=== PATIENT | male | born 1955 | race Caucasian/White ===

== ENCOUNTER → 2018-01-06 08:36 | Outpatient (CLI) | payer OTHER, SELFPAY ==
[2018-01-06 10:05] LABS: Alanine Aminotransferase 33 U/L (12-78); Albumin Level 3.7 gm/dL (3.4-5.0); Albumin/Globulin Ratio 1.1 (1.1-1.8); Alkaline Phosphatase 80 U/L (46-116); Anion Gap 9.9 mEq/L (5-15); Aspartate Amino Transferase 11 U/L (15-37); Bilirubin,Total 0.4 mg/dL (0.2-1.0); Blood Urea Nitrogen 13 mg/dL (7-18); Calcium 8.8 mg/dL (8.5-10.1); Carbon Dioxide 31 mmol/L (21.0-32.0); Chloride 106 mmol/L (98-107); Chol/HDL Ratio 4.2 (1-3.5); Cholesterol 180 mg/dL (140-200); Creatinine,Serum 1.49 mg/dL (0.70-1.30); Estimated Glomerular Filt Rate 48 ml/min (>60); GFR (African American) 58 ML/MIN (>60); Globulin 3.4 gm/dl (1.3-3.2); Glucose 115 mg/dL (74-106); HDL Cholesterol 43 mg/dL (27-67); LDL Cholesterol 114 mg/dL (0-130); Potassium 4.9 mmoL/L (3.5-5.1); Sodium 142 mmol/L (136-145); Thyroid Stimulating Hormone 3.27 uIU/ml (0.358-3.740); Total Protein,Serum 7.1 gm/dL (6.4-8.2); Triglycerides 115 mg/dL (30-200); VLDL Cholesterol 23 mg/dL (0-40)
== END ==
PROVIDERS: PCP Family Medicine; Visit Provider Family Medicine
DX: I25.10 Atherosclerotic heart disease of native coronary artery without angina pectoris (principal); E03.9 Hypothyroidism, unspecified; R73.9 Hyperglycemia, unspecified; E78.5 Hyperlipidemia, unspecified
CPT/HCPCS: 36415; 80053; 80061; 83036; 84443

== ENCOUNTER → 2018-01-19 15:22 | Outpatient (CLI) | payer OTHER, SELFPAY ==
--- NOTE | 2018-01-19 15:29 | XR_ITS ---
XR knee LT 3V HISTORY: ITS.REASON: LT KNEE PAIN ORDERING PHYSICIAN: Skinny Centeno MD PATIENT AGE: 62 years COMPARISON: None FINDINGS: No fracture or dislocation. No lytic or blastic change. Normal mineralization. There is slight decrease in the joint space medially minimal osteoarthritic change. IMPRESSION: Minimal osteoarthritis medial compartment otherwise negative
== END ==
PROVIDERS: PCP Family Medicine; Visit Provider Family Medicine
DX: M25.562 Pain in left knee (principal)
CPT/HCPCS: 73562

== ENCOUNTER → 2018-02-25 16:48 | Outpatient (CLI) | payer OTHER, SELFPAY ==
--- NOTE | 2018-02-25 16:49 | XR_ITS ---
XR knee LT 4V HISTORY: Knee pain ITS.REASON: sunrisereynaldo views ORDERING PHYSICIAN: Lloyd Love MD PATIENT AGE: 62 years COMPARISON: 01/19/2019 FINDINGS: There are moderate osteoarthritic changes involving the medial compartment with decrease in the joint space, mild osteosclerosis, and mild osteophyte formation. There is mild lateral translation of the proximal tibia. Minimal osteoarthritic changes are present at the knee joint. There is some increased density in the suprapatellar region suggesting small knee joint effusion. IMPRESSION: Osteoarthritis with possible knee joint effusion. Not significantly changed
--- NOTE | 2018-02-25 16:49 | XR_ITS ---
XR knee RT 4V HISTORY: Knee pain ITS.REASON: 4 views weightbearing ORDERING PHYSICIAN: Lloyd Love MD PATIENT AGE: 62 years COMPARISON: None FINDINGS: There is moderate osteoarthritic change of the medial compartment with mild osteoarthritis of the lateral compartment and patellofemoral joint. No fracture or dislocation. No lytic or blastic change. IMPRESSION: Osteoarthritis
== END ==
PROVIDERS: PCP Family Medicine; Visit Provider Orthopaedic Surgery
DX: M25.561 Pain in right knee (principal); M25.562 Pain in left knee
CPT/HCPCS: 73564

== ENCOUNTER → 2018-12-07 09:17 | Outpatient (CLI) | payer OTHER, SELFPAY ==
--- NOTE | 2018-12-07 09:23 | XR_ITS ---
XR knee LT 4V HISTORY: Progressive knee pain ITS.REASON: weightbearing views ORDERING PHYSICIAN: Lloyd Love MD PATIENT AGE: 63 years COMPARISON: 02/25/2018 FINDINGS: There are mild to moderate osteoarthritic changes of the medial compartment slightly worse than when compared to the previous study. Mild osteoarthritic changes present at the patellofemoral joint. IMPRESSION: [id number] osteoarthritis of the medial compartment which is slightly worse
--- NOTE | 2018-12-07 09:23 | XR_ITS ---
XR knee RT 4V HISTORY: Knee pain progressive ITS.REASON: weightbearing ORDERING PHYSICIAN: Lloyd Love MD PATIENT AGE: 63 years COMPARISON: 02/25/2018 FINDINGS: There are mild to moderate osteoarthritic changes of the medial compartment with decrease in joint space medially somewhat similar to 02/25/2018. There is a small calcific density along the superior aspect of the lateral tibial spine suggesting a loose body or an osteophyte unchanged. Mild osteoarthritic changes are present at the lateral compartment and patellofemoral joint. No fracture or dislocation. No lytic or blastic change. IMPRESSION: [id number] osteoarthritis with small loose body or osteophyte at the lateral tibial spine
== END ==
PROVIDERS: PCP Family Medicine; Visit Provider Orthopaedic Surgery
DX: M17.11 Unilateral primary osteoarthritis, right knee (principal); M17.12 Unilateral primary osteoarthritis, left knee
CPT/HCPCS: 73564

== ENCOUNTER 2019-03-28 23:37 | Inpatient (IN) ==
[2019-03-28 23:55] LABS: Basophils # 0.1 K/mm3 (0-0.2); Basophils % 0.4 % (0.1-2.0); Eosinophils # 0.1 K/mm3 (0.0-0.4); Eosinophils % 0.6 % (0.1-12.0); Hematocrit 41.7 % (42.0-52.0); Hemoglobin 13.2 g/dL (14.1-18.0); Lymphocytes # 11.4 K/mm3 (0.7-4.5); Lymphocytes % 86.3 % (10-50); Mean Corpuscular HGB Conc 31.6 g/dL (31.8-35.4); Mean Corpuscular Volume 93.2 fl (80-94); Mean Platelet Volume 11.1 fl (7.4-10.4); Monocytes # 1.6 K/mm3 (0.1-1.0); Monocytes % 12.4 % (1.7-9.3); Neutrophils # 0.1 K/mm3 (1.8-7.8); Platelet Count 207 K/mm3 (142-424); Red Blood Count 4.48 M/mm3 (4.60-6.20); Red Cell Distribution Width 16.4 % (11.5-17.5); White Blood Count 13.2 K/mm3 (4.8-10.8)
[2019-03-29 00:07] LABS: Neutrophils % 0.4 % (37.0-80.0)
[2019-03-29 00:31] LABS: Microscopic, Urine URINE MICROSCOPIC (MICROSCOPIC)
[2019-03-29 00:35] LABS: Appearance,Urine CLEAR (Clear); Blood, Urine TRACE-I (Negative); Color,Urine YELLOW (Yellow); Glucose,Urine (UA) Negative (Negative); Ketones,Urine Negative (Negative); Leukocyte Esterase,Urine Negative (Negative); Protein,Urine 1+ (Negative); Specific Gravity, Urine >= 1.030 (1.005-1.030)
[2019-03-29 00:38] LABS: Bilirubin,Urine Negative (Negative)
[2019-03-29 00:39] LABS: Alanine Aminotransferase 227 U/L (12-78); Albumin/Globulin Ratio 0.6 (1.1-1.8); Alkaline Phosphatase 191 U/L (46-116); Amylase 27 U/L (25-115); Anion Gap 13.9 mEq/L (5-15); Aspartate Amino Transferase 26 U/L (15-37); Blood Urea Nitrogen 14 mg/dL (7-18); Calcium 9.1 mg/dL (8.5-10.1); Carbon Dioxide 24 mmol/L (21.0-32.0); Chloride 104 mmol/L (98-107); Globulin 4.8 gm/dl (1.3-3.2); Glucose 109 mg/dL (74-106); Sodium 138 mmol/L (136-145); Total Protein,Serum 7.8 gm/dL (6.4-8.2)
[2019-03-29 00:40] LABS: Bacteria,Urine 2+ /lpf; Hyaline Casts,Urine Occasional #/lpf (0); Mucus,Urine 1+ /lpf; WBC,Urine Occasional #/hpf (0-3)
[2019-03-29 00:48] LABS: Lymphocytes % 31 % (10-50); Monocytes % 1 % (2-9); Neutrophils % 68 % (42-76); Ovalocytes 1+; Stomatocytes 1+; Total Cells Counted 100
[2019-03-29 00:55] LABS: Amphetamine/Metha Screen,Urine Negative ng/mL (<1000); Barbiturates Screen,Urine Negative ng/mL (<200); Benzodiazepines Screen,Urine Positive ng/mL (<200); Cannabinoid Screen,Urine Negative ng/mL (<50); Cocaine Screen,Urine Negative ng/mL (<300); Methadone Screen,Urine Negative ng/mL (<300); Opiate Screen,Urine Negative ng/mL (<300); Phencyclidine Screen,Urine Negative ng/mL (<25)
--- NOTE | 2019-03-29 01:08 | Emergency Department Note ---
ED Disposition Clinical Impression: Atrial arrhythmia Obesity Qualifiers: Obesity type: due to excess calories Obesity classification: adult class 3 (BMI >= 40) Serious obesity comorbidity presence: with serious comorbidity Body mass index: BMI 40.0-44.9 Qualified Code(s): E66.01 - Morbid (severe) obesity due to excess calories; Z68.41 - Body mass index (BMI) 40.0-44.9, adult Disposition: Admitted As Inpatient Condition on Discharge: Fair Referrals: Skinny Centeno MD [Primary Care Provider] - - Critical Care Critical Care Time: No Attestation: On 03/28/19, the high probability of a clinically significant, sudden or life threatening deterioration of the following system(s) required my full and direct attention, intervention and personal management. The time I documented below is in addition to time spent performing reported procedures but includes the following listed in this critical care notation. Medical Decision Making - Medical Records Medical records reviewed: Yes: I reviewed the patient's medical records. - Papito Inquiry Pt receiving controlled substance: No Vital Signs: 03/28/19 23:38 03/29/19 01:37 Pulse Rate [Right Brachial] 79 108 H Respiratory Rate 16 16 Blood Pressure [Right Arm] 124/82 119/97 H Blood Pressure Mean [Right Arm] 96 104 Blood Pressure Source [Right Arm] Automatic Cuff Automatic Cuff Blood Pressure Position [Right Arm] Sitting Sitting 02 Sat by Pulse Oximetry 98 98 Oxygen Delivery Method Room Air Room Air - Lab Data Lab results reviewed: Yes: I reviewed the patient's lab results. Lab Results 03/28/19 23:45: WBC 13.2 H, RBC 4.48 L, Hgb 13.2 L, Hct 41.7 L, MCV 93.2, MCH 29.4, MCHC 31.6 L, RDW 16.4, Plt Count 207, MPV 11.1 H, Neut % (Auto) 0.4 L, Lymph % (Auto) 86.3 H, [place] % (Auto) 12.4 H, Eos % (Auto) 0.6, Baso % (Auto) 0.4, Neut # (Auto) 0.1 L*, Lymph # (Auto) 11.4 H, [place] # (Auto) 1.6 H, Eos # (Auto) 0.1, Baso # (Auto) 0.1, Total Counted 100, Neutrophils % (Manual) 68, Lymphocytes % (Manual) 31, Monocytes % (Manual) 1 L, Differential Comment , Platelet Estimate Normal, Ovalocytes 1+, Stomatocytes 1+ 03/29/19 00:05: Sodium 138, Potassium 3.9, Chloride 104, Carbon Dioxide 24, Anion Gap 13.9, BUN 14, Creatinine 1.52 H, Estimated Creat Clear 55, Estimated GFR 47 L, Est GFR ( Amer) 57 L, Glucose 109 H, Calcium 9.1, Total B ilirubin 1.0, AST 26, ALT 227 H, Alkaline Phosphatase 191 H, Troponin I < 0.02, Total Protein 7.8, Albumin 3.0 L, Globulin 4.8 H, Albumin/Globulin Ratio 0.6 L, Amylase 27, Lipase 201 03/29/19 00:05: Lactate 1.3 03/29/19 00:25: Urine Color Yellow, Urine Appearance Clear, Urine pH 6.0, Ur Specific [place] >= 1.030, Urine Protein 1+, Urine Glucose (UA) Negative, Urine Ketones Negative, Urine Blood Trace-i, Urine Nitrate Negative, Urine Bilirubin Negative, Urine Urobilinogen 2.0, Ur Leukocyte Esterase Negative, Urine RBC 3-5, Urine WBC Occasional, Urine Bacteria 2+, Hyaline Casts Occasional, Urine Mucus 1+ 03/29/19 00:25: Urine Opiates Screen Negative, Urine Methadone Screen Negative, Ur Barbituates Screen Negative, Ur Phencyclidine Scrn Negative, Ur Amphetamines Screen Negative, U Benzodiazepines Scrn Positive H, Urine Cocaine Screen Negative, U Marijuana (THC) Screen Negative Result diagrams: 03/28/19 23:45 03/29/19 00:05 Orders (Tests/Meds): ED MEDICATIONS Generic Name Dose Route Start Last Admin Trade Name Freq PRN Reason Stop Dose Admin Sodium Chloride 1,000 mls @ 999 mls/hr 03/29/19 01:30 03/29/19 01:40 Sod Chlor 0.9% 1000ml Bag IV 03/29/19 02:30 999 mls/hr .Q1H1M MEREDITH Administration Discontinued Medications Generic Name Dose Route Start Last Admin Trade Name Freq PRN Reason Stop Dose Admin Ioversol 75 ml 03/29/19 01:39 03/29/19 01:39 Rad-Optiray 350 100ml Vial IV 03/29/19 01:40 75 ml ONCE ONE Administration Protocol Sodium Chloride 10 ml 03/29/19 01:39 03/29/19 01:39 Rad-Saline Flush 10ml Syringe IV 03/29/19 01:40 10 ml ONCE ONE Administration ORDERS Category Date Time Status CT abdomen pelvis w con Stat Cat Scan 03/29/19 00:[address] head/brain wo con Stat Cat Scan 03/29/19 00:01 Taken XR chest AP Stat Exams 03/29/19 00:01 Taken T4 (Thyroxine) Stat Lab 03/29/19 02:42 Ordered TSH [Thyroid Stimulating Hormone] Stat Lab 03/29/19 02:42 Ordered Blood Culture Stat Micro 03/29/19 00:05 Received Urine Culture Stat Micro 03/29/19 00:25 Received - CT Data CT Scan: Head, Abdomen, Pelvis Time Received: 03:[address] Reviewed: Yes: I have viewed the radiologist's interpretation Preliminary Findings: Abnormal (see report) - ECG Data Tracing #1 Arrhythmias present: aflutter Ischemic changes: non-specific ST-T wave changes Tracing #2 Arrhythmias present: afib Ischemic changes: non-specific ST-T wave changes - Physician Consults Physician Consulted: earnest Reason -: Admission Weakness HPI - General Chief complaint: Weakness Stated complaint: Weakness Time Seen by Provider: 03/29/19 00:00 Mode of Arrival: Ambulatory Source of Information: Patient, Spouse, Medical Record Limitations: No Limitations Description of Symptoms (Recalled from ER Triage Doc. by RN): Pt advises he was sitting in the floor earlier and went to get up and felt a pop in his left lower quad.And started having severe pain in his abd. advises pt was lethargic and diaphoretic. Pt presents to the ED slow to answer questions and advises that he feels "fuzzy headed" and was having severe abd pain earlier. - History of Present Illness HPI Narrative: had episode at home with dizzyness and confusion with diaphorsis with weakness MD Complaint: generalized weakness Onset (ago): hour(s) Location: generalized Severity: moderate Associated symptoms: denies other symptoms - Related Data Home Medications Medication Instructions Recorded Confirmed alprazolam 1 mg tablet 1 mg PO BID 02/25/18 03/29/19 duloxetine 60 mg capsule,delayed 60 mg PO DAILY 02/25/18 03/29/19 release gabapentin 600 mg tablet 600 mg PO BID 02/25/18 03/29/19 levothyroxine 50 mcg capsule 50 mcg PO DAILY 02/25/18 03/29/19 lurasidone 40 mg tablet 60 mg PO DAILY 02/25/18 03/29/19 mirtazapine 45 mg tablet 45 mg PO DAILY 02/25/18 03/29/19 hydrOXYzine pamoate [Hydroxyzine 100 mg PO TID 03/29/19 03/29/19 Pamoate] Allergies Allergy/AdvReac Type Severity Reaction Status Date / Time Erythromycin Allergy Unknown Uncoded 12/07/18 09:55 Macrolide Allergy Unknown Uncoded 12/07/18 09:55 (Erythromycin-Related) [facility] History - Hepatitis A Screen Drug use history?: No High risk sexual behaviors?: No History of sexually transmitted infection?: No Currently employed?: No Childcare worker?: No Do you have indoor plumbing?: No Do you have electricity?: No Attestation statement:: This patient has been screened for Hepatitis A risk factors. I have reviewed the patient's past medical history: Yes Medical History: Reports:: Anxiety Other Medical History: Reports: Arthritis, Hypothyroidism Other Surgeries: Yes: Appendectomy, Cardiac Surgery, Colonoscopy - Social History Smoking Status: Never smoker Alcohol Intake: never Occupational Status: unemployed - Psychiatric History Pschychiatric History:: Reports:: Anxiety Family Hx:: Heart Attack ROS Obtained: Yes All systems reviewed & no additional complaints - Constitutional Constitutional: Reports as per HPI, Denies fever(s), Reports weakness - Eyes Eyes: Denies change in vision - ENT Ears, Nose, Mouth, and Throat: Denies throat swelling, Reports vertigo/dizziness - Cardiovascular Cardiovascular: Denies chest pain - Respiratory Respiratory: No cough - Gastrointestinal Gastrointestingal: Denies: abdominal pain - Genitourinary Male Genitourinary: Denies hematuria - Musculoskeletal Musculoskeletal: Denies joint pain - Integumentary/Breasts Skin/Breast: Denies rash - Neurologic Neurologic: Reports as per HPI, Denies abnormal speech, Reports confusion, Denies convulsions, Reports dizziness, Denies seizure-like activity Physical Exam - General General appearance: alert, obese - Head Head exam: normocephalic - Eye Eye exam: Present: PERRL, EOMI. Absent: scleral icterus, nystagmus - ENT ENT exam: Present: mucous membranes dry - Neck Neck exam: Present: trachea midline - Respiratory Respiratory exam: Absent: respiratory distress - Cardiovascular Cardiovascular exam: Present: irregular rhythm, systolic murmur, +S4 - Abdominal Exam Abdominal exam: Present: soft - Extremities Exam Extremities exam: Present: pedal edema. Absent: calf tenderness - Neurological Exam Neurological exam: Present: alert, oriented X3, CN II-XII intact - Skin Skin exam: Absent: rash
[2019-03-29 03:16] LABS: Thyroid Stimulating Hormone 7.18 uIU/ml (0.358-3.740)
[2019-03-29 06:11] LABS: Basophils % 0.3 % (0.1-2.0); Eosinophils # 0.1 K/mm3 (0.0-0.4); Eosinophils % 0.7 % (0.1-12.0); Hemoglobin 12.7 g/dL (14.1-18.0); Lymphocytes # 10.5 K/mm3 (0.7-4.5); Lymphocytes % 91.5 % (10-50); Mean Corpuscular Volume 93.6 fl (80-94); Mean Platelet Volume 10.1 fl (7.4-10.4); Monocytes # 0.8 K/mm3 (0.1-1.0); Monocytes % 7.1 % (1.7-9.3); Neutrophils # 0.1 K/mm3 (1.8-7.8); Platelet Count 207 K/mm3 (142-424); Red Blood Count 4.38 M/mm3 (4.60-6.20); Red Cell Distribution Width 16.4 % (11.5-17.5); White Blood Count 11.5 K/mm3 (4.8-10.8)
[2019-03-29 06:13] LABS: Neutrophils % 0.4 % (37.0-80.0)
[2019-03-29 06:27] LABS: Anion Gap 11.2 mEq/L (5-15); Blood Urea Nitrogen 13 mg/dL (7-18); Calcium 8.7 mg/dL (8.5-10.1); Carbon Dioxide 27 mmol/L (21.0-32.0); Chloride 105 mmol/L (98-107); Cholesterol 140 mg/dL (140-200); Glucose 102 mg/dL (74-106); HDL Cholesterol 35 mg/dL (27-67); LDL Cholesterol 93 mg/dL (0-130); Sodium 139 mmol/L (136-145); Triglycerides 62 mg/dL (30-200); VLDL Cholesterol 12 mg/dL (0-40)
--- NOTE | 2019-03-29 07:49 | Pharmacy Consult Notes ---
[facility] Pharmacy VTE Monitoring - Patient Demographics Admission date: 03/29/19 Report Date: 03/29/19 Time: 07:49 Allergies/Adverse Reactions: Patient Allergies Erythromycin Allergy (Unknown, Uncoded 12/07/18 09:55) Macrolide (Erythromycin-Related) Allergy (Unknown, Uncoded 12/07/18 09:55) Height: 1.83 m Weight: 146.312 kg Patient Problems: Current Active Problems Atrial arrhythmia (Acute) Obesity (Acute) - VTE Risk Labs: VTE Related Lab Results Hgb 12.7 g/dL (14.1-18.0) L 03/29/19 05:45 Hct 41.0 % (42.0-52.0) L 03/29/19 05:45 Plt Count 207 K/mm3 (142-424) 03/29/19 05:45 BUN 13 mg/dL (7-18) 03/29/19 05:45 Creatinine 1.39 mg/dL (0.70-1.30) H 03/29/19 05:45 Estimated Creat Clear 60 mL/min (50-200) 03/29/19 05:45 Was VTE Risk Assessment Performed: No VTE Score: 6 VTE Risk Level: Moderate Risk - Prophylaxis VTE Prophylaxis Ordered?: Yes Types of VTE Prophylaxis: TEDS Knee High Location of Applied Device: Bilateral Lower Extremeties - VTE Diagnosis Confirmed Treatment or plan recommended: Continue Current Treatment
--- NOTE | 2019-03-29 08:01 | Consult Report ---
History of Present Illness Consult date: 03/29/19 Requesting physician: Skinny Centeno Consult reason: atrial fibrillation Chief complaint: Abdominal pain, new onset A. fib with RVR Additional Medical History:: 1. Coronary artery disease A. Single-vessel CABG, 1995, [place], [place], [employer] utilized 2. Hypothyroidism 3. Obesity 4. Chronic pain secondary to knee and back issues with chronic gabapentin and benzodiazepine use 5. History of marijuana use 6. History of hypertension, currently on no medication 7. Hyperlipidemia, on statin therapy but patient's states he is not taking it History of present illness: 63-year-old white male with history of coronary bypass grafting in 1995, chronic pain and obesity presented to the emergency department for diaphoresis and weakness in association with abdominal pain. Patient denies any recent fever, chills, nausea, vomiting or diarrhea. Patient's states that he does not complain of any chest pain but has had some abdominal discomfort recently for which she has been taking ibuprofen intermittently. Patient has a sedentary lifestyle due to his knee and back issues. ER work-up included abdominal CT showing evidence of pancreatitis, chest x-ray showing some mild cardiomegaly but no evidence of congestive heart failure and CT of the head showed no acute process. Amylase and lipase are within normal limits. Troponins returned normal x2 overnight. EKG revealed atrial flutter/fibrillation with right bundle branch block with rapid ventricular response and rate of about 120 bpm. This is not new to the patient and his . No prior diagnosis. Patient denies any unilateral weakness. He is able to answer questions appropriately. Cardiology consulted for evaluation recommendations. Patient's states that if he has to have any invasive procedures she wishes them to be done in [facility] History Medical History: Reports:: Anxiety, Coronary Artery Disease, Hyperlipidemia, Hypertension, Myocardial Infarction Denies:: Cancer, Diabetes Mellitus Type 1, Diabetes Mellitus Type 2, MRSA *Have you ever received a pneumonia vaccine?: No *Have you received a flu vaccine this season?: Yes Other Medical History: Reports: Arthritis, Hypothyroidism Other Surgeries: Yes: Appendectomy, Cardiac Surgery, Colonoscopy, Open Heart Surgery Amputation: No Fractures: No - *Social History Educational Level: Completed High School Smoking Status: Never smoker Alcohol Intake: never Substance Use Type: marijuana *Occupational Status:: retired Housing: house Household Members: spouse *Travel in the last 8 weeks: None - Psychiatric History Pschychiatric History:: Reports:: Anxiety Family Hx:: Heart Attack, Stroke Meds Home Medications Medication Instructions Recorded Confirmed Type alprazolam 1 mg tablet 1 mg PO BID 02/25/18 03/29/19 History duloxetine 60 mg capsule,delayed 60 mg PO DAILY 02/25/18 03/29/19 History release gabapentin 600 mg tablet 600 mg PO BID 02/25/18 03/29/19 History levothyroxine 50 mcg capsule 50 mcg PO DAILY 02/25/18 03/29/19 History lurasidone 40 mg tablet 60 mg PO DAILY 02/25/18 03/29/19 History mirtazapine 45 mg tablet 45 mg PO DAILY 02/25/18 03/29/19 History hydrOXYzine pamoate [Hydroxyzine 100 mg PO TID 03/29/19 03/29/19 History Pamoate] Allergies Allergy/AdvReac Type Severity Reaction Status Date / Time Erythromycin Allergy Unknown Uncoded 12/07/18 09:55 Macrolide Allergy Unknown Uncoded 12/07/18 09:55 (Erythromycin-Related) Review of Systems - Review of Systems Review of systems:: pertinent systems reviewed and negative unless documented below - *Cardiovascular Reports shortness of breath with activity, Denies chest pain - *Respiratory Denies cough, Denies shortness of breath - *Gastrointestinal Reports abdominal pain, Denies nausea, Denies vomiting - *Genitourinary Denies blood in urine - *Musculoskeletal Reports joint pain, Reports back pain - *Neurologic Reports confusion, Reports dizziness, Reports dizziness, Reports weakness, Denies abnormal speech, Denies seizure-like activity, Denies seizure-like activity Exam Vital signs and Labs for Last 24 Hours: Temp Pulse Resp BP Pulse Ox 97.7 F 100 H 19 139/89 97 03/29/19 04:32 03/29/19 04:58 03/29/19 04:32 03/29/19 04:32 03/29/19 04:32 Laboratory Results - last 24 hr 03/28/19 23:45: WBC 13.2 H, RBC 4.48 L, Hgb 13.2 L, Hct 41.7 L, MCV 93.2, MCH 29.4, MCHC 31.6 L, RDW 16.4, Plt Count 207, MPV 11.1 H, Neut % (Auto) 0.4 L, Lymph % (Auto) 86.3 H, [place] % (Auto) 12.4 H, Eos % (Auto) 0.6, Baso % (Auto) 0.4, Neut # (Auto) 0.1 L*, Lymph # (Auto) 11.4 H, [place] # (Auto) 1.6 H, Eos # (Auto) 0.1, Baso # (Auto) 0.1, Total Counted 100, Neutrophils % (Manual) 68, Lymphocytes % (Manual) 31, Monocytes % (Manual) 1 L, Differential Comment , Platelet Estimate Normal, Ovalocytes 1+, Stomatocytes 1+ 03/29/19 00:05: Sodium 138, Potassium 3.9, Chloride 104, Carbon Dioxide 24, Anion Gap 13.9, BUN 14, Creatinine 1.52 H, Estimated Creat Clear 55, Estimated GFR 47 L, Est GFR ( Amer) 57 L, Glucose 109 H, Calcium 9.1, Total Bilirubin 1.0, AST 26, ALT 227 H, Alkaline Phosphatase 191 H, Troponin I < 0.02, Total Protein 7.8, Albumin 3.0 L, Globulin 4.8 H, Albumin/Globulin Ratio 0.6 L, Amylase 27, Lipase 201 03/29/19 00:05: Lactate 1.3 03/29/19 00:05: TSH 7.18 H D, Thyroxine (T4) 8.3 03/29/19 00:25: Urine Color Yellow, Urine Appearance Clear, Urine pH 6.0, Ur Specific [place] >= 1.030, Urine Protein 1+, Urine Glucose (UA) Negative, Urine Ketones Negative, Urine Blood Trace-i, Urine Nitrate Negative, Urine Bilirubin Negative, Urine Urobilinogen 2.0, Ur Leukocyte Esterase Negative, Urine RBC 3-5, Urine WBC Occasional, Urine Bacteria 2+, Hyaline Casts Occasional, Urine Mucus 1+ 03/29/19 00:25: Urine Opiates Screen Negative, Urine Methadone Screen Negative, Ur Barbituates Screen Negative, Ur Phencyclidine Scrn Negative, Ur Amphetamines Screen Negative, U Benzodiazepines Scrn Positive H, Urine Cocaine Screen Negative, U Marijuana (THC) Screen Negative 03/29/19 05:45: WBC 11.5 H, RBC 4.38 L, Hgb 12.7 L, Hct 41.0 L, MCV 93.6, MCH 29.0, MCHC 31.0 L, RDW 16.4, Plt Count 207, MPV 10.1, Neut % (Auto) 0.4 L, Lymph % (Auto) 91.5 H, [place] % (Auto) 7.1, Eos % (Auto) 0.7, Baso % (Auto) 0.3, Neut # (Auto) 0.1 L*, Lymph # (Auto) 10.5 H, [place] # (Auto) 0.8, Eos # (Auto) 0.1, Baso # (Auto) 0.0 03/29/19 05:45: Sodium 139, Potassium 4.2, Chloride 105, Carbon Dioxide 27, Anion Gap 11.2, BUN 13, Creatinine 1.39 H, Estimated Creat Clear 60, Estimated GFR 52 L, Est GFR ( Amer) 63, Glucose 102, Calcium 8.7, Magnesium 2.0, Troponin I < 0.02, Triglycerides 62, Cholesterol 140, LDL Cholesterol 93, VLDL Cholesterol 12, HDL Cholesterol 35, Cholesterol/HDL Ratio 4.0 H I & O for Last 24 hours: Intake & Output 03/26/19 03/27/19 03/28/19 03/29/19 11:59 11:59 11:59 11:59 Intake Total 102 / 102 Balance 102 / 102 Weight 322 lb 9 oz - *Routine HEENT Exam Head: Present: normocephalic Eye: Present: EOMI, PERRL ENT: Present: mucous membranes moist - *Routine Neck Exam Present: supple. Absent: JVD, carotid bruit - *Routine Respiratory Exam Present: CTA bilaterally. Absent: accessory muscle use, rales, rhonchi, wheezes - *Routine Cardiovascular Exam Present: tachycardia, irregular rhythm. Absent: murmur, gallop, rubs - *Routine Abdominal Exam Present: soft. Absent: tenderness, distended, guarding - *Routine Extremities Exam Absent: edema, calf tenderness - *Routine Neurological Exam Present: alert, oriented X3, moving all extremities Assessment and Plan (1) Atrial fibrillation and flutter Current visit: Yes Status: Acute Category: Medical Code(s): I48.91 - Unspecified atrial fibrillation; I48.92 - Unspecified atrial flutter (2) Atrial fibrillation with RVR Current visit: Yes Status: Acute Category: Medical Code(s): I48.91 - Unspecified atrial fibrillation (3) History of coronary artery bypass graft x 1 Current visit: Yes Status: Acute Category: Surgical Code(s): Z95.1 - Presence of aortocoronary bypass graft (4) Abdominal pain Current visit: Yes Status: Acute Category: Medical Code(s): R10.9 - Unspecified abdominal pain (5) CKD (chronic kidney disease), stage II Current visit: Yes Status: Acute Category: Medical Code(s): N18.2 - Chronic kidney disease, stage 2 (mild) (6) Elevated LFTs Current visit: Yes Status: Acute Category: Medical Code(s): R94.5 - Abnormal results of liver function studies - Assessment and plan all Dx Assessment and Plan for all problems:: 1. Echocardiogram has been performed and is pending official interpretation, however, preliminary evaluation shows preserved ejection fraction with no significant valvular heart disease. This was a limited study due to the patient's size. 2. Switch diltiazem over to p.o. 30 mg 3 times daily with adjusting as needed to keep heart rate less than 100 bpm and to keep systolic blood pressure greater than 100 mmHg. 3. Patient has a CHADS score of 2 (HTN, CAD), will therefore start him on anticoagulation therapy in the form of Xarelto 20 mg daily. If patient has not converted to NSR within 30 days then would consider RON/Cardioversion. 4. Consider Lexiscan Myoview stress test once patient's heart rate has control been controlled.
--- NOTE | 2019-03-29 08:56 | History & Physical Report ---
*Admission Date: 03/29/19 <Summer Amos - 03/29/19 08:56> *Chief complaint: Altered mental status; diaphoresis <Summer Amos - 03/29/19 09:35> *History of present illness: Mr. Maguire is a 63-year-old male with a history of obesity, anxiety, depression, ASCVD, degenerative disc disease of the lumbar spine, bilateral knee arthritis, hyperlipidemia, and hypothyroidism who presented to [facility] emergency room after being found by his on the couch with profuse sweating and a dazed state. She stated that she gave him 10 minutes to improve and when he remained diaphoretic she called EMS to bring him to the hospital. He denied chest pain and shortness of breath at this time. Patient had experienced abdominal pain earlier in the day but this had resolved. He had had some left pleuritic-like pain for which he had been taking ibuprofen 400 mg several times a day for the last few days. He had been eating normally and denied nausea and vomiting although he had been experiencing increase in heartburn for the last 2 weeks. states he has been eating many donuts and fried apple pies which she felt contributed to the persistent GERD. Patient denied any upper respiratory symptoms, fever, vomiting and diarrhea. Patient is noted to have a sedentary lifestyle due to his joint issues. Work-up in the emergency room included a CT of the abdomen/pelvis which showed evidence of a possible pancreatitis. Chest x-ray revealed mild cardiomegaly with no evidence of congestive heart failure. CT of the head showed no acute process. Amylase and lipase were noted to be normal. Troponins were also normal x2 overnight. EKG revealed atrial fibrillation with a right bundle branch block with a rapid ventricular response and rate of about 120 bpm. Patient was started on Cardizem drip and admitted to the hospital. He has been seen by cardiology. Echocardiogram has been completed with pending results. He has been in his hospital bed since about 5 AM. He continually denies any chest pain and shortness of breath. He remains in atrial fibrillation and on a Cardizem drip. <Summer Amos - 03/29/19 09:56> [facility] History Medical History: Reports:: Anxiety, Coronary Artery Disease, Depression, Gastroesophageal Reflux Disease(GERD), Hyperlipidemia, Hypertension, Myocardial Infarction Denies:: Atherosclerotic Heart Disease, Cancer, Diabetes Mellitus Type 1, Diabetes Mellitus Type 2, MRSA, Palpitations <Summer Amos 03/29/19 09:35> *Have you ever received a pneumonia vaccine?: No <Summer Amos 03/29/19 08 :56> *Have you received a flu vaccine this season?: Yes <Summer Amos 03/29/19 08:56> Other Medical History: Reports: Arthritis, Hypothyroidism <AmosSummer 03/29/19 08:56> Other Surgeries: Yes: Appendectomy, Cardiac Surgery, Colonoscopy, Open Heart Surgery <DandreSummer 03/29/19 08:56> Amputation: No <DandreSummer 03/29/19 08:56> Fractures: No <DandreSummer 03/29/19 08:56> - *Social History Educational Level: Completed High School <DandreSummer 03/29/19 08:56> Smoking Status: Never smoker <AmosSummer 03/29/19 08:56> Alcohol Intake: never <DandreSummer 03/29/19 08:56> Substance Use Type: marijuana <DandreSummer 03/29/19 08:56> *Occupational Status:: retired <DandreSummer 03/29/19 08:56> Housing: house <DandreSummer 03/29/19 08:56> Household Members: spouse <DandreSummer 03/29/19 08:56> *Travel in the last 8 weeks: None <AmosSummer 03/29/19 08:56> - Psychiatric History Pschychiatric History:: Reports:: Anxiety, Depression <AmosSummer 03/29/19 09:35> Family Hx:: Heart Attack, Hypertension, Stroke <AmosSummer 03/29/19 09:35> Review of Systems - Constitutional Reports weakness, Denies body ache(s), Denies fever(s), Denies headache(s) <DandreSummer 03/29/19 09:35> - Eyes Denies change in vision <DandreSummer 03/29/19 09:35> - ENT Reports dizziness, Denies ear pain, Denies facial pain, Denies sore throat <Summer Amos 03/29/19 09:35> - *Cardiovascular Reports shortness of breath with activity, Denies chest pain, Denies rapid, pounding, or irregular heartbeat <Summer Amos 03/29/19 09:35> - *Respiratory Reports shortness of breath with activity, Denies chest congestion, Denies cough, Denies coughing up blood <[facility] 03/29/19 09:35> - *Gastrointestinal Reports abdominal pain (Resolved at present), Reports constipation, Reports heartburn, Denies belching, Denies bloating, Denies change in bowel habits, Denies change in stools, Denies vomiting blood, Denies black, tarry stools, Denies nausea, Denies vomiting <[facility] 03/29/19 09:35> - *Genitourinary Denies difficulty urinating <[facility] 03/29/19 09:35> - *Musculoskeletal Reports joint pain (Bilateral knees and back) <[facility] 09:35> - *Neurologic Reports confusion, Reports dizziness, Reports dizziness, Reports weakness, Denies abnormal speech, Denies seizure-like activity, Denies seizure-like activity <Summer Amos 03/29/19 08:56> - Psychiatric Reports anxiety, Reports confusion, Reports depression <[facility] 03/29/19 09:35> Meds Home Medications Medication Instructions Recorded Confirmed Type alprazolam 1 mg tablet 1 mg PO DAILY 02/25/18 03/29/19 History duloxetine 60 mg capsule,delayed 60 mg PO DAILY 02/25/18 03/29/19 History release levothyroxine 50 mcg capsule 50 mcg PO DAILY 02/25/18 03/29/19 History mirtazapine 45 mg tablet 45 mg PO HS 02/25/18 03/29/19 History Gabapentin 600 mg PO TID 03/29/19 03/29/19 History Lurasidone HCl [Latuda] 60 mg PO HS 03/29/19 03/29/19 History hydrOXYzine pamoate [Hydroxyzine 100 mg PO TIDP PRN 03/29/19 03/29/19 History Pamoate] <Skinny Centeno - 03/29/19 13:08> Allergies Allergy/AdvReac Type Severity Reaction Status Date / Time erythromycin base Allergy Unknown Unknown Verified 03/29/19 09:12 allergy reaction <Skinny Centeno - 03/29/19 13:08> Exam Vital signs and Labs for Last 24 Hours: Temp Pulse Resp BP Pulse Ox 97.9 F 102 H 18 143/81 H 95 03/29/19 11:56 03/29/19 10:00 03/29/19 10:00 03/29/19 10:00 03/29/19 10:00 Laboratory Results - last 24 hr 03/28/19 23:45: WBC 13.2 H, RBC 4.48 L, Hgb 13.2 L, Hct 41.7 L, MCV 93.2, MCH 29.4, MCHC 31.6 L, RDW 16.4, Plt Count 207, MPV 11.1 H, Neut % (Auto) 0.4 L, Lymph % (Auto) 86.3 H, [place] % (Auto) 12.4 H, Eos % (Auto) 0.6, Baso % (Auto) 0.4, Neut # (Auto) 0.1 L*, Lymph # (Auto) 11.4 H, [place] # (Auto) 1.6 H, Eos # (Auto) 0.1, Baso # (Auto) 0.1, Total Counted 100, Neutrophils % (Manual) 68, Lymphocytes % (Manual) 31, Monocytes % (Manual) 1 L, Differential Comment , Platelet Estimate Normal, Ovalocytes 1+, Stomatocytes 1+ 03/29/19 00:05: Sodium 138, Potassium 3.9, Chloride 104, Carbon Dioxide 24, Anion Gap 13.9, BUN 14, Creatinine 1.52 H, Estimated Creat Clear 55, Estimated GFR 47 L, Est GFR ( Amer) 57 L, Glucose 109 H, Calcium 9.1, Total Bilirubin 1.0, AST 26, ALT 227 H, Alkaline Phosphatase 191 H, Troponin I < 0.02, Total Protein 7.8, Albumin 3.0 L, Globulin 4.8 H, Albumin/Globulin Ratio 0.6 L, Amylase 27, Lipase 201 03/29/19 00:05: Lactate 1.3 03/29/19 00:05: TSH 7.18 H D, Thyroxine (T4) 8.3 03/29/19 00:25: Urine Color Yellow, Urine Appearance Clear, Urine pH 6.0, Ur Specific [place] >= 1.030, Urine Protein 1+, Urine Glucose (UA) Negative, Urine Ketones Negative, Urine Blood Trace-i, Urine Nitrate Negative, Urine Bilirubin Negative, Urine Urobilinogen 2.0, Ur Leukocyte Esterase Negative, Urine RBC 3-5, Urine WBC Occasional, Urine Bacteria 2+, Hyaline Casts Occasional, Urine Mucus 1+ 03/29/19 00:25: Urine Opiates Screen Negative, Urine Methadone Screen Negative, Ur Barbituates Screen Negative, Ur Phencyclidine Scrn Negative, Ur Amphetamines Screen Negative, U Benzodiazepines Scrn Positive H, Urine Cocaine Screen Negative, U Marijuana (THC) Screen Negative 03/29/19 05:45: WBC 11.5 H, RBC 4.38 L, Hgb 12.7 L, Hct 41.0 L, MCV 93.6, MCH 29.0, MCHC 31.0 L, RDW 16.4, Plt Count 207, MPV 10.1, Neut % (Auto) 0.4 L, Lymph % (Auto) 91.5 H, [place] % (Auto) 7.1, Eos % (Auto) 0.7, Baso % (Auto) 0.3, Neut # (Auto) 0.1 L*, Lymph # (Auto) 10.5 H, [place] # (Auto) 0.8, Eos # (Auto) 0.1, Baso # (Auto) 0.0 03/29/19 05:45: Sodium 139, Potassium 4.2, Chloride 105, Carbon Dioxide 27, Anion Gap 11.2, BUN 13, Creatinine 1.39 H, Estimated Creat Clear 60, Estimated GFR 52 L, Est GFR ( Amer) 63, Glucose 102, Calcium 8.7, Magnesium 2.0, Troponin I < 0.02, Triglycerides 62, Cholesterol 140, LDL Cholesterol 93, VLDL Cholesterol 12, HDL Cholesterol 35, Cholesterol/HDL Ratio 4.0 H 03/29/19 09:40: Troponin I < 0.02 <JacoboSkinny Adriano - 03/29/19 13:08> Temp Pulse Resp BP Pulse Ox 97.7 F 100 H 19 139/89 97 03/29/19 04:32 03/29/19 04:58 03/29/19 04:32 03/29/19 04:32 03/29/19 04:32 Laboratory Results - last 24 hr 03/28/19 23:45: WBC 13.2 H, RBC 4.48 L, Hgb 13.2 L, Hct 41.7 L, MCV 93.2, MCH 29.4, MCHC 31.6 L, RDW 16.4, Plt Count 207, MPV 11.1 H, Neut % (Auto) 0.4 L, Lymph % (Auto) 86.3 H, [place] % (Auto) 12.4 H, Eos % (Auto) 0.6, Baso % (Auto) 0.4, Neut # (Auto) 0.1 L*, Lymph # (Auto) 11.4 H, [place] # (Auto) 1.6 H, Eos # (Auto) 0.1, Baso # (Auto) 0.1, Total Counted 100, Neutrophils % (Manual) 68, Lymphocytes % (Manual) 31, Monocytes % (Manual) 1 L, Differential Comment , Platelet Estimate Normal, Ovalocytes 1+, Stomatocytes 1+ 03/29/19 00:05: Sodium 138, Potassium 3.9, Chloride 104, Carbon Dioxide 24, Anion Gap 13.9, BUN 14, Creatinine 1.52 H, Estimated Creat Clear 55, Estimated GFR 47 L, Est GFR ( Amer) 57 L, Glucose 109 H, Calcium 9.1, Total Bilirubin 1.0, AST 26, ALT 227 H, Alkaline Phosphatase 191 H, Troponin I < 0.02, Total Protein 7.8, Albumin 3.0 L, Globulin 4.8 H, Albumin/Globulin Ratio 0.6 L, Amylase 27, Lipase 201 03/29/19 00:05: Lactate 1.3 03/29/19 00:05: TSH 7.18 H D, Thyroxine (T4) 8.3 03/29/19 00:25: Urine Color Yellow, Urine Appearance Clear, Urine pH 6.0, Ur Specific [place] >= 1.030, Urine Protein 1+, Urine Glucose (UA) Negative, Urine Ketones Negative, Urine Blood Trace-i, Urine Nitrate Negative, Urine Bilirubin Negative, Urine Urobilinogen 2.0, Ur Leukocyte Esterase Negative, Urine RBC 3-5, Urine WBC Occasional, Urine Bacteria 2+, Hyaline Casts Occasional, Urine Mucus 1+ 03/29/19 00:25: Urine Opiates Screen Negative, Urine Methadone Screen Negative, Ur Barbituates Screen Negative, Ur Phencyclidine Scrn Negative, Ur Amphetamines Screen Negative, U Benzodiazepines Scrn Positive H, Urine Cocaine Screen Negative, U Marijuana (THC) Screen Negative 03/29/19 05:45: WBC 11.5 H, RBC 4.38 L, Hgb 12.7 L, Hct 41.0 L, MCV 93.6, MCH 29.0, MCHC 31.0 L, RDW 16.4, Plt Count 207, MPV 10.1, Neut % (Auto) 0.4 L, Lymph % (Auto) 91.5 H, [place] % (Auto) 7.1, Eos % (Auto) 0.7, Baso % (Auto) 0.3, Neut # (Auto) 0.1 L*, Lymph # (Auto) 10.5 H, [place] # (Auto) 0.8, Eos # (Auto) 0.1, Baso # (Auto) 0.0 03/29/19 05:45: Sodium 139, Potassium 4.2, Chloride 105, Carbon Dioxide 27, Anion Gap 11.2, BUN 13, Creatinine 1.39 H, Estimated Creat Clear 60, Estimated GFR 52 L, Est GFR ( Amer) 63, Glucose 102, Calcium 8.7, Magnesium 2.0, Troponin I < 0.02, Triglycerides 62, Cholesterol 140, LDL Cholesterol 93, VLDL Cholesterol 12, HDL Cholesterol 35, Cholesterol/HDL Ratio 4.0 H <Summer Amos - 03/29/19 08:56> I & O for Last 24 hours: Intake & Output 03/27/19 03/28/19 03/29/19 03/30/19 11:59 11:59 11:59 11:59 Intake Total 102 / 102 Balance 102 / 102 Weight 322 lb 9 oz <Skinny Centeno - 03/29/19 13:08> Intake & Output 03/26/19 03/27/19 03/28/19 03/29/19 11:59 11:59 11:59 11:59 Intake Total 102 / 102 Balance 102 / 102 Weight 322 lb 9 oz <Summer Amos - 03/29/19 08:56> Radiology Reports for the Last 24 Hours: 03/29/2019 CT of the abdomen and pelvis IMPRESSION: Enlarged body of the pancreas with stranding of the peripancreatic fat consistent with acute pancreatitis. 03/29/2019 chest x-ray IMPRESSION: Borderline cardiomegaly. Old fractures of the left 4th and 5th rib and possibly 3rd rib versus nodule at the 3rd rib region. Consider upright PA and lateral chest for further evaluation. 03/29/2019 CT of the head IMPRESSION: No acute intracranial finding <Amos,[facility] 03/29/19 09:35> - Constitutional no acute distress, obese <[facility] 03/29/19 09:35> Comments: Appears comfortable <Amos,[facility] 03/29/19 09:35> - *Routine HEENT Exam Head: Present: normocephalic, atraumatic <[facility] 03/29/19 09:35> Eye: Present: PERRL. Absent: conjunctival icterus, scleral injection <[facility] 03/29/19 09:35> ENT: Present: mucous membranes moist, oropharynx clear <[facility] 03/29/19 09:35> - *Routine Neck Exam Present: supple. Absent: normal carotid upstroke, lymphadenopathy, thyromegaly <[facility] 03/29/19 09:35> - *Routine Respiratory Exam Present: CTA bilaterally (Anteriorly and posteriorly) <[facility] 03/29/19 09:35> - *Routine Cardiovascular Exam Present: irregular rhythm <[facility] 03/29/19 09:35> Comments: Monitor showing atrial fibrillation with with ventricular response 110-120 <[facility] 03/29/19 09:35> - *Routine Abdominal Exam Present: normoactive bowel sounds, obese. Absent: tenderness, guarding, organomegaly <[facility] 03/29/19 09:35> - *Routine Extremities Exam Present: edema (1+ bilateral ankle edema). Absent: calf tenderness <[facility] 03/29/19 09:35> - *Routine Neurological Exam Present: alert, oriented X3, moving all extremities, normal speech. Absent: altered mental status, facial asymmetry <[facility] 03/29/19 09:35> Assessment and Plan (1) Atrial fibrillation and flutter Current visit: Yes Status: Acute Category: Medical Code(s): I48.91 - Unspecified atrial fibrillation; I48.92 - Unspecified atrial flutter (2) Atrial fibrillation with RVR Current visit: Yes Status: Acute Category: Medical Code(s): I48.91 - Unspecified atrial fibrillation (3) History of coronary artery bypass graft x 1 Current visit: Yes Status: Acute Category: Surgical Code(s): Z95.1 - Presence of aortocoronary bypass graft (4) CKD (chronic kidney disease), stage II Current visit: Yes Status: Acute Category: Medical Code(s): N18.2 - Chronic kidney disease, stage 2 (mild) (5) Elevated LFTs Current visit: Yes Status: Acute Category: Medical Code(s): R94.5 - Abnormal results of liver function studies (6) Neutropenia Current visit: Yes Status: Acute Category: Medical Code(s): D70.9 - Neutropenia, unspecified (7) Anxiety and depression Current visit: Yes Status: Chronic Category: Medical Code(s): F41.9 - Anxiety disorder, unspecified; F32.9 - Major depressive disorder, single episode, unspecified (8) Hypothyroidism Current visit: Yes Status: Chronic Category: Medical Code(s): E03.9 - Hypothyroidism, unspecified (9) TSH elevation Current visit: Yes Status: Acute Category: Medical Code(s): R79.89 - Other specified abnormal findings of blood chemistry (10) Pancreatitis Current visit: Yes Status: Acute Category: Medical Code(s): K85.90 - Acute pancreatitis without necrosis or infection, unspecified <Skinny Centeno - 03/29/19 13:08> (1) Atrial fibrillation and flutter Current visit: Yes Status: Acute Category: Medical Code(s): I48.91 - Unspecified atrial fibrillation; I48.92 - Unspecified atrial flutter (2) Atrial fibrillation with RVR Current visit: Yes Status: Acute Category: Medical Code(s): I48.91 - Unspecified atrial fibrillation (3) History of coronary artery bypass graft x 1 Current visit: Yes Status: Acute Category: Surgical Code(s): Z95.1 - Prese nce of aortocoronary bypass graft (4) Abdominal pain Current visit: Yes Status: Acute Category: Medical Code(s): R10.9 - Unspecified abdominal pain (5) CKD (chronic kidney disease), stage II Current visit: Yes Status: Acute Category: Medical Code(s): N18.2 - Chronic kidney disease, stage 2 (mild) (6) Elevated LFTs Current visit: Yes Status: Acute Category: Medical Code(s): R94.5 - Abnormal results of liver function studies (7) Neutropenia Current visit: Yes Status: Acute Category: Medical Code(s): D70.9 - Neutropenia, unspecified (8) Anxiety and depression Current visit: Yes Status: Chronic Category: Medical Code(s): F41.9 - Anxiety disorder, unspecified; F32.9 - Major depressive disorder, single episode, unspecified (9) Hypothyroidism Current visit: Yes Status: Chronic Category: Medical Code(s): E03.9 - Hypothyroidism, unspecified (10) TSH elevation Current visit: Yes Status: Acute Category: Medical Code(s): R79.89 - Other specified abnormal findings of blood chemistry <DandreSummer - 03/29/19 09:51> - Assessment and plan all Dx Assessment and Plan for all problems:: Patient seen and examined. He seems confortable and his mental status is at baseline. Appreciate cardiology consult and recommendations. Appears to have mild degree of pancreatitis based on his CT scan although enzymes are normal. Noted discrepancy of auto and manual neutrophil counts on CBC. Will repeat labs in AM. Continue home meds. Advance diet and activity. <Skinny Centeno - 03/29/19 13:08> Assessment and Plan for all problems as per cardiology:: 1. Echocardiogram has been performed and is pending official interpretation, however, preliminary evaluation shows preserved ejection fraction with no significant valvular heart disease. This was a limited study due to the patient's size. 2. Switch diltiazem over to p.o. 30 mg 3 times daily with adjusting as needed to keep heart rate less than 100 bpm and to keep systolic blood pressure greater than 100 mmHg. 3. Patient has a CHADS score of 2 (HTN, CAD), will therefore start him on anticoagulation therapy in the form of Xarelto 20 mg daily. If patient has not converted to NSR within 30 days then would consider RON/Cardioversion. 4. Consider Lexiscan Myoview stress test once patient's heart rate has control been controlled. Will increase Synthroid due to elevated TSH. Dietary instruction. Remove Freitas catheter. PPI. <Summer Amos - 03/29/19 09:35>
--- NOTE | 2019-03-29 09:17 | Electrocardiograph Report ---
APPROVED REPORT Exam: Resting ECG HR:115 bpm ECG Measurements Heart Rate 115 AXES QRSd 130 QRS 87 QT 374 T27 QTc 517 <Conclusion> Atrial fibrillation with rapid ventricular response Right bundle branch block T wave abnormality, consider inferior ischemia or digitalis effect Abnormal ECG Electronically signed by : Charles Fermin, 03/29/2019 09:16:50
--- NOTE | 2019-03-29 09:20 | Electrocardiograph Report ---
APPROVED REPORT Exam: Resting ECG HR:121 bpm ECG Measurements Heart Rate 121 AXES SD P 89 QRSd 142 QRS 74 QT 372 T-23 QTc 528 <Conclusion> Atrial flutter with variable AV block Right bundle branch block,Old inferior q waves Abnormal ECG Electronically signed by : Charles Fermin, 03/29/2019 09:20:04
[2019-03-30 06:14] LABS: Basophils % 0.3 % (0.1-2.0); Eosinophils # 0.1 K/mm3 (0.0-0.4); Eosinophils % 0.5 % (0.1-12.0); Hematocrit 38.7 % (42.0-52.0); Hemoglobin 12.6 g/dL (14.1-18.0); Lymphocytes # 10.8 K/mm3 (0.7-4.5); Lymphocytes % 89.9 % (10-50); Mean Corpuscular HGB Conc 32.6 g/dL (31.8-35.4); Mean Corpuscular Volume 90.5 fl (80-94); Monocytes # 1.1 K/mm3 (0.1-1.0); Monocytes % 8.8 % (1.7-9.3); Neutrophils # 0.1 K/mm3 (1.8-7.8); Platelet Count 241 K/mm3 (142-424); Red Blood Count 4.27 M/mm3 (4.60-6.20); Red Cell Distribution Width 16.4 % (11.5-17.5)
--- NOTE | 2019-03-30 06:22 | Cardiology Report ---
APPROVED REPORT EXAM: Comprehensive 2D, Doppler, and color-flow Echocardiogram Fisheries Director: Kaykay Sims RDCS Ht: 6 ft 0 in Wt: 318lbs BSA: 2.59 BP: 119/97 mmHg Indications: Obesity, Dizziness and Vertigo, Atrial Flutter 2D Dimensions LVOT 2.08 cm (M/F) 1.5-2.5 M-Mode Dimensions RVDd 3.41 cm (0.9-2.6)LVDd 5.30 cm (3.5-5.7) LVDs 3.65 cm (3.5-5.7)IVSd 1.00 cm (0.6-1.1) PWd 1.12 cm (0.6-1.1)EF (Teich) 58.40% FS 31.10% EDV (Teich) 135.30 mL ESV (Teich) 56.30 mL Left Ventricle Left atrium is mildly enlarged, left ventricle is normal size, mild concentric left ventricular hypertrophy, visually estimated ejection fraction 55% with no regional wall motion abnormality, diastolic parameters are inconclusive. Right Ventricle Right atrium and right ventricular mildly enlarged with normal contractility. Aortic Valve Aortic valve is minimally thickened and fibrosed, there is no aortic stenosis aortic insufficiency. Mitral Valve Mitral valve is grossly normal, there is mild mitral regurgitation. Tricuspid Valve Tricuspid valve is grossly normal, there is mild tricuspid regurgitation, tricuspid regurgitation jet velocity is inadequate for calculation of the right ventricular systolic pressure. Pulmonic Valve Pulmonic valve is poorly visualized. Great Vessels Aortic root is normal size. Pericardium No significant pericardial effusion noted. Conclusion 1. Mildly enlarged left atrium, normal left ventricular size, mild concentric left ventricular hypertrophy, visually estimated ejection fraction 55% with no regional wall motion abnormality, diastolic parameters are inconclusive. 2. Mildly enlarged right ventricle with normal contractility. 3. Mild mitral and tricuspid regurgitation. 4. No significant pericardial effusion noted. Electronically signed by : Fidencio Potter, 03/30/2019 06:22:27
[2019-03-30 06:25] LABS: Albumin Level 2.6 gm/dL (3.4-5.0); Albumin/Globulin Ratio 0.6 (1.1-1.8); Anion Gap 14.2 mEq/L (5-15); Bilirubin,Total 0.7 mg/dL (0.2-1.0); Calcium 8.6 mg/dL (8.5-10.1); Globulin 4.6 gm/dl (1.3-3.2); Total Protein,Serum 7.2 gm/dL (6.4-8.2)
[2019-03-30 06:32] LABS: Neutrophils % 0.5 % (37.0-80.0)
--- NOTE | 2019-03-30 08:28 | Progress Note ---
<June Kowalski - Last Filed: 03/30/19 08:25> Internal Medicine - PN: Subj *Date: 03/30/19 *Time: 08:25 Interval history: Patient states he is feeling much better today. He had a good night sleep and ate all of his breakfast this morning. He denies any chest pain or shortness of breath. His heart rate has improved. Exam Vital signs and Labs for Last 24 Hours: Temp Pulse Resp BP Pulse Ox 98.2 F 105 H 19 167/67 H 94 L 03/30/19 08:00 03/30/19 08:00 03/29/19 20:00 03/30/19 08:00 03/30/19 08:00 Laboratory Results - last 24 hr 03/29/19 09:40: Troponin I < 0.02 03/30/19 05:26: WBC 12.0 H, RBC 4.27 L, Hgb 12.6 L, Hct 38.7 L, MCV 90.5, MCH 29.5, MCHC 32.6, RDW 16.4, Plt Count 241, Neut % (Auto) 0.5 L, Lymph % (Auto) 89.9 H, [place] % (Auto) 8.8, Eos % (Auto) 0.5, Baso % (Auto) 0.3, Neut # (Auto) 0.1 L*, Lymph # (Auto) 10.8 H, [place] # (Auto) 1.1 H, Eos # (Auto) 0.1, Baso # (Auto) 0.0 03/30/19 05:26: Sodium 139, Potassium 4.2, Chloride 107, Carbon Dioxide 22, Anion Gap 14.2, BUN 14, Creatinine 1.36 H, Estimated Creat Clear 62, Estimated GFR 53 L, Est GFR ( Amer) 64, Glucose 108 H, Calcium 8.6, Total Bilirubin 0.7, AST 20, ALT 137 H D, Alkaline Phosphatase 163 H, Total Protein 7.2, Albumin 2.6 L D, Globulin 4.6 H, Albumin/Globulin Ratio 0.6 L, Amylase 26, Lipase 160 I & O for Last 24 hours: Intake & Output 03/27/19 03/28/19 03/29/19 03/30/19 11:59 11:59 11:59 11:59 Intake Total 102 / 102 1821 / 1821 Output Total 300 / 300 Balance 102 / 102 1521 / 1521 Weight 322 lb 9 oz 321 lb 3 oz Microbiology Reports for the Last 24 Hours: Microbiology 03/29/19 00:25 Urine,Catheterized Urine Culture - Preliminary NO GROWTH AFTER 24 HOURS - Constitutional no acute distress - *Routine Respiratory Exam Present: CTA bilaterally - *Routine Cardiovascular Exam Present: irregularly irregular (more controlled rate) - *Routine Abdominal Exam Present: soft, normoactive bowel sounds. Absent: tenderness - *Routine Extremities Exam Present: edema (trace lower extremity edema bilaterally). Absent: cyanosis, clubbing - *Routine Skin Exam Present: warm. Absent: rash - *Routine Neurological Exam Present: alert, oriented X3 Assessment and Plan (1) Atrial fibrillation and flutter Current visit: Yes Status: Acute Category: Medical Code(s): I48.91 - Unspecified atrial fibrillation; I48.92 - Unspecified atrial flutter (2) Atrial fibrillation with RVR Current visit: Yes Status: Acute Category: Medical Code(s): I48.91 - Unspecified atrial fibrillation (3) History of coronary artery bypass graft x 1 Current visit: Yes Status: Acute Category: Surgical Code(s): Z95.1 - Presence of aortocoronary bypass graft (4) Abdominal pain Current visit: Yes Status: Acute Category: Medical Code(s): R10.9 - Unspecified abdominal pain (5) CKD (chronic kidney disease), stage II Current visit: Yes Status: Acute Category: Medical Code(s): N18.2 - Chronic kidney disease, stage 2 (mild) (6) Elevated LFTs Current visit: Yes Status: Acute Category: Medical Code(s): R94.5 - Abnormal results of liver function studies - Assessment and plan all Dx Assessment and Plan for all problems:: Cardiology to follow. May need to adjust levothyroxine dose as TSH is elevated. <Skinny Centeno - Last Filed: 03/30/19 09:47> Internal Medicine - PN: Subj *Date: 03/30/19 *Time: 09:43 Exam Vital signs and Labs for Last 24 Hours: Temp Pulse Resp BP Pulse Ox 98.2 F 105 H 19 167/67 H 94 L 03/30/19 08:00 03/30/19 08:00 03/29/19 20:00 03/30/19 08:00 03/30/19 08:00 Laboratory Results - last 24 hr 03/29/19 09:40: Troponin I < 0.02 03/30/19 05:26: WBC 12.0 H, RBC 4.27 L, Hgb 12.6 L, Hct 38.7 L, MCV 90.5, MCH 29.5, MCHC 32.6, RDW 16.4, Plt Count 241, Neut % (Auto) 0.5 L, Lymph % (Auto) 89.9 H, [place] % (Auto) 8.8, Eos % (Auto) 0.5, Baso % (Auto) 0.3, Neut # (Auto) 0.1 L*, Lymph # (Auto) 10.8 H, [place] # (Auto) 1.1 H, Eos # (Auto) 0.1, Baso # (Auto) 0.0 03/30/19 05:26: Sodium 139, Potassium 4.2, Chloride 107, Carbon Dioxide 22, Anion Gap 14.2, BUN 14, Creatinine 1.36 H, Estimated Creat Clear 62, Estimated GFR 53 L, Est GFR ( Amer) 64, Glucose 108 H, Calcium 8.6, Total Bilirubin 0.7, AST 20, ALT 137 H D, Alkaline Phosphatase 163 H, Total Protein 7.2, Albumin 2.6 L D, Globulin 4.6 H, Albumin/Globulin Ratio 0.6 L, Amylase 26, Lipase 160 I & O for Last 24 hours: Intake & Output 03/27/19 03/28/19 03/29/19 03/30/19 11:59 11:59 11:59 11:59 Intake Total 102 / 102 1821 / 1821 Output Total 300 / 300 Balance 102 / 102 1521 / 1521 Weight 322 lb 9 oz 321 lb 3 oz Microbiology Reports for the Last 24 Hours: Microbiology 03/29/19 00:25 Urine,Catheterized Urine Culture - Preliminary NO GROWTH AFTER 24 HOURS Assessment and Plan (1) Atrial fibrillation and flutter Current visit: Yes Status: Acute Category: Medical Code(s): I48.91 - Unspecified atrial fibrillation; I48.92 - Unspecified atrial flutter (2) Atrial fibrillation with RVR Current visit: Yes Status: Acute Category: Medical Code(s): I48.91 - Unspecified atrial fibrillation (3) History of coronary artery bypass graft x 1 Current visit: Yes Status: Acute Category: Surgical Code(s): Z95.1 - Presence of aortocoronary bypass graft (4) CKD (chronic kidney disease), stage II Current visit: Yes Status: Acute Category: Medical Code(s): N18.2 - Chronic kidney disease, stage 2 (mild) (5) Elevated LFTs Current visit: Yes Status: Acute Category: Medical Code(s): R94.5 - Abnormal results of liver function studies (6) Coronary artery disease Current visit: Yes Status: Chronic Category: Medical Code(s): I25.10 - Atherosclerotic heart disease of [place] coronary artery without angina pectoris (7) Hypertension Current visit: Yes Status: Chronic Category: Medical Code(s): I10 - Essential (primary) hypertension (8) Neutropenia Current visit: Yes Status: Acute Category: Medical Code(s): D70.9 - Neutropenia, unspecified (9) Pancreatitis Current visit: Yes Status: Acute Category: Medical Code(s): K85.90 - Acute pancreatitis without necrosis or infection, unspecified - Assessment and plan all Dx Assessment and Plan for all problems:: Patient seen and examined this morning. Subjectively, he feels much better. He is still a bit tachycardic but asymptomatic. Cardiology is continuing to adjust his medication. Denies abdominal pain. Tolerated his diet this morning. Liver functions have improved and amylase and lipase remain normal. Will check gallbladder ultrasound. He is again neutropenic on his automated differential. Manual differential is pending. We will take out of stepdown and liberalize his activity today.
--- NOTE | 2019-03-30 09:13 | Progress Note ---
Subjective Date: 03/30/19 Time: 09:09 Principal diagnosis: atrial fib/flutter Interval history: This is a 63-year-old white gentleman who was admitted to the hospital with atrial fibrillation/flutter. The patient has been started on diltiazem and his heart rate is better. He is still somewhat tachycardic today however. He denies any chest pain or pressure. He denies any shortness of breath or edema. He denies any racing of the heart. He denies any fever, chills, nausea, vomiting, diarrhea, PND or orthopnea. He states he is feeling much better and is ready to go home. Exam Vital signs and Labs for Last 24 Hours: Temp Pulse Resp BP Pulse Ox 98.2 F 105 H 19 167/67 H 94 L 03/30/19 08:00 03/30/19 08:00 03/29/19 20:00 03/30/19 08:00 03/30/19 08:00 Laboratory Results - last 24 hr 03/29/19 09:40: Troponin I < 0.02 03/30/19 05:26: WBC 12.0 H, RBC 4.27 L, Hgb 12.6 L, Hct 38.7 L, MCV 90.5, MCH 29.5, MCHC 32.6, RDW 16.4, Plt Count 241, Neut % (Auto) 0.5 L, Lymph % (Auto) 89.9 H, [place] % (Auto) 8.8, Eos % (Auto) 0.5, Baso % (Auto) 0.3, Neut # (Auto) 0.1 L*, Lymph # (Auto) 10.8 H, [place] # (Auto) 1.1 H, Eos # (Auto) 0.1, Baso # (Auto) 0.0 03/30/19 05:26: Sodium 139, Potassium 4.2, Chloride 107, Carbon Dioxide 22, Anion Gap 14.2, BUN 14, Creatinine 1.36 H, Estimated Creat Clear 62, Estimated GFR 53 L, Est GFR ( Amer) 64, Glucose 108 H, Calcium 8.6, Total Bilirubin 0.7, AST 20, ALT 137 H D, Alkaline Phosphatase 163 H, Total Protein 7.2, Albumin 2.6 L D, Globulin 4.6 H, Albumin/Globulin Ratio 0.6 L, Amylase 26, Lipase 160 I & O for Last 24 hours: Intake & Output 03/27/19 03/28/19 03/29/19 03/30/19 23:59 23:59 23:59 23:59 Intake Total 1378 / 1378 545 / 545 Output Total 300 / 300 Balance 1378 / 1378 245 / 245 Weight 318 lb 322 lb 9.004 oz 321 lb 3 oz Microbiology Reports for the Last 24 Hours: Microbiology 03/29/19 00:25 Urine,Catheterized Urine Culture - Preliminary NO GROWTH AFTER 24 HOURS Narrative: His telemetry strip shows atrial flutter with a rate of 105. - Constitutional no acute distress, morbidly obese - *Routine HEENT Exam Head: Present: normocephalic, atraumatic Eye: Present: EOMI, PERRL ENT: Present: mucous membranes moist - *Routine Neck Exam Present: supple, full ROM, normal carotid upstroke. Absent: JVD, carotid bruit, lymphadenopathy - *Routine Respiratory Exam Present: CTA bilaterally - *Routine Cardiovascular Exam Present: Normal S1, Normal S2, tachycardia, irregularly irregular. Absent: murmur - *Routine Abdominal Exam Present: soft, normoactive bowel sounds. Absent: tenderness, distended - *Routine Extremities Exam Present: full ROM, pulses intact, normal capillary refill. Absent: cyanosis, clubbing, edema - *Routine Skin Exam Present: intact, warm. Absent: erythema, rash - *Routine Neurological Exam Present: alert, oriented X3, CN II-XII intact. Absent: sensory deficit, motor deficit - Detailed Eye Exam Eyelids: Left normal inspection Progress Note: A&P (1) Atrial fibrillation and flutter Status: Acute Current Visit: Yes (2) Atrial fibrillation with RVR Status: Acute Current Visit: Yes (3) History of coronary artery bypass graft x 1 Status: Acute Current Visit: Yes (4) Abdominal pain Status: Acute Current Visit: Yes (5) CKD (chronic kidney disease), stage II Status: Acute Current Visit: Yes (6) Elevated LFTs Status: Acute Current Visit: Yes (7) Coronary artery disease Status: Chronic Current Visit: Yes (8) Hypertension Status: Chronic Current Visit: Yes Assessment and Plan for All Diagnoses:: Plan: 1. The patient was admitted to the hospital with atrial fibrillation/flutter. His heart rate is better today, but the patient still remains tachycardic. Stop short acting diltiazem. And start diltiazem ER 240 mg p.o. daily for better heart rate control and blood pressure control. 2. The patient does have a history of coronary artery disease. He denies any chest pain or pressure. No plans for invasive cardiac testing at this time. 3. The patient's blood pressure is elevated this morning. As mentioned before the increase in diltiazem should help with better blood pressure control. 4. The patient's LDL goal is less than 55. His LDL is 93. 5. Weight loss is highly encouraged. 6. Patient has had elevated LFTs. Will defer management of this to his primary care provider. 7. Further recommendations will be made pending the patient's response to treatment. If his heart rate gets down below 100 bpm, the patient is stable for discharge home today from a cardiovascular standpoint. However discharge will be left up to his primary care provider. Thank you for the opportunity to help participate in the care of this patient.
[2019-03-30 12:17] LABS: Lymphocytes % 17 % (10-50); Monocytes % 3 % (2-9); Neutrophils % 72 % (42-76); Total Cells Counted 100
[2019-03-30 12:18] LABS: Nucleated Red Blood Cells 1
[2019-03-30 12:23] LABS: Anisocytosis 1+; Stomatocytes 1+
[2019-03-31 06:37] LABS: Basophils % 0.4 % (0.1-2.0); Eosinophils # 0.1 K/mm3 (0.0-0.4); Eosinophils % 0.8 % (0.1-12.0); Hematocrit 37.9 % (42.0-52.0); Lymphocytes # 9.7 K/mm3 (0.7-4.5); Lymphocytes % 89.5 % (10-50); Mean Corpuscular HGB Conc 31.6 g/dL (31.8-35.4); Mean Corpuscular Volume 91.8 fl (80-94); Mean Platelet Volume 10.2 fl (7.4-10.4); Platelet Count 241 K/mm3 (142-424); Red Blood Count 4.13 M/mm3 (4.60-6.20); Red Cell Distribution Width 16.7 % (11.5-17.5); White Blood Count 10.9 K/mm3 (4.8-10.8)
[2019-03-31 06:43] LABS: Neutrophils % 0.3 % (37.0-80.0)
[2019-03-31 07:33] LABS: Albumin Level 2.5 gm/dL (3.4-5.0); Albumin/Globulin Ratio 0.5 (1.1-1.8); Anion Gap 11.1 mEq/L (5-15); Bilirubin,Total 0.5 mg/dL (0.2-1.0); Calcium 8.5 mg/dL (8.5-10.1); Globulin 4.6 gm/dl (1.3-3.2); Total Protein,Serum 7.1 gm/dL (6.4-8.2)
[2019-03-31 08:13] LABS: Anisocytosis 1+; Eosinophils % 1 % (0-3); Lymphocytes % 15 % (10-50); Monocytes % 3 % (2-9); Neutrophils % 70 % (42-76); Total Cells Counted 100
[2019-03-31 08:14] LABS: Stomatocytes 1+
--- NOTE | 2019-03-31 08:20 | Progress Note ---
Subjective Date: 03/31/19 Time: 08:13 Principal diagnosis: atrial fib/flutter Interval history: 63-year-old white male in bed in no acute distress. Patient noted to have heart rate in the 40s this a.m. on increased diltiazem. Patient continues to be in atrial fibrillation on telemetry. Will consider proceeding with RON cardioversion once the patient's has arrived and we have had a chance to discuss risks, benefits and procedure. Exam Vital signs and Labs for Last 24 Hours: Temp Pulse Resp BP Pulse Ox 97.9 F 45 L 19 125/83 48 L 03/31/19 03:53 03/31/19 07:35 03/31/19 03:53 03/31/19 03:53 03/31/19 07:35 Laboratory Results - last 24 hr 03/30/19 05:26: Total Counted 100, Neutrophils % (Manual) 72, Lymphocytes % (Manual) 17, Atypical Lymphs % 8.0, Monocytes % (Manual) 3, Nucleated RBCs 1, Differential Comment , Platelet Estimate Normal, Anisocytosis 1+, Stomatocytes 1+ 03/31/19 06:08: WBC 10.9 H, RBC 4.13 L, Hgb 12.0 L, Hct 37.9 L, MCV 91.8, MCH 29.0, MCHC 31.6 L, RDW 16.7, Plt Count 241, MPV 10.2, Neut % (Auto) 0.3 L, Lymph % (Auto) 89.5 H, [place] % (Auto) 9.0, Eos % (Auto) 0.8, Baso % (Auto) 0.4, Neut # (Auto) 0.0 L*, Lymph # (Auto) 9.7 H, [place] # (Auto) 1.0, Eos # (Auto) 0.1, Baso # (Auto) 0.0 03/31/19 06:08: Sodium 137, Potassium 4.1, Chloride 107, Carbon Dioxide 23, Anion Gap 11.1, BUN 14, Creatinine 1.38 H, Estimated Creat Clear 61, Estimated GFR 52 L, Est GFR ( Amer) 63, Glucose 115 H, Calcium 8.5, Total Bilirubin 0.5, AST 20, ALT 108 H, Alkaline Phosphatase 147 H, Total Protein 7.1, Albumin 2.5 L, Globulin 4.6 H, Albumin/Globulin Ratio 0.5 L I & O for Last 24 hours: Intake & Output 03/28/19 03/29/19 03/30/19 03/31/19 11:59 11:59 11:59 11:59 Intake Total 102 / 102 1821 / 1821 2796 / 2796 Output Total 300 / 300 300 / 300 Balance 102 / 102 1521 / 1521 2496 / 2496 Weight 322 lb 9 oz 321 lb 3 oz 322 lb 12.108 oz Microbiology Reports for the Last 24 Hours: Microbiology 03/29/19 00:25 Urine,Catheterized Urine Culture - Final NO GROWTH AFTER 48 HOURS 03/29/19 00:05 Blood Blood Culture - Preliminary NO GROWTH AFTER 48 HOURS 03/29/19 00:05 Blood Blood Culture - Preliminary NO GROWTH AFTER 48 HOURS - *Routine Respiratory Exam Present: CTA bilaterally. Absent: accessory muscle use, rales, rhonchi, wheezes - *Routine Cardiovascular Exam Present: irregularly irregular. Absent: murmur, gallop, rubs - *Routine Extremities Exam Absent: edema, calf tenderness - *Routine Neurological Exam Present: alert, oriented X3, moving all extremities Progress Note: A&P (1) Atrial fibrillation and flutter Status: Acute Current Visit: Yes (2) Atrial fibrillation with RVR Status: Acute Current Visit: Yes (3) History of coronary artery bypass graft x 1 Status: Acute Current Visit: Yes (4) CKD (chronic kidney disease), stage II Status: Acute Current Visit: Yes (5) Elevated LFTs Status: Acute Current Visit: Yes (6) Coronary artery disease Status: Chronic Current Visit: Yes (7) Hypertension Status: Chronic Current Visit: Yes (8) Neutropenia Status: Acute Current Visit: Yes (9) Pancreatitis Status: Acute Current Visit: Yes Assessment and Plan for All Diagnoses:: Discussed option of RON/cardioversion with both the patient and his . They wish to hold off at this time and continue with medical therapy including diltiazem and Xarelto. Continue to monitor atrial fibrillation rate on telemetry. Rate currently in the 70s on telemetry. Due to bradycardic rate this morning we will decrease diltiazem to 180 mg twice daily. Patient continues on Xarelto. 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
--- NOTE | 2019-03-31 08:36 | Progress Note ---
<June Kowalski - Last Filed: 03/31/19 08:34> Internal Medicine - PN: Subj *Date: 03/31/19 *Time: 08:34 Interval history: Patient states he is feeling well this morning. He remains in A. fib. He denies any chest pain or shortness of breath. He states he slept well last night. Exam Vital signs and Labs for Last 24 Hours: Temp Pulse Resp BP Pulse Ox 97.9 F 48 L 18 128/80 96 03/31/19 08:00 03/31/19 08:00 03/31/19 08:00 03/31/19 08:00 03/31/19 08:00 Laboratory Results - last 24 hr 03/30/19 05:26: Total Counted 100, Neutrophils % (Manual) 72, Lymphocytes % (Manual) 17, Atypical Lymphs % 8.0, Monocytes % (Manual) 3, Nucleated RBCs 1, Differential Comment , Platelet Estimate Normal, Anisocytosis 1+, Stomatocytes 1+ 03/31/19 06:08: WBC 10.9 H, RBC 4.13 L, Hgb 12.0 L, Hct 37.9 L, MCV 91.8, MCH 29.0, MCHC 31.6 L, RDW 16.7, Plt Count 241, MPV 10.2, Neut % (Auto) 0.3 L, Lymph % (Auto) 89.5 H, [place] % (Auto) 9.0, Eos % (Auto) 0.8, Baso % (Auto) 0.4, Neut # (Auto) 0.0 L*, Lymph # (Auto) 9.7 H, [place] # (Auto) 1.0, Eos # (Auto) 0.1, Baso # (Auto) 0.0, Total Counted 100, Neutrophils % (Manual) 70, Band Neutrophils % 2.0, Lymphocytes % (Manual) 15, Atypical Lymphs % 7.0, Monocytes % (Manual) 3, Eosinophils % (Manual) 1, Metamyelocytes % 2.0 H, Differential Comment , Platelet Estimate Normal, RBC Morphology Not Reportable, Anisocytosis 1+, Stomatocytes 1+ 03/31/19 06:08: Sodium 137, Potassium 4.1, Chloride 107, Carbon Dioxide 23, Anion Gap 11.1, BUN 14, Creatinine 1.38 H, Estimated Creat Clear 61, Estimated GFR 52 L, Est GFR ( Amer) 63, Glucose 115 H, Calcium 8.5, Total Bilirubin 0.5, AST 20, ALT 108 H, Alkaline Phosphatase 147 H, Total Protein 7.1, Albumin 2.5 L, Globulin 4.6 H, Albumin/Globulin Ratio 0.5 L I & O for Last 24 hours: Intake & Output 03/28/19 03/29/19 03/30/19 03/31/19 11:59 11:59 11:59 11:59 Intake Total 102 / 102 1821 / 1821 3156 / 3156 Output Total 300 / 300 300 / 300 Balance 102 / 102 1521 / 1521 2856 / 2856 Weight 322 lb 9 oz 321 lb 3 oz 322 lb 12.108 oz Microbiology Reports for the Last 24 Hours: Microbiology 03/29/19 00:25 Urine,Catheterized Urine Culture - Final NO GROWTH AFTER 48 HOURS 03/29/19 00:05 Blood Blood Culture - Preliminary NO GROWTH AFTER 48 HOURS 03/29/19 00:05 Blood Blood Culture - Preliminary NO GROWTH AFTER 48 HOURS Radiology Reports for the Last 24 Hours: GB U/S Limited study technically due to patient's body habitus. Cholelithiasis - Constitutional no acute distress - *Routine Respiratory Exam Present: CTA bilaterally - *Routine Cardiovascular Exam Present: irregularly irregular - *Routine Abdominal Exam Present: soft, normoactive bowel sounds. Absent: tenderness - *Routine Extremities Exam Present: edema (bilateral LE edema). Absent: cyanosis, clubbing - *Routine Skin Exam Present: warm. Absent: rash - *Routine Neurological Exam Present: alert, oriented X3 Assessment and Plan (1) Atrial fibrillation and flutter Current visit: Yes Status: Acute Category: Medical Code(s): I48.91 - Unspecified atrial fibrillation; I48.92 - Unspecified atrial flutter (2) Atrial fibrillation with RVR Current visit: Yes Status: Acute Category: Medical Code(s): I48.91 - Unspecified atrial fibrillation (3) History of coronary artery bypass graft x 1 Current visit: Yes Status: Acute Category: Surgical Code(s): Z95.1 - Presence of aortocoronary bypass graft (4) CKD (chronic kidney disease), stage II Current visit: Yes Status: Acute Category: Medical Code(s): N18.2 - Chronic kidney disease, stage 2 (mild) (5) Elevated LFTs Current visit: Yes Status: Acute Category: Medical Code(s): R94.5 - Abnormal results of liver function studies (6) Coronary artery disease Current visit: Yes Status: Chronic Category: Medical Code(s): I25.10 - Atherosclerotic heart disease of [place] coronary artery without angina pectoris (7) Hypertension Current visit: Yes Status: Chronic Category: Medical Code(s): I10 - Essential (primary) hypertension (8) Neutropenia Current visit: Yes Status: Acute Category: Medical Code(s): D70.9 - Neutropenia, unspecified (9) Pancreatitis Current visit: Yes Status: Acute Category: Medical Code(s): K85.90 - Acute pancreatitis without necrosis or infection, unspecified (10) Cholelithiasis Current visit: Yes Status: Acute Category: Medical Code(s): K80.20 - Calculus of gallbladder without cholecystitis without obstruction - Assessment and plan all Dx Assessment and Plan for all problems:: Cardiology recommended a cardioversion today. The patient does not want to proceed with a cardioversion at this time. He states he would rather try medication for a while and see if his heart goes back into rhythm on its own. He and his will discuss this with cardiology. Possible discharge home today. <Skinny Centeno - Last Filed: 03/31/19 14:09> Internal Medicine - PN: Subj *Date: 03/31/19 *Time: 14:05 Exam Vital signs and Labs for Last 24 Hours: Temp Pulse Resp BP Pulse Ox 97.9 F 70 18 121/72 95 03/31/19 11:15 03/31/19 12:00 03/31/19 11:15 03/31/19 11:15 03/31/19 11:15 Laboratory Results - last 24 hr 03/31/19 06:08: WBC 10.9 H, RBC 4.13 L, Hgb 12.0 L, Hct 37.9 L, MCV 91.8, MCH 29.0, MCHC 31.6 L, RDW 16.7, Plt Count 241, MPV 10.2, Neut % (Auto) 0.3 L, Lymph % (Auto) 89.5 H, [place] % (Auto) 9.0, Eos % (Auto) 0.8, Baso % (Auto) 0.4, Neut # (Auto) 0.0 L*, Lymph # (Auto) 9.7 H, [place] # (Auto) 1.0, Eos # (Auto) 0.1, Baso # (Auto) 0.0, Total Counted 100, Neutrophils % (Manual) 70, Band Neutrophils % 2.0, Lymphocytes % (Manual) 15, Atypical Lymphs % 7.0, Monocytes % (Manual) 3, Eosinophils % (Manual) 1, Metamyelocytes % 2.0 H, Differential Comment , Platelet Estimate Normal, RBC Morphology Not Reportable, Anisocytosis 1+, Stomatocytes 1+ 03/31/19 06:08: Sodium 137, Potassium 4.1, Chloride 107, Carbon Dioxide 23, Anion Gap 11.1, BUN 14, Creatinine 1.38 H, Estimated Creat Clear 61, Estimated GFR 52 L, Est GFR ( Amer) 63, Glucose 115 H, Calcium 8.5, Total Bilirubin 0.5, AST 20, ALT 108 H, Alkaline Phosphatase 147 H, Total Protein 7.1, Albumin 2.5 L, Globulin 4.6 H, Albumin/Globulin Ratio 0.5 L I & O for Last 24 hours: Intake & Output 03/29/19 03/30/19 03/31/19 04/01/19 11:59 11:59 11:59 11:59 Intake Total 102 / 102 1821 / 1821 3156 / 3156 360 / 360 Output Total 300 / 300 300 / 300 Balance 102 / 102 1521 / 1521 2856 / 2856 360 / 360 Weight 322 lb 9 oz 321 lb 3 oz 322 lb 12.108 oz Microbiology Reports for the Last 24 Hours: Microbiology 03/29/19 00:25 Urine,Catheterized Urine Culture - Final NO GROWTH AFTER 48 HOURS 03/29/19 00:05 Blood Blood Culture - Preliminary NO GROWTH AFTER 48 HOURS 03/29/19 00:05 Blood Blood Culture - Preliminary NO GROWTH AFTER 48 HOURS Assessment and Plan (1) Atrial fibrillation and flutter Current visit: Yes Status: Acute Category: Medical Code(s): I48.91 - Unspecified atrial fibrillation; I48.92 - Unspecified atrial flutter (2) Atrial fibrillation with RVR Current visit: Yes Status: Acute Category: Medical Code(s): I48.91 - Unspecified atrial fibrillation (3) History of coronary artery bypass graft x 1 Current visit: Yes Status: Acute Category: Surgical Code(s): Z95.1 - Presence of aortocoronary bypass graft (4) CKD (chronic kidney disease), stage II Current visit: Yes Status: Acute Category: Medical Code(s): N18.2 - Director Of Operations nancy kidney disease, stage 2 (mild) (5) Elevated LFTs Current visit: Yes Status: Acute Category: Medical Code(s): R94.5 - Abnormal results of liver function studies (6) Coronary artery disease Current visit: Yes Status: Chronic Category: Medical Code(s): I25.10 - Atherosclerotic heart disease of [place] coronary artery without angina pectoris (7) Hypertension Current visit: Yes Status: Chronic Category: Medical Code(s): I10 - Ess ential (primary) hypertension (8) Neutropenia Current visit: Yes Status: Acute Category: Medical Code(s): D70.9 - Neutropenia, unspecified (9) Pancreatitis Current visit: Yes Status: Acute Category: Medical Code(s): K85.90 - Acute pancreatitis without necrosis or infection, unspecified - Assessment and plan all Dx Assessment and Plan for all problems:: Patient seen and examined this a.m. He has no complaints and wishes to go home. He is elected not to proceed with cardioversion at the present time. His heart rate is better controlled on the current dose of Cardizem. His mentioned to me that the night before last she was told that his heart rate and oxygen level dropped during the night while he was sleeping and the nurse placed him on nasal oxygen. This is not documented in the chart and I was unaware of this episode. He states he slept well last night. His notes that he does snore heavily at home. She has not been aware of any apnea episodes. He certainly has risk factors for sleep apnea. Gallbladder ultrasound did show cholelithiasis but no obstruction. He is advised to follow low-fat diet and is to report any recurring episodes of right upper quadrant pain, nausea, or vomiting. His automated differential continues to show neutropenia but his differential is normal. We will plan to discharge home on diltiazem and Xarelto. He will go home with a 48-hour Holter monitor and will arrange for home sleep study. He will follow-up in office in 4 days for recheck. We will be arranging for cardiology follow-up in [place] at the request of the patient and his .
--- NOTE | 2019-03-31 14:58 | Discharge Summary ---
General - General Admission date:: 03/29/19 <Skinny Centeno - 04/19/19 12:42> 03/29/19 <June Kowalski - 03/31/19 15:01> Discharge date: 03/31/19 <DexJune - 03/31/19 15:01> HPI HPI: Mr. Maguire is a 63-year-old male with a history of obesity, anxiety, depression, ASCVD, degenerative disc disease of the lumbar spine, bilateral knee arthritis, hyperlipidemia, and hypothyroidism who presented to [facility] emergency room after being found by his on the couch with profuse sweating in a dazed state. She stated that she gave him 10 minutes to improve and when he remained diaphoretic she called EMS to bring him to the hospital. He denied chest pain and shortness of breath at that time. Patient had experienced abdominal pain earlier in the day but this had resolved. He had had some left pleuritic-like pain for which he had been taking ibuprofen 400 mg several times a day for the last few days. He had been eating normally and denied nausea and vomiting although he had been experiencing increase in heartburn for the last 2 weeks. stated he had been eating many donuts and fried apple pies which she felt contributed to the persistent GERD. Patient denied any upper respiratory symptoms, fever, vomiting and diarrhea. Patient wasa noted to have a sedentary lifestyle due to his joint issues. Work-up in the emergency room included a CT of the abdomen/pelvis which showed evidence of a possible pancreatitis. Chest x-ray revealed mild cardiomegaly with no evidence of congestive heart failure. CT of the head showed no acute process. Amylase and lipase were noted to be normal. Troponins were also normal x2 overnight. EKG revealed atrial fibrillation with a right bundle branch block with a rapid ventricular response and rate of about 120 bpm. The patient was started on Cardizem drip and admitted to the hospital. <June Kowalski - 03/31/19 15:01> Hospital Course Hospital Course: Cardiology was consulted. They saw the patient and felt he had a preserved ejection fraction on his echo with no significant valvular heart disease. They recommended switching him from the Cardizem drip over to diltiazem 30 mg 3 times daily. He was started on Xarelto 20 mg daily as well. They felt he would need a RON/cardioversion and a Lexiscan Myoview stress test once his heart rate was controlled. His TSH was elevated, therefore his Synthroid dose was increased. The patient's heart rate improved, but he was still tachycardic and remained in atrial fibrillation. He began feeling better. His diltiazem dose was increased to 240 mg ER twice daily. His heart rate then dropped into the 40s. Cardiology recommended a RON cardioversion, however the patient did not want to proceed with this procedure. He wanted to continue medical therapy. Due to the bradycardia, his diltiazem dose was decreased to 180 mg twice a day. The patient did appear to have a mild degree of pancreatitis based on his CT, however his pancreatic enzymes were normal. His liver functions improved his amylase and lipase remain normal. A gallbladder ultrasound was ordered. It showed cholelithiasis. He was encouraged to follow a low-fat diet and report any episodes of right upper quadrant pain, nausea, or vomiting. Cardiology felt the patient could be discharged with outpatient follow-up in 1 to 2 weeks. He will be discharged on diltiazem and Xarelto and will go home with a 48-hour Holter monitor. Due to to an episode while sleeping of bradycardia and hypoxia, as well as snoring episodes, a home sleep study will be arranged. He will follow-up in the office of [facility] in 4 days and will also follow-up with cardiology in [place]. <June Kowalski - 03/31/19 15:01> Objective Vital signs: Temp Pulse Resp BP Pulse Ox 97.9 F 70 18 121/72 95 03/31/19 11:15 03/31/19 12:00 03/31/19 11:15 03/31/19 11:15 03/31/19 11:15 <Skinny Centeno - 04/19/19 12:42> Temp Pulse Resp BP Pulse Ox 97.9 F 70 18 121/72 95 03/31/19 11:15 03/31/19 12:00 03/31/19 11:15 03/31/19 11:15 03/31/19 11:15 <June Kowalski - 03/31/19 15:01> Narrative: - Constitutional no acute distress - *Routine Respiratory Exam Present: CTA bilaterally - *Routine Cardiovascular Exam Present: irregularly irregular - *Routine Abdominal Exam Present: soft, normoactive bowel sounds. Absent: tenderness - *Routine Extremities Exam Present: edema (bilateral LE edema). Absent: cyanosis, clubbing - *Routine Skin Exam Present: warm. Absent: rash - *Routine Neurological Exam Present: alert, oriented X3 <June Kowalski - 03/31/19 15:01> Results Labs on day of discharge: Labs from last 24 hours 03/31/19 03/31/19 06:08 06:08 WBC 10.9 H RBC 4.13 L Hgb 12.0 L Hct 37.9 L MCV 91.8 MCH 29.0 MCHC 31.6 L RDW 16.7 Plt Count 241 MPV 10.2 Neut % (Auto) 0.3 L Lymph % (Auto) 89.5 H [place] % (Auto) 9.0 Eos % (Auto) 0.8 Baso % (Auto) 0.4 Neut # (Auto) 0.0 L* Lymph # (Auto) 9.7 H [place] # (Auto) 1.0 Eos # (Auto) 0.1 Baso # (Auto) 0.0 Total Counted 100 Neutrophils % (Manual) 70 Band Neutrophils % 2.0 Lymphocytes % (Manual) 15 Atypical Lymphs % 7.0 Monocytes % (Manual) 3 Eosinophils % (Manual) 1 Metamyelocytes % 2.0 H Differential Comment Platelet Estimate Normal RBC Morphology Not Reportable Anisocytosis 1+ Stomatocytes 1+ Sodium 137 Potassium 4.1 Chloride 107 Carbon Dioxide 23 Anion Gap 11.1 BUN 14 Creatinine 1.38 H Estimated Creat Clear 61 Estimated GFR 52 L Est GFR ( Amer) 63 Glucose 115 H Calcium 8.5 Total Bilirubin 0.5 AST 20 ALT 108 H Alkaline Phosphatase 147 H Total Protein 7.1 Albumin 2.5 L Globulin 4.6 H Albumin/Globulin Ratio 0.5 L Preliminary micro results at discharge 03/29/19 00:05 Blood Culture - Preliminary Blood NO GROWTH AFTER 48 HOURS 03/29/19 00:05 Blood Culture - Preliminary Blood NO GROWTH AFTER 48 HOURS <June Kowalski - 03/31/19 15:01> DS: Diagnosis - Discharge Diagnosis (1) Atrial fibrillation and flutter Status: Acute (2) Atrial fibrillation with RVR Status: Acute (3) History of coronary artery bypass graft x 1 Status: Acute (4) CKD (chronic kidney disease), stage II Status: Acute (5) Elevated LFTs Status: Acute (6) Coronary artery disease Status: Chronic (7) Hypertension Status: Chronic (8) Neutropenia Status: Acute (9) Pancreatitis Status: Acute <June Kowalski - 03/31/19 14:50> (1) Atrial fibrillation and flutter Status: Acute (2) Atrial fibrillation with RVR Status: Acute (3) History of coronary artery bypass graft x 1 Status: Acute (4) CKD (chronic kidney disease), stage II Status: Acute (5) Elevated LFTs Status: Acute (6) Coronary artery disease Status: Chronic (7) Hypertension Status: Chronic (8) Neutropenia Status: Acute (9) Pancreatitis Status: Acute <Skinny Centeno - 04/19/19 12:42> Discharge Plan - Patient Discharge Instructions ACTIVITY: Continue current activity <June Kowalski - 03/31/19 15:01> DIET: low fat, low cholesterol <June Kowalski - 03/31/19 15:01> Patient Instructions: Depression, Anxiety Disorders, DI for Anxiety -- Adult, DI for Hypothyroidism <Skinny Centeno - 04/19/19 12:42> Forms: <Skinny Centeno - 04/19/19 12:42> - Follow up Plan Follow up with: Siknny Centeno MD [Primary Care Provider] - 04/04/19 <Skinny Centeno - 04/19/19 12:42> Disposition: Home, Self-Care <Skinny Centeno - 04/19/19 12:42> Home Medications: Home Medications Medication Instructions Recorded Confirmed Type alprazolam 1 mg tablet 1 mg PO DAILY 02/25/18 03/29/19 History duloxetine 60 mg capsule,delayed 60 mg PO DAILY 02/25/18 03/29/19 History release levothyroxine 50 mcg capsule 50 mcg PO DAILY 02/25/18 03/29/19 History mirtazapine 45 mg tablet 45 mg PO HS 02/25/18 03/29/19 History Gabapentin 600 mg PO TID 03/29/19 03/29/19 History Lurasidone HCl [Latuda] 60 mg PO HS 03/29/19 03/29/19 History hydrOXYzine pamoate [Hydroxyzine 100 mg PO TIDP PRN 03/29/19 03/29/19 History Pamoate] Rivaroxaban [Xarelto 20mg Tablet*] 20 mg PO QPMWM #30 tab 03/31/19 Rx dilTIAZem HCl [Diltiazem 180mg 180 mg PO BID #60 cap.er.24h 03/31/19 Rx 24Hr ER Cap] <Skinny Centeno - 04/19/19 12:42> Prescriptions/Medication Reconciliation: New dilTIAZem HCl [Diltiazem 180mg 24Hr ER Cap] 180 mg PO BID #60 cap.er.24h Rivaroxaban [Xarelto 20mg Tablet*] 20 mg PO QPMWM #30 tab Continued levothyroxine 50 mcg capsule 50 mcg PO DAILY mirtazapine 45 mg tablet 45 mg PO HS duloxetine 60 mg capsule,delayed release 60 mg PO DAILY alprazolam 1 mg tablet 1 mg PO DAILY hydrOXYzine pamoate [Hydroxyzine Pamoate] 100 mg PO TIDP PRN PRN Reason: Anxiety Lurasidone HCl [Latuda] 60 mg PO HS Gabapentin 600 mg PO TID <Skinny Centeno - 04/19/19 12:42> - Problem Reconciliation Problems Reviewed?: Yes <Skinny Centeno - 04/19/19 12:42> Yes <June Kowalski - 03/31/19 15:01> - Additional Information Additional Information: Concur with plan for discharge as outlined above. <Skinny Centeno - 04/19/19 12:42>
== END 2019-03-31 17:06 | disposition home or self-care (01) | DRG 308 ==
LOC: ER 23:37 → 2ND 03-29 03:33
PROVIDERS: ADMIT Family Medicine; ATTEND Family Medicine
DX: I25.10 Atherosclerotic heart disease of native coronary artery without angina pectoris; K85.90 Acute pancreatitis without necrosis or infection, unspecified; K80.20 Calculus of gallbladder without cholecystitis without obstruction; E03.9 Hypothyroidism, unspecified; I48.91 Unspecified atrial fibrillation; I12.9 Hypertensive chronic kidney disease with stage 1 through stage 4 chronic kidney disease, or unspecified chronic kidney disease; I48.92 Unspecified atrial flutter; Z79.899 Other long term (current) drug therapy; Z95.1 Presence of aortocoronary bypass graft; N18.2 Chronic kidney disease, stage 2 (mild); I25.2 Old myocardial infarction
CPT/HCPCS: Q9967

== ENCOUNTER → 2020-09-22 12:31 | Outpatient (CLI) | payer OTHER, SELFPAY ==
[2020-09-22 12:58] LABS: Basophils % 0.6 % (0.1-2.0); Eosinophils % 0.4 % (0.1-12.0); Hematocrit 42.3 % (42.0-52.0); Hemoglobin 12.9 g/dL (14.1-18.0); Lymphocytes # 6.3 K/mm3 (0.7-4.5); Lymphocytes % 95.8 % (10-50); Mean Corpuscular HGB Conc 30.5 g/dL (31.8-35.4); Mean Corpuscular Hemoglobin 28.2 pg (27.0-31.2); Mean Corpuscular Volume 92.5 fl (80-94); Mean Platelet Volume 9.7 fl (7.4-10.4); Monocytes # 0.2 K/mm3 (0.1-1.0); Monocytes % 2.9 % (1.7-9.3); Platelet Count 172 K/mm3 (142-424); Red Blood Count 4.58 M/mm3 (4.60-6.20); White Blood Count 6.6 K/mm3 (4.8-10.8)
[2020-09-22 13:10] LABS: Neutrophils % 0.3 % (37.0-80.0)
[2020-09-22 13:14] LABS: Hemoglobin A1C 5.2 % (4.0-6.0); MANUAL DIFFERENTIAL MANUAL DIFFERENTIAL (MANUAL DIFF)
[2020-09-22 13:55] LABS: Eosinophils % 1 % (0-3); Lymphocytes % 24 % (10-50); Monocytes % 5 % (2-9); Neutrophils % 57 % (42-76); Ovalocytes 1+; Platelet Estimate Normal; Total Cells Counted 100
[2020-09-22 13:57] LABS: Alanine Aminotransferase 42 U/L (12-78); Albumin Level 4.3 g/dl (3.5-5.0); Albumin/Globulin Ratio 1.7 (1.1-1.8); Alkaline Phosphatase 71 U/L (38-126); Anion Gap 14.7 mEq/L (5-15); Aspartate Amino Transferase 28 U/L (17-59); Bilirubin,Total 0.8 mg/dl (0.2-1.3); Blood Urea Nitrogen 16 mg/dl (9-20); Calcium 9.5 mg/dl (8.4-10.2); Carbon Dioxide 20 mmol/L (22.0-30.0); Chloride 111 mmol/L (98-107); Chol/HDL Ratio 3.6 (1-3.5); Cholesterol 170 mg/dl (140-200); Estimated Glomerular Filt Rate 47 ml/min (>60); GFR (African American) 57 ML/MIN (>60); Globulin 2.6 g/dL (1.3-3.2); Glucose 98 mg/dl (74-100); HDL Cholesterol 47 mg/dl (40-60); Potassium 4.7 mmoL/L (3.5-5.1); Sodium 141 mmol/L (136-145); Total Protein,Serum 6.9 g/dl (6.3-8.2); Triglycerides 72 mg/dl (30-150); VLDL Cholesterol 14 mg/dL (0-40)
[2020-09-22 14:22] LABS: Prostate Specific Ag Screen 0.7 ng/ml (0.0-4.0); Thyroid Stimulating Hormone 2.31 uIU/mL (0.465-4.68)
== END ==
PROVIDERS: Visit Provider Family Medicine
DX: E78.5 Hyperlipidemia, unspecified (principal); E03.9 Hypothyroidism, unspecified; I25.10 Atherosclerotic heart disease of native coronary artery without angina pectoris; R63.4 Abnormal weight loss; Z12.5 Encounter for screening for malignant neoplasm of prostate
CPT/HCPCS: 36415; 80053; 80061; 83036; 84443; 85007; 85025; G0103

== ENCOUNTER → 2020-09-27 15:31 | Outpatient (CLI) | payer OTHER, SELFPAY ==
--- NOTE | 2020-09-27 15:36 | XR_ITS ---
PROCEDURE: XR ACUTE ABDOMEN SERIES CLINICAL INDICATION: K59.00 Constipation COMPARISON: CT CT ABDOMEN PELVIS W CON from 08/15/2019 CR XR CHEST PORTABLE from 08/15/2019 FINDINGS: Frontal view of the chest shows post median sternotomy changes. Sclerotic changes are present involving the left 3rd 4th 5th and 7th ribs consistent with old rib fractures versus blastic metastasis. This does not appear significantly changed however. Upright and supine views of the abdomen shows no evidence of free air. There are scattered air-fluid levels within nondistended loops small and large bowel which may indicate an ileus/enterocolitis. There is a mild amount of retained colonic feces in the rectosigmoid area. No acute bony anomalies or abnormal calcifications. Status post cholecystectomy. IMPRESSION: 1. No change in the multiple sclerotic changes of the left ribs which may be due to old fractures versus blastic metastasis. 2. Scattered air-fluid levels in large and small bowel without distention which may indicate mild ileus or enterocolitis. 3. Mild amount of retained colonic feces in the rectosigmoid region Dictated by: Giancarlo Og MD 09/27/2020 16:34 Giancarlo Og MD in [facility] 09/27/2020 16:34
== END ==
PROVIDERS: PCP Family Medicine; Visit Provider Family Medicine
DX: K59.00 Constipation, unspecified (principal)
CPT/HCPCS: 74021

== ENCOUNTER → 2021-03-13 16:52 | Outpatient (CLI) | payer OTHER, SELFPAY ==
[2021-03-13 17:52] LABS: Basophils % 0.4 % (0.1-2.0); Eosinophils % 0.5 % (0.1-12.0); Hematocrit 44.1 % (42.0-52.0); Hemoglobin 14.3 g/dL (14.1-18.0); Lymphocytes # 7.2 K/mm3 (0.7-4.5); Lymphocytes % 97.3 % (10-50); Mean Corpuscular HGB Conc 32.5 g/dL (31.8-35.4); Mean Corpuscular Hemoglobin 28.4 pg (27.0-31.2); Mean Corpuscular Volume 87.3 fl (80-94); Mean Platelet Volume 9.6 fl (7.4-10.4); Monocytes # 0.1 K/mm3 (0.1-1.0); Monocytes % 1.5 % (1.7-9.3); Platelet Count 182 K/mm3 (142-424); Red Blood Count 5.05 M/mm3 (4.60-6.20); White Blood Count 7.4 K/mm3 (4.8-10.8)
[2021-03-13 18:31] LABS: Alanine Aminotransferase 13 U/L (12-78); Albumin Level 4.1 g/dl (3.5-5.0); Albumin/Globulin Ratio 1.5 (1.1-1.8); Alkaline Phosphatase 89 U/L (38-126); Anion Gap 15.9 mEq/L (5-15); Aspartate Amino Transferase 19 U/L (17-59); Bilirubin,Total 0.7 mg/dl (0.2-1.3); Blood Urea Nitrogen 15 mg/dl (9-20); Calcium 9.3 mg/dl (8.4-10.2); Carbon Dioxide 19 mmol/L (22.0-30.0); Chloride 110 mmol/L (98-107); Estimated Glomerular Filt Rate 47 ml/min (>60); GFR (African American) 57 ML/MIN (>60); Globulin 2.7 g/dL (1.3-3.2); Glucose 90 mg/dl (74-100); Lipase 88 U/L (23-300); Potassium 3.9 mmoL/L (3.5-5.1); Sodium 141 mmol/L (136-145); Total Protein,Serum 6.8 g/dl (6.3-8.2)
[2021-03-13 18:36] LABS: Neutrophils % 0.2 % (37.0-80.0)
[2021-03-13 18:38] LABS: MANUAL DIFFERENTIAL MANUAL DIFFERENTIAL (MANUAL DIFF)
[2021-03-13 19:01] LABS: Thyroid Stimulating Hormone 2.87 uIU/mL (0.465-4.68)
[2021-03-13 19:29] LABS: Eosinophils % 2 % (0-3); Lymphocytes % 45 % (10-50); Monocytes % 4 % (2-9); Neutrophils % 47 % (42-76); Platelet Estimate Normal; Total Cells Counted 100
== END ==
PROVIDERS: Visit Provider Family Medicine
DX: E03.9 Hypothyroidism, unspecified (principal); R63.4 Abnormal weight loss
CPT/HCPCS: 36415; 80053; 82533; 83690; 84443; 85007; 85025; 86140

== ENCOUNTER → 2021-03-21 09:28 | Outpatient (CLI) | payer OTHER, SELFPAY ==
--- NOTE | 2021-03-21 09:31 | CT_ITS ---
PROCEDURE: CT CHEST W CON CLINCAL INDICATION: WEIGHT LOSS COMPARISON: No exams were available for comparison TECHNIQUE: IV Contrast: 75ml Isovue 370 Axial images obtained with sagittal and coronal reformats. All CT scans at the facility use one or more dose reduction, viz: automated exposure control, ma/kV adjustment per patient size (including targeted exams where dose is matched to indication, i.e. head), or iterative reconstruction technique. FINDINGS: HEART AND MEDIASTINAL STRUCTURES: Unremarkable. LUNGS AND PLEURAL SPACES: COPD with paraseptal emphysematous changes. Calcified nodules present right minor fissure. Noncalcified subpleural thickening is noted in the left upper lobe underlying the left 3rd, 4th, and 5th ribs anterior laterally. Small subpleural opacities are present in the left upper lobe posteriorly and right upper lobe posteriorly. Subpleural opacity is also present in the lingular region beneath the left 6th and 7th ribs. No effusions or infiltrates. BONY STRUCTURES: No acute bony abnormalities apparent. UPPER ABDOMEN: Please see abdomen report performed on the same day ADDITIONAL FINDINGS: No other significant abnormalities. IMPRESSION: COPD with paraseptal emphysematous changes. Left sided pleural plaques. Asbestos related exposure is considered. Follow-up suggested to confirm stability. The Dictated by: Giancarlo Og MD 03/23/2021 10:28 Giancarlo Og MD in [facility] 03/23/2021 10:28
--- NOTE | 2021-03-21 09:31 | CT_ITS ---
PROCEDURE: CT ABDOMEN W CON CLINICAL HISTORY: WEIGHT LOSS COMPARISON: CT CT ABDOMEN PELVIS W CON from 08/15/2019 TECHNIQUE: Axial images obtained with sagittal and coronal reformats. All CT scans at the facility use one or more dose reduction, viz: automated exposure control, ma/kV adjustment per patient size (including targeted exams where dose is matched to indication, i.e. head), or iterative reconstruction technique. FINDINGS: The liver, pancreas, adrenal glands, and kidneys have an unremarkable appearance. There is a 10 mm I so density in the posterior aspect of the spleen nonspecific. No intestinal obstruction or free air. No evidence of appendicitis. Degenerative changes lower thoracic spine. No acute bony findings. IMPRESSION: No acute finding Dictated by: Giancarlo Og MD 03/23/2021 10:53 Giancarlo Og MD in [facility] 03/23/2021 10:53
== END ==
PROVIDERS: PCP Family Medicine; Visit Provider Family Medicine
DX: R63.4 Abnormal weight loss (principal)
CPT/HCPCS: 71260; 74160; Q9967

== ENCOUNTER → 2021-04-20 11:17 | Outpatient (CLI) | payer OTHER, SELFPAY | PROVIDERS: Visit Provider Family Medicine | DX: Z20.822 Contact with and (suspected) exposure to COVID-19 (principal) | CPT/HCPCS: C9803; U0003; U0005 ==

== ENCOUNTER → 2021-09-17 12:47 | Outpatient (CLI) | payer OTHER, MEDICARE, SELFPAY ==
--- NOTE | 2021-09-17 12:59 | CT_ITS ---
FINAL REPORT CLINICAL HISTORY: WEIGHT LOSS,ABN CT CHEST COMPARISON: March 21, 2021 FINDINGS: CT CHEST W/CONTRAST Axial CT images of the chest were obtained with contrast. Coronal reformatted images were also obtained. This study was performed with techniques to keep radiation doses as low as reasonably achievable, (ALARA). Individualized dose reduction techniques using automated exposure control or adjustment of mA and/or KV according to the patient's size were employed. CT CHEST W/CONTRAST There are postoperative changes from median sternotomy. There is bilateral gynecomastia. There is no evidence of mediastinal or hilar mass or adenopathy.No axillary mass or adenopathy is identified. On lung window images, there is mild emphysema and mild pulmonary scarring. There is calcified granuloma in the anterior right upper lobe. There are multiple left pleural plaques, all of which are stable in size and appearance. Limited images of the upper abdomen reveal postoperative changes from cholecystectomy. There are multiple air and fluid-filled bowel loops which are nonspecific and could represent an ileus or enteritis. IMPRESSION: Stable multiple left pleural plaques may be post inflammatory or this secondary to prior asbestos exposure. Reviewed, Interpreted and Dictated by Michele Mccarty III, MD Transcribed by [employer] [facility] Authenticated by Michele Mccarty III, MD on 09/17/2021 03:56:10 PM [facility]
== END ==
PROVIDERS: PCP Family Medicine; Visit Provider Family Medicine
DX: R63.4 Abnormal weight loss (principal); R93.89 Abnormal findings on diagnostic imaging of other specified body structures
CPT/HCPCS: 71260; Q9967

== ENCOUNTER 2021-12-27 16:16 | Emergency (ER) | payer OTHER, MEDICARE, SELFPAY ==
[2021-12-27 16:17] VITALS: BP 107/79; PULSE 79; RESP 16; TEMP 36.8; O2SAT 100; BMI 22.1
[2021-12-27 16:30] VITALS: BP 111/74; PULSE 73; RESP 16; O2SAT 100
[2021-12-27 16:33] VITALS: BMI 22.1
--- NOTE | 2021-12-27 16:34 | CT_ITS ---
PROCEDURE INFORMATION: Exam: CT Head Without Contrast Exam date and time: 12/27/2021 4:56 PM Age: 66 years old Clinical indication: Injury or trauma; Fall; Blunt trauma (contusions or hematomas) TECHNIQUE: Imaging protocol: Computed tomography of the head without contrast. Radiation optimization: All CT scans at this facility use at least one of these dose optimization techniques: automated exposure control; mA and/or kV adjustment per patient size (includes targeted exams where dose is matched to clinical indication); or iterative reconstruction. COMPARISON: CT HEAD/BRAIN WO CON 03/29/2019 1:18 AM FINDINGS: Brain: Age-related atrophy and chronic white matter ischemic changes, with no evidence of an acute intracranial abnormality. No hemorrhage, mass effect or midline shift. Cerebral ventricles: No ventriculomegaly. Paranasal sinuses: Visualized sinuses are unremarkable. No fluid levels. Mastoid air cells: Visualized mastoid air cells are well aerated. Bones/joints: No acute fracture. Soft tissues: No acute changes IMPRESSION: 1. Age-related atrophy and chronic white matter ischemic changes, with no evidence of an acute intracranial abnormality. 2. No hemorrhage, mass effect or midline shift.
--- NOTE | 2021-12-27 16:34 | XR_ITS ---
PROCEDURE INFORMATION: Exam: XR Left Ribs with PA Chest Exam date and time: 12/27/2021 5:02 PM Age: 66 years old Clinical indication: Injury or trauma; Fall; Rib area, left side; Blunt trauma; Additional info: Fall, bruising on ribs TECHNIQUE: Imaging protocol: Radiologic exam of the Left ribs with PA chest. Views: 3 views COMPARISON: CT CHEST W CON 09/17/2021 1:21 PM FINDINGS: Tubes, catheters and devices: There are sternal wires consistent with previous sternotomy incision. Lungs: Unremarkable. No consolidation. Pleural spaces: Unremarkable. No pleural effusion. No pneumothorax. Heart/Mediastinum: Unremarkable. No cardiomegaly. Bones/joints: There is no evidence of acute fracture. IMPRESSION: No evidence of acute fracture.
--- NOTE | 2021-12-27 16:38 | PC.NURSE ---
EFRAIN DUMONT at
--- NOTE | 2021-12-27 16:43 | HMH.EDGENADL ---
ED Disposition Clinical Impression: Fall, Agranulocytosis Disposition: Home, Self-Care Condition on Discharge: Good Additional Instructions: At this time was felt you are safe to be discharged home. Please follow-up with your family doctor for continued evaluation of your lung abnormality as well as your medication adjustments. If new or worsening symptoms please do not hesitate to return the emergency department. Referrals: Skinny Centeno MD [Primary Care Provider] - - Critical Care Critical Care Time: No Attestation: On 12/27/21, the high probability of a clinically significant, sudden or life threatening deterioration of the following system(s) required my full and direct attention, intervention and personal management. The time I documented below is in addition to time spent performing reported procedures but includes the following listed in this critical care notation. Medical Decision Making - Papito Inquiry Pt receiving controlled substance: No Vital Signs: 12/27/21 16:17 12/27/21 16:30 Temperature 98.2 F Temperature Source Oral Pulse Rate 73 Pulse Rate [Right Radial] 79 Respiratory Rate 16 16 Blood Pressure 111/74 Blood Pressure [Right Arm] 107/79 L Blood Pressure Mean 81 Blood Pressure Mean [Right Arm] 88 Blood Pressure Source [Right Arm] Automatic Cuff Blood Pressure Position [Right Arm] Sitting 02 Sat by Pulse Oximetry 100 100 Oxygen Delivery Method Room Air Room Air - Lab Data Lab Results 12/27/21 16:45: WBC 6.2, RBC 4.13 L, Hgb 12.1 L, Hct 38.1 L, MCV 92.4, MCH 29.3, MCHC 31.7 L, RDW 16.4, Plt Count 150, MPV 10.3, Neut % (Auto) 0.4 L, Lymph % (Auto) 96.8 H, Brantley % (Auto) 2.1, Eos % (Auto) 0.2, Baso % (Auto) 0.5, Neut # (Auto) 0.0 L*, Lymph # (Auto) 6.0 H, Brantley # (Auto) 0.1, Eos # (Auto) 0.0, Baso # (Auto) 0.0, Total Counted 100, Neutrophils % (Manual) 62, Lymphocytes % (Manual) 31, Atypical Lymphs % 4.0, Monocytes % (Manual) 3, Platelet Estimate Normal, Anisocytosis 1+, Stomatocytes 1+, Acanthocytes (Spur) 1+ 12/27/21 16:45: Sodium 140, Potassium 3.7, Chloride 113 H, Carbon Dioxide 19 L, Anion Gap 11.7, BUN 19, Creatinine 1.30 H, Estimated Creat Clear 59, Estimated GFR 55 L, Est GFR ( Amer) 67, Glucose 105 H, Calcium 9.5, Magnesium 1.9, Total Bilirubin 0.7, AST 35, ALT 16, Alkaline Phosphatase 79, Total Protein 6.4, Albumin 3.8, Globulin 2.6, Albumin/Globulin Ratio 1.5 12/27/21 16:45: C-Reactive Protein 0.8 12/27/21 17:30: Urine Color Yellow, Urine Appearance Clear, Urine pH 7.5, Ur Specific Mozelle 1.010, Urine Protein Negative, Urine Glucose (UA) Negative, Urine Ketones Negative, Urine Blood Negative, Urine Nitrate Negative, Urine Bilirubin Negative, Urine Urobilinogen 0.2, Ur Leukocyte Esterase Negative, Amorphous Sediment Trace 12/27/21 17:50: Lactate 1.6 Result diagrams: 12/27/21 16:45 12/27/21 16:45 Orders (Tests/Meds): ED MEDICATIONS Generic Name Dose Route Start Last Admin Trade Name Homero PRN Reason Stop Dose Admin Sodium Chloride 10 ml 12/27/21 17:46 Sodium Chloride 0.9% 10ml Flush Syringe IV 01/26/22 17:45 NEEDED PRN Maintain IV Site Sodium Chloride 10 ml 12/27/21 17:50 Sodium Chloride 0.9% 10ml Vial IV 01/26/22 17:49 NEEDED PRN to Dilute Lorazepam inj Discontinued Medications Generic Name Dose Route Start Last Admin Trade Name Freshravan PRN Reason Stop Dose Admin Iopamidol 75 ml 12/27/21 18:06 12/27/21 18:07 Iopamidol-370 (76%);100ml Bottle IV 12/27/21 18:07 75 ml ONCE ONE Administration Lorazepam 0.5 mg 12/27/21 17:50 12/27/21 17:56 Lorazepam 2mg/Ml Vial IV 12/27/21 17:51 0.5 mg ONCE ONE Administration Sodium Chloride 50 ml 12/27/21 18:06 12/27/21 18:07 0.9 % Sodium Chloride 50 Ml Vial IV 12/27/21 18:07 50 ml ONCE ONE Administration Sodium Chloride 10 ml 12/27/21 18:06 12/27/21 18:07 Sodium Chloride 0.9% 10ml Syr (Rad Only) IV 12/27/21 18:07 10 ml ONCE ONE A
--- NOTE | 2021-12-27 16:48 | XR_ITS ---
PROCEDURE INFORMATION: Exam: XR Left Knee Exam date and time: 12/27/2021 4:58 PM Age: 66 years old Clinical indication: Pain; Knee; Left; Additional info: Fall TECHNIQUE: Imaging protocol: Radiologic exam of the Left knee. Views: 1 or 2 views. COMPARISON: CR (KNEE AP STANDING, KNEE, KNEE AP STANDING) 12/07/2018 9:24 AM FINDINGS: Bones/joints: There is no evidence of acute fracture. There is no evidence of joint malalignment or dislocation. Soft tissues: No focal soft tissue swelling. IMPRESSION: 1. No evidence of acute fracture. 2. No evidence of acute dislocation.
--- NOTE | 2021-12-27 17:02 | PC.NURSE ---
pt to radiology
[2021-12-27 17:14] LABS: Chloride 113 mmol/L (98-107); Potassium 3.7 mmoL/L (3.5-5.1); Sodium 140 mmol/L (136-145)
[2021-12-27 17:17] LABS: Alanine Aminotransferase 16 U/L (12-78); Albumin Level 3.8 g/dl (3.5-5.0); Albumin/Globulin Ratio 1.5 (1.1-1.8); Alkaline Phosphatase 79 U/L (38-126); Anion Gap 11.7 mEq/L (5-15); Aspartate Amino Transferase 35 U/L (17-59); Bilirubin,Total 0.7 mg/dl (0.2-1.3); Blood Urea Nitrogen 19 mg/dl (9-20); Calcium 9.5 mg/dl (8.4-10.2); Carbon Dioxide 19 mmol/L (22.0-30.0); Creatinine Clearance Estimated 59 mL/min (50-200); Estimated Glomerular Filt Rate 55 ml/min (>60); GFR (African American) 67 ML/MIN (>60); Globulin 2.6 g/dL (1.3-3.2); Glucose 105 mg/dl (74-100); Total Protein,Serum 6.4 g/dl (6.3-8.2)
[2021-12-27 17:18] LABS: Magnesium 1.9 mg/dl (1.6-2.3)
[2021-12-27 17:21] LABS: Basophils % 0.5 % (0.1-2.0); Eosinophils % 0.2 % (0.1-12.0); Hematocrit 38.1 % (42.0-52.0); Hemoglobin 12.1 g/dL (14.1-18.0); Lymphocytes % 96.8 % (10-50); Mean Corpuscular HGB Conc 31.7 g/dL (31.8-35.4); Mean Corpuscular Hemoglobin 29.3 pg (27.0-31.2); Mean Corpuscular Volume 92.4 fl (80-94); Mean Platelet Volume 10.3 fl (7.4-10.4); Monocytes # 0.1 K/mm3 (0.1-1.0); Monocytes % 2.1 % (1.7-9.3); Platelet Count 150 K/mm3 (142-424); Red Blood Count 4.13 M/mm3 (4.60-6.20); Red Cell Distribution Width 16.4 % (11.5-17.5); White Blood Count 6.2 K/mm3 (4.8-10.8)
[2021-12-27 17:25] LABS: Neutrophils % 0.4 % (37.0-80.0)
--- NOTE | 2021-12-27 17:25 | PC.NURSE ---
pt in back in room, at BS. Ekg and blood being drawn per ER MD orders at this time.
[2021-12-27 17:27] LABS: MANUAL DIFFERENTIAL MANUAL DIFFERENTIAL (MANUAL DIFF)
--- NOTE | 2021-12-27 17:28 | ECG_ITS ---
APPROVED REPORT Exam: Resting ECG HR:67 bpm ECG Measurements Heart Rate 67 AXES NJ 194 P -66 QRSd 150 QRS 41 QT 462 T 29 QTc 478 Conclusion ECTOPIC ATRIAL RHYTHM INDETERMINATE AXIS RIGHT BUNDLE BRANCH BLOCK [120+ ms QRS DURATION, UPRIGHT V1, 40+ ms S IN I/aVL/V4/V5/V6] ABNORMAL ECG UNCONFIRMED REPORT Electronically signed by : Magan Irwin MD 12/29/2021 09:14:19
[2021-12-27 17:30] VITALS: BP 111/91; PULSE 72; RESP 12; O2SAT 100
--- NOTE | 2021-12-27 17:34 | CT_ITS ---
PROCEDURE INFORMATION: Exam: CTA Abdomen and Pelvis With Contrast Exam date and time: 12/27/2021 5:57 PM Age: 66 years old Clinical indication: Other: Weight loss confusion; Additional info: Weight loss, confusion TECHNIQUE: Imaging protocol: Computed tomographic angiography of the abdomen and pelvis with contrast. 3D rendering (Not supervised by radiologist): MIP and/or 3D reconstructed images were created by the technologist. Radiation optimization: All CT scans at this facility use at least one of these dose optimization techniques: automated exposure control; mA and/or kV adjustment per patient size (includes targeted exams where dose is matched to clinical indication); or iterative reconstruction. Contrast material: ISOVUE 370; Contrast volume: 100 ml; Contrast route: INTRAVENOUS (IV); COMPARISON: CT ABDOMEN W CON 03/21/2021 9:55 AM FINDINGS: Lungs: Lung findings reported separately. Aorta: No evidence of aortic dissection. Celiac trunk and mesenteric arteries: No occlusion or significant stenosis. Renal arteries: No occlusion or significant stenosis. Right iliac arteries: No occlusion or significant stenosis. Left iliac arteries: No occlusion or significant stenosis. Liver: There is a diffuse decrease in hepatic parenchymal density, consistent with mild fatty infiltration. Gallbladder and bile ducts: There has been a cholecystectomy. Pancreas: Unremarkable. No mass. No ductal dilation. Spleen: Heterogeneous enhancement of the spleen without evidence of enlargement. Adrenal glands: Unremarkable. No mass. Kidneys and ureters: No renal calcifications or obstructive uropathy. Stomach and bowel: A large amount of stool is noted throughout the colon. Appendix: No evidence of appendicitis. Intraperitoneal space: Unremarkable. No free air. No significant fluid collection. Lymph nodes: Unremarkable. No enlarged lymph nodes. Urinary bladder: Unremarkable. No mass. Reproductive: Unremarkable as visualized. Bones/joints: The lumbar spine demonstrates mild degenerative changes at multiple levels. Soft tissues: Unremarkable. Other findings: The vasculature demonstrates diffuse mild atherosclerotic calcification. IMPRESSION: 1. No evidence of aortic dissection. 2. There is a diffuse decrease in hepatic parenchymal density, consistent with mild fatty infiltration. 3. No renal calcifications or obstructive uropathy. 4. The lumbar spine demonstrates mild degenerative changes at multiple levels. 5. A large amount of stool is noted throughout the colon.
--- NOTE | 2021-12-27 17:34 | CT_ITS ---
PROCEDURE INFORMATION: Exam: CTA Chest With Contrast Exam date and time: 12/27/2021 5:57 PM Age: 66 years old Clinical indication: Other: Weight loss confusion; Additional info: Weight loss, confusion TECHNIQUE: Imaging protocol: Computed tomographic angiography of the chest with contrast. 3D rendering (Not supervised by radiologist): MIP and/or 3D reconstructed images were created by the technologist. Radiation optimization: All CT scans at this facility use at least one of these dose optimization techniques: automated exposure control; mA and/or kV adjustment per patient size (includes targeted exams where dose is matched to clinical indication); or iterative reconstruction. Contrast material: ISOVUE 370; Contrast volume: 100 ml; Contrast route: INTRAVENOUS (IV); COMPARISON: CT CHEST W CON 09/17/2021 1:21 PM FINDINGS: Tubes, catheters and devices: There are sternal wires consistent with previous sternotomy incision. Pulmonary arteries: No evidence of pulmonary embolism. Aorta: No evidence of aortic dissection. Lungs: Unremarkable. No consolidation. No masses. Pleural spaces: Areas of pleural thickening noted within the left upper lobe. There are no pleural effusions present. Heart: Unremarkable. No cardiomegaly. No pericardial effusion. Lymph nodes: Calcified mediastinal and hilar lymph nodes are present. Intraperitoneal space: Abdominal findings reported separately. Bones/joints: The thoracic spine demonstrates mild degenerative changes at multiple levels. Soft tissues: There is nonspecific gynecomastia. IMPRESSION: 1. No evidence of pulmonary embolism. 2. No evidence of aortic dissection. 3. Areas of pleural thickening noted within the left upper lobe.
--- NOTE | 2021-12-27 17:36 | PC.NURSE ---
URINE SENT TO LAB
--- NOTE | 2021-12-27 17:36 | PC.NURSE ---
ER MD notified of neutropil count ER MD then gave verbal orders for CTA chest, abd/pelvis, blood cultures, lactic acid, and crp
[2021-12-27 17:37] LABS: Microscopic, Urine URINE MICROSCOPIC (MICROSCOPIC)
[2021-12-27 17:38] LABS: Appearance,Urine CLEAR (Clear); Bilirubin,Urine Negative (Negative); Blood, Urine Negative (Negative); Color,Urine YELLOW (Yellow); Glucose,Urine (UA) Negative (Negative); Ketones,Urine Negative (Negative); Leukocyte Esterase,Urine Negative (Negative); Nitrate,Urine Negative (Negative); PH,Urine 7.5 (5.0-8.5); Protein,Urine Negative (Negative); Urobilinogen,Urine 0.2 EU/dl (0.2)
--- NOTE | 2021-12-27 17:49 | PC.NURSE ---
shift change report given to [email or web address]
[2021-12-27 17:50] LABS: Lymphocytes % 31 % (10-50); Monocytes % 3 % (2-9); Neutrophils % 62 % (42-76); Total Cells Counted 100
--- NOTE | 2021-12-27 17:50 | PC.NURSE ---
pt reported pt began taken gabapentin on thursday-states pt began getting confused on thursday after starting gabapentin. states she did not give pt gabapentin today. States was previously taking hydroxizine bid, states she stopped this thursday because pt was being to sedated acting.
[2021-12-27 17:51] LABS: Acanthocytes 1+; Anisocytosis 1+; Platelet Estimate Normal; Stomatocytes 1+
[2021-12-27 17:54] LABS: C-Reactive Protein 0.8 mg/L (0-4)
--- NOTE | 2021-12-27 18:05 | PC.NURSE ---
PT REQUESTED SOMETHING FOR ANXIETY , ATIVAN GIVEN PRIOR TO GOING TO CT ABD VIA W/C
[2021-12-27 18:18] LABS: Amorphous Sediment,Urine Trace /lpf
[2021-12-27 18:30] VITALS: BP 110/61; PULSE 69; RESP 13; O2SAT 100
[2021-12-27 18:32] LABS: Lactic Acid 1.6 mmol/L (0.7-2.1)
[2021-12-27 19:16] VITALS: BP 112/87; PULSE 73; RESP 16; TEMP 36.8; O2SAT 100
== END 2021-12-27 19:18 | disposition home or self-care (01) ==
PROVIDERS: Emergency Provider Emergency Medicine; PCP Family Medicine
DX: D70.9 Neutropenia, unspecified (principal); Z88.1 Allergy status to other antibiotic agents; I25.10 Atherosclerotic heart disease of native coronary artery without angina pectoris; E78.5 Hyperlipidemia, unspecified; I10 Essential (primary) hypertension; I25.2 Old myocardial infarction; F41.9 Anxiety disorder, unspecified; F32.A Depression, unspecified; K21.9 Gastro-esophageal reflux disease without esophagitis; M19.90 Unspecified osteoarthritis, unspecified site; E03.9 Hypothyroidism, unspecified; Z90.49 Acquired absence of other specified parts of digestive tract; F12.11 Cannabis abuse, in remission
CPT/HCPCS: 70450; 71101; 71275; 73560; 74174; 80053; 81001; 83605; 83735; 85007; 85025; 86140; 87040; 93005; 96374; 99285; Q9967

== ENCOUNTER 2022-06-28 17:20 | Emergency (ER) | payer OTHER, MEDICARE, SELFPAY ==
[2022-06-28] VITALS (7 sets, daily range): BP systolic 111–130; BP diastolic 61–80; PULSE 70–90; RESP 16–20; TEMP 36.9–37; O2SAT 98–100
--- NOTE | 2022-06-28 17:56 | CT_ITS ---
PROCEDURE INFORMATION: Exam: CT Head Without Contrast Exam date and time: 06/28/2022 6:24 PM Age: 66 years old Clinical indication: Altered mental status/memory loss; Additional info: AMS x1 month TECHNIQUE: Imaging protocol: Computed tomography of the head without contrast. Radiation optimization: All CT scans at this facility use at least one of these dose optimization techniques: automated exposure control; mA and/or kV adjustment per patient size (includes targeted exams where dose is matched to clinical indication); or iterative reconstruction. Other protocol: This patient has received 4 known CTs and 0 known cardiac nuclear medicine studies in the 12 months prior to the current study. COMPARISON: CT HEAD/BRAIN WO CON 12/27/2021 4:56 PM FINDINGS: Brain: There is no evidence of acute intracranial hemorrhage, extra-axial collection or locoregional mass effect. There are scattered hypodensities in the periventricular and subcortical white matter. The appearance is nonspecific, but most likely represents chronic small vessel disease in a person of this age Cerebral ventricles: The ventricles, sulci and cisterns are normal in size and configuration for patient's age. No hydrocephalus or midline structure shift Pituitary gland and sella: Sellar/parasellar structures, craniocervical junction and orbits are unremarkable Paranasal sinuses: Scattered mucosal thickening throughout the paranasal sinuses. Mastoid air cells: Visualized mastoid air cells are well aerated. Auditory system: Nodular soft tissue thickening in bilateral external auditory canals. While nonspecific statistically represent cerumen. Bones/joints: No calvarial fracture Soft tissues: Unremarkable. Other findings: No distinct pattern of regional volume loss is identified to suggest a specific neurodegenerative process. IMPRESSION: 1. No acute intracranial abnormality. No calvarial fracture. 2. No distinct pattern of regional volume loss is identified to suggest a specific neurodegenerative process.
--- NOTE | 2022-06-28 17:57 | XR_ITS ---
PROCEDURE INFORMATION: Exam: XR Chest Exam date and time: 06/28/2022 7:00 PM Age: 66 years old Clinical indication: Other: AMS TECHNIQUE: Imaging protocol: Radiologic exam of the chest. Views: 1 view. COMPARISON: CR XR RIBS LT MIN 3V W CXR1V 12/27/2021 5:02 PM FINDINGS: Lungs: The lungs appear clear. No focal areas of consolidation. Mild hypo vascularity to the lung apices raises the question of mild emphysema. Pleural spaces: No pleural effusions or appreciable adenopathy. Negative for pneumothorax. Heart/Mediastinum: Sternal suture wires are in place suggesting prior median sternotomy. Cardiac silhouette and pulmonary vasculature are within range of normal. Bones/joints: There is no evidence of acute fracture. A few remote left rib fractures are stable.The thoracic spine demonstrates mild degenerative changes at multiple levels. Other findings: Study quality is limited due to lordotic positioning of the patient. IMPRESSION: 1. Mildly limited study due to lordotic positioning. 2. As seen, study negative for an acute cardiopulmonary abnormality.
[2022-06-28 18:02] LABS: Coronavirus 19, PCR Not Detected (NotDetected); Influenza A, PCR Not Detected (NotDetected); Influenza B, PCR Not Detected (NotDetected)
[2022-06-28 18:03] LABS: Basophils # 0.1 K/mm3 (0-0.2); Basophils % 0.9 % (0.1-2.0); Eosinophils # 0.1 K/mm3 (0.0-0.4); Eosinophils % 0.6 % (0.1-12.0); Hematocrit 40.7 % (42.0-52.0); Hemoglobin 13.5 g/dL (14.1-18.0); Lymphocytes # 7.9 K/mm3 (0.7-4.5); Lymphocytes % 93.9 % (10-50); Mean Corpuscular HGB Conc 33.3 g/dL (31.8-35.4); Mean Corpuscular Hemoglobin 30.9 pg (27.0-31.2); Mean Corpuscular Volume 92.8 fl (80-94); Mean Platelet Volume 10.3 fl (7.4-10.4); Monocytes # 0.4 K/mm3 (0.1-1.0); Monocytes % 4.2 % (1.7-9.3); Platelet Count 177 K/mm3 (142-424); Red Blood Count 4.38 M/mm3 (4.60-6.20); Red Cell Distribution Width 15.9 % (11.5-17.5); White Blood Count 8.4 K/mm3 (4.8-10.8)
[2022-06-28 18:05] LABS: Chloride 113 mmol/L (98-107); Potassium 3.8 mmoL/L (3.5-5.1); Sodium 144 mmol/L (136-145)
[2022-06-28 18:07] LABS: Alanine Aminotransferase 21 U/L (12-78); Aspartate Amino Transferase 28 U/L (17-59); Blood Urea Nitrogen 15 mg/dl (9-20); Creatinine Clearance Estimated 54 mL/min (50-200); Estimated Glomerular Filt Rate 55 ml/min (>60); GFR (African American) 67 ML/MIN (>60)
[2022-06-28 18:08] LABS: Albumin Level 4.6 g/dl (3.5-5.0); Albumin/Globulin Ratio 1.2 (1.1-1.8); Alkaline Phosphatase 67 U/L (38-126); Anion Gap 15.8 mEq/L (5-15); Bilirubin,Total 0.8 mg/dl (0.2-1.3); Calcium 9.3 mg/dl (8.4-10.2); Carbon Dioxide 19 mmol/L (22.0-30.0); Globulin 3.7 g/dL (1.3-3.2); Glucose 99 mg/dl (74-100); Total Protein,Serum 8.3 g/dl (6.3-8.2)
[2022-06-28 18:09] LABS: Ammonia < 9 umol/L (9-30)
[2022-06-28 18:13] LABS: Neutrophils % 0.4 % (37.0-80.0)
[2022-06-28 18:14] LABS: MANUAL DIFFERENTIAL MANUAL DIFFERENTIAL (MANUAL DIFF)
--- NOTE | 2022-06-28 18:14 | ECG_ITS ---
APPROVED REPORT Exam: Resting ECG HR:81 bpm ECG Measurements Heart Rate 81 AXES SD 188 P 85 QRSd 155 QRS -38 QT 442 T -7 QTc 480 Conclusion SINUS RHYTHM WITH FREQUENT VENTRICULAR PREMATURE COMPLEXES INDETERMINATE AXIS RIGHT BUNDLE BRANCH BLOCK [120+ ms QRS DURATION, UPRIGHT V1, 40+ ms S IN I/aVL/V4/V5/V6] ABNORMAL ECG UNCONFIRMED REPORT Electronically signed by : Magan Irwin MD 06/30/2022 18:56:26
--- NOTE | 2022-06-28 18:14 | HMH.EDGENADL ---
Discharge Plan Disposition Patient Disposition: Xfer Short-Term Hosp Condition: Fair Prescriptions Prescriptions: No Action levothyroxine 50 mcg capsule 50 mcg PO DAILY duloxetine 60 mg capsule,delayed release(DR/EC) 60 mg PO DAILY buspirone 10 mg tablet 10 mg PO TID Qty: 90 0RF hydroxyzine pamoate 50 mg capsule 50 mg PO TID PRN (Reason: Anxiety) Qty: 90 0RF mirtazapine [Remeron] 30 mg tablet 30 mg PO QHS Qty: 30 0RF mirtazapine [Remeron] 15 mg tablet 7.5 mg PO DAILY Qty: 15 0RF gabapentin 600 MG tablet 600 mg PO TID Label Comments: TAKE TWO TABLETS BY MOUTH IN THE MORNING & TAKE TWO TABLETS BY MOUTH IN THE EVENING, AND TAKE ONE TABLET BY MOUTH AT BEDTIME MAY CAUSE DROWS Rx Instructions: TAKE 2 TABLETS IN AM, TAKE 2 TABLETS IN THE EVENING, TAKE 1 AT BEDTIME rivaroxaban 20 MG tablet 20 mg PO QPMWM Qty: 30 5RF diltiazem HCl 180 MG capsule,extended release 24hr 180 mg PO BID Qty: 60 5RF Referrals Follow up/Referrals: Skinny Centeno MD [Primary Care Provider] - See instructions Clinical Impressions Clinical Impression: Acute confusion, YEN (generalized anxiety disorder), Disorientation Discharge ED Provider: [facility] HPI General Chief complaint: Altered Mental Status Stated complaint: confussed Time Seen by Provider: 06/28/22 18:04 Mode of Arrival: Wheelchair Source of Information: Patient Limitations: Altered Mental Status Description of Symptoms (Recalled from ER Triage Doc. by RN): pt to ed for ams. per pt has increasingly became more confused and combative at home x1 month. states in january of 2022 pt was hospitalized at [facility]. pt states pt has a hx of anxiety that is managed with medication. states for the last two weeks pt has had some urinary urgency. denies any complaints of pain from pt. History of Present Illness HPI narrative: History obtained predominantly from the patient's , supplemented by the patient. states that he has a history of generalized anxiety disorder and a distant history of depression. She states that he has increasing confusion over the past 2 months now also becoming combative. He is disoriented. She says he gets this way when his anxiety disorder decompensates. He complains of being anxious, he denies any other complaints. He is not suicidal or homicidal. states he most recently was admitted to [facility], she says that she took him in for anxiety but they diagnosed him with kidney failure. He was treated by the behavioral health department there. She would prefer for him to be admitted to [facility]. She feels he needs inpatient management for adjustment of his medications. He has been seen for outpatient psychiatric treatment in [place]. He was also seen by Myah Dey here, but states that he was beyond her capabilities and she will not be continuing to treat him. She states that he has had unintentional weight loss over the past couple of years, went from 300 pounds down to his current weight of [address] Centeno, his primary care provider, has done extensive work-up including scans, EGDs, colonoscopy, etc. and no cause has been found. Related Data Home Medications Medication Instructions Recorded Confirmed duloxetine 60 mg capsule,delayed 60 mg PO DAILY mood 02/25/18 05/26/19 release levothyroxine 50 mcg capsule 50 mcg PO DAILY thyroid 02/25/18 05/26/19 gabapentin 600 mg tablet 600 mg PO TID Pain 03/29/19 05/26/19 Previous Rx's Medication Instructions Recorded diltiazem HCl 180 mg 180 mg PO BID ##60 03/31/19 capsule,extended release 24 hr rivaroxaban 20 mg tablet 20 mg PO QPMWM #30 tabs 03/31/19 buspirone 10 mg tablet 10 mg PO TID #90 tabs 09/22/19 hydroxyzine pamoate 50 mg capsule 50 mg PO TID PRN Anxiety #90 caps 09/22/19 mirtazapine 15 mg tablet (R
--- NOTE | 2022-06-28 18:17 | PC.NURSE ---
pt's approached staff and states she does not feel comfortable taking care of patient at home. states pt has become combative and does no feel safe caring for him. requesting pt be transferred to [facility] for impatient care. this nurse explained should pt meet criteria for impatient care there is a transfer process that can be discussed at that time with family and MD.
--- NOTE | 2022-06-28 18:20 | PC.NURSE ---
PT GOING TO RAD FOR XRAY
--- NOTE | 2022-06-28 18:26 | PC.NURSE ---
PT ARRIVED BACK FROM RAD VIA STRETCHER
[2022-06-28 18:29] LABS: Lymphocytes % 34 % (10-50); Monocytes % 3 % (2-9); Neutrophils % 62 % (42-76); Nucleated Red Blood Cells 1; Total Cells Counted 100
[2022-06-28 18:30] LABS: Ovalocytes 1+; Platelet Estimate Normal; Poikilocytosis 1+; Target Cells 1+
[2022-06-28 18:34] LABS: Microscopic, Urine URINE MICROSCOPIC (MICROSCOPIC)
[2022-06-28 18:39] LABS: Appearance,Urine CLEAR (Clear); Bilirubin,Urine Negative (Negative); Blood, Urine Negative (Negative); Color,Urine DK YELLOW (Yellow); Glucose,Urine (UA) Negative (Negative); Ketones,Urine Negative (Negative); Leukocyte Esterase,Urine Negative (Negative); Nitrate,Urine Negative (Negative); PH,Urine 6.5 (5.0-8.5); Protein,Urine Negative (Negative); Specific Gravity, Urine 1.025 (1.005-1.030); Urobilinogen,Urine 0.2 EU/dl (0.2)
[2022-06-28 18:51] LABS: Acetaminophen < 10 ug/ml (10-30); Ethyl Alcohol < 10 mg/dl (0-10); Salicylate < 1.0 mg/dL (2.0-20.0)
[2022-06-28 18:52] LABS: Amphetamine/Metha Screen,Urine Negative ng/ml (<1000); Barbiturates Screen,Urine Negative ng/ml (<200)
[2022-06-28 18:53] LABS: Benzodiazepines Screen,Urine Negative ng/ml (<200)
[2022-06-28 18:54] LABS: Cannabinoid Screen,Urine Negative ng/ml (<50); Cocaine Screen,Urine Negative ng/ml (<300)
[2022-06-28 18:55] LABS: Methadone Screen,Urine Negative ng/ml (<300); Opiate Screen,Urine Negative ng/ml (<300)
[2022-06-28 18:56] LABS: Phencyclidine Screen,Urine Negative ng/ml (<25)
[2022-06-28 18:57] LABS: Amorphous Sediment,Urine Trace /lpf; Mucus,Urine 1+ /lpf; Squamous Epithelial Cell,Urine Occasional #/hpf (0-5); WBC,Urine Occasional #/hpf (0-3)
[2022-06-28 19:05] LABS: Troponin I < 0.01 ng/ml (0.00-0.034)
--- NOTE | 2022-06-28 19:11 | PC.NURSE ---
states pt is medically clear and we can start transfer process to [facility]. calling [facility]
--- NOTE | 2022-06-28 19:17 | PC.NURSE ---
speaking to dr hamlin at [facility]
--- NOTE | 2022-06-28 19:17 | PC.NURSE ---
Rounded on patient, updated and patient on pOC. No other needs at this time.
--- NOTE | 2022-06-28 19:45 | PC.NURSE ---
report called to jennie caldwell @ [facility] notified of transfer. pt and family updated on POC
--- NOTE | 2022-06-28 19:47 | PC.NURSE ---
pt ambulating to the restroom with at this time
--- NOTE | 2022-06-28 19:47 | PC.NURSE ---
pt refusing to be hooked to data-scope for vitals at this time
[2022-06-28 20:21] LABS: Thyroid Stimulating Hormone 1.85 uIU/mL (0.465-4.68)
--- NOTE | 2022-06-28 20:49 | PC.NURSE ---
updated and on EMS wait. assisted pt into bed, rails up and warm blanket provided
== END 2022-06-28 21:08 | disposition short-term general hospital (02) ==
PROVIDERS: Emergency Provider Emergency Medicine; PCP Family Medicine
DX: R41.82 Altered mental status, unspecified (principal); F41.0 Panic disorder [episodic paroxysmal anxiety]; R41.0 Disorientation, unspecified; Z20.822 Contact with and (suspected) exposure to COVID-19
CPT/HCPCS: 70450; 71045; 80053; 80305; 80329; 81001; 82140; 84443; 84484; 85007; 85025; 93005; 96374; 96376; 99285; C9803; U0003; U0005

== ENCOUNTER 2023-05-15 21:14 | Emergency (ER) | payer MEDICARE, OTHER, SELFPAY ==
[2023-05-15 21:24] VITALS: BP 116/93; PULSE 93; RESP 20; TEMP 37.1; O2SAT 98; BMI 19.9
[2023-05-15 21:32] VITALS: BP 108/90; PULSE 103; O2SAT 98
[2023-05-15 21:37] LABS: Coronavirus 19, PCR Not Detected (NotDetected); Influenza A, PCR Not Detected (NotDetected); Influenza B, PCR Not Detected (NotDetected)
[2023-05-15 21:45] LABS: Strep Scrn Group A (Rapid) Negative (Negative)
[2023-05-15 22:00] VITALS: BP 116/67; PULSE 76; O2SAT 97
[2023-05-15 22:30] VITALS: BP 101/81; PULSE 103; O2SAT 98
--- NOTE | 2023-05-15 22:38 | HMH.EDGENADL ---
Discharge Plan Disposition Patient Disposition: Home, Self-Care Condition: Good Prescriptions Prescriptions: New amoxicillin 500 mg capsule 500 mg PO BID 7 Days Qty: 14 0RF No Action levothyroxine 50 mcg capsule 50 mcg PO DAILY buspirone 10 mg tablet 10 mg PO BID olanzapine 5 mg tablet 5 mg PO BID Patient Comments: TAKE ONE TABLET BY MOUTH TWICE DAILY benztropine 1 mg tablet 1 mg PO DAILY Patient Comments: TAKE ONE TABLET BY MOUTH TWICE DAILY mirtazapine 7.5 mg tablet 7.5 mg PO DAILY Patient Comments: TAKE ONE TABLET BY MOUTH EVERY DAY AT BEDTIME duloxetine 20 mg capsule,delayed release(DR/EC) 20 mg PO DAILY Patient Comments: TAKE ONE CAPSULE BY MOUTH EVERY DAY Referrals Follow up/Referrals: Skinny Centeno MD [Primary Care Provider] - See instructions Activity Restrictions/Add. Instructions Additional Instructions/Restrictions: Please follow-up with the results of your respiratory panel. Please take the antibiotics if you have not no viral illness on the respiratory panel. Please return with any new or worsening symptoms. Clinical Impressions Clinical Impression: Pneumonia, Abrasion of nose Discharge ED Provider: Govind Araya General Adult HPI General Chief complaint: Upper Respiratory Infection Stated complaint: congestion, cough, fever Time Seen by Provider: 05/15/23 22:17 Mode of Arrival: Ambulatory Source of Information: Patient and Spouse Limitations: No Limitations Description of Symptoms (Recalled from ER Triage Doc. by RN): pt c/o a fever (high 100.4) and a nonproductive cough. pt took an aspirin around 1800. pt was exposed to strep. pt tripped and fell on his face when getting ready to come to the hospital. pt presents with abrasions on his nose. pt is A&O X4, GCSn 15. pt denies head, neck or back pain. pt denies any other pain related to the fall. History of Present Illness HPI narrative: Patient presents with fever with Tmax 100.4 earlier today, nonproductive cough, associated malaise, myalgias, recent exposure to RSV. Previous therapies include [id number] antipyretic. Patient on his way to the emergency department had nonsyncopal multifactorial fall from standing, scraped his nose on a carpeted surface. Did not lose consciousness. Denies any headache or neck pain. This was unwitnessed. No seizure-like activity. No confusion. No previous therapies. Symptoms were gradual in onset, stable in course. Has not had similar symptoms before. Patient is a non-smoker. No blood thinner usage. Related Data Home Medications Medication Instructions Recorded Confirmed levothyroxine 50 mcg capsule 50 mcg PO DAILY thyroid 02/25/18 05/15/23 benztropine 1 mg tablet 1 mg PO DAILY 05/15/23 05/15/23 buspirone 10 mg tablet 10 mg PO BID 05/15/23 05/15/23 duloxetine 20 mg capsule,delayed 20 mg PO DAILY 05/15/23 05/15/23 release mirtazapine 7.5 mg tablet 7.5 mg PO DAILY 05/15/23 05/15/23 olanzapine 5 mg tablet 5 mg PO BID 05/15/23 05/15/23 Previous Rx's Medication Instructions Recorded amoxicillin 500 mg capsule 500 mg PO BID 7 days #14 caps 05/15/23 Allergies Allergy/AdvReac Type Severity Reaction Status Date / Time erythromycin base Allergy Unknown Unknown Verified 05/15/23 21:29 allergy reaction [facility] Disclaimer: The information contained in this section may have been updated after the patient was seen, as this information can be updated by other users. Social History Smoking Status: Never smoker alcohol intake: never substance use type: marijuana (in the past; none in the past 4 years) current occupational status: retired Travel in the last 8 weeks: None household members: spouse housing: house number of children: 0 caffeine: No ROS Obtained: Yes Systems reviewed as appropriate & no additional complaints except as documented As per HPI Physical Exam General General appearance: alert and in no apparent distress Head Head exam: normocephalic and other (Abrasion on front of nose, no nasal septal hematoma, no cervical spinal tenderness to palpation, alert and oriented, full strength in bilateral upper extremities.) Eye Eye exam: Present normal appearance Neck Neck exam: Present normal inspection Chest Chest inspection: Present normal inspection and symmetric chest wall rise Respiratory Respiratory exam: Present normal lung sounds bilaterally; Absent respiratory distress Cardiovascular Cardiovascular exam: Present regular rate and normal rhythm Abdominal Exam Abdominal exam: Present soft Neurological Exam Neurological exam: Present alert and oriented X3 Psychiatric Psychiatric exam: Present normal affect and normal mood Skin Skin exam: Present warm and dry Medical Decision Making Medical Records Medical records reviewed: Yes I reviewed the patient's medical records. Ppaito Inquiry Pt receiving controlled substance: No Vital Signs: 05/15/23 21:24 05/15/23 21:32 05/15/23 22:00 Temperature 98.7 F Temperature Source Oral Pulse Rate 103 H 76 Pulse Rate [Left] 93 H Respiratory Rate 20 Blood Pressure 108/90 L 116/67 Blood Pressure [Right Arm] 116/93 H Blood Pressure Mean [Right Arm] 100 Blood Pressure Source [Right Arm] Automatic Cuff Blood Pressure Position [Right Arm] Sitting 02 Sat by Pulse Oximetry 98 98 97 Oxygen Delivery Method Room Air 05/15/23 22:30 05/15/23 23:43 Temperature 98.7 F Temperature Source Pulse Rate 103 H 103 H Pulse Rate [Left] Respiratory Rate 19 Blood Pressure 101/81 L 129/78 Blood Pressure [Right Arm] Blood Pressure Mean [Right Arm] Blood Pressure Source [Right Arm] Blood Pressure Position [Right Arm] 02 Sat by Pulse Oximetry 98 Oxygen Delivery Method Lab Data Lab Results 05/15/23 21:30: Chlamy pneumoniae PCR TNP, Adenovirus (PCR) Not detected, B. pertussis DNA (PCR) TNP, Coronavirus OC43 (PCR) Not detected, Coronavirus HKU1 (PCR) Not detected, Coronavirus 229E (PCR) Not detected, SARS-CoV-2 (PCR) Not detected 05/15/23 21:30: SARS-CoV-2 (PCR) Not detected, Coronavirus NL63 (PCR) Not detected, Human Metapneumovir PCR Not detected, Influenza A (H1) PCR Not detected, Influ A (H1N1/09) PCR Not detected, Influenza A (H3) PCR Not detected, Influenza Type A (PCR) Not detected, Influenza A Untype (PCR) Not detected, Influenza Type B (PCR) Not detected 05/15/23 21:30: Influenza Type B (PCR) Not detected, M. pneumoniae (PCR) TNP, Parainfluenza 1 (PCR) Not detected, Parainfluenza 2 (PCR) Not detected, Parainfluenza 3 (PCR) Not detected, Parainfluenza 4 (PCR) Not detected, RSV (PCR) Detected A, Entero/Rhino (PCR) Not detected, Group A Strep Rapid Negative Orders (Tests/Meds): ORDERS Category Date Time Status XR chest 2V Stat Exams 05/15/23 22:39 Completed Full Resp Panel w/COVID ([facility]) Routine Lab 05/15/23 21:30 Completed Rapid PCR Covid and Flu A/B Stat Lab 05/15/23 21:30 Completed Strep Scrn Group A (Rapid) Stat Lab 05/15/23 21:30 Completed Strep Screen Confirmation Stat Micro 05/15/23 21:30 Received Medical Decision Narrative: Patient with history and exam per above presenting for evaluation of shortness of breath, cough, fever, as well as head injury in the absence of blood thinner usage or loss of consciousness, low mechanism injury. Diagnoses considered include bronchitis, viral URI, pneumonia, no evidence of otitis on physical exam. Patient did sustain head injury but, outside of age of [age] years old, in the absence of blood thinner usage, high risk mechanism, or any pain to suggest osseous findings or intracranial lesion, CT imaging would be a very limited utility. Patient and at bedside are in agreement with this impression. ED workup and treatment included: ORDERS Category Date Time Status XR chest 2V Stat Exams 05/15/23 22:39 Completed Full Resp Panel w/COVID ([facility]) Routine Lab 05/15/23 21:30 Completed Rapid PCR Covid and Flu A/B Stat Lab 05/15/23 21:30 Completed Strep Scrn Group A (Rapid) Stat Lab 05/15/23 21:30 Completed Strep Screen Confirmation Stat Micro 05/15/23 21:30 Received Labs were independently interpreted by me, significant for COVID-19 and influenza negative, viral panel pending Imaging was independently visualized and interpreted by me, significant for no focal consolidation, mild bilateral airspace disease Symptoms at this time are thought to be most consistent with community-acquired pneumonia I discussed my clinical impression with patient and answered all questions. At this time, given reassuring workup and exam, I discussed that I have a low index of suspicion for any acute pathology necessitating inpatient management. Specific return precautions were given, with understanding and agreement. Patient will follow up with primary care provider as needed. After shared decision-making, patient will follow-up results of respiratory panel, I prescribed, based off my clinical impression and findings on x-ray, course of amoxicillin should patient have negative respiratory panel. Patient was instructed to not complete this course of medication should his respiratory panel revealed viral illness as it is highly likely at that time that any community-acquired pneumonia would be secondary to viral pathology and not warrant antibiotic treatment. Critical Care Critical Care Time Critical Care Time: No
--- NOTE | 2023-05-15 22:39 | XR_ITS ---
PROCEDURE INFORMATION: Exam: XR Chest Exam date and time: 05/15/2023 10:42 PM Age: 67 years old Clinical indication: Shortness of breath; Additional info: SOA, cough TECHNIQUE: Imaging protocol: Radiologic exam of the chest. Views: 2 views. COMPARISON: CR XR CHEST PORTABLE 06/28/2022 7:00 PM FINDINGS: Lungs: Unremarkable. No consolidation. Pleural spaces: Unremarkable. No pleural effusion. No pneumothorax. Heart/Mediastinum: Postsurgical changes of CABG. No cardiomegaly. Bones/joints: Median sternotomy. Old left rib fractures. IMPRESSION: No acute pulmonary findings.
[2023-05-15 22:41] LABS: Adenovirus,PCR Not Detected (NotDetected); Coronavirus 19, PCR Not Detected (NotDetected); Coronavirus 229E Not Detected (NotDetected); Coronavirus NL63 Not Detected (NotDetected); Coronavirus OC43 Not Detected (NotDetected); Coronovirus HKU1,PCR Not Detected (NotDetected); Human Metapneumovirus Not Detected (NotDetected); Influenza A, PCR Not Detected (NotDetected); Influenza AH1, 2009 Not Detected (NotDetected); Influenza AH1, PCR Not Detected (NotDetected); Influenza AH3,PCR Not Detected (NotDetected); Influenza B, PCR Not Detected (NotDetected); Parainfluenza 1, PCR Not Detected (NotDetected); Parainfluenza 2, PCR Not Detected (NotDetected); Parainfluenza 3, PCR Not Detected (NotDetected); Parainfluenza 4, PCR Not Detected (NotDetected); Rhinovirus/Enterovirus Not Detected (NotDetected)
--- NOTE | 2023-05-15 22:51 | PC.NURSE ---
patient going for chest x-ray
--- NOTE | 2023-05-15 22:51 | PC.NURSE ---
to RAD at this time
[2023-05-15 23:43] VITALS: BP 129/78; PULSE 103; RESP 19; TEMP 37.1
[2023-05-16 01:54] LABS: Respiratory Syncytial Virus Detected (NotDetected)
--- NOTE | 2023-05-16 10:43 | PC.NURSE ---
pts called to get respiratory panel results. identified with two patient identifies, pts given results.
== END 2023-05-15 23:44 | disposition home or self-care (01) ==
PROVIDERS: Emergency Provider Emergency Medicine; PCP Family Medicine
DX: J18.9 Pneumonia, unspecified organism (principal); S00.31XA Abrasion of nose, initial encounter; W01.0XXA Fall on same level from slipping, tripping and stumbling without subsequent striking against object, initial encounter
CPT/HCPCS: 71046; 87430; 87581; 87632; 87635; 87636; 87798; 99285

== ENCOUNTER 2023-07-08 15:29 | Observation (INO) | payer MEDICARE, OTHER, SELFPAY ==
[2023-07-08 15:29] VITALS: BP 166/72; PULSE 55; RESP 18; TEMP 36.7; O2SAT 100; BMI 36.6
--- NOTE | 2023-07-08 15:36 | HMH.EDGENADL ---
Discharge Plan Disposition Patient Disposition: Admitted Condition: Good Clinical Impressions Clinical Impression: Fronto-temporal dementia, Declining functional status, Agitation Discharge ED Provider: Keely Velasco General Adult HPI <JOY Dickey - Last Filed: 07/08/23 17:25> General Chief complaint: Anxiety Stated complaint: ams Time Seen by Provider: 07/08/23 15:33 Mode of Arrival: EMS Source of Information: Patient and EMS Limitations: No Limitations Description of Symptoms (Recalled from ER Triage Doc. by RN): Per EMS patient walked into dispatch with the complaint of being more nervous and anxiety being worse. Per EMS patient has a history of dementia and currently taking olanzapine but states it isn't working and the patient has become increasingly anxious and aggressive. History of Present Illness HPI narrative: She has a formal longstanding diagnosis frontotemporal dementia from neuropsych division at the [facility] and has been being cared for by his in their home. However he is continued to have cognitive progressive decline and is now having some aggressive tendencies. Patient's stated that he easily becomes aggressive over her helping him change his adult diaper after he had soiled it with stool and grabbed her arm aggressively and she felt very scared. She then subsequently managed to get him in the car under the pretense of another task and drove him to a local ambulance station in which they brought him to the ER. At the time of my exam patient states that he is anxious and very anxious and defers to his or what his actual symptomology is. Patient knows the month and year but not the day of the week the time of the day. He cannot elicit any further on his symptoms other than being anxious. He does deny pain but cannot or will not describe in what way he feels anxious or any other symptoms he might be experiencing. He does deny suicidal ideations homicidal ideations audiovisual hallucinations. Related Data Home Medications Medication Instructions Recorded Confirmed levothyroxine 50 mcg capsule 50 mcg PO DAILY thyroid 02/25/18 07/08/23 benztropine 1 mg tablet 1 mg PO BID 05/15/23 07/08/23 buspirone 10 mg tablet 10 mg PO BID 05/15/23 07/08/23 mirtazapine 7.5 mg tablet 7.5 mg PO DAILY 05/15/23 07/08/23 olanzapine 5 mg tablet 5 mg PO BID 05/15/23 07/08/23 hydroxyzine pamoate 25 mg capsule 25 mg PO QID PRN anxiety 07/08/23 07/08/23 (Vistaril) Allergies Allergy/AdvReac Type Severity Reaction Status Date / Time erythromycin base Allergy Unknown Unknown Verified 05/15/23 21:29 allergy reaction PFS <JOY Dickey - Last Filed: 07/08/23 17:25> [facility] Disclaimer: The information contained in this section may have been updated after the patient was seen, as this information can be updated by other users. Medical History (Updated 07/08/23 @ 18:21 by Kirsten Hernandez, ЮЛИЯ) Afib Anxiety Constipation Dementia Depression History of cardioversion Surgical History (Updated 07/08/23 @ 18:22 by Kirsten Hernandez RN) History of cholecystectomy History of ERCP Hx of appendectomy Hx of CABG Family History (Updated 07/08/23 @ 18:23 by Kirsten Hernandez RN) Other No significant family history Social History (Updated 07/08/23 @ 18:24 by Kirsten Hernandez RN) Smoking Status: Never smoker alcohol intake: never substance use type: marijuana (in the past; none in the past 4 years) current occupational status: retired Travel in the last 8 weeks: None household members: spouse housing: house number of children: 0 caffeine: No <JOY Dickey - Last Filed: 07/08/23 17:25> ROS Obtained: Yes Systems reviewed as appropriate & no additional complaints except as documented Physical Exam <JOY Dickey - Last Filed: 07/08/23 17:25> General General appearance: alert and anxious Head Head exam: atraumatic and normocephalic Eye Eye exam: Present normal appearance, PERRL and EOMI ENT ENT exam: Present normal exam and mucous membranes dry Neck Neck exam: Present normal inspection and trachea midline Chest Chest inspection: Present normal inspection and symmetric chest wall rise; Absent tenderness Respiratory Respiratory exam: Present normal lung sounds bilaterally; Absent respiratory distress Cardiovascular Cardiovascular exam: Present regular rate, normal rhythm and normal heart sounds Abdominal Exam Abdominal exam: Present soft; Absent distention, tenderness or normal bowel sounds Back Exam Back exam: Present normal inspection and full ROM Neurological Exam Neurological exam: Present alert and CN II-XII intact Psychiatric Psychiatric exam: Present agitated, anxious and other (Patient does not appear to be oriented or have insight into his current condition. Patient does not recall being aggressive physically with his today. I do not feel patient has the insight and lacks the capacity to make decisions for himself currently) Skin Skin exam: Present warm, dry and intact Medical Decision Making <JOY Dickey - Last Filed: 07/08/23 17:25> Medical Records Medical records reviewed: Yes I reviewed the patient's medical records. Papito Inquiry Pt receiving controlled substance: No Vital Signs: 07/08/23 15:29 07/08/23 16:01 07/08/23 17:53 Temperature 98.0 F 98.0 F Temperature Source Oral Oral Pulse Rate 83 83 Pulse Rate [Radial] 55 L Respiratory Rate 18 18 Blood Pressure 154/99 H 154/99 H Blood Pressure [Right Arm] 166/72 H Blood Pressure Mean [Right Arm] 103 Blood Pressure Source [Right Arm] Automatic Cuff Blood Pressure Position Sitting Blood Pressure Position [Right Arm] Sitting 02 Sat by Pulse Oximetry 100 100 Oxygen Delivery Method Room Air Room Air Room Air Lab Data Lab results reviewed: Yes I reviewed the patient's lab results. Lab Results 07/08/23 16:08: VBG pH 7.47 H, VBG pCO2 29.0 L, VBG pO2 33.0, VBG HCO3 20.8 L, VBG Total CO2 21.7 L, VBG O2 Saturation 70.2 H, VBG Base Excess -2.8 L 07/08/23 16:16: WBC 7.2, RBC 4.02 L, Hgb 12.8 L, Hct 39.5 L, MCV 98.3 H, MCH 31.8 H, MCHC 32.3, RDW 15.2, Plt Count 140 L, MPV 10.5 H, Neut % (Auto) 0.4 L, Lymph % (Auto) 95.5 H, Wheeler % (Auto) 3.7, Eos % (Auto) 0.1, Baso % (Auto) 0.3, Neut # (Auto) 0.0 L*, Lymph # (Auto) 6.9 H, Wheeler # (Auto) 0.3, Eos # (Auto) 0.0, Baso # (Auto) 0.0, Total Counted 100, Neutrophils % (Manual) 73, Lymphocytes % (Manual) 25, Atypical Lymphs % 1.0, Monocytes % (Manual) 1 L, Platelet Estimate Normal, Hypochromasia 1+, Poikilocytosis 2+, Anisocytosis 1+, Macrocytosis 1+, Ovalocytes 2+, Sodium 139, Potassium 3.9, Chloride 107, Carbon Dioxide 23, Anion Gap 12.9, BUN 15, Creatinine 1.10, Estimated Creat Clear 114, Estimated GFR 67, Est GFR ( Amer) 81, Glucose 104 H, Calcium 9.4, Magnesium 2.1, Total Bilirubin 0.9, AST 25, ALT 20, Alkaline Phosphatase 88, Ammonia < 9 L, Total Protein 7.2, Albumin 4.0, Globulin 3.2, Albumin/Globulin Ratio 1.3, TSH 1.99 07/08/23 16:43: Urine Color Yellow, Urine Appearance Clear, Urine pH 6.5, Ur Specific [place] <= 1.005, Urine Protein Negative, Urine Glucose (UA) Negative, Urine Ketones Negative, Urine Blood Negative, Urine Nitrate Negative, Urine Bilirubin Negative, Urine Urobilinogen 0.2, Ur Leukocyte Esterase Negative, Urine RBC None, Urine WBC None, Ur Squamous Epith Cells Occasional, Urine Bacteria None 07/08/23 16:16 07/08/23 16:16 Orders (Tests/Meds): ED MEDICATIONS Generic Name Dose Route Start Last Admin Trade Name Freq PRN Reason Stop Dose Admin Benztropine Mesylate 1 mg 07/08/23 21:00 07/08/23 21:15 Benztropine 1mg Tablet PO 08/07/23 20:59 1 mg BID MEREDITH Administration Buspirone HCl 10 mg 07/08/23 21:00 07/08/23 21:15 Buspirone Hcl 10 Mg Tablet PO 08/07/23 20:59 10 mg BID MEREDITH Administration Levothyroxine Sodium 50 mcg 07/09/23 07:00 Levothyroxine 50mcg (0.05mg) Tab PO 08/08/23 06:59 DAILYDM MEREDITH Lorazepam 0.5 mg 07/08/23 18:42 07/08/23 19:52 Lorazepam 2mg/Ml Vial IV 08/07/23 18:41 0.5 mg Q8HP PRN Administration Anxiety Olanzapine 5 mg 07/08/23 21:00 07/08/23 21:15 Olanzapine 5 Mg Odt Tablet SL 08/07/23 20:59 5 mg BID MEREDITH Administration ORDERS Category Date Time Status CT head/brain wo con Stat Cat Scan 07/08/23 16:17 Completed Ammonia Stat Lab 07/08/23 16:16 Completed CBC w/Auto Diff [Complete Blood Count Auto Diff] Stat Lab 07/08/23 16:16 Completed CMP [Comprehensive Metabolic Panel] Stat Lab 07/08/23 16:16 Completed Magnesium Stat Lab 07/08/23 16:16 Completed TSH [Thyroid Stimulating Hormone] Stat Lab 07/08/23 16:16 Completed Urinalysis and Microscopic Stat Lab 07/08/23 16:43 Completed VBG [Venous Blood Gas] Stat RT 07/08/23 16:08 Completed ECG initial Besson Routine Y 07/08/23 16:16 Completed Medical Decision Narrative: In summary patient is a 67-year-old male who presents to the emergency department for evaluation of initially altered mental status . Patient is hemodynamically stable and afebrile on arrival. Physical exam shows well-appearing appearing much older than stated age appearing 67-year-old male who looks like he has temporal wasting. Patient does not appear to have the capacity for coherent expansive conversation, definitely does not have insight into his presentation today or his diagnosis, and given his unpredictable aggressive behavior towards his is not safe to be at home with his . However patient has been slightly agitated and anxious in the ER but is currently redirectable verbally. Differential diagnosis includes stroke other derangement of body systems including electrolyte imbalance infection stroke brain tumor etc. Initial workup will be conducted with hematologic labs EKG CT scan of the head without contrast. Initial interventions include none at the moment due to his altered mental status in order to not the compound or confuse by issue. Initial workup reviewed by me shows that his labs are nonactionable with no significant derangements and no potential identifiable cause for an acute decline. My informal interpretation of CT scan of the brain without contrast does not show any acute intracranial abnormalities. I had a very long discussion with the patient's in the presence of the patient regarding the home environment. Patient's states that he can change suddenly from being calm to aggressive including physical aggression such as pulling her hair grabbing her arm. He is very much larger than she is and she got scared today and expresses that she can no longer care for him as she does no longer feel safe with him in the home. Dr. Velasco and I conferred on patient management and initial decision was made to attempt to contact his PCP group (Dr. Centeno) for admission. Dr. Velasco spoke with Dr. Jarvis about admission who agreed for admission. <Keely N Rod, DO - Last Filed: 07/08/23 23:51> Vital Signs: 07/08/23 15:29 07/08/23 16:01 07/08/23 17:53 Temperature 98.0 F 98.0 F Temperature Source Oral Oral Pulse Rate 83 83 Pulse Rate [Radial] 55 L Respiratory Rate 18 18 Blood Pressure 154/99 H 154/99 H Blood Pressure [Right Arm] 166/72 H Blood Pressure Mean [Right Arm] 103 Blood Pressure Source [Right Arm] Automatic Cuff Blood Pressure Position Sitting Blood Pressure Position [Right Arm] Sitting 02 Sat by Pulse Oximetry 100 100 Oxygen Delivery Method Room Air Room Air Room Air Lab Data Lab Results 07/08/23 16:08: VBG pH 7.47 H, VBG pCO2 29.0 L, VBG pO2 33.0, VBG HCO3 20.8 L, VBG Total CO2 21.7 L, VBG O2 Saturation 70.2 H, VBG Base Excess -2.8 L 07/08/23 16:16: WBC 7.2, RBC 4.02 L, Hgb 12.8 L, Hct 39.5 L, MCV 98.3 H, MCH 31.8 H, MCHC 32.3, RDW 15.2, Plt Count 140 L, MPV 10.5 H, Neut % (Auto) 0.4 L, Lymph % (Auto) 95.5 H, Wheeler % (Auto) 3.7, Eos % (Auto) 0.1, Baso % (Auto) 0.3, Neut # (Auto) 0.0 L*, Lymph # (Auto) 6.9 H, Wheeler # (Auto) 0.3, Eos # (Auto) 0.0, Baso # (Auto) 0.0, Total Counted 100, Neutrophils % (Manual) 73, Lymphocytes % (Manual) 25, Atypical Lymphs % 1.0, Monocytes % (Manual) 1 L, Platelet Estimate Normal, Hypochromasia 1+, Poikilocytosis 2+, Anisocytosis 1+, Macrocytosis 1+, Ovalocytes 2+, Sodium 139, Potassium 3.9, Chloride 107, Carbon Dioxide 23, Anion Gap 12.9, BUN 15, Creatinine 1.10, Estimated Creat Clear 114, Estimated GFR 67, Est GFR ( Amer) 81, Glucose 104 H, Calcium 9.4, Magnesium 2.1, Total Bilirubin 0.9, AST 25, ALT 20, Alkaline Phosphatase 88, Ammonia < 9 L, Total Protein 7.2, Albumin 4.0, Globulin 3.2, Albumin/Globulin Ratio 1.3, TSH 1.99 07/08/23 16:43: Urine Color Yellow, Urine Appearance Clear, Urine pH 6.5, Ur Specific [place] <= 1.005, Urine Protein Negative, Urine Glucose (UA) Negative, Urine Ketones Negative, Urine Blood Negative, Urine Nitrate Negative, Urine Bilirubin Negative, Urine Urobilinogen 0.2, Ur Leukocyte Esterase Negative, Urine RBC None, Urine WBC None, Ur Squamous Epith Cells Occasional, Urine Bacteria None Orders (Tests/Meds): ED MEDICATIONS Generic Name Dose Route Start Last Admin Trade Name Freq PRN Reason Stop Dose Admin Benztropine Mesylate 1 mg 07/08/23 21:00 07/08/23 21:15 Benztropine 1mg Tablet PO 08/07/23 20:59 1 mg BID MEREDITH Administration Buspirone HCl 10 mg 07/08/23 21:00 07/08/23 21:15 Buspirone Hcl 10 Mg Tablet PO 08/07/23 20:59 10 mg BID MEREDITH Administration Levothyroxine Sodium 50 mcg 07/09/23 07:00 Levothyroxine 50mcg (0.05mg) Tab PO 08/08/23 06:59 DAILYDM MEREDITH Lorazepam 0.5 mg 07/08/23 18:42 07/08/23 19:52 Lorazepam 2mg/Ml Vial IV 08/07/23 18:41 0.5 mg Q8HP PRN Administration Anxiety Olanzapine 5 mg 07/08/23 21:00 07/08/23 21:15 Olanzapine 5 Mg Odt Tablet SL 08/07/23 20:59 5 mg BID MEREDITH Administration ORDERS Category Date Time Status CT head/brain wo con Stat Cat Scan 07/08/23 16:17 Completed Ammonia Stat Lab 07/08/23 16:16 Completed CBC w/Auto Diff [Complete Blood Count Auto Diff] Stat Lab 07/08/23 16:16 Completed CMP [Comprehensive Metabolic Panel] Stat Lab 07/08/23 16:16 Completed Magnesium Stat Lab 07/08/23 16:16 Completed TSH [Thyroid Stimulating Hormone] Stat Lab 07/08/23 16:16 Completed Urinalysis and Microscopic Stat Lab 07/08/23 16:43 Completed VBG [Venous Blood Gas] Stat RT 07/08/23 16:08 Completed ECG initial Besson Routine Y 07/08/23 16:16 Completed ECG Data Tracing #1: I reviewed this ECG and interpreted as documented below: Normal sinus rhythm with a ventricular rate of 77 bpm. Degree AV block with a SC interval of [address] changes concerning for ischemia. Some motion artifact noted. Right bundle branch block noted. ECG initial impression date: 07/08/23 ECG initial impression time: 16:18 Medical Decision Narrative: In summary patient is a 67-year-old male who presents to the emergency department for evaluation of initially altered mental status . Patient is hemodynamically stable and afebrile on arrival. Physical exam shows well-appearing appearing much older than stated age appearing 67-year-old male who looks like he has temporal wasting. Patient does not appear to have the capacity for coherent expansive conversation, definitely does not have insight into his presentation today or his diagnosis, and given his unpredictable aggressive behavior towards his is not safe to be at home with his . However patient has been slightly agitated and anxious in the ER but is currently redirectable verbally. Differential diagnosis includes stroke other derangement of body systems including electrolyte imbalance infection stroke brain tumor etc. Initial workup will be conducted with hematologic labs EKG CT scan of the head without contrast. Initial interventions include none at the moment due to his altered mental status in order to not the compound or confuse by issue. Initial workup reviewed by me shows that his labs are nonactionable with no significant derangements and no potential identifiable cause for an acute decline. My informal interpretation of CT scan of the brain without contrast does not show any acute intracranial abnormalities. I had a very long discussion with the patient's in the presence of the patient regarding the home environment. Patient's states that he can change suddenly from being calm to aggressive including physical aggression such as pulling her hair grabbing her arm. He is very much larger than she is and she got scared today and expresses that she can no longer care for him as she does no longer feel safe with him in the home. Dr. Velasco and I conferred on patient management and initial decision was made to attempt to contact his PCP group (Dr. Centeno) for admission. Dr. Velasco spoke with Dr. Jarvis about admission who agreed for admission. I was consulted by the MURTAZA, and we discussed the complexity of the problems being addressed. I approved the treatment and management plan for this patient's care in the emergency department, thus performing a substantive portion of the medical decision making. Keely Velasco, DO Critical Care <JOY Dickey - Last Filed: 07/08/23 17:25> Critical Care Time Critical Care Time: No
[2023-07-08 16:01] VITALS: BP 154/99; PULSE 83; O2SAT 100
--- NOTE | 2023-07-08 16:16 | ECG_ITS ---
APPROVED REPORT Exam: Resting ECG HR:77 bpm ECG Measurements Heart Rate 77 AXES NM 233 P 99 QRSd 133 QRS 35 QT 403 T 22 QTc 435 Conclusion SINUS RHYTHM WITH FIRST DEGREE AV BLOCK WITH FREQUENT VENTRICULAR PREMATURE COMPLEXES INDETERMINATE AXIS RIGHT BUNDLE BRANCH BLOCK [120+ ms QRS DURATION, UPRIGHT V1, 40+ ms S IN I/aVL/V4/V5/V6] ABNORMAL ECG UNCONFIRMED REPORT Electronically signed by : Magan Irwin MD 07/09/2023 20:02:42
--- NOTE | 2023-07-08 16:17 | CT_ITS ---
PROCEDURE INFORMATION: Exam: CT Head Without Contrast Exam date and time: 07/08/2023 4:26 PM Age: 67 years old Clinical indication: Altered mental status/memory loss TECHNIQUE: Imaging protocol: Computed tomography of the head without contrast. Radiation optimization: All CT scans at this facility use at least one of these dose optimization techniques: automated exposure control; mA and/or kV adjustment per patient size (includes targeted exams where dose is matched to clinical indication); or iterative reconstruction. COMPARISON: CT HEAD/BRAIN WO CON 06/28/2022 6:24 PM FINDINGS: Brain: The brain demonstrates diffuse volume loss. White matter hypodensities most consistent with chronic small vessel ischemic change. No visible evolving territorial infarct. No hemorrhage. There may be a small, chronic right occipital pole infarct. Cerebral ventricles: The ventricles are enlarged in keeping with volume loss. Paranasal sinuses: Mild maxillary sinus mucosal thickening. Retention cyst or polyp in the right maxillary sinus. No fluid levels. Mastoid air cells: Visualized mastoid air cells are well aerated. Bones/joints: Unremarkable. No acute fracture. Soft tissues: Unremarkable. IMPRESSION: No acute intracranial abnormality seen.
[2023-07-08 16:24] LABS: VBG Base Excess -2.8 mmol/L (-2.4-2.3); VBG HCO3 20.8 mmol/L (23-30); VBG Oxygen Saturation 70.2 % (50-70); VBG PH 7.47 mmol/L (7.31-7.41); VBG Total CO2 21.7 mmol/L (23-27)
[2023-07-08 16:26] LABS: Basophils % 0.3 % (0.1-2.0); Eosinophils % 0.1 % (0.1-12.0); Hematocrit 39.5 % (42.0-52.0); Hemoglobin 12.8 g/dL (14.1-18.0); Lymphocytes # 6.9 K/mm3 (0.7-4.5); Lymphocytes % 95.5 % (10-50); Mean Corpuscular HGB Conc 32.3 g/dL (31.8-35.4); Mean Corpuscular Hemoglobin 31.8 pg (27.0-31.2); Mean Corpuscular Volume 98.3 fl (80-94); Mean Platelet Volume 10.5 fl (7.4-10.4); Monocytes # 0.3 K/mm3 (0.1-1.0); Monocytes % 3.7 % (1.7-9.3); Platelet Count 140 K/mm3 (142-424); Red Blood Count 4.02 M/mm3 (4.60-6.20); Red Cell Distribution Width 15.2 % (11.5-17.5); White Blood Count 7.2 K/mm3 (4.8-10.8)
[2023-07-08 16:27] LABS: Neutrophils % 0.4 % (37.0-80.0)
[2023-07-08 16:29] LABS: MANUAL DIFFERENTIAL MANUAL DIFFERENTIAL (MANUAL DIFF)
[2023-07-08 16:43] LABS: Alanine Aminotransferase 20 U/L (12-78); Albumin/Globulin Ratio 1.3 (1.1-1.8); Alkaline Phosphatase 88 U/L (38-126); Anion Gap 12.9 mEq/L (5-15); Aspartate Amino Transferase 25 U/L (17-59); Bilirubin,Total 0.9 mg/dl (0.2-1.3); Blood Urea Nitrogen 15 mg/dl (9-20); Calcium 9.4 mg/dl (8.4-10.2); Carbon Dioxide 23 mmol/L (22.0-30.0); Chloride 107 mmol/L (98-107); Creatinine Clearance Estimated 114 mL/min (50-200); Estimated Glomerular Filt Rate 67 ml/min (>60); GFR (African American) 81 ML/MIN (>60); Globulin 3.2 g/dL (1.3-3.2); Glucose 104 mg/dl (74-100); Magnesium 2.1 mg/dl (1.6-2.3); Potassium 3.9 mmoL/L (3.5-5.1); Sodium 139 mmol/L (136-145); Total Protein,Serum 7.2 g/dl (6.3-8.2)
[2023-07-08 16:48] LABS: Microscopic, Urine URINE MICROSCOPIC (MICROSCOPIC)
[2023-07-08 16:53] LABS: Ammonia < 9 umol/L (9-30)
[2023-07-08 16:59] LABS: Appearance,Urine CLEAR (Clear); Bilirubin,Urine Negative (Negative); Blood, Urine Negative (Negative); Color,Urine YELLOW (Yellow); Glucose,Urine (UA) Negative (Negative); Ketones,Urine Negative (Negative); Leukocyte Esterase,Urine Negative (Negative); Nitrate,Urine Negative (Negative); PH,Urine 6.5 (5.0-8.5); Protein,Urine Negative (Negative); Specific Gravity, Urine <= 1.005 (1.005-1.030); Urobilinogen,Urine 0.2 EU/dl (0.2)
--- NOTE | 2023-07-08 17:05 | PC.NURSE ---
DR ALEX SPEAKING WITH DR DAVID
--- NOTE | 2023-07-08 17:07 | PC.NURSE ---
DR MATT DA SILVA FOR DR STANLEY
[2023-07-08 17:13] LABS: Thyroid Stimulating Hormone 1.99 uIU/mL (0.465-4.68)
--- NOTE | 2023-07-08 17:13 | PC.NURSE ---
DR ALEX SPEAKING WITH DR GUTIERREZ FOR ADMISSION
[2023-07-08 17:14] LABS: Squamous Epithelial Cell,Urine Occasional #/hpf (0-5)
--- NOTE | 2023-07-08 17:18 | PC.NURSE ---
SKOOG OPERATOR NOTIFIED OF ADMISSION
[2023-07-08 17:26] LABS: Lymphocytes % 25 % (10-50); Monocytes % 1 % (2-9); Neutrophils % 73 % (42-76); Total Cells Counted 100
[2023-07-08 17:31] LABS: Anisocytosis 1+; Hypochromasia 1+; Platelet Estimate Normal; Poikilocytosis 2+
[2023-07-08 17:34] LABS: Macrocytosis 1+; Ovalocytes 2+
--- NOTE | 2023-07-08 17:42 | PC.NURSE ---
Report called to ЮЛИЯ Morgan on Med Surg.
[2023-07-08 17:53] VITALS: BP 154/99; PULSE 83; RESP 18; TEMP 36.7; O2SAT 100
--- NOTE | 2023-07-08 17:55 | PC.NURSE ---
arrived by w/c from ED
[2023-07-08 17:59] VITALS: BMI 19.3
[2023-07-08] MEDS: LORazepam 2MG/ML VIAL 0.5 MG IV (19:52)
[2023-07-08 20:00] VITALS: BP 144/74; PULSE 72; RESP 16; TEMP 37.2; O2SAT 98
--- NOTE | 2023-07-08 20:03 | PC.NURSE ---
patient was anxious - administer Ativan per MAR. at bedside. VSS.
[2023-07-08] MEDS: BUSPIRONE HCL 10 MG TABLET PO (21:15)
[2023-07-08] MEDS: BENZTROPINE 1MG TABLET 1 MG PO (21:15)
[2023-07-08] MEDS: OLANZapine 5 MG ODT TABLET SL (21:15)
[2023-07-09 04:00] VITALS: BP 122/71; PULSE 63; RESP 18; TEMP 37.1; O2SAT 98; BMI 19.1
[2023-07-09] MEDS: LORazepam 2MG/ML VIAL 0.5 MG IV ×3 (04:19→23:58)
--- NOTE | 2023-07-09 04:36 | PC.NURSE ---
patient has required frequent intervention t/o the shift. bed alarm on for safety. patient has been educated numerous times but is forgetful to press call light. patient received second dose of Ativan at 0420 per JUL. Patient wants nursing staff to ensure we inform his Doctor, Leonardo that medicine (Ativan) takes away my anxiety . However, patient has requested the Ativan at a minimum of Q1H stating it helps me but patient presents restless and hasn't slept any.
[2023-07-09 08:00] VITALS: BP 143/79; PULSE 87; RESP 20; TEMP 36.7; O2SAT 100
[2023-07-09] MEDS: LEVOTHYROXINE 50MCG (0.05MG) TAB 50 MCG PO (08:17)
--- NOTE | 2023-07-09 08:37 | P.HP_ITS ---
History of Present Illness *Admission Date: 07/08/23 *History of present illness: He has a formal longstanding diagnosis frontotemporal dementia from neuropsych division at the [facility] and has been being cared for by his in their home. However he is continued to have cognitive progressive decline and is now having some aggressive tendencies. Patient's stated that he easily becomes aggressive over her helping him change his adult diaper after he had soiled it with stool and grabbed her arm aggressively and she felt very scared. She then subsequently managed to get him in the car under the pretense of another task and drove him to a local ambulance station in which they brought him to the ER. At the time of my exam patient states that he is anxious and very anxious and defers to his or what his actual symptomology is. Patient knows the month and year but not the day of the week the time of the day. He cannot elicit any further on his symptoms other than being anxious. He does deny pain but cannot or will not describe in what way he feels anxious or any other symptoms he might be experiencing. He does deny suicidal ideations homicidal ideations audiovisual hallucinations. In summary patient is a 67-year-old male who presents to the emergency department for evaluation of initially altered mental status . Patient is hemodynamically stable and afebrile on arrival. Physical exam shows well- appearing appearing much older than stated age appearing 67-year-old male who looks like he has temporal wasting. Patient does not appear to have the capacity for coherent expansive conversation, definitely does not have insight into his presentation today or his diagnosis, and given his unpredictable aggressive behavior towards his is not safe to be at home with his . However patient has been slightly agitated and anxious in the ER but is currently redirectable verbally. Differential diagnosis includes stroke other derangement of body systems including electrolyte imbalance infection stroke brain tumor etc. Initial workup will be conducted with hematologic labs EKG CT scan of the head without contrast. Initial interventions include none at the moment due to his altered mental status in order to not the compound or confuse by issue. Initial workup reviewed by me shows that his labs are nonactionable with no significant derangements and no potential identifiable cause for an acute decline. My informal interpretation of CT scan of the brain without contrast does not show any acute intracranial abnormalities. I had a very long discussion with the patient's in the presence of the patient regarding the home environment. Patient's states that he can change suddenly from being calm to aggressive including physical aggression such as pulling her hair grabbing her arm. He is very much larger than she is and she got scared today and expresses that she can no longer care for him as she does no longer feel safe with him in the home. Dr. Velasco and I conferred on patient management and initial decision was made to attempt to contact his PCP group (Dr. Centeno) for admission. Dr. Velasco spoke with Dr. Willett about admission who agreed for admission. (aove as per the ER physician) The patient states today that he has been having panic attacks at home on a daily basis over the last month. He states he becomes very anxious and feels pressure in his chest. These attacks can last up to 3-4 hours. He says he was given medication in his IV last night and that helped significantly. He has not had any panic attacks today. The patient does have a diagnosis of neurodegenerative dementia with mood disturbance from . He had an MRI of the brain in June 2022 which showed volume loss in the left frontal lobe and moderate chronic small vessel ischemic changes in the white matter. His psychiatric medications had previously been managed by the [facility]. He has not seen Dr. Centeno since December 2022 after hospitalization at [facility] due to altered mental status. It was at that time he was diagnosed with a neurodegenerative dementia, major depression, and anxiety disorder. [facility] Disclaimer: The information contained in this section may have been updated after the patient was seen, as this information can be updated by other users. Medical History (Updated 07/09/23 @ 12:23 by JOY Easley) Afib Anxiety Atrial fibrillation with RVR Cholelithiasis CKD (chronic kidney disease), stage II Constipation Coronary artery disease Dementia Depression Fronto-temporal dementia History of cardioversion Hypertension Hypothyroidism Pancreatitis Surgical History (Updated 07/09/23 @ 12:23 by JOY Easley) History of cholecystectomy History of coronary artery bypass graft x 1 History of ERCP Hx of appendectomy Hx of CABG Family History (Updated 07/09/23 @ 12:24 by JOY Easley) No significant family history Hypertension Parkinson disease Stroke Social History (Updated 07/08/23 @ 18:24 by Kirsten Hernandez RN) Smoking Status: Never smoker alcohol intake: never substance use type: marijuana (in the past; none in the past 4 years) current occupational status: retired Travel in the last 8 weeks: None household members: spouse housing: house number of children: 0 caffeine: No Review of Systems Constitutional Constitutional: Denies fever(s), Denies headache(s) and Denies weakness Eyes Eyes: Denies blurry vision and Denies diplopia ENT Ears, Nose, Mouth, and Throat: Denies headache(s), Denies nasal congestion, Denies sore throat and Denies vertigo *Cardiovascular Cardiovascular: Denies chest pain and Denies dyspnea *Respiratory Respiratory: Denies chest congestion, Denies cough, Denies dyspnea and Denies wheezing *Gastrointestinal Gastrointestinal: Denies abdominal pain, Denies loose stools, Denies nausea and Denies vomiting *Genitourinary Genitourinary: Denies difficulty urinating and Denies dysuria *Musculoskeletal Musculoskeletal: Denies arthralgias *Neurologic Neurologic: Denies headache(s), Denies vertigo and Denies weakness Psychiatric Psychiatric: Reports anxiety, Reports depression, Reports irritability and Reports panic attacks Allergic/Immunologic Allergic/Immunologic: Denies wheezing Meds Home Medications and Allergies Home Medications Medication Instructions Recorded Confirmed Type benztropine 1 mg tablet 1 mg PO BID 05/15/23 07/08/23 History mirtazapine 7.5 mg tablet 7.5 mg PO DAILY 05/15/23 07/08/23 History olanzapine 5 mg tablet 5 mg PO BID 05/15/23 07/08/23 History hydroxyzine pamoate 25 mg capsule 25 mg PO DAILYP PRN Anxiety 07/08/23 07/09/23 History (Vistaril) aspirin 81 mg tablet,delayed 81 mg PO DAILY 07/09/23 07/09/23 History release buspirone 5 mg tablet 5 mg PO BID 07/09/23 07/09/23 History duloxetine 20 mg capsule,delayed 20 mg PO DAILY 07/09/23 07/09/23 History release levothyroxine 50 mcg tablet 50 mcg PO DAILY 07/09/23 07/09/23 History polyethylene glycol 3350 17 17 g PO DAILY 07/09/23 07/09/23 History gram/dose oral powder New Prescriptions to Start Prescriptions: Allergies Allergy/AdvReac Type Severity Reaction Status Date / Time erythromycin base Allergy Unknown Unknown Verified 05/15/23 21:29 allergy reaction Exam Data for Last 24 hours Vital signs and Labs for Last 24 Hours: Temp Pulse Resp BP Pulse Ox O2 Del Method 98.8 F 63 18 122/71 98 Room Air 07/09/23 04:00 07/09/23 04:00 07/09/23 04:00 07/09/23 04:00 07/09/23 04:00 07/09/23 06:09 Laboratory Results - last 24 hr 07/08/23 16:08: VBG pH 7.47 H, VBG pCO2 29.0 L, VBG pO2 33.0, VBG HCO3 20.8 L, VBG Total CO2 21.7 L, VBG O2 Saturation 70.2 H, VBG Base Excess -2.8 L 07/08/23 16:16: WBC 7.2, RBC 4.02 L, Hgb 12.8 L, Hct 39.5 L, MCV 98.3 H, MCH 31.8 H, MCHC 32.3, RDW 15.2, Plt Count 140 L, MPV 10.5 H, Neut % (Auto) 0.4 L, Lymph % (Auto) 95.5 H, [place] % (Auto) 3.7, Eos % (Auto) 0.1, Baso % (Auto) 0.3, Neut # (Auto) 0.0 L*, Lymph # (Auto) 6.9 H, [place] # (Auto) 0.3, Eos # (Auto) 0.0, Baso # (Auto) 0.0, Total Counted 100, Neutrophils % (Manual) 73, Lymphocytes % (Manual) 25, Atypical Lymphs % 1.0, Monocytes % (Manual) 1 L, Platelet Estimate Normal, Hypochromasia 1+, Poikilocytosis 2+, Anisocytosis 1+, Macrocytosis 1+, Ovalocytes 2+, Sodium 139, Potassium 3.9, Chloride 107, Carbon Dioxide 23, Anion Gap 12.9, BUN 15, Creatinine 1.10, Estimated Creat Clear 114, Estimated GFR 67, Est GFR ( Amer) 81, Glucose 104 H, Calcium 9.4, Magnesium 2.1, Total Bilirubin 0.9, AST 25, ALT 20, Alkaline Phosphatase 88, Ammonia < 9 L, Total Protein 7.2, Albumin 4.0, Globulin 3.2, Albumin/Globulin Ratio 1.3, TSH 1.99 07/08/23 16:43: Urine Color Yellow, Urine Appearance Clear, Urine pH 6.5, Ur Specific [place] <= 1.005, Urine Protein Negative, Urine Glucose (UA) Negative, Urine Ketones Negative, Urine Blood Negative, Urine Nitrate Negative, Urine Bilirubin Negative, Urine Urobilinogen 0.2, Ur Leukocyte Esterase Negative, Urine RBC None, Urine WBC None, Ur Squamous Epith Cells Occasional, Urine Bacteria None I & O for Last 24 hours: Intake & Output 07/06/23 07/07/23 07/08/23 07/09/23 11:59 11:59 11:59 11:59 Intake Total 120 / 120 Output Total 300 / 300 Balance -180 / -180 Weight 141 lb 8 oz Constitutional Constitutional: no acute distress *Routine HEENT Exam Head: Present normocephalic and atraumatic Eye: Present EOMI and PERRL ENT: Present mucous membranes moist *Routine Neck Exam Neck: Present supple and full ROM *Routine Respiratory Exam Respiratory: Present CTA bilaterally *Routine Cardiovascular Exam Cardiovascular: Present RRR *Routine Abdominal Exam Abdominal: Present soft and normoactive bowel sounds; Absent tenderness *Routine Rectal Exam Rectal:: deferred *Routine Genitalia Exam Genitalia:: deferred *Routine Extremities Exam Extremities: Absent cyanosis, clubbing or edema *Routine Skin Exam Skin: Present intact; Absent erythema *Routine Neurological Exam Neurological: Present alert and oriented X3 Comments: Able to answer questions but does get agitated when he was told her could not be discharged today H&P: Result Impressions Head CT - nothing acute Assessment and Plan *Assessment and plan (1) Fronto-temporal dementia: Status: Acute Category: Medical Code(s): G31.09 - Other frontotemporal neurocognitive disorder; F02.80 - Dementia in other diseases classified elsewhere, unspecified severity, without behavioral disturbance, psychotic disturbance, mood disturbance, and anxiety (2) Declining functional status: Status: Acute Category: Medical Code(s): R53.81 - Other malaise (3) Agitation: Status: Acute Category: Medical Code(s): R45.1 - Restlessness and agitation (4) Hypertension: Status: Chronic Category: Medical Code(s): I10 - Essential (primary) hypertension (5) Coronary artery disease: Status: Chronic Category: Medical Code(s): I25.10 - Atherosclerotic heart disease of [place] coronary artery without angina pectoris (6) Hypothyroidism: Status: Chronic Category: Medical Code(s): E03.9 - Hypothyroidism, unspecified (7) CKD (chronic kidney disease), stage II: Status: Acute Category: Medical Code(s): N18.2 - Chronic kidney disease, stage 2 (mild) (8) Anxiety and depression: Status: Chronic Category: Medical Code(s): F41.9 - Anxiety disorder, unspecified; F32.9 - Major depressive disorder, single episode, unspecified Plan Will likely need transfer to a psychiatric facility. Will discuss with Dr. Patterson and Care Management. Dr. Patterson entry - Saw patient, plan to discuss previous care with his primary MD, Dr. Centeno and possibly his specialist at .
[2023-07-09] MEDS: OLANZapine 5 MG ODT TABLET SL (08:45)
[2023-07-09] MEDS: BENZTROPINE 1MG TABLET 1 MG PO (08:45)
[2023-07-09] MEDS: BUSPIRONE HCL 10 MG TABLET PO (08:45)
--- NOTE | 2023-07-09 09:01 | SW/DCPLANNER ---
Addendum entered by [facility] 07/15/23 12:58: Milly w/ [facility] stated that services will start this week for this patient. Addendum entered by [facility] 07/15/23 09:19: I spoke w/ patient's this AM regarding discharge plans. is agreeable to patient returning home w/ home health services. prefers to use [facility]. I will fax patient information/order to [facility] this AM. I have also provided patient's w/ information regarding new Memory Care Unit opening at [facility] and a private sitters list. Patient will discharge home today. Addendum entered by Kathleen Dey RN 07/14/23 16:23: [facility] again will not accept patient. ЮЛИЯ [place] Addendum entered by [facility] 07/14/23 13:56: Information has also been faxed to [facility]. Addendum entered by [facility] 07/14/23 13:40: Per Dr Patterson patient is more alert, oriented and able to work w/ therapy today. Dr Patterson stated that is willing to take patient home w/ home health services only if no LTC facility will accept patient. Dr Patterson asked that I reach back out to some facilities and update that mental status is improved and patient is able to work with therapy. I reached out to the following facilities: [facility] (reviewing), [facility] (denied x2), [facility] (reviewing again), [facility] (reviewing again), [facility] (denied x2), [facility] (denied x2), [facility] (denied x2), [facility] (reviewing). I will follow up w/ MD in AM once I speak w/ the previous mentioned facilities reviewing information. Per MD patient will be ready for discharge tomorrow. Addendum entered by [facility] 07/13/23 16:08: I have updated patient's this afternoon regarding facilities I have been speaking with today. CM has also updated patient's that the only discharge plan may be home w/ and home health services. Addendum entered by [facility] 07/13/23 14:55: Updated Patient information has been faxed to the following facilities or VM has been left for return phone call and I am waiting to hear back: [facility], [facility], [facility], [facility], [facility], [facility], [facility], [facility], [facility] and [facility]. The following facilities have denied this patient: [place], [facility], [facility], [facility], [facility], [facility], [facility], [facility], [facility] and [facility]. Addendum entered by [facility] 07/13/23 11:52: Patient information has also been faxed to [facility] and [facility]. Addendum entered by [facility] 07/13/23 11:39: Patient is agreeable to placement this AM. I also updated patient's that I may not be able to establish placement for this patient. Patient information has been faxed to the following facilities: [facility], [facility], [place] (denied), [facility], [facility] (denied), [facility], [facility], [facility], [facility], [facility] and [facility]. Addendum entered by [facility] 07/10/23 17:06: I attempted to call x3: no answer VM left. Addendum entered by [facility] 07/10/23 16:59: Olivia yen/ [facility] stated that she is not able to accept patient at their facility until patient has placement. I will update patient's family and nursing staff. Addendum entered by [facility] 07/10/23 16:55: I have reached out to Meghan yen/ [facility] to see if she can speak w/ patient's to see if patient is a candidate for Medicaid. Olivia yen/ [facility] is currently reviewing patient information at this time. Addendum entered by [facility] 07/10/23 15:15: Per Gabriella yen/ [facility] patient does NOT meet requirements for Involuntary Hold at [facility] due to dementia diagnosis and no intent of harm. has been updates. Patient information was faxed to inpatient Geriatric Psych in [place]: [facility] (denied) and [facility] (currently waiting to hear back). I spoke w/ Memory Care facility (Marjorie Cedeño [phone]) whom stated she does have a male bed and would be interested: this would be at private pay cost ($6000-$8000/month no Medicare or Medicaid). Another discharge option would be LTC if a facility would be willing to accept this patient. I attempted to call patient's (cell and house number) no answer at this time: VM left. I am currently waiting to hear back from prior to making any further discharge decisions. Addendum entered by Noy Teague 07/10/23 13:13: has requested that Involuntary Hold process be started. completed paperwork and investigation division lieutenant [employer] ([employer] [facility]ya) has signed off on hold. I have also called and updated patient's regarding discharge plans. Patient information/paperwork has been faxed to [facility] [phone] at this time. I am waiting for them to review and call me back w/ Zoom information: this will be completed w/ patient. [facility] phone number [phone] Addendum entered by Noy Teague 07/09/23 12:49: [facility] has denied this patient. updated and going to speak w/ Dr Centeno. Addendum entered by Noy Teague 07/09/23 11:10: Patient information has also been faxed to Intake w/ [facility] in [facility] (phone [phone] fax [phone]. Original Note: I did speak w/ Malvin at [facility] ([phone]). Malvin has requested that patient information be faxed to their unit and their staff will review today. Patient information has been faxed to Behavioral Health Unit at [phone].
--- NOTE | 2023-07-09 11:17 | HMH.PHAINT1 ---
Pharmacy Intervention Comments: Verified home medications using external fill history.
[2023-07-09 11:59] VITALS: BP 117/80; PULSE 67; RESP 16; TEMP 35.9; O2SAT 100
[2023-07-09] MEDS: OLANZapine 5 MG ODT TABLET 10 MG SL (15:17)
[2023-07-09 16:00] VITALS: BP 131/56; PULSE 66; RESP 16; TEMP 36.5; O2SAT 98
[2023-07-09] MEDS: LORazepam 2MG/ML VIAL 1 MG IV (17:01)
--- NOTE | 2023-07-09 18:41 | PC.NURSE ---
PT HAS BEEN VERY CONFUSED AND AGITATED TODAY. DIFFICULT TO REDIRECT. INAPPROPRIATE WITH STAFF. HAS BECAME AGGRESSIVE AT TIMES. WILL NOT FOLLOW COMMANDS AND IS MOSTLY UNAWARE OF PHYSICAL AND PSYCHOLOGICAL LIMITATIONS.
[2023-07-09 20:00] VITALS: BP 92/49; PULSE 87; RESP 16; TEMP 36.4; O2SAT 98
--- NOTE | 2023-07-09 20:30 | PC.NURSE ---
Spoke with and she states that Lorazepam has previously increased confusion with the patient. also states that taking Olanzapine greater than 5mg BID increases confusion also that patient does better with Olanzapine being 5mg BID. Patient continuously trying to get out of bed, has been taken to bathroom, walked to abad and offered chair. Patient very restless but able to be distracted at this time.
[2023-07-09] MEDS: OLANZAPINE 5 MG 1 EACH PO (20:44)
[2023-07-09] MEDS: BUSPIRONE HCL 5 MG PO (20:44)
[2023-07-09] MEDS: BENZTROPINE 1 MG PO (20:44)
[2023-07-10 04:00] VITALS: BP 104/78; PULSE 55; RESP 18; TEMP 36.7; O2SAT 98; BMI 19.0
[2023-07-10] MEDS: diazePAM 10MG/2ML SYRINGE 5 MG IV ×4 (04:55→23:54)
--- NOTE | 2023-07-10 05:23 | PC.NURSE ---
Patient confused and continuously trying to climb out of bed; become very agitated and aggressive with tech; gave dose of Lorazepam x 1 with NS flush 10mL; patient seem to rest for 3 hours then ripped out IV, with legs over the side rail; become more aggressive to staff with agitation and c/o of sciatica hurting; called spoke with Dr. Patterson and recvd Diazepam 5mg IVP x 1 dose. Started new IV in the RAC above previous one, administered dose of Diazepam 5mg IVP with NS flush 10mL. Patient seems to be resting better continuously asking for ; encouraged patient that will be here soon.
[2023-07-10] MEDS: *PAT OWN MED* LEVOTHYROXINE 50MCG (0.05MG) TAB 50 MCG PO (06:13)
--- NOTE | 2023-07-10 06:39 | PC.NURSE ---
Patient aggressive towards tech and kicking nurse in legs getting out of bed; very unstable and not able to stand alone, walked with the tech in front of him while patient leaned into the tech; pt tried to get tried to go into another patient's room and became aggressive with tech reaching for techs neck; nurse got a wheelchair and patient sat down in it and then stood right back up to walk down abad into another patients room with diversion of tech patient went back to his room and got in his bed.
--- NOTE | 2023-07-10 08:30 | EXP.ACUTE.PN ---
Subjective *Date: 07/10/23 *Time: 09:16 Interval history: Patient had a rough night last night. He was agitated and trying to leave. He was given lorazepam and only rested a few hours and then began pulling out his IV's. He was then given diazepam and has rested since that time. Medical Exam Vital signs and Labs for Last 24 Hours: Vital Signs Temp Pulse Resp BP Pulse Ox O2 Del Method 07/10/23 06:44 Room Air 07/10/23 05:00 Room Air 07/10/23 04:00 98.1 F 55 L 18 104/78 L 98 Room Air 07/10/23 03:00 Room Air 07/10/23 00:49 Room Air 07/09/23 23:00 Room Air 07/09/23 21:00 Room Air 07/09/23 20:00 98 Room Air 07/09/23 20:00 97.5 F L 87 16 92/49 L 98 Room Air 07/09/23 18:19 Room Air 07/09/23 17:00 Room Air 07/09/23 16:00 97.7 F 66 16 131/56 L 98 Room Air 07/09/23 15:00 Room Air 07/09/23 13:00 Room Air 07/09/23 11:00 Room Air 07/09/23 09:00 Room Air 07/09/23 11:59 96.6 F L 67 16 117/80 100 Room Air Intake and Output 07/09/23 07/10/23 07/10/23 19:59 03:59 11:59 Intake Total 600 / 1197 120 / 1197 477 / 1197 Output Total 0 / 0 0 / 0 Balance 600 / 1197 120 / 1197 477 / 1197 Intake: Intake, Oral Amount 600 / 960 120 / 960 240 / 960 Intake, Oral Supplement Amount 237 / 237 Output: Output, Urine Amount 0 / 0 0 / 0 Other: Number of Unmeasured Voids 1 1 Number of Bowel Movements 0 Weight 140 lb 3.2 oz Patient Weight 07/10/23 11:59 Weight 140 lb 3.2 oz I & O for Labs for Last 24 Hours: Intake & Output 07/07/23 07/08/23 07/09/23 07/10/23 11:59 11:59 11:59 11:59 Intake Total 480 / 480 1197 / 1197 Output Total 300 / 300 0 / 0 Balance 180 / 180 1197 / 1197 Weight 141 lb 8 oz 140 lb 3.2 oz Constitutional: Present no acute distress (sleeping) Respiratory: Present CTA bilaterally Cardiac: Present Reg Rate and Rhythm GI: Present soft; Absent distention or tenderness Extremities: Absent edema Skin: Present intact Comment:: sleeps through exam Assessment and Plan *Assessment and plan (1) Fronto-temporal dementia: Status: Acute Category: Medical Code(s): G31.09 - Other frontotemporal neurocognitive disorder; F02.80 - Dementia in other diseases classified elsewhere, unspecified severity, without behavioral disturbance, psychotic disturbance, mood disturbance, and anxiety (2) Declining functional status: Status: Acute Category: Medical Code(s): R53.81 - Other malaise (3) Agitation: Status: Acute Category: Medical Code(s): R45.1 - Restlessness and agitation (4) Hypertension: Status: Chronic Category: Medical Code(s): I10 - Essential (primary) hypertension (5) Coronary artery disease: Status: Chronic Category: Medical Code(s): I25.10 - Atherosclerotic heart disease of [place] coronary artery without angina pectoris (6) Hypothyroidism: Status: Chronic Category: Medical Code(s): E03.9 - Hypothyroidism, unspecified (7) CKD (chronic kidney disease), stage II: Status: Acute Category: Medical Code(s): N18.2 - Chronic kidney disease, stage 2 (mild) (8) Anxiety and depression: Status: Chronic Category: Medical Code(s): F41.9 - Anxiety disorder, unspecified; F32.9 - Major depressive disorder, single episode, unspecified Plan Will discuss further care with Dr. Patterson. Dr. Patterson entry - Saw patient, agree with above note. He finally calmed down early this morning after receiving IV Valium. Spoke to Dr. Centeno and Dr. Narvaez, patient's neurologist. Dr. Centeno does not think patient is competent at this time. Dr. Narvaez recommends involuntary hold for a psych evaluation, at [facility], then placement afterwards. Will start the process for court ordered psych evaluation this morning.
[2023-07-10] MEDS: OLANZAPINE 5 MG 1 EACH PO (09:53)
[2023-07-10] MEDS: BUSPIRONE HCL 5 MG PO ×2 (09:53→20:11)
[2023-07-10] MEDS: DULOXETINE 30MG CAPSULE.DR 30 MG PO (09:54)
[2023-07-10] MEDS: BENZTROPINE 1 MG PO ×2 (09:54→20:10)
--- NOTE | 2023-07-10 11:18 | PC.NURSE ---
Took patient to bathroom, no urine output.
--- NOTE | 2023-07-10 15:33 | PC.NURSE ---
Pt. attempting to get out of bed multiple times. He is confused and disoriented. He keeps asking where's Yamini and who's going to fix my bed . He can not tell me where he is or why he is here. He can not tell me his name or and does not answer any questions about his needs or wants. Called Dr. Patterson to make him aware. He will order some IV valium 5 mg q8h as needed.
[2023-07-10 16:00] VITALS: BP 99/56; PULSE 60; RESP 14; TEMP 36.7; O2SAT 96
[2023-07-10] MEDS: LORazepam 1MG TABLET 1 MG PO (17:55)
[2023-07-10 20:00] VITALS: BP 116/85; PULSE 67; RESP 16; TEMP 36.7; O2SAT 96
[2023-07-10] MEDS: OLANZapine 5 MG ODT TABLET 10 MG SL (20:12)
--- NOTE | 2023-07-10 22:36 | PC.NURSE ---
desiree reported pt has attempted to void at toilet but couldnt initiate flow. bladder scan revealed 0. will encourage oral intake
--- NOTE | 2023-07-10 23:00 | PC.NURSE ---
At patient bedside, patient requested water, drank 1 full cup.
--- NOTE | 2023-07-11 00:19 | PC.NURSE ---
Took patient to bathroom, no urine output.
--- NOTE | 2023-07-11 00:20 | PC.NURSE ---
At patient bedside, patient is at ease.
--- NOTE | 2023-07-11 00:45 | PC.NURSE ---
At patient bedside, patient requested meds, the Nurse is aware and has already given them.
--- NOTE | 2023-07-11 01:17 | PC.NURSE ---
no void thus far
--- NOTE | 2023-07-11 02:00 | PC.NURSE ---
This RN took over care at 0100
--- NOTE | 2023-07-11 03:09 | PC.NURSE ---
At patient bedside, patient is at ease asleep.
--- NOTE | 2023-07-11 05:00 | PC.NURSE ---
At patient bedside, patient is asleep.
--- NOTE | 2023-07-11 05:58 | PC.NURSE ---
At patient bedside, patient is asleep.
--- NOTE | 2023-07-11 06:28 | PC.NURSE ---
Addendum entered by Silvana Christianson, SAMANTHA 07/11/23 07:03: Dr. Vazquez called back, stated Dr. Patterson will be making rounds this morning. No new orders. Addendum entered by Silvana Christianson, SAMANTHA 07/11/23 06:59: Bladder scanned, 156mL showing. Paged aviation metalsmith MD flora Patterson. Original Note: Pt is alert to self only and has been sleeping through the shift since taking over care. Due to pt being restless, did not wake pt. Pt has not urinated, will bladder scan. Bed alarm on. Pt 1:1. Pt remains on room air.
[2023-07-11] MEDS: *PAT OWN MED* LEVOTHYROXINE 50MCG (0.05MG) TAB 50 MCG PO (06:42)
[2023-07-11 06:48] VITALS: BP 112/72; PULSE 68; RESP 16; TEMP 36.6; O2SAT 90; BMI 20.4
--- NOTE | 2023-07-11 07:14 | PC.NURSE ---
At the bedside, patient was bladder scanned by RN, offered to take to the bathroom, patient refused and stated he did not have to void. Nurse is aware. Patient drank more water. No void at this time.
--- NOTE | 2023-07-11 07:20 | PC.NURSE ---
pt is asleep with bed alarm on. Staff at BS call light is within reach.
--- NOTE | 2023-07-11 08:51 | P.PN_ITS ---
Subjective *Date: 07/11/23 *Time: 08:51 Interval history: Nurses reeport patient had a better night last night, slept quite a bit, was much less agitated. Medical Exam Vital signs and Labs for Last 24 Hours: Vital Signs Temp Pulse Resp BP Pulse Ox O2 Del Method 07/11/23 07:00 Room Air 07/11/23 06:48 97.9 F 68 16 112/72 90 L Room Air 07/11/23 05:00 Room Air 07/11/23 03:00 Room Air 07/11/23 01:00 Room Air 07/10/23 23:00 Room Air 07/10/23 21:00 Room Air 07/10/23 22:27 Room Air 07/10/23 20:00 98.0 F 67 16 116/85 96 Room Air 07/10/23 18:49 Room Air 07/10/23 17:00 Room Air 07/10/23 16:00 98.0 F 60 14 99/56 L 96 Room Air 07/10/23 15:00 Room Air 07/10/23 13:00 Room Air 07/10/23 11:00 Room Air 07/10/23 09:00 Room Air Intake and Output 07/10/23 07/11/23 07/11/23 23:59 07:59 15:59 Intake Total 240 / 1107 Balance 240 / 1107 Intake: Intake, Oral Amount 240 / 870 Other: Number of Bowel Movements 0 Weight 146 lb Patient Weight 07/11/23 23:59 Weight 146 lb I & O for Labs for Last 24 Hours: Intake & Output 07/08/23 07/09/23 07/10/23 07/11/23 23:59 23:59 23:59 23:59 Intake Total 0 / 120 1080 / 1200 1107 / 1107 Output Total 300 / 300 0 / 0 0 / 0 Balance -300 / -180 1080 / 1200 1107 / 1107 Weight 142 lb 6 oz 141 lb 8 oz 140 lb 3.2 oz 146 lb Constitutional: Present no acute distress Comment:: sleeping quietly Respiratory: Present CTA bilaterally Cardiac: Present Regular Rhythm Assessment and Plan *Assessment and plan (1) Fronto-temporal dementia: Status: Acute Category: Medical Code(s): G31.09 - Other frontotemporal neurocognitive disorder; F02.80 - Dementia in other diseases classified elsewhere, unspecified severity, without behavioral disturbance, psychotic disturbance, mood disturbance, and anxiety (2) Declining functional status: Status: Acute Category: Medical Code(s): R53.81 - Other malaise (3) Agitation: Status: Acute Category: Medical Code(s): R45.1 - Restlessness and agitation (4) Hypertension: Status: Chronic Category: Medical Code(s): I10 - Essential (primary) hypertension (5) Coronary artery disease: Status: Chronic Category: Medical Code(s): I25.10 - Atherosclerotic heart disease of [place] coronary artery without angina pectoris (6) Hypothyroidism: Status: Chronic Category: Medical Code(s): E03.9 - Hypothyroidism, unspecified (7) CKD (chronic kidney disease), stage II: Status: Acute Category: Medical Code(s): N18.2 - Chronic kidney disease, stage 2 (mild) (8) Anxiety and depression: Status: Chronic Category: Medical Code(s): F41.9 - Anxiety disorder, unspecified; F32.9 - Major depressive disorder, single episode, unspecified Plan Merged with [facility] refused to accept patient because he has a diagnosis of dementia, a separate facility in [place] refused to take patient because he did not have a legal POA. Patient stabilized with higher dose of Olanzapine and replacing Ativan with Valium. Discharge planning discussed with care management.
[2023-07-11] MEDS: BENZTROPINE 1 MG PO ×2 (14:16→20:02)
[2023-07-11] MEDS: BUSPIRONE HCL 5 MG PO ×2 (14:16→20:02)
[2023-07-11] MEDS: OLANZapine 5 MG ODT TABLET 10 MG SL ×2 (14:17→20:08)
[2023-07-11] MEDS: DULOXETINE 30MG CAPSULE.DR 30 MG PO (14:17)
[2023-07-11] MEDS: LORazepam 1MG TABLET 1 MG PO (14:22)
[2023-07-11 15:13] VITALS: BP 129/64; PULSE 82; RESP 36; TEMP 36.3; O2SAT 97
[2023-07-11] MEDS: diazePAM 10MG/2ML SYRINGE 5 MG IV ×2 (15:47→20:14)
--- NOTE | 2023-07-11 17:20 | PC.NURSE ---
late entry: around 1600 dr norwood called for an update on pt. pt has slept majority of shift. woke pt up at 1400 to give meds. pt asking for and states he feels anxious and needs his valium. cuco gave this nurse VO to taylor aleman and order cbc, cmp for tomorrow morning. pt had a shower. no issues urinating this shift. pt has drank multiple cups of water, boost, and ate well so far. pt currently lying in bed. no issues at this time.
--- NOTE | 2023-07-11 18:28 | PC.NURSE ---
pt has done well with no behaviors today, very unsteady on feet and staggers. bed alarm on for pt safety. pt is red in intergluteal fold but is ref cream and states it does not hurt.
[2023-07-11 20:00] VITALS: BP 114/73; PULSE 55; RESP 16; TEMP 36.4; O2SAT 98
[2023-07-12 04:00] VITALS: BP 112/62; PULSE 60; RESP 17; TEMP 36.9; O2SAT 97; BMI 20.4
[2023-07-12] MEDS: *PAT OWN MED* LEVOTHYROXINE 50MCG (0.05MG) TAB 50 MCG PO (06:36)
[2023-07-12 07:32] VITALS: BP 101/65; PULSE 60; RESP 18; TEMP 36.8; O2SAT 99
[2023-07-12 07:49] LABS: Basophils % 0.5 % (0.1-2.0); Eosinophils # 0.2 K/mm3 (0.0-0.4); Eosinophils % 2.6 % (0.1-12.0); Hematocrit 35.5 % (42.0-52.0); Hemoglobin 11.3 g/dL (14.1-18.0); Lymphocytes % 92.6 % (10-50); Mean Corpuscular HGB Conc 31.7 g/dL (31.8-35.4); Mean Corpuscular Hemoglobin 31.5 pg (27.0-31.2); Mean Corpuscular Volume 99.3 fl (80-94); Mean Platelet Volume 10.2 fl (7.4-10.4); Monocytes # 0.3 K/mm3 (0.1-1.0); Monocytes % 3.8 % (1.7-9.3); Platelet Count 132 K/mm3 (142-424); Red Blood Count 3.58 M/mm3 (4.60-6.20); Red Cell Distribution Width 15.3 % (11.5-17.5); White Blood Count 6.5 K/mm3 (4.8-10.8)
[2023-07-12 07:59] LABS: Alanine Aminotransferase 13 U/L (12-78); Albumin Level 3.4 g/dl (3.5-5.0); Albumin/Globulin Ratio 1.2 (1.1-1.8); Alkaline Phosphatase 71 U/L (38-126); Anion Gap 7.3 mEq/L (5-15); Aspartate Amino Transferase 26 U/L (17-59); Bilirubin,Total 0.6 mg/dl (0.2-1.3); Blood Urea Nitrogen 18 mg/dl (9-20); Calcium 8.7 mg/dl (8.4-10.2); Carbon Dioxide 23 mmol/L (22.0-30.0); Chloride 113 mmol/L (98-107); Creatinine Clearance Estimated 68 mL/min (50-200); Estimated Glomerular Filt Rate 75 ml/min (>60); GFR (African American) 90 ML/MIN (>60); Globulin 2.8 g/dL (1.3-3.2); Glucose 92 mg/dl (74-100); Potassium 4.3 mmoL/L (3.5-5.1); Sodium 139 mmol/L (136-145); Total Protein,Serum 6.2 g/dl (6.3-8.2)
[2023-07-12] MEDS: BUSPIRONE HCL 5 MG PO ×2 (08:08→20:51)
[2023-07-12] MEDS: BENZTROPINE 1 MG PO ×2 (08:08→20:51)
[2023-07-12] MEDS: DULOXETINE 30MG CAPSULE.DR 30 MG PO (08:08)
[2023-07-12] MEDS: OLANZapine 5 MG ODT TABLET 10 MG SL ×2 (08:09→20:51)
[2023-07-12] MEDS: diazePAM 10MG/2ML SYRINGE 5 MG IV ×3 (08:09→20:51)
--- NOTE | 2023-07-12 09:30 | P.PN_ITS ---
Subjective *Date: 07/12/23 *Time: 09:30 Interval history: Patient with no new complaints today, wants to know when he can go home. Medical Exam Vital signs and Labs for Last 24 Hours: Vital Signs Temp Pulse Resp BP Pulse Ox O2 Del Method 07/12/23 08:13 Room Air 07/12/23 07:32 98.3 F 60 18 101/65 L 99 Room Air 07/12/23 04:00 98.4 F 60 17 112/62 97 Room Air 07/12/23 06:37 Room Air 07/12/23 05:00 Room Air 07/12/23 03:00 Room Air 07/12/23 01:00 Room Air 07/11/23 23:00 Room Air 07/11/23 20:00 Room Air 07/11/23 21:00 Room Air 07/11/23 20:00 97.5 F L 55 L 16 114/73 98 Room Air 07/11/23 18:27 Room Air 07/11/23 17:00 Room Air 07/11/23 15:13 97.3 F L 82 36 H 129/64 97 Room Air 07/11/23 15:00 Room Air 07/11/23 13:00 Room Air 07/11/23 11:00 Room Air Intake and Output 07/11/23 07/12/23 07/12/23 23:59 07:59 15:59 Intake Total 270 / 1440 515 / 515 Output Total 300 / 300 0 / 0 Balance -30 / 1140 515 / 515 Intake: Intake, Oral Amount 270 / 1440 515 / 515 Output: Output, Urine Amount 300 / 300 0 / 0 Other: Number of Voids 1 2 Number of Unmeasured Voids 2 1 Number of Urine Attends/Diapers 1 Weight 145 lb 15.136 oz Patient Weight 07/12/23 23:59 Weight 145 lb 15.136 oz Laboratory Results - last 24 hr 07/12/23 07:25: Sodium 139, Potassium 4.3, Chloride 113 H, Carbon Dioxide 23, Anion Gap 7.3, BUN 18, Creatinine 1.00, Estimated Creat Clear 68, Estimated GFR 75, Est GFR ( Amer) 90, Glucose 92, Calcium 8.7, Total Bilirubin 0.6, AST 26, ALT 13, Alkaline Phosphatase 71, Total Protein 6.2 L, Albumin 3.4 L, Globulin 2.8, Albumin/Globulin Ratio 1.2 I & O for Labs for Last 24 Hours: Intake & Output 07/09/23 07/10/23 07/11/23 07/12/23 23:59 23:59 23:59 23:59 Intake Total 1080 / 1200 1107 / 1107 1260 / 1440 515 / 515 Output Total 0 / 0 0 / 0 300 / 300 0 / 0 Balance 1080 / 1200 1107 / 1107 960 / 1140 515 / 515 Weight 141 lb 8 oz 140 lb 3.2 oz 146 lb 145 lb 15.136 oz Constitutional: Present no acute distress Respiratory: Present CTA bilaterally Cardiac: Present Regular Rhythm Assessment and Plan *Assessment and plan (1) Fronto-temporal dementia: Status: Acute Category: Medical Code(s): G31.09 - Other frontotemporal neurocognitive disorder; F02.80 - Dementia in other diseases classified elsewhere, unspecified severity, without behavioral disturbance, psychotic disturbance, mood disturbance, and anxiety (2) Declining functional status: Status: Acute Category: Medical Code(s): R53.81 - Other malaise (3) Agitation: Status: Acute Category: Medical Code(s): R45.1 - Restlessness and agitation (4) Hypertension: Status: Chronic Category: Medical Code(s): I10 - Essential (primary) hypertension (5) Coronary artery disease: Status: Chronic Category: Medical Code(s): I25.10 - Atherosclerotic heart disease of [place] coronary artery without angina pectoris (6) Hypothyroidism: Status: Chronic Category: Medical Code(s): E03.9 - Hypothyroidism, unspecified (7) CKD (chronic kidney disease), stage II: Status: Acute Category: Medical Code(s): N18.2 - Chronic kidney disease, stage 2 (mild) (8) Anxiety and depression: Status: Chronic Category: Medical Code(s): F41.9 - Anxiety disorder, unspecified; F32.9 - Major depressive disorder, single episode, unspecified Plan Mental status has improved, discharge plan is fluid.
[2023-07-12 10:02] LABS: Neutrophils % 0.5 % (37.0-80.0)
[2023-07-12 10:03] LABS: MANUAL DIFFERENTIAL MANUAL DIFFERENTIAL (MANUAL DIFF)
[2023-07-12 10:09] LABS: Eosinophils % 4 % (0-3); Lymphocytes % 33 % (10-50); Monocytes % 3 % (2-9); Neutrophils % 60 % (42-76); Total Cells Counted 100
[2023-07-12 10:15] LABS: Platelet Estimate Normal
[2023-07-12 10:16] LABS: Anisocytosis 1+; Macrocytosis 1+; Poikilocytosis 1+
[2023-07-12 10:18] LABS: Burr Cells 1+; Spherocytes 1+
[2023-07-12 15:15] VITALS: BP 161/75; PULSE 76; RESP 24; TEMP 36.7; O2SAT 99
--- NOTE | 2023-07-12 15:54 | PC.NURSE ---
PT IS RESTING IN BED. ALERT AND ORIENTED X3. OCCASIONAL PERIODS OF CONFUSION AND BEING UNAWARE OF HIS SURROUNDINGS. EATING AND DRINKING WELL. PT TOLERATED SITTING UP IN THE CHAIR FOR 1 HOUR THIS SHIFT. PT HAS MADE SEVERAL ATTEMPTS TO GET OOB. VERY UNSTEADY GAIT. AMBULATES TO THE BATHROOM WITH NURSING STAFF. PT HAS REQUESTED VALIUM THIS SHIFT AND STATES IT DOES MAKE HIM LESS ANXIOUS. PT STATES HE REALLY WANTS TO GO HOME AND FREQUENTLY ASK US TO CALL HIS FOR HIM. LUNG SOUNDS CLEAR. ABDOMEN SOFT/NON TENDER WITH ACTIVE BOWEL SOUNDS. NO SWELLING NOTED TO BLE. WILL CONTINUE TO MONITOR. PT'S CALLED THIS AFTERNOON FOR AN UPDATE. STATED THAT SHE WAS NOT GOING TO BE TAKING PT HOME SO SHE IS JUST REALLY HOPING THAT OUR CARE MANAGEMENT TEAM IS GOING TO BE ABLE TO FIND HIM A PLACE TO GO. TOLD PT'S THAT OUR CARE MANAGEMENT TEAM WOULD CONTINUE TO WORK TO FIND A PLACE AND THEY WOULD CONTACT HER TOMORROW WITH ANY UPDATES. ASKED ABOUT HOSPICE AT AN INPATIENT FACILITY WHICH I MENTIONED TO HER I DID NOT FEEL LIKE PT WOULD MEET INPATIENT HOSPICE CRITERIA. ALSO STATED THAT PT HAD A FAMILY MEMBER IN [place] THAT SHE HAS BEEN COMMUNICATING WITH AND ACCORDING TO THE FAMILY MEMBER THERE IS A FACILITY THERE THAT WOULD TAKE PT AND SHE WAS WONDERING IF THE AMBULANCE WOULD TRANSPORT THAT FAR. STATED SHE COULD NO LONGER CARE FOR THE PT AT HOME B/C IT IS NOT SAFE FOR HIM OR HER. SHE STATES SHE HAS NOT BEEN TO THE HOSPITAL TO SEE PT B/C HE WILL WANT HER TO TAKE HIM HOME AND HE WILL TRY TO FOLLOW HER OUT OF THE HOSPITAL. STATED WHEN PT IS AT HOME WITH HER SHE IS UNABLE TO LEAVE HIS SIDE W/O HIM BECOMING ANXIOUS. PT WONDERS AND HAS FALLEN SEVERAL TIMES WHICH IS 1 OF THE MANY REASONS OF WHY SHE CANNOT TAKE HIM HOME.
[2023-07-12 20:00] VITALS: BP 118/56; PULSE 110; RESP 16; TEMP 36.7; O2SAT 96
[2023-07-12 20:21] VITALS: BMI 20.4
[2023-07-13 04:00] VITALS: BMI 20.4
[2023-07-13] MEDS: diazePAM 10MG/2ML SYRINGE 5 MG IV ×4 (05:33→20:05)
[2023-07-13] MEDS: *PAT OWN MED* LEVOTHYROXINE 50MCG (0.05MG) TAB 50 MCG PO (06:17)
[2023-07-13 06:34] VITALS: BP 83/48; PULSE 69; RESP 16; TEMP 37; O2SAT 93
--- NOTE | 2023-07-13 08:05 | EXP.ACUTE.PN ---
Subjective *Date: 07/13/23 *Time: 08:41 Interval history: Per nursing: Patient has had a quiet night. He did receive Valium at 5:30 AM this morning. According to notes he has been eating and drinking. Patient is snoring and sleeping at present Medical Exam Vital signs and Labs for Last 24 Hours: Vital Signs Temp Pulse Resp BP Pulse Ox O2 Del Method 07/12/23 20:00 Room Air 07/13/23 06:34 98.6 F 69 16 83/48 L 93 L Room Air 07/13/23 01:00 Room Air 07/12/23 23:00 Room Air 07/12/23 21:00 Room Air 07/12/23 20:00 98.1 F 110 H 16 118/56 L 96 Room Air 07/12/23 18:13 Room Air 07/12/23 16:45 Room Air 07/12/23 15:15 98.0 F 76 24 161/75 H 99 Room Air 07/12/23 14:56 Room Air 07/12/23 13:00 Room Air 07/12/23 11:00 Room Air 07/12/23 08:13 Room Air Intake and Output 07/12/23 07/13/23 07/13/23 19:59 03:59 11:59 Intake Total 735 / 735 240 / 975 Output Total 0 / 0 200 / 200 Balance 735 / 735 40 / 775 Intake: Intake, Oral Amount 735 / 735 240 / 975 Output: Output, Urine Amount 0 / 0 200 / 200 Other: Number of Voids 2 Number of Unmeasured Voids 1 0 Weight 145 lb 15.136 oz 145 lb 15.136 oz Patient Weight 07/13/23 11:59 Weight 145 lb 15.136 oz Laboratory Results - last 24 hr 07/12/23 07:25: WBC 6.5, RBC 3.58 L, Hgb 11.3 L, Hct 35.5 L, MCV 99.3 H, MCH 31.5 H, MCHC 31.7 L, RDW 15.3, Plt Count 132 L, MPV 10.2, Neut % (Auto) 0.5 L, Lymph % (Auto) 92.6 H, [place] % (Auto) 3.8, Eos % (Auto) 2.6, Baso % (Auto) 0.5, Neut # (Auto) 0.0 L*, Lymph # (Auto) 6.0 H, [place] # (Auto) 0.3, Eos # (Auto) 0.2, Baso # (Auto) 0.0, Total Counted 100, Neutrophils % (Manual) 60, Lymphocytes % (Manual) 33, Monocytes % (Manual) 3, Eosinophils % (Manual) 4 H, Platelet Estimate Normal, Poikilocytosis 1+, Anisocytosis 1+, Macrocytosis 1+, Spherocytes 1+, Ovalocytes , Spencer Cells 1+ I & O for Labs for Last 24 Hours: Intake & Output 07/10/23 07/11/23 07/12/23 07/13/23 11:59 11:59 11:59 11:59 Intake Total 1197 / 1197 510 / 510 1775 / 1775 975 / 975 Output Total 0 / 0 300 / 300 200 / 200 Balance 1197 / 1197 510 / 510 1475 / 1475 775 / 775 Weight 140 lb 3.2 oz 146 lb 145 lb 15.136 oz 145 lb 15.136 oz Comment:: Sleeping; snoring; did not awaken during chest exam Respiratory: Absent CTA bilaterally (Snoring sounds anteriorly) Cardiac: Present Reg Rate and Rhythm GI: Present soft and normal bowel sounds; Absent distention or tenderness Extremities: Absent edema Neuro: Absent awake (Sleeping; did not awaken during exam.) Assessment and Plan *Assessment and plan (1) Fronto-temporal dementia: Status: Acute Category: Medical Code(s): G31.09 - Other frontotemporal neurocognitive disorder; F02.80 - Dementia in other diseases classified elsewhere, unspecified severity, without behavioral disturbance, psychotic disturbance, mood disturbance, and anxiety (2) Declining functional status: Status: Acute Category: Medical Code(s): R53.81 - Other malaise (3) Agitation: Status: Acute Category: Medical Code(s): R45.1 - Restlessness and agitation (4) Hypertension: Status: Chronic Category: Medical Code(s): I10 - Essential (primary) hypertension (5) Coronary artery disease: Status: Chronic Category: Medical Code(s): I25.10 - Atherosclerotic heart disease of [place] coronary artery without angina pectoris (6) Hypothyroidism: Status: Chronic Category: Medical Code(s): E03.9 - Hypothyroidism, unspecified (7) CKD (chronic kidney disease), stage II: Status: Acute Category: Medical Code(s): N18.2 - Chronic kidney disease, stage 2 (mild) (8) Anxiety and depression: Status: Chronic Category: Medical Code(s): F41.9 - Anxiety disorder, unspecified; F32.9 - Major depressive disorder, single episode, unspecified Plan Blood pressure is low this a.m. He seems to be taking fluids well. Will have blood pressure recheck when awake. Disposition as per care management. Dr. Patterson entry - Saw patient, agree with above note.
[2023-07-13] MEDS: OLANZapine 5 MG ODT TABLET 10 MG SL ×2 (08:28→20:03)
[2023-07-13] MEDS: BENZTROPINE 1 MG PO ×2 (08:29→20:03)
[2023-07-13] MEDS: DULOXETINE 30MG CAPSULE.DR 30 MG PO (08:29)
[2023-07-13] MEDS: BUSPIRONE HCL 5 MG PO ×2 (08:29→20:03)
[2023-07-13 10:21] VITALS: BP 98/69; PULSE 93; RESP 16; TEMP 35.9; O2SAT 97
[2023-07-13 16:00] VITALS: BP 108/70; PULSE 80; RESP 22; TEMP 36.4; O2SAT 98
--- NOTE | 2023-07-13 19:18 | PC.NURSE ---
PT HAS RESTED IN BED FOR MOST OF THE DAY. HAS BEEN COOPERATIVE WITH STAFF BUT CONFUSED AND DISORIENTED. BED ALARM FOR SAFETY. PT DOES TRY TO GET OOB INDEPENDENTLY.
[2023-07-13 20:00] VITALS: BP 117/69; PULSE 63; RESP 18; TEMP 36.4; O2SAT 99
[2023-07-14 04:00] VITALS: BP 160/74; PULSE 60; RESP 18; TEMP 36.7; O2SAT 95; BMI 20.5
--- NOTE | 2023-07-14 06:12 | PC.NURSE ---
pt was alert and oriented to name, place, month and year and situation. pt has been cooperative with staff and calm. pt requested to speak to . contacted. pt rested well. pt did wake up around 3 and asked to use the restroom. pt is weak with assist of 2 to ambulate. pt thought he was at home. pt reports he wants to go home. pt re-oriented. pt continues to be calm and cooperative with staff. pt has set bed alarm off tonight but it was with purpose as pt needed to use the restroom.
[2023-07-14] MEDS: *PAT OWN MED* LEVOTHYROXINE 50MCG (0.05MG) TAB 50 MCG PO (07:20)
[2023-07-14 08:00] VITALS: BP 118/79; PULSE 76; RESP 22; TEMP 35.8; O2SAT 97
[2023-07-14] MEDS: diazePAM 10MG/2ML SYRINGE 5 MG IV (08:06)
[2023-07-14] MEDS: BENZTROPINE 1 MG PO ×2 (08:06→20:10)
[2023-07-14] MEDS: DULOXETINE 30MG CAPSULE.DR 30 MG PO (08:06)
[2023-07-14] MEDS: BUSPIRONE HCL 5 MG PO ×2 (08:06→20:11)
[2023-07-14] MEDS: OLANZapine 5 MG ODT TABLET 10 MG SL ×2 (08:07→20:11)
--- NOTE | 2023-07-14 08:22 | P.PN_ITS ---
Subjective *Date: 07/14/23 *Time: 09:04 Interval history: Patient asked when he can go home apparently he is oriented x 3. He was eating well this morning for breakfast. He continues to receive Valium which is IV at this point. Patient says no to shortness of breath and chest pain. Medical Exam Vital signs and Labs for Last 24 Hours: Vital Signs Temp Pulse Resp BP Pulse Ox O2 Del Method 07/14/23 08:16 Room Air 07/14/23 08:00 Room Air 07/14/23 07:00 Room Air 07/14/23 04:00 98.0 F 60 18 160/74 H 95 Room Air 07/14/23 05:00 Room Air 07/14/23 03:00 Room Air 07/14/23 01:00 Room Air 07/13/23 23:00 Room Air 07/13/23 21:00 Room Air 07/13/23 20:00 Room Air 07/13/23 20:00 97.6 F 63 18 117/69 99 Room Air 07/13/23 18:21 Room Air 07/13/23 17:00 Room Air 07/13/23 16:00 97.6 F 80 22 108/70 L 98 Room Air 07/13/23 14:25 Room Air 07/13/23 13:00 Room Air 07/13/23 10:31 Room Air 07/13/23 09:00 Room Air 07/13/23 10:21 96.7 F L 93 H 16 98/69 L 97 Room Air Intake and Output 07/13/23 07/14/23 07/14/23 19:59 03:59 11:59 Intake Total 360 / 360 500 / 860 Output Total 0 / 0 250 / 250 Balance 360 / 360 250 / 610 Intake: Intake, Oral Amount 360 / 360 500 / 860 Output: Output, Urine Amount 0 / 0 250 / 250 Other: Number of Unmeasured Voids 1 1 Weight 146 lb 9.718 oz Patient Weight 07/14/23 11:59 Weight 146 lb 9.718 oz I & O for Labs for Last 24 Hours: Intake & Output 07/11/23 07/12/23 07/13/23 07/14/23 11:59 11:59 11:59 11:59 Intake Total 510 / 510 1775 / 1775 1095 / 1095 860 / 860 Output Total 300 / 300 450 / 450 250 / 250 Balance 510 / 510 1475 / 1475 645 / 645 610 / 610 Weight 146 lb 145 lb 15.136 oz 145 lb 15.136 oz 146 lb 9.718 oz Constitutional: Present no acute distress and thin Comment:: Sitting up in the bed. Appears comfortable. Respiratory: Present crackles (Left base) Cardiac: Present Reg Rate and Rhythm GI: Present soft and normal bowel sounds; Absent tenderness or guarding Extremities: Absent edema or calf tenderness Neuro: Present alert, awake and oriented x 3 Assessment and Plan *Assessment and plan (1) Fronto-temporal dementia: Status: Acute Category: Medical Code(s): G31.09 - Other frontotemporal neurocognitive disorder; F02.80 - Dementia in other diseases classified elsewhere, unspecified severity, without behavioral disturbance, psychotic disturbance, mood disturbance, and anxiety (2) Declining functional status: Status: Acute Category: Medical Code(s): R53.81 - Other malaise (3) Agitation: Status: Acute Category: Medical Code(s): R45.1 - Restlessness and agitation (4) Hypertension: Status: Chronic Category: Medical Code(s): I10 - Essential (primary) hypertension (5) Coronary artery disease: Status: Chronic Category: Medical Code(s): I25.10 - Atherosclerotic heart disease of [place] coronary artery without angina pectoris (6) Hypothyroidism: Status: Chronic Category: Medical Code(s): E03.9 - Hypothyroidism, unspecified (7) CKD (chronic kidney disease), stage II: Status: Acute Category: Medical Code(s): N18.2 - Chronic kidney disease, stage 2 (mild) (8) Anxiety and depression: Status: Chronic Category: Medical Code(s): F41.9 - Anxiety disorder, unspecified; F32.9 - Major depressive disorder, single episode, unspecified Plan Care management continues to work disposition; see notes. Bowels have not moved since admission. Discussed with dietitian. Will add MiraLAX. Will change IV Valium. Dr. Patterson entry - Saw patient, agree with above note. He is better today, will have PT/OT see patient today.
[2023-07-14] MEDS: BISACODYL 10MG SUPP 10 MG RC (09:34)
--- NOTE | 2023-07-14 10:27 | HMH.PTEV ---
Physical Therapy Evaluation Rehab PT IP Evaluation Start: 07/14/23 09:02 Freq: ONCE Status: Active Protocol: Document 07/14/23 10:09 CISCO (Rec: 07/14/23 10:26 CISCO [id number]) Subjective/History History History Patient is a 67 yom that presents with AMS secondary to a long-standing diagnosis of frontotemporal dementia. The patient has a PMH remarkable for a-fib, anxiety, cholellithiasis, CKD, CAD, dementia, HTN, hypothyroidism and pancreatitis. The patient was living at home with his , who was his primary caretake. He has been displaying aggressive behavior toward her, and she is no longer able to care for him. Subjective Subjective The patient reports that he is not in pain or feeling unwell at this time. Upon arrival, the patient requested Valium, to which his nurse reported he was not ready for it. The patient did report that he lived at home with his , who cooked and cleaned, but he otherwise took care of himself. He reported that he did not use an assisstive device prior to coming to the hospital. The patient was otherwise a poor historian, and his was not in the room for further subjective information. New diagnosis of cancer in past 12 No months? Rehab PT IP Eval Objective Appearance Patient Behavior Cooperative,Patient Baseline Patient Orientation Person,Place,Birthday Difficulty following instructions mild Speech Pattern Delayed,Patient Baseline Ambulation Patient Able to Ambulate Yes Ambulation Observation IP General Gait Pattern Observation Narrow Based Gait Ambulation Distance (feet) 16 Ambulation Assistive Device None Ambulation Ability Minimal x 2 (25% assist) Balance Ability to Arise Able, uses arms to help Sitting Balance Leans or slides in chair Standing Balance Steady, wide stance Dynamic Sitting Balance Ability Fair Dynamic Standing Balance Ability Fair Transfers Bed Transfer Ability Moderate x 2 (50% assist) Sit to Stand Bed Transfer Ability Contact Guard/Hand Hold Rehab PT IP prob,goals,plan Problems Date of Evaluation: 07/14/23 PT IP Problems Bed Mobility,Transfers,Gait, Balance Rehab Potential Rehab Potential Fair Equipment Needs Assistive Devices None / NA Plan PT Intervention Plan Bed Mobility,Transfers,Gait, Balance,Self care,Therapeutic Exercise PT Plan Frequency Daily Duration LOS Discharge Goals Bed Transfer Ability Minimal x 1 (25% assist) Sit to Stand Chair Transfer Ability Supervision/Stand by Ambulation Assistive Device Rolling Walker Ambulation Distance (feet) 50 Discharge Plan PT Discharge Plan Patient presented for initial evaluation today. Skilled physical therapy is indicated for this patient to promote a return to his prior function, prevent further decline and to prevent injuries. Patient may benefit from placement into a long-term care facility, at this time. Eval Complexity Eval Charge Codes 36251 - High Complexity PHYSICIAN CERTIFICATION: I certify the specified therapy services for Willy Maguire are required, authorized, and reviewed every 30 days.
--- NOTE | 2023-07-14 10:33 | HMH.OTEV ---
OT Inpatient Evaluation Rehab OT IP Evaluation Start: 07/14/23 09:02 Freq: ONCE Status: Active Protocol: Document 07/14/23 10:27 [place] (Rec: 07/14/23 10:33 [facility] [id number]) Rehab OT IP Assessment Subjective History Patient is a 67 yom that presents with AMS secondary to a long-standing diagnosis of frontotemporal dementia. The patient has a PMH remarkable for a-fib, anxiety, cholellithiasis, CKD, CAD, dementia, HTN, hypothyroidism and pancreatitis. The patient was living at home with his , who was his primary caretake. He has been displaying aggressive behavior toward her, and she is no longer able to care for him. Subjective Upon arrival, the patient requested Valium, to which his nurse reported he was not ready for it. The patient did report that he lived at home with his , who cooked and cleaned, but he otherwise took care of himself. He reported that he did not use an assisstive device prior to coming to the hospital. The patient was otherwise a poor historian, and his was not in the room for further subjective information. Objective Patient Orientation Person,Place,Birthday Right Upper Extremity Gross ROM Min Limitation <25% Left Upper Extremity Gross ROM Min Limitation <25% Shoulder ROM Limitations Muscle Weakness Elbow ROM Limitations Muscle Weakness Wrist Limitations of Range of Motion Muscle Weakness Bed Mobility bed mobility-scooting,bed mobility - supine/sit Assist Level Moderate x 2 (50% assist) Transfer Training Sit/Stand Transfer Assist Level Minimal x 2 (25% assist) Rehab OT IP prob,goals,plan Problems Date of Evaluation: 07/14/23 OT IP Problems Bed Mobility,Transfers,Balance ,Self care,Safety Rehab Potential Rehab Potential Good Equipment Needs Assistive Devices Rolling / Wheeled Walker Plan OT intervention Plan Bed Mobility,Transfers,Balance ,Self care,Safety,Therapeutic Exercise OT Plan Frequency Daily Duration LOS Discharge Goals Bed Mobility Ability Assistance x1 Sit to Stand Chair Transfer Ability Minimal x 1 (25% assist) Chair Transfer Ability Minimal x 1 (25% assist) Chair Transfer Technique Sit to/from Ambulatory Chair Transfer Assistive Devices Rolling Walker Feeding Ability Assist with Tray Set Up Lower Body Dressing Ability Moderate Assistance Upper Body Dressing Ability Moderate Assistance Bathing Ability Moderate Assistance Performing Toilet Hygiene Ability Moderate Assistance Overall Commode/Toilet Transfer Ability Minimal Assistance Commode/Toilet Transfer Technique Sit to/from Ambulatory Commode/Toilet Transfer Assistive Grab Bars Devices Oral Care Assist Minimal Assistance Decrease in Endurance Yes Discharge Plan OT Discharge Plan Skilled occupational therapy is indicated for this patient to promote a return to his prior function, prevent further decline and to prevent injuries. Patient may benefit from placement into a long- term care facility, at this time. Eval Complexity Eval Charge Codes 35119 - Moderate Complexity PHYSICIAN CERTIFICATION: I certify the specified therapy services for Willy Maguire are required, authorized, and reviewed every 30 days.
[2023-07-14] MEDS: diazePAM 2MG TABLET 2 MG PO ×3 (10:41→23:14)
--- NOTE | 2023-07-14 11:44 | DIET.NUTRFU ---
RD reviewed chart, no BM had been noted. Reviewed with provider, ducolax supp provided. BM noted today at 10am. Continues on regular diet with fair po intake. Plans to discharge home with when ready
--- NOTE | 2023-07-14 15:33 | PC.NURSE ---
Pt. is aox3 with some confusion at times, had one large bm this am, 20g R AC SL, up with assistance times 2, bed alarm on.
[2023-07-14 20:00] VITALS: BP 127/85; PULSE 77; RESP 16; TEMP 36.7; O2SAT 99
[2023-07-15 04:00] VITALS: BP 106/81; PULSE 64; RESP 16; TEMP 36.7; O2SAT 98
[2023-07-15 08:00] VITALS: BP 121/87; PULSE 83; RESP 20; TEMP 36.5; O2SAT 96
--- NOTE | 2023-07-15 08:32 | EXP.ACUTE.PN ---
Subjective *Date: 07/15/23 *Time: 08:32 Interval history: No new issues reported overnight, patient slept well. Spoke to his at length yesterday about disposition options. She chose home with home health. Patient had a large bowel movement yesterday. Medical Exam Vital signs and Labs for Last 24 Hours: Vital Signs Temp Pulse Resp BP Pulse Ox O2 Del Method 07/15/23 07:00 Room Air 07/15/23 05:00 Room Air 07/15/23 04:00 98.1 F 64 16 106/81 L 98 Room Air 07/15/23 03:00 Room Air 07/15/23 01:00 Room Air 07/14/23 23:00 Room Air 07/14/23 21:00 Room Air 07/14/23 20:00 Room Air 07/14/23 20:00 98.1 F 77 16 127/85 99 Room Air 07/14/23 17:44 Room Air 07/14/23 16:27 Room Air 07/14/23 14:45 Room Air 07/14/23 12:22 Room Air 07/14/23 10:10 Room Air Intake and Output 07/14/23 07/15/23 07/15/23 23:59 07:59 15:59 Intake Total 270 / 1010 240 / 240 Output Total 300 / 1050 100 / 100 Balance -30 / -40 140 / 140 Intake: Intake, Oral Amount 270 / 1010 240 / 240 Output: Output, Urine Amount 300 / 1050 100 / 100 Other: Number of Voids 0 Number of Unmeasured Voids 1 2 Weight 142 lb 12.8 oz Patient Weight 07/15/23 23:59 Weight 142 lb 12.8 oz I & O for Labs for Last 24 Hours: Intake & Output 07/12/23 07/13/23 07/14/23 07/15/23 23:59 23:59 23:59 23:59 Intake Total 1250 / 1490 720 / 720 770 / 1010 240 / 240 Output Total 0 / 0 700 / 700 1050 / 1050 100 / 100 Balance 1250 / 1490 20 / 20 -280 / -40 140 / 140 Weight 145 lb 15.136 oz 145 lb 15.136 oz 146 lb 9.718 oz 142 lb 12.8 oz Constitutional: Present no acute distress and thin Comment:: Sitting up in the bed. Appears comfortable. Respiratory: Present crackles (Left base) Cardiac: Present Reg Rate and Rhythm GI: Present soft and normal bowel sounds; Absent tenderness or guarding Extremities: Absent edema or calf tenderness Neuro: Present alert, awake and oriented x 3 Assessment and Plan *Assessment and plan (1) Fronto-temporal dementia: Status: Acute Category: Medical Code(s): G31.09 - Other frontotemporal neurocognitive disorder; F02.80 - Dementia in other diseases classified elsewhere, unspecified severity, without behavioral disturbance, psychotic disturbance, mood disturbance, and anxiety (2) Declining functional status: Status: Acute Category: Medical Code(s): R53.81 - Other malaise (3) Agitation: Status: Acute Category: Medical Code(s): R45.1 - Restlessness and agitation (4) Hypertension: Status: Chronic Category: Medical Code(s): I10 - Essential (primary) hypertension (5) Coronary artery disease: Status: Chronic Category: Medical Code(s): I25.10 - Atherosclerotic heart disease of [place] coronary artery without angina pectoris (6) Hypothyroidism: Status: Chronic Category: Medical Code(s): E03.9 - Hypothyroidism, unspecified (7) CKD (chronic kidney disease), stage II: Status: Acute Category: Medical Code(s): N18.2 - Chronic kidney disease, stage 2 (mild) (8) Anxiety and depression: Status: Chronic Category: Medical Code(s): F41.9 - Anxiety disorder, unspecified; F32.9 - Major depressive disorder, single episode, unspecified Plan OK to discharge home today with home health.
--- NOTE | 2023-07-15 09:30 | PC.NURSE ---
This staff member assisted patient to bathroom. Patient was leaning forward while sitting on the toilet with this nurse standing by him in bathroom. Patient suddenly fell forward landing on knees on hitting forehead on floor causing an abrasion. Patient assisted back to toilet with two staff members and then back to his feet. Patient ambulated back to bed with two staff members. Med/surg program management manager, charge nurse and MD called to room. Per Dr. Patterson, antibiotic ointment and bandaid applied to forehead abrasion. Per instructions, discharge home will be held until lunchtime when Dr. Patterson will come back to reassess the patient
[2023-07-15] MEDS: OLANZapine 5 MG ODT TABLET 10 MG SL (09:32)
[2023-07-15] MEDS: DULOXETINE 30MG CAPSULE.DR 30 MG PO (09:32)
[2023-07-15] MEDS: BUSPIRONE HCL 5 MG PO (09:33)
[2023-07-15] MEDS: BENZTROPINE 1 MG PO (09:33)
[2023-07-15 12:25] VITALS: BP 149/58; PULSE 81; RESP 18; TEMP 36.6; O2SAT 96
--- NOTE | 2023-07-15 12:50 | PC.NURSE ---
Patient is restless and states he wants to go home. Multiple attempts to get up. Chair alarm activated. Patient is pleasant and able to be reoriented that we are waiting for Dr. Patterson to see him again before discharge
[2023-07-15] MEDS: diazePAM 2MG TABLET 2 MG PO (12:52)
--- NOTE | 2023-07-15 13:40 | PC.NURSE ---
Dr. Patterson at bedside. States patient is okay for discharge
--- NOTE | 2023-07-15 16:50 | PC.NURSE ---
Patient's reluctant to take patient home until she was sure patient would be able to walk into the house. Patient ambulated in abad with 2 staff members from room 205 to the end of abad with observing. Tolerated well. states she feels confident patient can ambulate into house and is ready to be discharged home
--- NOTE | 2023-07-16 14:42 | CARE MANAGER ---
Patient in ER at time of follow up discharge call.
--- NOTE | 2023-07-17 11:45 | CARE MANAGER ---
Patient not contacted related to hospital discharge as was in ER on first day post discharge and admitted on 2nd day.
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
== END 2023-07-15 14:47 | disposition home health service (06) ==
LOC: ER 17:14 → 2ND 17:44
PROVIDERS: Physician Assistant; Admitting Provider Internal Medicine Adolescent Medicine; Emergency Provider Emergency Medicine; PCP Family Medicine; Visit Provider Family Medicine
DX: G31.09 Other frontotemporal neurocognitive disorder (principal); F02.80 Dementia in other diseases classified elsewhere, unspecified severity, without behavioral disturbance, psychotic disturbance, mood disturbance, and anxiety; R45.1 Restlessness and agitation; I25.10 Atherosclerotic heart disease of native coronary artery without angina pectoris; E03.9 Hypothyroidism, unspecified; N18.2 Chronic kidney disease, stage 2 (mild); F41.9 Anxiety disorder, unspecified; F32.9 Major depressive disorder, single episode, unspecified; I12.9 Hypertensive chronic kidney disease with stage 1 through stage 4 chronic kidney disease, or unspecified chronic kidney disease; N18.9 Chronic kidney disease, unspecified; Z95.1 Presence of aortocoronary bypass graft
CPT/HCPCS: 36415; 70450; 80053; 81001; 82140; 82803; 83735; 84443; 85007; 85025; 93005; 97116; 97163; 97166; 97530; 99285; G0378

== ENCOUNTER 2023-07-15 19:16 | Observation (INO) | payer MEDICARE, OTHER, SELFPAY ==
[2023-07-15] VITALS (9 sets, daily range): BP systolic 97–144; BP diastolic 62–86; PULSE 66–83; RESP 12–22; TEMP 37.4; O2SAT 96–99; BMI 22.1
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
--- NOTE | 2023-07-15 20:08 | CT_ITS ---
PROCEDURE INFORMATION: Exam: CT Cervical Spine Without Contrast Exam date and time: 07/15/2023 8:27 PM Age: 67 years old Clinical indication: Neck pain; Additional info: Fall TECHNIQUE: Imaging protocol: Computed tomography of the cervical spine without contrast. Radiation optimization: All CT scans at this facility use at least one of these dose optimization techniques: automated exposure control; mA and/or kV adjustment per patient size (includes targeted exams where dose is matched to clinical indication); or iterative reconstruction. COMPARISON: No relevant prior studies available. FINDINGS: Limitations: Motion artifact - mild. Bones/joints: No acute fracture. Degenerative retrolithesis of mid cervical spine. Degenerative changes of atlantodental articulation. Mild degenerative disc disease within mid cervical spine. Moderate to severe degenerative disc disease within mid to lower cervical spine. Paranasal sinuses: RIGHT maxillary retention cyst. Lungs: Unremarkable as visualized. Soft tissues: Unremarkable. IMPRESSION: No fracture.
--- NOTE | 2023-07-15 20:14 | CT_ITS ---
PROCEDURE INFORMATION: Exam: CT Head Without Contrast Exam date and time: 07/15/2023 8:25 PM Age: 67 years old Clinical indication: Pain; Other: Fall TECHNIQUE: Imaging protocol: Computed tomography of the head without contrast. Radiation optimization: All CT scans at this facility use at least one of these dose optimization techniques: automated exposure control; mA and/or kV adjustment per patient size (includes targeted exams where dose is matched to clinical indication); or iterative reconstruction. COMPARISON: CT HEAD/BRAIN WO CON 07/08/2023 4:26 PM FINDINGS: Brain: Moderate atrophy. No intracranial hemorrhage. No mass. Few scattered foci of decreased attenuation within periventricular/subcortical white matter. No edema. Cerebral ventricles: No hydrocephalus. Paranasal sinuses: RIGHT maxillary retention cyst. Mastoid air cells: No significant effusion. Orbital cavities: Unremarkable as visualized. Bones/joints: No acute fracture. Soft tissues: Minimal scalp swelling. IMPRESSION: 1. No intracranial hemorrhage. 2. Probable chronic microvascular ischemic changes.
--- NOTE | 2023-07-15 21:50 | PC.NURSE ---
202A paperwork successfully faxed to dispatch.
--- NOTE | 2023-07-15 23:46 | PC.NURSE ---
Contacted dispatch regarding paperwork that was sent to dispatch for follow up by on-call forestry conservation worker. Dispatch reports that they have unsuccessfully sent paperwork via email multiple times and have contacted the forestry conservation worker and are now sending officers to hand deliver at this time.
--- NOTE | 2023-07-15 23:54 | PC.NURSE ---
Received signed paperwork via fax. Faxed to [facility] at this time. Confirmed fax completion.
[2023-07-16] VITALS (17 sets, daily range): BP systolic 85–128; BP diastolic 51–80; PULSE 58–105; RESP 13–24; TEMP 39; O2SAT 93–99
--- NOTE | 2023-07-16 00:20 | PC.NURSE ---
Spoke with roberto torres whom states that they did an evaluation on Mr. Maguire on the and did not refer due to dementia at this time. Discussed the reasons for the and request for evaluation. Provided spouses phone number at this time. Will fax medications to [facility].
--- NOTE | 2023-07-16 00:49 | PC.NURSE ---
Randy Doll evaluation completed via Zoom. This RN at bedside holding iPad during evaluation. Awaiting return call from [facility]
--- NOTE | 2023-07-16 00:52 | PC.NURSE ---
Return call from Satya at [facility], whom reports that patient does not meet criteria for admission to [facility]. Would recommend emergency POA and detention facility placement.
--- NOTE | 2023-07-16 01:12 | PC.NURSE ---
Patient attempted to get out of bed. Denied need for food/drink, denied need to use restroom. Patient states he wants to go home at this time and asked what the doctor said. Reassured patient that we would update him and all his spouse Yamini when we know more. Patient successfully redirected back to bed at this time. medical sonographer remains at bedside at this time.
--- NOTE | 2023-07-16 01:39 | PC.NURSE ---
paged dr norwood
--- NOTE | 2023-07-16 01:42 | PC.NURSE ---
on phone with [facility]
--- NOTE | 2023-07-16 01:53 | PC.NURSE ---
o/p with transfer center at this time.
--- NOTE | 2023-07-16 02:00 | PC.NURSE ---
o/p with at this time.
--- NOTE | 2023-07-16 03:13 | PC.NURSE ---
Patient reports headache at this time. Assessed patient and patient asks Would you ask the doctor if I can have a valium? Notified provider and orders received.
[2023-07-16] MEDS: diazePAM 5MG TABLET 5 MG PO ×2 (03:18→19:44)
--- NOTE | 2023-07-16 03:47 | PC.NURSE ---
Patient attempted to get out of bed, demanding to call his spouse. Agreed to provide phone, assisted patient back to bed with sitter's assistance. Got portable phone and assisted patient to attempt to call cell and home phone numbers that were confirmed by patient at this time. No answer. Agreed to attempt to call again for patient. Patient remains anxious and concerned about going home.
--- NOTE | 2023-07-16 07:26 | PC.NURSE ---
contacted CM about further care for pt, Maia states they are talking with the hospitalist and trying to make a plan for further care. There has been multiple attempts for placement but has been denied.
--- NOTE | 2023-07-16 07:27 | PC.NURSE ---
CHECKED ON PT AND SITTER IN ROOM PT IS RESTING IN CHAIR WITH SITTER AT SIDE, SITTER STATED PT TOOK PULSE OX OFF AND BP CUFF CALL LIGHT IN REACH
--- NOTE | 2023-07-16 07:57 | SW/DCPLANNER ---
Addendum entered by Kathleen Dey RN 07/17/23 16:55: Also left message for Yamini that if she was able she should bring POA paperwork to hospital and have signed since we have notary available. Addendum entered by Kathleen Dey RN 07/17/23 16:52: Spoke with Yamini, patient's , she states that she will take patient home with home health. Told her that patient could be ready over the weekend. She verbalized understanding. Spoke with Dr. Patterson and he will contact Yamini when patient is ready for discharge. Addendum entered by Noy [place] 07/17/23 15:41: Per Gabbie w/ APS patient is able to make his own decisions including returning home if he wants. I have attempted to contact Yamini x 2: no answer at this time. Addendum entered by [facility] 07/17/23 14:58: Per Gabbie w/ APS patient passed mini mental exam and is able to make decisions for himself. Gabbie attempted to contact patient's : no answer at this time VM left. Addendum entered by [facility] 07/17/23 14:50: Gabbie yen/ [facility]ON[facility] is onsite completing assessment w/ this patient. Addendum entered by [facility] 07/17/23 12:54: Patient information has been faxed to Lisbet yen/ Kaitlin Hale at [phone]. Addendum entered by [facility] 07/17/23 11:35: Gabbie yen/ APS was onsite to evaluate this patient: patient could not wake up to answer questions at this time. Gabbie will come back this afternoon and if not able to answer questions then she will come back tomorrow morning. Yamini did call back and stated that patient will not discharge to a homeless long-term. Yamini prefers LTC but if this can not be achieved then she prefers to bring patient back home. Addendum entered by Nyo [place] 07/17/23 09:24: I spoke w/ patient's (Yamini) this AM: she stated that she does not intend on abandoning patient. Yamini is working to speak w/ District Wildlife Manager and other facilities regarding discharge plans. I did inform Yamini that APS will be at [facility] this AM. I also informed Yamini that if we can not find placement the only option would be to return back home: Yamini stated that she will be working through the [employer] list today that I provided to her this week. Addendum entered by Maia Tello RN 07/16/23 17:13: Patient's sister, Vaishali Tran called to discuss discharge options. She stated that she has spoken with who plans to file for legal seperation tomorrow @ 2pm and attempt to have Vaishali made legal guardian. Vaishali is very concerned about the patient and is worried that he will end up in a homeless long-term. She is going to attempt to call patient's again and see if she would be willing to pay for transport to [place]. If patient is sent to [place] he will likely have to go to a homeless long-term there, but his sister would work on getting him medicaid and a group home facility. Addendum entered by Noy Teague 07/16/23 15:59: I have called and updated Gabbie w/ APS ([phone]) regarding situation. Gabbie will be at [facility] tomorrow morning to evaluate this patient. Addendum entered by Noy Teague 07/16/23 08:36: [facility] is unable to accept patient, [facility] not accept dementia patients and [facility] is on diversion. Patient information has been faxed to [facility] in [place]. Addendum entered by Noy Teague 07/16/23 08:26: [facility] unable [facility] patient. Original Note: Due to patient returning to ER, unsuccessful w/ placement including all psychiatric facilities and not answering phone: I have reported this case to [facility] ID#[id number].
--- NOTE | 2023-07-16 08:15 | PC.NURSE ---
Timothy called out for assistant professor of nursing, pt was asking to go home, discussed with pt that we were still waiting on some things, pt is able to be redirected to wait. PT asked if he wanted breakfast, drink, blanket or TV which he refused at this time.
--- NOTE | 2023-07-16 08:35 | PC.NURSE ---
Left message with Myah Dey' office for a consult.
--- NOTE | 2023-07-16 09:30 | PC.NURSE ---
ATTEMPTED TO CONTACT ON CELLPHONE AND HOME NO ANSWER
--- NOTE | 2023-07-16 09:58 | PC.NURSE ---
JORGE LUND AT BS
--- NOTE | 2023-07-16 09:59 | PC.NURSE ---
KELSIE GOT PT CHOCOLATE MILK AND WAFFLES
--- NOTE | 2023-07-16 10:37 | PC.NURSE ---
pt states he is feeling anxious and he wants his home dose of valium. Dr.. Fulton aware and ordered home dose
--- NOTE | 2023-07-16 10:39 | PC.NURSE ---
speaking with Randy Doll after Myah Dey evaluation, Tiburcio states that pt is having a behavioral psych episode and does need a facility who can further assist in transferring pt to appropriate facility.
--- NOTE | 2023-07-16 10:42 | PC.NURSE ---
Randy Doll gave me the name and number for the director for further assistance in making a plan for pt. Catalina [phone]
[2023-07-16] MEDS: diazePAM 2MG TABLET 2 MG PO ×3 (10:45→16:50)
--- NOTE | 2023-07-16 10:45 | PC.NURSE ---
ATTEMPTED TO CONTACT ON CELLPHONE AND HOME NO ANSWER
--- NOTE | 2023-07-16 10:48 | PC.NURSE ---
Attempted to call Catalina director of [facility], phone call is being forward, message left for call back.
--- NOTE | 2023-07-16 11:04 | PC.NURSE ---
Catalina and Gabriella from [facility] about the recommendation from Myah Dey and the need for psych consult and is not a medical pt. Per Catalina we need to file another [phone] for reevaluation with [facility]. MD kong
--- NOTE | 2023-07-16 11:33 | P.CONS_ITS ---
History of Present Illness *Reason for visit:: consult *History of present illness: I interviewed patient at bedside. -He is sitting up in a chair -breakfast tray in front of him -he states that he is here for anxiety -has had this for 2-3 years -he lives at home with his , Yamini; she is not currently here -she did ask about him frequently He states that today is Thursday -June -he is aware that [place] is president -immediate recall 3/3 -recall after 2 minutes: 0/3 -able to name objects around the room without difficulty -he states that you shouldn't throw rocks at glass houses cause they will break He is currently on close monitoring with staff; related to desire to return home. 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 Mr. Maguire is a poor historian. He doesn't answer questions right away; will pause. I would have to repeat the question to get him to respond at times. Flat Affect. I attempted to call his to get collateral information. -the numbers listed; she did not answer. I did leave a message and my contact number for her [facility] Disclaimer: The information contained in this section may have been updated after the patient was seen, as this information can be updated by other users. Medical History (Updated 07/16/23 @ 00:07 by Keely Velasco DO) Constipation Dementia Depression Anxiety History of cardioversion Afib Fronto-temporal dementia Cholelithiasis Hypertension Coronary artery disease Pancreatitis Hypothyroidism CKD (chronic kidney disease), stage II Atrial fibrillation with RVR Surgical History (Updated 07/09/23 @ 12:23 by JOY Easley) History of cholecystectomy History of ERCP Hx of appendectomy Hx of CABG History of coronary artery bypass graft x 1 Family History (Updated 07/09/23 @ 12:24 by JOY Easley) Other Hypertension No significant family history Parkinson disease Stroke Social History (Updated 07/08/23 @ 18:24 by Kirsten Hernandez RN) Smoking Status: Unknown if ever smoked alcohol intake: never substance use type: marijuana (in the past; none in the past 4 years) current occupational status: retired Travel in the last 8 weeks: None household members: spouse housing: house number of children: 0 caffeine: No Review of Systems Review of Systems Review of systems:: other *Neurologic Neurologic: Reports behavioral changes and Reports confusion Psychiatric Psychiatric: Reports anxiety, Reports behavioral changes and Reports confusion Meds Home Medications and Allergies Home Medications Medication Instructions Recorded Confirmed Type benztropine 1 mg tablet 1 mg PO BID 05/15/23 07/16/23 History mirtazapine 7.5 mg tablet 7.5 mg PO DAILY 05/15/23 07/16/23 History aspirin 81 mg tablet,delayed 81 mg PO DAILY 07/09/23 07/16/23 History release buspirone 5 mg tablet 5 mg PO BID 07/09/23 07/16/23 History duloxetine 20 mg capsule,delayed 20 mg PO DAILY 07/09/23 07/16/23 History release levothyroxine 50 mcg tablet 50 mcg PO DAILY 07/09/23 07/16/23 History polyethylene glycol 3350 17 17 g PO DAILY 07/09/23 07/16/23 History gram/dose oral powder diazepam 2 mg tablet 2 mg PO TID PRN anxiety #60 tabs 07/15/23 07/16/23 Rx olanzapine 10 mg tablet 10 mg PO BID #60 tabs 07/15/23 07/16/23 Rx New Prescriptions to Start Prescriptions: Allergies Allergy/AdvReac Type Severity Reaction Status Date / Time erythromycin base Allergy Unknown Unknown Verified 05/15/23 21:29 allergy reaction Assessment and Plan *Assessment and plan (1) Fronto-temporal dementia: Status: Acute Category: Medical Code(s): G31.09 - Other frontotemporal neurocognitive disorder; F02.80 - Dementia in other diseases classified elsewhere, unspecified severity, without behavioral disturbance, psychotic disturbance, mood disturbance, and anxiety (2) Agitation due to dementia: Status: Acute Category: Medical Code(s): F03.911 - Unspecified dementia, unspecified severity, with agitation Plan 1. Transfer to psychiatric facility. 2. He does have a fronto-temporal dementia; WITH acute behavioral and/or psychiatric manifestation of symptoms.
--- NOTE | 2023-07-16 12:00 | PC.NURSE ---
ATTEMPTED TO CONTACT ON CELLPHONE AND HOME NO ANSWER
--- NOTE | 2023-07-16 12:18 | PC.NURSE ---
faxed [phone] to dispatch. Waiting for their call back after speaking to the lay out maker
--- NOTE | 2023-07-16 12:39 | PC.NURSE ---
SITTER AT BS PT IS SETTING IN CHAIR,CALL LIGHT IN REACH
--- NOTE | 2023-07-16 13:00 | PC.NURSE ---
ATTEMPTED TO CONTACT ON CELLPHONE AND HOME NO ANSWER
--- NOTE | 2023-07-16 13:10 | PC.NURSE ---
Gave pt another dose of Valium 2mg PO & home dose of Zyprexa SL. Pt educated on medications. He was assisted to bed and given 2 warm blankets. Then he immediately needed to use the urinal. He was assisted with the urinal, standing at bedside. He voided 400ml of dark ylw urine.
[2023-07-16] MEDS: OLANZapine 5 MG ODT TABLET SL (13:19)
--- NOTE | 2023-07-16 13:39 | PC.NURSE ---
faxed the river expedition guide signed [phone] to [facility] brian [phone]
--- NOTE | 2023-07-16 14:51 | PC.NURSE ---
speaking with Snugg Hometa
--- NOTE | 2023-07-16 15:05 | PC.NURSE ---
[facility] transferred to for further plan
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
--- NOTE | 2023-07-16 15:11 | PC.NURSE ---
PT IS ASLEEP IN BED, SITTER AT BS AND CALL LIGHT IN REACH
--- NOTE | 2023-07-16 15:13 | PC.NURSE ---
Pt's sister, Vaishali Tran, called stating Mina's told me she is filing for divorce and signing guardianship over to me . Vaishali states she would like to be kept in the loop and speak with Case Management in regards to possible placement and transfer to a facility near her in [place], [place]. Vaishali wanted to leave her home phone #
--- NOTE | 2023-07-16 16:22 | PC.NURSE ---
Up to the bathroom with 2x assist. Pt asking Where is Yamini. I want to see Yamini . Multiple attempts made to call throughout the day without success. He is becoming more agitated since he can not s/w her. aware. [facility] states We are unable to accept this patient . Dr. Venegas, fraternity house cook, and Eugenia Cohen RN aware of the 2nd denial.
--- NOTE | 2023-07-16 16:35 | PC.NURSE ---
Walking pt around the abad-way in attempt to re-direct him. d/t anxiousness and agitation, Dr. Venegas states ok to give pt Valium 2mg PO 1x.
--- NOTE | 2023-07-16 16:50 | PC.NURSE ---
Gave pt a few more warm blankets and he has laid back down. Valium given at this time as well.
--- NOTE | 2023-07-16 17:27 | PC.NURSE ---
called [facility] who states they are still on divert. They state they will reach out to a doctor and see if they can help
--- NOTE | 2023-07-16 17:34 | PC.NURSE ---
[facility] on phone with [facility]
--- NOTE | 2023-07-16 17:48 | PC.NURSE ---
PT WAS GIVEN A CHOCOLATE MILK WITH ANDRÉS. CHIP COOKIES SITTER AT BS
--- NOTE | 2023-07-16 17:57 | PC.NURSE ---
Addendum entered by Ismaar Pak RN 07/16/23 17:59: Number to [facility] is [phone] Original Note: Spoke with parts representative from [facility] for referral for patient. Faxed information over including face sheet, behavioral health nurse practitioner note, and most recent labs.
--- NOTE | 2023-07-16 18:01 | PC.NURSE ---
CALLING [facility] FOR TRANSFER POSSIBLE I AM BEING CONNECTED WITH THE BEHAVIORAL HEALTH SERVICE AREA
--- NOTE | 2023-07-16 18:11 | PC.NURSE ---
TIFFANIE FACE SHEET, MEENA CONSULT REPORT AND ER MD VALENTINE REPORT TO [facility] IN [place], WILL CALL BACK ONCE RECEIVED AND MD NICKERSON
--- NOTE | 2023-07-16 18:15 | PC.NURSE ---
pt ambulating in hallway with sitter. Pt is looking for Yamini
--- NOTE | 2023-07-16 19:00 | PC.NURSE ---
Pt's called to check on pt's status and see if he was awake. Yamini states I have applied for longterm medicaid and actually seeing an fabric lay out worker tomorrow and spoke to 2 different fabric lay out worker's today . States, I want him home but I just can't take care of him. I was prepared to, I got boost, depends, and set up a hospital bed but his legs just give out and he keeps falling . Ymaini also stated, I'm trying to help him but I can't pull him up and EMS said [you're helping him by getting him to the hospital] . She also states, he has a walked but we have a step and really the walker is more cumbersome for him to use and doesn't help him . She also report, I have called to check on him, I do love him, but I have [employer] and the cell phone forwards to my house phone and sometimes it just does go . Cell ph# [phone]. I asked if she would like to speak to pt as he has been asking for her, she states well I don't know last time I made it worse . States to call her cell phone and leave a message and she will call back.
--- NOTE | 2023-07-16 19:36 | PC.NURSE ---
Rounded on patient, no needs voiced at this time.
[2023-07-16] MEDS: BENZTROPINE 1MG TABLET 1 MG PO (22:14)
[2023-07-16] MEDS: BUSPIRONE HCL 5 MG TABLET PO (22:14)
[2023-07-16] MEDS: MIRTAZAPINE 15 MG TABLET 7.5 MG PO (22:15)
[2023-07-16] MEDS: OLANZapine 5 MG ODT TABLET 10 MG SL (22:15)
--- NOTE | 2023-07-16 22:24 | PC.NURSE ---
Patient repeatedly attempting to get out of bed, agitated, cursing, pushing at staff. Reconciled all home medications and had provider reorder home medications as desired. Obtained vitals and noted oral temperature 102.2. Notified provider, orders received at this time.
[2023-07-16] MEDS: ACETAMINOPHEN 500MG TAB 1000 MG PO (22:27)
--- NOTE | 2023-07-16 22:44 | XR_ITS ---
PROCEDURE INFORMATION: Exam: XR Chest Exam date and time: 07/16/2023 10:48 PM Age: 67 years old Clinical indication: Fever TECHNIQUE: Imaging protocol: Radiologic exam of the chest. Views: 1 view. COMPARISON: CR XR CHEST 2V 05/15/2023 10:42 PM FINDINGS: Lungs: There is a right medial basilar opacity raising concern for pneumonia. Pleural spaces: No large effusion or pneumothorax. Heart/Mediastinum: Stable cardiac and mediastinal contours. Bones/joints: No evidence of acute osseous abnormalities within the visualized portions of the thoracic spine and ribs. Osseous structures appear appropriate for patient age. The patient is status post median sternotomy. IMPRESSION: There is a right medial basilar opacity raising concern for pneumonia.
[2023-07-16 23:02] LABS: Coronavirus 19, PCR Not Detected (NotDetected); Influenza A, PCR Not Detected (NotDetected); Influenza B, PCR Not Detected (NotDetected)
[2023-07-16 23:04] LABS: Basophils % 0.2 % (0.1-2.0); Eosinophils % 0.1 % (0.1-12.0); Hematocrit 40.3 % (42.0-52.0); Hemoglobin 12.9 g/dL (14.1-18.0); Lymphocytes # 9.7 K/mm3 (0.7-4.5); Lymphocytes % 93.6 % (10-50); Mean Corpuscular HGB Conc 31.9 g/dL (31.8-35.4); Mean Corpuscular Hemoglobin 31.7 pg (27.0-31.2); Mean Corpuscular Volume 99.1 fl (80-94); Monocytes # 0.6 K/mm3 (0.1-1.0); Monocytes % 5.7 % (1.7-9.3); Platelet Count 181 K/mm3 (142-424); Red Blood Count 4.07 M/mm3 (4.60-6.20); Red Cell Distribution Width 15.3 % (11.5-17.5); White Blood Count 10.4 K/mm3 (4.8-10.8)
[2023-07-16 23:05] LABS: Neutrophils % 0.4 % (37.0-80.0)
[2023-07-16 23:12] LABS: MANUAL DIFFERENTIAL MANUAL DIFFERENTIAL (MANUAL DIFF)
[2023-07-16 23:14] LABS: Chloride 110 mmol/L (98-107); Potassium 3.9 mmoL/L (3.5-5.1); Sodium 142 mmol/L (136-145)
[2023-07-16 23:17] LABS: Alanine Aminotransferase 25 U/L (12-78); Albumin Level 3.9 g/dl (3.5-5.0); Albumin/Globulin Ratio 1.1 (1.1-1.8); Alkaline Phosphatase 94 U/L (38-126); Anion Gap 14.9 mEq/L (5-15); Aspartate Amino Transferase 35 U/L (17-59); Bilirubin,Total 0.8 mg/dl (0.2-1.3); Blood Urea Nitrogen 20 mg/dl (9-20); Calcium 9.4 mg/dl (8.4-10.2); Carbon Dioxide 21 mmol/L (22.0-30.0); Creatine Kinase 102 U/L (55-170); Creatinine Clearance Estimated 64 mL/min (50-200); Estimated Glomerular Filt Rate 67 ml/min (>60); GFR (African American) 81 ML/MIN (>60); Globulin 3.4 g/dL (1.3-3.2); Glucose 103 mg/dl (74-100); Total Protein,Serum 7.3 g/dl (6.3-8.2)
[2023-07-16 23:19] LABS: Lactic Acid 2.7 mmol/L (0.7-2.1)
[2023-07-16 23:20] LABS: Acanthocytes 1+; Anisocytosis 1+; Lymphocytes % 8 % (10-50); Monocytes % 1 % (2-9); Neutrophils % 91 % (42-76); Platelet Estimate Normal; Total Cells Counted 100
[2023-07-16 23:21] LABS: Ovalocytes 1+; Poikilocytosis 1+
[2023-07-16] MEDS: LACTATED RINGERS 1000ML 1,000 ML 999 ML IV (23:40)
[2023-07-16] MEDS: CEFEPIME HCL 2 GM in 0.9 % SODIUM CHLORIDE 100 ML IV (23:40)
--- NOTE | 2023-07-16 23:41 | PC.NURSE ---
paged dr goldberg
--- NOTE | 2023-07-16 23:48 | PC.NURSE ---
Provider spoke with Dr. Vazquez and hospitalist regarding admission for neutropenic fever. Awaiting return call from Dr. Vazquez at this time.
[2023-07-17] VITALS (21 sets, daily range): BP systolic 90–140; BP diastolic 53–73; PULSE 77–113; RESP 13–26; TEMP 36.3–37.3; O2SAT 93–98; BMI 22.1
--- NOTE | 2023-07-17 00:04 | PC.NURSE ---
Provider speaking to Dr. Vazquez at this time.
--- NOTE | 2023-07-17 00:22 | PC.NURSE ---
Provider spoke with Dr. Vazquez whom has declined admission at this time. Provider updated house insurance administrator.
[2023-07-17 03:01] LABS: Reflex Lactic Add Lactic Reflex
[2023-07-17 03:26] LABS: Lactic Acid Follow Up (RFLX 1) 1.7 mmol/L (0.7-2.1)
[2023-07-17] MEDS: LEVOTHYROXINE 50MCG (0.05MG) TAB 50 MCG PO (06:46)
[2023-07-17] MEDS: CEFEPIME HCL 2 GM in 0.9 % SODIUM CHLORIDE 100 ML IV (07:17)
--- NOTE | 2023-07-17 07:24 | PC.NURSE ---
I rounded on the pt, he is sleeping at this time.
--- NOTE | 2023-07-17 07:28 | PC.NURSE ---
sitting 1:1 at bedside with patient at this time. patient sleeping with call light with in reach
[2023-07-17] MEDS: AZITHROMYCIN 500 MG in 0.9 % SODIUM CHLORIDE 250 ML 250 MG IV (08:01)
--- NOTE | 2023-07-17 08:12 | PC.NURSE ---
pt sleeping at this time.
--- NOTE | 2023-07-17 08:30 | PC.NURSE ---
DR YEPEZ SPEAKING WITH DR MEZA
--- NOTE | 2023-07-17 08:32 | PC.NURSE ---
DR MEZA ACCEPTS PT FOR ADMISSION
--- NOTE | 2023-07-17 08:33 | PC.NURSE ---
ADDICTION SOCIAL WORKER NOTIFIED OF ADMISSION
--- NOTE | 2023-07-17 08:36 | PC.NURSE ---
Admissions notified of admit to room 213 for Neutropenic fever to . OBS.
--- NOTE | 2023-07-17 08:39 | HMH.PHAINT1 ---
Pharmacy Intervention Comments: MEDICATION RECONCILIATION COMPLETED ON PATIENT USING EXTERNAL FILL HISTORY FROM PHARMACY AND DISCHARGE SUMMARY FROM PREVIOUS ADMISSION. -KARINA MYLES, CECILIAD
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
--- NOTE | 2023-07-17 09:19 | PC.NURSE ---
Addendum entered by Sonja Carlton RN 07/17/23 09:20: Late note, gave report @ 0900 Original Note: Gave report to Emma REDMAN on Med/Surg
[2023-07-17] MEDS: DULOXETINE 30MG CAPSULE.DR 30 MG PO (12:00)
[2023-07-17] MEDS: BENZTROPINE 1MG TABLET 1 MG PO ×2 (12:00→22:03)
--- NOTE | 2023-07-17 14:12 | SW/DCPLANNER ---
Addendum entered by Noy Teague 07/21/23 14:26: Milly yen/ [facility] stated that services will begin this week for this patient. Addendum entered by Noy Teague 07/21/23 10:56: Patient information/order has been faxed to Milly yen/ [facility]. Patient will discharge home today. Original Note: The following facilities have denied this patient: [facility], [facility], [facility], [facility], [facility], [facility], [place], [place], [facility], [facility], [facility], [facility], [facility], [facility], [facility], [facility], [facility], [facility], [facility], [facility], [facility], [facility], [place] ( denied due to private pay rate), [facility], [facility], [facility], [facility], [facility], [facility], [facility], [facility] , [facility] and [facility]. Patient information has been faxed to the following facilities: [facility], [facility], [facility], [facility], [facility] and [facility] Voicemails have been left w/ the following facilities: [facility], [facility], [facility], [facility], [place], [facility], [facility], [facility], [facility], [facility] and [facility].
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
[2023-07-17] MEDS: MIRTAZAPINE 15 MG TABLET 7.5 MG PO (18:47)
[2023-07-17] MEDS: ACETAMINOPHEN 325MG TAB 650 MG PO (22:03)
[2023-07-17] MEDS: BUSPIRONE HCL 5 MG TABLET PO (22:03)
[2023-07-17] MEDS: OLANZapine 5 MG ODT TABLET SL (22:04)
[2023-07-18] VITALS: BP 119/57; PULSE 87; RESP 18; TEMP 36.9; O2SAT 95
[2023-07-18 04:00] VITALS: BP 104/63; PULSE 95; RESP 20; TEMP 36.9; O2SAT 96; BMI 21.9
[2023-07-18] MEDS: LEVOTHYROXINE 50MCG (0.05MG) TAB 50 MCG PO (06:45)
[2023-07-18 08:00] VITALS: BP 119/51; PULSE 79; RESP 20; TEMP 36.7; O2SAT 100
--- NOTE | 2023-07-18 08:50 | P.PN_ITS ---
Subjective *Date: 07/18/23 *Time: 08:50 Interval history: Patient had a fall in his room last night, no other issues. PT note reviewed. Medical Exam Vital signs and Labs for Last 24 Hours: Vital Signs Temp Pulse Pulse Resp BP BP Pulse Ox 07/18/23 08:00 98.0 F 79 20 119/51 L 100 07/18/23 07:00 07/18/23 05:00 07/18/23 04:00 98.5 F 95 H 20 104/63 L 96 07/18/23 03:00 07/18/23 01:00 07/18/23 00:00 07/18/23 00:00 98.5 F 87 18 119/57 L 95 07/17/23 23:00 07/17/23 22:00 07/17/23 21:00 07/17/23 20:00 99.1 F 113 H 18 137/73 94 L 07/17/23 19:00 07/17/23 17:00 07/17/23 15:50 97.4 F L 83 26 H 140/57 L 98 07/17/23 15:15 07/17/23 13:10 07/17/23 11:05 07/17/23 09:45 98.3 F 79 16 92/64 L 07/17/23 09:20 O2 Del Method 07/18/23 08:00 Room Air 07/18/23 07:00 Room Air 07/18/23 05:00 Room Air 07/18/23 04:00 Room Air 07/18/23 03:00 Room Air 07/18/23 01:00 Room Air 07/18/23 00:00 Room Air 07/18/23 00:00 Room Air 07/17/23 23:00 Room Air 07/17/23 22:00 Room Air 07/17/23 21:00 Room Air 07/17/23 20:00 Room Air 07/17/23 19:00 Room Air 07/17/23 17:00 Room Air 07/17/23 15:50 Room Air 07/17/23 15:15 Room Air 07/17/23 13:10 Room Air 07/17/23 11:05 Room Air 07/17/23 09:45 07/17/23 09:20 Room Air Intake and Output 07/17/23 07/18/23 07/18/23 23:59 07:59 15:59 Intake Total 220 / 1610 480 / 480 0 / 480 Output Total 0 / 500 0 / 0 0 / 0 Balance 220 / 1110 480 / 480 0 / 480 Intake: Intake, Oral Amount 220 / 1610 480 / 480 0 / 480 Output: Output, Urine Amount 0 / 500 0 / 0 0 / 0 Other: Number of Unmeasured Voids 1 1 Weight 148 lb 5 oz Patient Weight 07/18/23 23:59 Weight 148 lb 5 oz I & O for Labs for Last 24 Hours: Intake & Output 07/15/23 07/16/23 07/17/23 07/18/23 23:59 23:59 23:59 23:59 Intake Total 1130 / 1610 480 / 480 Output Total 500 / 500 0 / 0 Balance 630 / 1110 480 / 480 Weight 150 lb 149 lb 14.629 oz 148 lb 5 oz Constitutional: Present no acute distress and thin Respiratory: Present crackles (Left base) Cardiac: Present Reg Rate and Rhythm Assessment and Plan *Assessment and plan (1) CAP (community acquired pneumonia): Status: Acute Category: Medical Code(s): J18.9 - Pneumonia, unspecified organism (2) Neutropenia with fever: Status: Acute Category: Medical Code(s): D70.9 - Neutropenia, unspecified; R50.81 - Fever presenting with conditions classified elsewhere (3) Agitation due to dementia: Status: Acute Category: Medical Code(s): F03.911 - Unspecified dementia, unspecified severity, with agitation (4) Fronto-temporal dementia: Status: Acute Category: Medical Code(s): G31.09 - Other frontotemporal neurocognitive disorder; F02.80 - Dementia in other diseases classified elsewhere, unspecified severity, without behavioral disturbance, psychotic disturbance, mood disturbance, and anxiety (5) Hypertension: Status: Chronic Category: Medical Code(s): I10 - Essential (primary) hypertension (6) Coronary artery disease: Status: Chronic Category: Medical Code(s): I25.10 - Atherosclerotic heart disease of [place] coronary artery without angina pectoris (7) Hypothyroidism: Status: Chronic Category: Medical Code(s): E03.9 - Hypothyroidism, unspecified (8) CKD (chronic kidney disease), stage II: Status: Acute Category: Medical Code(s): N18.2 - Chronic kidney disease, stage 2 (mild) (9) History of coronary artery bypass graft x 1: Status: Acute Category: Surgical Code(s): Z95.1 - Presence of aortocoronary bypass graft (10) Frequent falls: Status: Acute Category: Medical Code(s): R29.6 - Repeated falls Plan Continue current treatment for pneumonia, keep a sitter in room
[2023-07-18] MEDS: DULOXETINE 30MG CAPSULE.DR 30 MG PO (11:48)
[2023-07-18] MEDS: OLANZapine 5 MG ODT TABLET SL ×2 (11:49→20:41)
[2023-07-18] MEDS: BUSPIRONE HCL 5 MG TABLET PO ×2 (11:49→20:41)
[2023-07-18] MEDS: BENZTROPINE 1MG TABLET 1 MG PO ×2 (11:49→20:41)
[2023-07-18 16:00] VITALS: BP 93/56; PULSE 74; RESP 20; TEMP 37.4; O2SAT 94
--- NOTE | 2023-07-18 17:45 | PC.NURSE ---
Sitter at bedside. Patient asleep for most of shift but easily aroused. No oxygen needed and lung sounds clear. VSS. Patient alert and oriented times 4.
[2023-07-18] MEDS: MIRTAZAPINE 15 MG TABLET 7.5 MG PO (17:57)
[2023-07-18 20:00] VITALS: BP 105/57; PULSE 77; RESP 17; TEMP 36.6; O2SAT 98
[2023-07-18 20:57] LABS: Appearance,Urine CLEAR (Clear); Blood, Urine Negative (Negative); Color,Urine YELLOW (Yellow); Glucose,Urine (UA) Negative (Negative); Ketones,Urine Negative (Negative); Leukocyte Esterase,Urine Negative (Negative); Microscopic, Urine URINE MICROSCOPIC (MICROSCOPIC); Nitrate,Urine Negative (Negative); PH,Urine 5.5 (5.0-8.5); Protein,Urine TRACE (Negative); Specific Gravity, Urine 1.025 (1.005-1.030)
[2023-07-18 21:04] LABS: Bilirubin,Urine 1+ (Negative)
[2023-07-18 21:09] LABS: RBC,Urine Occasional #/hpf (0-3)
[2023-07-19] VITALS: BP 117/55; PULSE 80; RESP 18; TEMP 36.6; O2SAT 98
[2023-07-19 04:00] VITALS: BP 116/70; PULSE 70; RESP 18; TEMP 36.5; O2SAT 96; BMI 21.9
--- NOTE | 2023-07-19 06:59 | PC.NURSE ---
Pt is alert to self and cooperative this shift. Pt has had a sitter for the entire shift and has seemed to rest well. Pt continues to require assistance with ADLS and remains in 1:1 care.
[2023-07-19 07:39] VITALS: BP 112/55; PULSE 76; RESP 18; TEMP 37.3; O2SAT 93
[2023-07-19] MEDS: LEVOTHYROXINE 50MCG (0.05MG) TAB 50 MCG PO (09:31)
[2023-07-19] MEDS: BENZTROPINE 1MG TABLET 1 MG PO ×2 (09:31→20:50)
[2023-07-19] MEDS: OLANZapine 5 MG ODT TABLET SL ×2 (09:31→20:50)
[2023-07-19] MEDS: BUSPIRONE HCL 5 MG TABLET PO ×2 (09:31→20:50)
[2023-07-19 11:30] VITALS: BP 100/62; PULSE 71; RESP 17; TEMP 37.2; O2SAT 95
--- NOTE | 2023-07-19 11:30 | EXP.ACUTE.PN ---
Subjective *Date: 07/19/23 *Time: 11:30 Interval history: No new issues noted overnight. Medical Exam Vital signs and Labs for Last 24 Hours: Vital Signs Temp Pulse Resp BP Pulse Ox O2 Del Method 07/19/23 11:05 Room Air 07/19/23 09:00 Room Air 07/19/23 08:35 Room Air 07/19/23 07:39 99.1 F 76 18 112/55 L 93 L Room Air 07/19/23 06:58 Room Air 07/19/23 05:00 Room Air 07/19/23 04:00 97.7 F 70 18 116/70 96 Room Air 07/19/23 01:00 Room Air 07/19/23 00:00 97.8 F 80 18 117/55 L 98 Room Air 07/18/23 23:00 Room Air 07/18/23 21:00 Room Air 07/18/23 20:00 Room Air 07/18/23 20:00 97.8 F 77 17 105/57 L 98 Room Air 07/18/23 18:43 Room Air 07/18/23 17:15 Room Air 07/18/23 16:00 99.3 F 74 20 93/56 L 94 L Room Air 07/18/23 15:15 Room Air 07/18/23 13:15 Room Air 07/18/23 11:10 Room Air Intake and Output 07/18/23 07/19/23 07/19/23 22:59 07:59 15:59 Intake Total 360 / 600 Output Total 200 / 200 Balance 160 / 400 Intake: Intake, Oral Amount 360 / 600 Output: Output, Urine Amount 200 / 200 Other: Weight Patient Weight 07/20/23 00:59 Weight 148 lb 4.985 oz Laboratory Results - last 24 hr 07/18/23 20:45: Urine Color Yellow, Urine Appearance Clear, Urine pH 5.5, Ur Specific [place] 1.025, Urine Protein Trace, Urine Glucose (UA) Negative, Urine Ketones Negative, Urine Blood Negative, Urine Nitrate Negative, Urine Bilirubin 1+ A, Urine Urobilinogen 1.0, Ur Leukocyte Esterase Negative, Urine RBC Occasional, Urine WBC None, Ur Squamous Epith Cells None, Urine Bacteria None I & O for Labs for Last 24 Hours: Intake & Output 07/16/23 07/17/23 07/18/23 07/20/23 23:59 23:59 23:59 00:59 Intake Total 1130 / 1610 1260 / 1500 600 / 600 Output Total 500 / 500 550 / 550 200 / 200 Balance 630 / 1110 710 / 950 400 / 400 Weight 149 lb 14.629 oz 148 lb 5 oz 148 lb 4.985 oz Constitutional: Present no acute distress and thin Respiratory: Present crackles (Left base) Cardiac: Present Reg Rate and Rhythm Assessment and Plan *Assessment and plan (1) CAP (community acquired pneumonia): Status: Acute Category: Medical Code(s): J18.9 - Pneumonia, unspecified organism (2) Neutropenia with fever: Status: Acute Category: Medical Code(s): D70.9 - Neutropenia, unspecified; R50.81 - Fever presenting with conditions classified elsewhere (3) Agitation due to dementia: Status: Acute Category: Medical Code(s): F03.911 - Unspecified dementia, unspecified severity, with agitation (4) Fronto-temporal dementia: Status: Acute Category: Medical Code(s): G31.09 - Other frontotemporal neurocognitive disorder; F02.80 - Dementia in other diseases classified elsewhere, unspecified severity, without behavioral disturbance, psychotic disturbance, mood disturbance, and anxiety (5) Hypertension: Status: Chronic Category: Medical Code(s): I10 - Essential (primary) hypertension (6) Coronary artery disease: Status: Chronic Category: Medical Code(s): I25.10 - Atherosclerotic heart disease of [place] coronary artery without angina pectoris (7) Hypothyroidism: Status: Chronic Category: Medical Code(s): E03.9 - Hypothyroidism, unspecified (8) CKD (chronic kidney disease), stage II: Status: Acute Category: Medical Code(s): N18.2 - Chronic kidney disease, stage 2 (mild) (9) History of coronary artery bypass graft x 1: Status: Acute Category: Surgical Code(s): Z95.1 - Presence of aortocoronary bypass graft (10) Frequent falls: Status: Acute Category: Medical Code(s): R29.6 - Repeated falls Plan Will change antibiotics to Zithromax and Cefdinir by mouth today.
[2023-07-19] MEDS: AZITHROMYCIN 250MG TABLET 500 MG PO (12:38)
[2023-07-19] MEDS: CEFDINIR 300MG CAPSULE 300 MG PO ×2 (12:38→20:50)
[2023-07-19 16:00] VITALS: BP 99/48; PULSE 77; RESP 18; TEMP 37.1; O2SAT 96
[2023-07-19] MEDS: MIRTAZAPINE 15 MG TABLET 7.5 MG PO (17:24)
--- NOTE | 2023-07-19 18:09 | PC.NURSE ---
Sitter remained at bedside. Patient alert and oriented times 4 and VS stable, patient remained on room air. Some coughing noted when drinking water but patient educated to take smaller sips as he takes several large drinks at one time. Speech eval ordered per verbal order by Dr. Patterson. Afebrile this shift. Lung sounds clear.
[2023-07-19 20:00] VITALS: BP 113/65; PULSE 79; RESP 22; TEMP 37.3; O2SAT 99
[2023-07-20] MEDS: diazePAM 5MG TABLET 5 MG PO ×2 (00:05→08:58)
[2023-07-20 01:30] VITALS: BP 124/73; PULSE 81; RESP 18; TEMP 36.8; O2SAT 93
--- NOTE | 2023-07-20 03:30 | PC.NURSE ---
Pt is alert to self and is tolerating RA. Pt remains on 1:1 with sitter at all times. Pt has not rested well this shift and states that he has anxiety. Pt has been treated per mar for anxiety. Pt does not present as restless or in distress but rather cannot sleep. Pt continues to try to gulp drinks and cough afterwards. staff remind pt to slow down and offer drinks without straws as it seems to help. Pt has voided well this shift, and denied pain.
[2023-07-20 04:00] VITALS: BP 111/64; PULSE 88; RESP 18; TEMP 36.5; O2SAT 94; BMI 22.8
[2023-07-20] MEDS: LEVOTHYROXINE 50MCG (0.05MG) TAB 50 MCG PO (06:08)
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
--- NOTE | 2023-07-20 08:41 | EXP.ACUTE.PN ---
Subjective *Date: 07/20/23 *Time: 09:09 Interval history: Sitting up in the bed being evaluated by speech therapy. States he feels okay. Sitter at bedside and states he slept about an hour last night. Patient denies anxiety this a.m. He asks when he can go home. He ate 100% of his diet this morning and did feed himself. He is quite shaky when he stands at the bedside to void. Medical Exam Vital signs and Labs for Last 24 Hours: Vital Signs Temp Pulse Resp BP Pulse Ox O2 Del Method 07/20/23 08:18 Room Air 07/20/23 06:54 Room Air 07/20/23 04:41 Room Air 07/20/23 04:00 97.7 F 88 18 111/64 94 L Room Air 07/20/23 02:39 Room Air 07/20/23 01:30 98.3 F 81 18 124/73 93 L Room Air 07/20/23 00:32 Room Air 07/19/23 23:00 Room Air 07/19/23 21:00 Room Air 07/19/23 20:00 Room Air 07/19/23 20:00 99.1 F 79 22 113/65 99 Room Air 07/19/23 18:33 Room Air 07/19/23 17:07 Room Air 07/19/23 16:00 98.8 F 77 18 99/48 L 96 Room Air 07/19/23 15:07 Room Air 07/19/23 13:10 Room Air 07/19/23 11:30 99.0 F 71 17 100/62 L 95 Room Air 07/19/23 11:05 Room Air 07/19/23 09:00 Room Air Intake and Output 07/19/23 07/20/23 07/20/23 19:59 03:59 11:59 Intake Total 1020 / 1020 360 / 1380 410 / 1790 Output Total 675 / 675 700 / 1375 400 / 1775 Balance 345 / 345 -340 / 5 Intake: Intake, Oral Amount 1020 / 1020 360 / 1380 410 / 1790 Output: Output, Urine Amount 675 / 675 700 / 1375 400 / 1775 Other: Number of Voids 1 Number of Unmeasured Voids 1 0 Weight 154 lb 1 oz Patient Weight 07/20/23 11:59 Weight 154 lb 1 oz I & O for Labs for Last 24 Hours: Intake & Output 07/17/23 07/18/23 07/19/23 07/20/23 10:59 10:59 11:59 11:59 Intake Total 1790 / 1790 Output Total 1775 / 1775 Balance Weight 154 lb 1 oz Microbiology Reports for the Last 24 Hours: Microbiology 07/16/23 22:45 Blood Blood Culture - Preliminary 07/16/23 22:45 Blood Blood Culture - Preliminary Constitutional: Present no acute distress Comment:: Sitting up in bed undergoing speech eval. Head: Absent atraumatic (Ecchymosis on forehead and left cheek.) Respiratory: Present CTA bilaterally (Anteriorly and posteriorly) Cardiac: Present Reg Rate and Rhythm GI: Present soft and normal bowel sounds; Absent distention or tenderness Extremities: Present full ROM; Absent edema or calf tenderness Neuro: Present alert, awake and oriented x 3 Assessment and Plan *Assessment and plan (1) CAP (community acquired pneumonia): Status: Acute Category: Medical Code(s): J18.9 - Pneumonia, unspecified organism (2) Neutropenia with fever: Status: Acute Category: Medical Code(s): D70.9 - Neutropenia, unspecified; R50.81 - Fever presenting with conditions classified elsewhere (3) Agitation due to dementia: Status: Acute Category: Medical Code(s): F03.911 - Unspecified dementia, unspecified severity, with agitation (4) Fronto-temporal dementia: Status: Acute Category: Medical Code(s): G31.09 - Other frontotemporal neurocognitive disorder; F02.80 - Dementia in other diseases classified elsewhere, unspecified severity, without behavioral disturbance, psychotic disturbance, mood disturbance, and anxiety (5) Hypertension: Status: Chronic Category: Medical Code(s): I10 - Essential (primary) hypertension (6) Coronary artery disease: Status: Chronic Category: Medical Code(s): I25.10 - Atherosclerotic heart disease of [place] coronary artery without angina pectoris (7) Hypothyroidism: Status: Chronic Category: Medical Code(s): E03.9 - Hypothyroidism, unspecified (8) CKD (chronic kidney disease), stage II: Status: Acute Category: Medical Code(s): N18.2 - Chronic kidney disease, stage 2 (mild) (9) History of coronary artery bypass graft x 1: Status: Acute Category: Surgical Code(s): Z95.1 - Presence of aortocoronary bypass graft (10) Frequent falls: Status: Acute Category: Medical Code(s): R29.6 - Repeated falls (11) Anxiety and depression: Status: Chronic Category: Medical Code(s): F41.9 - Anxiety disorder, unspecified; F32.9 - Major depressive disorder, single episode, unspecified (12) Thin build in adult: Status: Acute Category: Medical Plan Continue with current care. Dr. Patterson entry - Saw patient, agree with above note. Speech therpay has recommended nectar thick liquids. Changed to oral antibiotics.
[2023-07-20] MEDS: DULOXETINE 30MG CAPSULE.DR 30 MG PO (08:58)
[2023-07-20] MEDS: OLANZapine 5 MG ODT TABLET SL ×2 (08:58→21:45)
[2023-07-20] MEDS: BUSPIRONE HCL 5 MG TABLET PO ×2 (08:58→21:45)
[2023-07-20] MEDS: AZITHROMYCIN 250MG TABLET 500 MG PO (08:58)
[2023-07-20] MEDS: BENZTROPINE 1MG TABLET 1 MG PO ×2 (08:58→21:45)
[2023-07-20] MEDS: CEFDINIR 300MG CAPSULE 300 MG PO ×2 (08:58→21:45)
[2023-07-20 09:00] VITALS: BP 121/73; PULSE 73; RESP 17; TEMP 36.9; O2SAT 95
[2023-07-20 15:49] VITALS: BP 127/77; PULSE 68; RESP 17; TEMP 36.8; O2SAT 96
--- NOTE | 2023-07-20 16:28 | PC.NURSE ---
A&OX4. PT HAS TOLERATED RA WELL THROUGHOUT SHIFT. RESPIRATIONS REGULAR AND UNLABORED. LUNG SOUNDS DIMINISHED THROUGHOUT. HEART RATE REGULAR. +2 PULSES NOTED THROUGHOUT. NO EDEMA NOTED. PT DENIES ANY PAIN THUS FAR. ACTIVE BOWEL SOUNDS HEARD IN ALL 4 QUADRANTS. SOFT AND NONTENDER ABDOMEN. PT RECEIVED A SHOWER TODAY. PT VOIDS PER URINAL WITH 1 PERSON ASSIST. PT WORKED WITH PT TODAY AND AMBULATED AROUND THE ROOM. TOLERATED WELL. PT HAS BEEN ASLEEP MOST OF THE AFTERNOON. CAME TO VISIT BUT PT WAS ASLEEP SO SHE DECIDED TO COME ANOTHER TIME. SITTER HAS REMAINED AT BEDSIDE. BED IN LOWEST POSITION. CALL LIGHT WITHIN REACH. BED ALARM ON TO PROMOTE SAFETY. VSS. DID STATE PT ISN'T SUPPOSED TO BE TAKING CYMBALTA ANYMORE. DR MEZA NOTIFIED.
[2023-07-20] MEDS: MIRTAZAPINE 15 MG TABLET 7.5 MG PO (17:45)
[2023-07-20 20:00] VITALS: O2SAT 98
[2023-07-20 20:16] VITALS: BP 111/78; PULSE 72; RESP 20; TEMP 37.1; O2SAT 98
[2023-07-21] MEDS: diazePAM 5MG TABLET 5 MG PO ×2 (00:13→08:16)
[2023-07-21 04:00] VITALS: BP 128/89; PULSE 76; RESP 22; TEMP 36.6; O2SAT 96; BMI 50.4
[2023-07-21 05:00] VITALS: BMI 22.8
[2023-07-21] MEDS: ACETAMINOPHEN 325MG TAB 650 MG PO (05:32)
[2023-07-21] MEDS: LEVOTHYROXINE 50MCG (0.05MG) TAB 50 MCG PO (06:02)
[2023-07-21 08:00] VITALS: BP 108/54; PULSE 59; RESP 18; TEMP 36.4; O2SAT 98
[2023-07-21] MEDS: CEFDINIR 300MG CAPSULE 300 MG PO (08:15)
[2023-07-21] MEDS: BENZTROPINE 1MG TABLET 1 MG PO (08:16)
[2023-07-21] MEDS: OLANZapine 5 MG ODT TABLET SL (08:16)
[2023-07-21] MEDS: BUSPIRONE HCL 5 MG TABLET PO (08:16)
[2023-07-21] MEDS: AZITHROMYCIN 250MG TABLET 500 MG PO (08:16)
[2023-07-21] MEDS: DULOXETINE 30MG CAPSULE.DR 30 MG PO (08:16)
--- NOTE | 2023-07-21 09:06 | P.PN_ITS ---
Subjective *Date: 07/21/23 *Time: 09:14 Interval history: Patient states he feels great. He is ready to go home. Sitter has remained with patient. He continues to be weak on his feet and needs assistance with ambulation. He has eaten well. Sitter states he probably slept a total of 3 hours yesterday. Medical Exam Vital signs and Labs for Last 24 Hours: Vital Signs Temp Pulse Resp BP Pulse Ox O2 Del Method 07/21/23 08:00 97.5 F L 59 L 18 108/54 L 98 Room Air 07/21/23 06:59 Room Air 07/21/23 05:00 Room Air 07/21/23 04:00 97.9 F 76 22 128/89 96 Room Air 07/21/23 03:00 Room Air 07/21/23 01:00 Room Air 07/20/23 23:00 Room Air 07/20/23 21:00 Room Air 07/20/23 20:16 98.7 F 72 20 111/78 98 Room Air 07/20/23 20:00 98 Room Air 07/20/23 18:50 Room Air 07/20/23 17:20 Room Air 07/20/23 15:49 98.3 F 68 17 127/77 96 Room Air 07/20/23 15:00 Room Air 07/20/23 13:00 Room Air 07/20/23 11:00 Room Air Intake and Output 07/20/23 07/21/23 07/21/23 19:59 03:59 11:59 Intake Total 940 / 940 340 / 1280 Output Total 200 / 200 300 / 500 900 / 1400 Balance 740 / 740 -300 / 440 -560 / -120 Intake: Intake, Oral Amount 940 / 940 340 / 1280 Output: Output, Urine Amount 200 / 200 300 / 500 900 / 1400 Other: Weight 154 lb 6.4 oz Patient Weight 07/21/23 11:59 Weight 154 lb 6.4 oz I & O for Labs for Last 24 Hours: Intake & Output 07/18/23 07/19/23 07/20/23 07/21/23 10:59 11:59 11:59 11:59 Intake Total 1790 / 1790 1280 / 1280 Output Total 1974 1400 / 1400 Balance -185 / -185 -120 / -120 Weight 154 lb 1 oz 154 lb 6.4 oz Microbiology Reports for the Last 24 Hours: Microbiology 07/16/23 22:45 Blood Blood Culture - Preliminary 07/16/23 22:45 Blood Blood Culture - Preliminary Constitutional: Present no acute distress and thin Respiratory: Present CTA bilaterally (Anteriorly and posteriorly) Cardiac: Present Reg Rate and Rhythm GI: Present soft and normal bowel sounds; Absent distention, tenderness or guarding Extremities: Absent edema or calf tenderness Neuro: Present alert, awake and oriented x 3 Comment:: Speech is clear. Assessment and Plan *Assessment and plan (1) CAP (community acquired pneumonia): Status: Acute Category: Medical Code(s): J18.9 - Pneumonia, unspecified organism (2) Neutropenia with fever: Status: Acute Category: Medical Code(s): D70.9 - Neutropenia, unspecified; R50.81 - Fever presenting with conditions classified elsewhere (3) Agitation due to dementia: Status: Acute Category: Medical Code(s): F03.911 - Unspecified dementia, unspecified severity, with agitation (4) Fronto-temporal dementia: Status: Acute Category: Medical Code(s): G31.09 - Other frontotemporal neurocognitive disorder; F02.80 - Dementia in other diseases classified elsewhere, unspecified severity, without behavioral disturbance, psychotic disturbance, mood disturbance, and anxiety (5) Hypertension: Status: Chronic Category: Medical Code(s): I10 - Essential (primary) hypertension (6) Coronary artery disease: Status: Chronic Category: Medical Code(s): I25.10 - Atherosclerotic heart disease of [place] coronary artery without angina pectoris (7) Hypothyroidism: Status: Chronic Category: Medical Code(s): E03.9 - Hypothyroidism, unspecified (8) CKD (chronic kidney disease), stage II: Status: Acute Category: Medical Code(s): N18.2 - Chronic kidney disease, stage 2 (mild) (9) History of coronary artery bypass graft x 1: Status: Acute Category: Surgical Code(s): Z95.1 - Presence of aortocoronary bypass graft (10) Frequent falls: Status: Acute Category: Medical Code(s): R29.6 - Repeated falls (11) Anxiety and depression: Status: Chronic Category: Medical Code(s): F41.9 - Anxiety disorder, unspecified; F32.9 - Major depressive disorder, single episode, unspecified (12) Thin build in adult: Status: Acute Category: Medical Plan Patient is ready for discharge. The plan apparently is for the to take him home. As per PT note?patient is ambulating better; he is also eating better. Dr. Patterson entry - Saw patient, agree with above note. OK to discharge home today, f/u with Dr. Centeno next week.
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
== END 2023-07-21 16:07 | disposition home health service (06) ==
LOC: ER 07-17 08:34 → 2ND 07-17 08:44
PROVIDERS: Emergency Medicine; Admitting Provider Family Medicine; Emergency Provider Student in an Organized Health Care Education/Training Program; PCP Family Medicine; Visit Provider Family Medicine
DX: G31.09 Other frontotemporal neurocognitive disorder (principal); F02.80 Dementia in other diseases classified elsewhere, unspecified severity, without behavioral disturbance, psychotic disturbance, mood disturbance, and anxiety; J18.9 Pneumonia, unspecified organism; D70.9 Neutropenia, unspecified; R50.81 Fever presenting with conditions classified elsewhere; I25.10 Atherosclerotic heart disease of native coronary artery without angina pectoris; E03.9 Hypothyroidism, unspecified; N18.2 Chronic kidney disease, stage 2 (mild); Z95.1 Presence of aortocoronary bypass graft; R29.6 Repeated falls; F41.9 Anxiety disorder, unspecified; F32.9 Major depressive disorder, single episode, unspecified; I12.9 Hypertensive chronic kidney disease with stage 1 through stage 4 chronic kidney disease, or unspecified chronic kidney disease
CPT/HCPCS: 70450; 71045; 72125; 80053; 81001; 82550; 83605; 85007; 85025; 87040; 87636; 92610; 97116; 97163; 99285; G0378; J0456

== ENCOUNTER 2024-07-27 10:05 | Outpatient (CLI) | payer MEDICARE, OTHER, SELFPAY ==
[2024-07-27 10:52] LABS: Albumin Level 4.5 g/dl (3.5-5.0); Chloride 109 mmol/L (98-107); Potassium 4.7 mmoL/L (3.5-5.1); Sodium 140 mmol/L (136-145)
[2024-07-27 10:55] LABS: Alanine Aminotransferase 25 U/L (12-78); Albumin/Globulin Ratio 1.8 (1.1-1.8); Alkaline Phosphatase 68 U/L (38-126); Anion Gap 11.7 mEq/L (5-15); Aspartate Amino Transferase 27 U/L (17-59); Blood Urea Nitrogen 14 mg/dl (9-20); Calcium 9.4 mg/dl (8.4-10.2); Carbon Dioxide 24 mmol/L (22.0-30.0); Cholesterol 159 mg/dl (140-200); Estimated Glomerular Filt Rate 60 ml/min (>60); GFR (African American) 73 ML/MIN (>60); Globulin 2.5 g/dL (1.3-3.2); Glucose 92 mg/dl (74-100); Triglycerides 91 mg/dl (30-150); VLDL Cholesterol 18 mg/dL (0-40)
[2024-07-27 10:56] LABS: Chol/HDL Ratio 3.1 (1-3.5); HDL Cholesterol 51 mg/dl (40-60)
[2024-07-27 11:06] LABS: Direct LDL Cholesterol 81.34 mg/dL (100-129)
[2024-07-27 12:45] LABS: Hematocrit 41.7 % (42.0-52.0); Hemoglobin 13.9 g/dL (14.1-18.0); Mean Corpuscular HGB Conc 33.3 g/dL (31.8-35.4); Mean Corpuscular Hemoglobin 31.3 pg (27.0-31.2); Mean Corpuscular Volume 93.9 fl (80-94); Platelet Count 143 K/mm3 (142-424); Red Blood Count 4.44 M/mm3 (4.60-6.20); Red Cell Distribution Width 14.3 % (11.5-17.5); White Blood Count 6.1 K/mm3 (4.8-10.8)
[2024-07-27 12:46] LABS: Basophils % 0.7 % (0.1-2.0); Eosinophils # 0.1 K/mm3 (0.0-0.4); Eosinophils % 1.5 % (0.1-12.0); Lymphocytes # 2.8 K/mm3 (0.7-4.5); Lymphocytes % 46.6 % (10-50); Mean Platelet Volume 12.2 fl (7.4-10.4); Monocytes # 0.4 K/mm3 (0.1-1.0); Monocytes % 6.1 % (1.7-9.3); Neutrophils # 2.7 K/mm3 (1.8-7.8); Neutrophils % 44.9 % (37.0-80.0)
== END 2024-07-27 23:59 | disposition home or self-care (01) ==
LOC: LAB 10:06
PROVIDERS: PCP Family Medicine; Visit Provider Family Medicine
DX: E78.5 Hyperlipidemia, unspecified (principal)
CPT/HCPCS: 36415; 80053; 80061; 85025

== ENCOUNTER 2025-01-26 14:29 | Outpatient (CLI) | payer MEDICARE, OTHER, SELFPAY ==
--- OUTSIDE RECORDS SUMMARY | 2025-01-26 14:32 | XMS_ITS | Clinical Summary ---
Author Organization [facility] Address [address] [place] [address] Care Team Providers Care Robotic Welder Name Role Phone Skinny Centeno MD Primary Care Provider Allergies Active Allergy Reactions Criticality Noted Date Comments Erythromycin Itching 08/17/2019 Medications levothyroxine (SYNTHROID, LEVOTHROID) 50 MCG tablet Take 50 mcg by mouth Daily. Active hydrOXYzine (ATARAX) 50 MG tablet Take 50 mg by mouth 3 (Three) Times a Day. Active mirtazapine (REMERON MARINO-TAB) [address] 1 tablet on the tongue Every Night. 08/24/19 Active Additional Information Patient taking differently: 45 mgTranslingual Nightly, Reported on 08/01/2020 docusate sodium 100 MG capsule Take 100 mg by mouth 2 (Two) Times a Day. 08/24/19 Active Additional Information Patient taking differently:100 mg OralDaily, Reported on 02/12/2021 OLANZapine (zyPREXA) 10 MG tablet Take 10 mg by mouth 2 (two) times a day. 02/07/20 21 Active Austedo 9 MG tablet Take 6 mg by mouth 2 (two) times a day. 01/19/20 21 Active aspirin 81 MG EC tablet Take 81 mg by mouth Daily. Active Active Problems Problem Noted Date Diagnosed Date Essential hypertension 08/15/2019 Hypothyroidism (acquired) 08/15/2019 Acute cholangitis with sepsis 08/15/2019 Pancreatitis 08/15/2019 Elevated liver enzymes 08/15/2019 Ascending cholangitis 08/15/2019 Sepsis 08/15/2019 Coronary artery disease invo lving [place] coronary artery of [place] heart without angina pectoris 05/17/2019 Typical atrial flutter 05/17/2019 Atrial fibrillation 04/19/2019 Family History Medical History Relation Name Comments Parkinsonism Father Stroke Mother Relation Name Status Comments Father Mother Alive Sister Alive Social History Tobacco Use Types Packs/Day Years Used Date Smoking Tobacco: Never Smokeless Tobacco: Never Alcohol Use Standard Drinks/Week Comments No 0 (1 standard drink = 0.6 oz pur e alcohol) AUDIT-C Answer Date Recorded Frequency of Alcohol Consumption Never 04/13/2019 Average Number of Drinks Not on file 019 Frequency of Binge Drinking Not on file 08/2018 Abuse Screen Answer Date Recorded Unsafe at Home or Work/School Not on file Feels Threatened by Someone? Not on file 04/2023 Does Anyone Keep You from Co ntacting Others or Doint Things Outside the Home? Not on file 02/19/2023 Physical Sign of Abuse Present Not on file 1 Housing Stability Answer Date Recorded Current Living Arrangements Not on file 02/08 Potentially Unsafe Housing Conditions Not on gato e 02/19/2023 Family and Community Support Answer Vito e Recorded Help with Day-to-Day Activities Not on file 02/19/2023 Lonely or Isolated Not on file 02/19/2023 Employment Answer Date Recorded Do you want help finding or keeping work or a skylar b? Not on file 02/19/2023 Disabilities Answer Date Recorded Concentrating, Remembering, or Making Decisions Difficulty Not on file 02/19/2023 Doing Errands Independently Difficulty Not on fi le 02/19/2023 Education Answer Date Recorded Help with school or training? Not on file Preferred Language Not on file 02/19/2023 Sex and Gender Information Value Date Recorded Sex Assigned at Not on file Legal Sex Male 10:32 AM EST Gender Identity Not on file Sexual Orientation Not on file Last Filed Vital Signs Vital Sign Reading Time Taken Comments Blood Pressure 90/60 02/12/2021 10:58 AM EDT Pulse 77 02/12/2021 10:58 AM EDT Temperature 36.9 C (98.5 F) 08/24/2019 7:05 AM EDT Respiratory Rate 18 08/24/2019 7:05 AM EDT Oxygen Saturation 96% 02/12/2021 10:58 AM EDT Inhaled Oxygen Concentration - - Weight 91.2 kg (201 lb) 02/12/2021 10:58 AM EDT Height 182.9 cm (6') 02/12/2021 10:58 AM EDT Body Mass Index 27.26 02/12/2021 10:58 AM EDT Plan of Treatment Health Maintenance Due Date Last Done Comments TDAP/TD VACCINES (1 - Tdap) 08/17/1975 COLOGUARD 2001 COLON CANCER SCREENING [address] COLONOGRAPHY 2001 FECAL OCCULT BLOOD TEST 2001 FIT Testing (1 year) 2001 ZOSTER VACCINE (1 of 2) 2006 ANNUAL PHYSICAL 04/13/2019 HEPATITIS C SCREENING 04/13/2019 Pneumococcal Vaccine 50+ (2 of 2 - PCV) 03/31/2020 1 05/31/2018 AAA SCREEN ONCE 2021 COVID-19 Vaccine ( season) 2025 INFLUENZA VACCINE 02/08/2025 COLONOSCOPY 04/01/2031 04/01/2021 COLORECTAL CANCER SCREENING 04/01/2031 Procedures Procedure Name Priority Date/Time Associated Diagnosis Comments SCANNED - COLONOSCOPY 04/01/2021 from Last 3 Months or Most Recently Relevant to Health Maintenance Results * SCANNED - COLONOSCOPY (04/01/2021) Handy Ramirez MD CHART REVIEW T ABS Final Result from Last 3 Months or Most Recently Relevant to Health Maintenance [place] [address] [facility] Advance Directives * CPR (Attempt to Resuscitate) (Latest Code Status on File) Date Activated Date Inactivated Comments 08/15/2019 8:44 PM 08/24/2019 1:46 PM Question Answer Comments Code Status (Patient has no pulse and is not breathing): CPR (Attempt to Resuscitate) Medical Interventions (Patie nt has pulse or is breathing): Full Level Of Support Discussed With: Patient Care Teams Robotic Welder Relationship Specialty Start Date End Date Skinny Centeno MD [address] [facility] [address] [place] [id number] PCP - General Family Medicine 04/13/19
--- OUTSIDE RECORDS SUMMARY | 2025-01-26 14:32 | XMS_ITS | Encounter Summary ---
Author Organization [facility] Address [address] [place] [address] Care Team Providers Care Retail Grocer Name Role Phone Skinny Centeno MD Primary Care Provider [phone]- [phone] Reason for Visit * Reason Comments Med Refill Encounter Details Date Type Department Care Team (Late st Contact Info) Description 04/04/2024 Refill [facility] [place] [facility] [address] [place] [id number] Skinny Narvaez MD [address] [place] [address] Frontotemporal dementia (CMS/HCC) Social History Tobacco Use Types Packs/Day Years Used Date Smoking Tobacco: Never Smokeless Tobacco: Never Alcohol Use Standard Drinks/Week Comments No 0 (1 standard drink = 0.6 oz pur e alcohol) PHQ-2 Answer Date Recorded Patient Health Questionnaire-2 Score 0 08/20/2022 CAGE ASSESSMENT Answer Date Recorded Cage unable to access Not on file 01/11/2022 Cage max number of drinks Not on file 2021 Cage Beverages a week Not on file 01/11/2022 Have you ever felt you should CUT down on your d rinking? 0 01/11/2022 Have you been ANNOYED by people criticizing your drinking? 0 01/11/2022 Have you felt GUILTY about your drinking? 0 01/11/2022 Have you had a drink first t luna in the morning (EYE-MEAT WASHER) to steady your nerves or to get rid of a hangover? 0 01/11/2022 CAGE Questionnaire Score 0 022 PHQ-2A Answer Date Recorded Patient Health Questionnaire-2 Score 0 08/20/2022 Sex and Gender Information Value Date Recorded Sex Assigned at Not on file Legal Sex Male 7:52 PM EDT Gender Identity Not on file Sexual Orientation Not on file documented as of this encounter Plan of Treatment Not on file documented as of this encounter Visit Diagnoses Diagnosis Frontotemporal dementia documented in this encounter Additional Health Concerns Assessment Noted Time A fall risk assessment has been complete d for the patient 09/19/2022 4:10 PM EDT A Body Mass Index follow-up plan has been documented for the patient 08/05/2023 2:35 PM EDT documented as of this encounter Care Teams Retail Grocer Relationship Specialty Start Date End Date Skinny Centeno MD [address] [place] [address] PCP - General 09/21/20 documented as of this encounter
--- OUTSIDE RECORDS SUMMARY | 2025-01-26 14:32 | XMS_ITS | Clinical Summary ---
Author Organization [facility] Address [address] [place] [address] Care Team Providers Care Manufacturing Quality Manager Name Role Phone Skinny Centeno MD Primary Care Provider +1- [phone] Allergies Active Allergy Reactions Criticality Noted Date Comments Erythromycin Itching Medium 10/26/2014 Childhood allergy Gabapentin Other - please docum ent in the comment field Low 01/10/2022 Shuts brain down Lurasidone Other - please docum ent in the comment field Low 01/10/2022 Parkinsonism like reactions Quetiapine Unknown - Patient st ates they do not know rxn details Low 10/26/2014 Shuts brain down Sertraline Unknown - Patient st ates they do not know rxn details Low 10/26/2014 Medications * This document contains information received from the source organization and may not represent a complete record from that organization. levothyroxine (Synthroid, Levoxyl) 50 MCG tablet Take 50 mcg by mouth 1 (one) time each day. 10/26/2014 Active Multiple Vitamins-Minera ls (CENTRUM SILVER 50+MEN PO) Take 1 tablet by mouth 1 (one) time each day. Active nutritional drink (Boost Plus) liquid liquid 1 month supply of boost- 1 each TID w meals 237 mL 01/28/2022 Active mirtazapine (Remeron) 7.5 MG tablet Take 1 tablet (7.5 mg total) by mouth every night. 30 tablet 2 01/28/2022 Active aspirin 81 MG EC tablet Take 81 mg by mouth 1 (one) time each day. Active polyethylene glycol (Miralax) 17 g packet Take 17 g by mouth 1 (one) time each day. Active busPIRone (Buspar) 5 MG tablet Take 1 tablet (5 mg total) by mouth 1 (one) time each day in the morning. 30 tablet 07/05/2022 Active OLANZapine (ZyPREXA) 10 MG tablet Take 0.5 tablets (5 mg) by mouth 2 (two) times a day. 09/22/2022 Active benztropine (Cogentin) 1 MG tabletIndicatio ns:Frontotempor al dementia Take 1 tablet (1 mg) by mouth 2 (two) times a day. 180 tablet 3 04/10/2023 Active diazePAM (Valium) 2 MG tablet 1 tablet (2 mg). 07/15/2023 Active hydrOXYzine HCl (Atarax) 25 MG tablet Take 1 tablet (25 mg) by mouth if needed. 01/12/2023 Active Active Problems Problem Noted Date Diagnosed Date Dementia 07/04/2022 YEN (generalized anxiety disorder) 07/04/2022 B12 deficiency 07/04/2022 History of depression 01/09/2022 Unintentional weight loss 01/09/2022 SAVANNA (acute kidney injury) 01/09/2022 Anemia of chronic disease 01/09/2022 Hypothyroidism (acquired) 08/15/2019 Essential hypertension 08/15/2019 Coronary artery disease invo lving [place] coronary artery of [place] heart without angina pectoris 05/17/2019 Overview (01/09/2022): - CABG x 1 1995 DELGADO to LAD Paroxysmal atrial fibrillation 04/19/2019 Degeneration, intervertebral disc, lumbar 2014 Lumbar facet arthropathy 10/26/2014 Resolved Problems Problem Noted Date Diagnosed Date Resolved Date Acute encephalopathy 01/09/2022 023 Hypophosphataemia 01/09/2022 06/29/2022 Overview (02/10/2022): Regulatory Update February 2022 Hypokalemia 01/09/2022 06/29/2022 Protein-calorie malnutrition, moderate 01/09/2022 06/29/2022 Acute cholangitis 08/15/2019 01/09/2022 Pancreatitis 08/15/2019 01/09/2022 Sepsis 08/15/2019 01/09/2022 Ascending cholangitis 08/15/20192021 Atrial flutter 05/17/2019 07/04/2022 Overview (01/10/2022): - Diagnosis 03/2019 with RVR b. CHADSVASC- 1 -> off AC s/t to low score c. Started on Xarelto and Diltiazem d. 03/29/2019 [facility] ECHO: EF of 55%, mild MR. e. 04/28 cardioversion, successful f. 08/28 recurrent A. fib with RVR in the setting of sepsis/cholangitis - follows with Dr. Yoan Arroyo, [facility] Altered mental status 2022 Immunizations Immunization Administration Dates Next Due Influenza, injectable, quadrivalent 08/2019,02/24/2019,02/25/2018, 017 Influenza, seasonal, injectable 03/09/2021 Pneumococcal Polysaccharide PPV23 03/31/2019 Family History Medical History Relation Name Comments Parkinson Disease Father Depression Mother Hypertension Mother Relation Name Status Comments Father Mother Alive Social History Tobacco Use Types Packs/Day Years Used Date Smoking Tobacco: Never Smokeless Tobacco: Never Tobacco Cessation:Counseling Given: Not Answered Alcohol Use Standard Drinks/Week Comments No 0 [...] drink first t luna in the morning (EYE-OIL WELL ENGINEER) to steady your nerves or to get [...] Sign Reading Time Taken Comments Blood Pressure 122/75 08/20/2022 1:15 PM EDT Pulse 60 08/20/2022 1:15 PM EDT Temperature 36.9 C (98.5 F) 07/04/2022 9:41 AM EST Respiratory Rate 20 07/04/2022 9:41 AM EST Oxygen Saturation 100% 08/20/2022 1:15 PM EDT Inhaled Oxygen Concentration - - Weight 66.2 kg (146 lb) 08/05/2023 8:50 AM EDT Height 182.9 cm (6') 09/19/2022 4:07 PM EDT Body Mass Index 19.8 09/19/2022 4:07 PM EDT Plan of Treatment Health Maintenance Due Date Last Done Comments [facility]Med[facility] Annual Wellness (AWV) 1955 [facility]-/Child/Adol SDOH Screenings 1955 [facility]- SDOH Screenings 1974 [facility]-Adult SDOH Screenings 1974 [facility]-DTaP,Tdap,and Td Vaccines (1 - Tdap) 08/17/1975 CT Colonography 2001 Colonoscopy 2001 FIT-DNA 2001 FIT 2001 FOBT 2001 Sigmoidoscopy 2001 [facility]-Colorectal Cancer Screening 2001 [facility]-Zoster Vaccines (1 of 2) 2006 [facility]-RSV Vaccine: 60+ Years or (1 - Risk 60-74 years 1-dose series) 2016 [facility]-Pneumococcal Vaccine: 50+ Years (2 of 2 - PCV) 03/31/2020 03/31/2019 [facility]-Depression Screening 08/21/2023 08/20/2022 [id number] Vaccine (4 - season) 2025 04/10/2021, 06/18/2020, 05/18/2020 [facility]-Influenza Vaccine (#1) 01/09/202503/13, 03/09/2021, 01/13/2020, Additional history exists [facility]-Hepatitis C Screening Completed 01/09/2022 HPV Vaccines Aged Out No longer eligi ble based on patient's age to complete this topic [facility]-HIB Vaccines Aged Out No longer e ligible based on patient's age to complete this topic [facility]-Hepatitis A Vaccines Aged Out No longer eligible based on patient's age to complete this topic [facility]-IPV Vaccines Aged Out No longer e ligible based on patient's age to complete this topic [facility]-Rotavirus Vaccines Aged Out No lo nger eligible based on patient's age to complete this topic Procedures Procedure Name Priority Date/Time Associated Diagnosis Comments HEPATITIS C ANTIBODY - ED W/REFLEX TO HCV QUANT PCR STAT 01/09/2022 5:47 PM EDT from Last 3 Months or Most Recently Relevant to Health Maintenance Results * Hepatitis C Antibody - ED (01/09/2022 5:47 PM EDT) Hepatitis C Antibody Negative Negative 01/09/2022 9:33 PM EDT [facility] Blood Venous blood specimen / Unknown Venipuncture / Unknown 01/09/2022 5:47 PM EDT 01/09/2022 5:52 PM EDT us [facility] BLOOD ORDERABLES Final Resul t [facility] [address] [place] [id number] from Last 3 Months or Most Recently Relevant to Health Maintenance Insurance MEDICARE [facility] Advance Directives * DNR - Ok to intubate (Latest Code Status on File) Date Activated Date Inactivated Comments 06/29/2022 3:20 AM 07/04/2022 5:36 PM Question Answer Comments DNR determined on/before admission date? Yes Patient has decision-making capacity? No Healthcare Surrogate: Spouse Name of Healthcare Surrogate: Yamini Maguire * DNR/DNI Date Activated Date Inactivated Comments 01/09/2022 8:33 PM 01/28/2022 3:26 PM confirme d patient's wishes via phone to be DNR/DNI Question Answer Comments DNR determined on/before admission date? Yes Patient has decision-making capacity? No Healthcare Surrogate: Spouse Name of Healthcare Surrogate: Yamini Maguire * Full Code Date Activated Date Inactivated Comments 01/09/2022 8:30 PM 01/09/2022 8:31 PM Spoke with wif e and confirmed Full Code Status Question Answer Comments Patient has decision-making capacity? No Healthcare Surrogate: Spouse Name of Healthcare Surrogate: Yamini Maguire Care Teams Manufacturing Quality Manager Relationship Specialty Start Date End Date Skinny Centeno MD [address] [place] [address] PCP - General 09/21/20
--- OUTSIDE RECORDS SUMMARY | 2025-01-26 14:32 | XMS_ITS ---
Author Organization Unknown T[facility]ATMENT [facility]AN [facility] Start Date Provider Encounter for Check-up [id number] [facility]
--- NOTE | 2025-01-26 14:38 | ECG_ITS ---
APPROVED REPORT Exam: Resting ECG HR:68 bpm ECG Measurements Heart Rate 68 AXES MI 252 P 91 QRSd 148 QRS 103 QT 405 T 9 QTc 422 Conclusion SINUS RHYTHM WITH FIRST DEGREE AV BLOCK WITH OCCASIONAL SUPRAVENTRICULAR PREMATURE COMPLEXES RIGHT AXIS DEVIATION [QRS AXIS > 100] RIGHT BUNDLE BRANCH BLOCK [120+ ms QRS DURATION, UPRIGHT V1, 40+ ms S IN I/aVL/V4/V5/V6] ABNORMAL ECG UNCONFIRMED REPORT Electronically signed by : Magan Irwin MD 01/27/2025 08:27:46
== END 2025-01-26 23:59 | disposition home or self-care (01) ==
LOC: RT 14:30
PROVIDERS: PCP Family Medicine; Visit Provider Family Medicine
DX: I44.0 Atrioventricular block, first degree (principal); I49.1 Atrial premature depolarization; I45.10 Unspecified right bundle-branch block; R94.31 Abnormal electrocardiogram [ECG] [EKG]; I48.91 Unspecified atrial fibrillation
CPT/HCPCS: 93005

== ENCOUNTER 2025-03-26 16:24 | Observation (INO) | payer MEDICARE, OTHER, MEDICAID, SELFPAY ==
--- NOTE | 2025-03-26 16:23 | CT_ITS ---
PROCEDURE INFORMATION: Exam: CT Abdomen And Pelvis With Contrast Exam date and time: 03/26/2025 6:09 PM Age: 69 years old Clinical indication: Other: No bowel movement 6 days TECHNIQUE: Imaging protocol: Computed tomography of the abdomen and pelvis with contrast. Radiation optimization: All CT scans at this facility use at least one of these dose optimization techniques: automated exposure control; mA and/or kV adjustment per patient size (includes targeted exams where dose is matched to clinical indication); or iterative reconstruction. Contrast material: ISOVUE; Contrast volume: 75 ml; Contrast route: IV; COMPARISON: CT ANGIO ABDOMEN PELVIS 12/27/2021 5:57 PM FINDINGS: Lungs: Small pleural-based noncalcified plaques are visualized in the lingula and are unchanged. Liver: Normal. No mass. Gallbladder and biliary ducts: Cholecystectomy. No bile duct dilatation. Pancreas: Normal. No ductal dilation. Spleen: Normal. No splenomegaly. Adrenal glands: Normal. No mass. Kidneys and ureters: Normal. No hydronephrosis. Stomach and bowel: Unremarkable. No obstruction. No mucosal thickening. Appendix: No evidence of appendicitis. Intraperitoneal space: Unremarkable. No free air. No significant fluid collection. Vasculature: Mild atherosclerotic changes are seen within the abdominal aorta and branch vasculature without evidence of aneurysm. Lymph nodes: Unremarkable. No enlarged lymph nodes. Urinary bladder: Unremarkable as visualized. Reproductive: Unremarkable as visualized. Bones/joints: Unremarkable. No acute fracture. Soft tissues: Right-sided inguinal hernia containing nondilated, non thickened small bowel. IMPRESSION: Right-sided inguinal hernia containing non strangulated small bowel.
--- NOTE | 2025-03-26 16:23 | XR_ITS ---
PROCEDURE INFORMATION: Exam: XR Chest Exam date and time: 03/26/2025 6:13 PM Age: 69 years old Clinical indication: Other: AMS TECHNIQUE: Imaging protocol: Radiologic exam of the chest. Views: 1 view. COMPARISON: CR XR CHEST PORTABLE 07/16/2023 10:48 PM FINDINGS: Lungs: Unremarkable. No consolidation. Pleural spaces: Unremarkable. No pleural effusion. No pneumothorax. Heart/Mediastinum: Unremarkable. No cardiomegaly. Bones/joints: Median sternotomy. Multiple old left-sided rib fractures. No acute fracture. IMPRESSION: No acute findings.
--- NOTE | 2025-03-26 16:30 | HMH.EDGENADL ---
Discharge Plan Disposition Patient Disposition: Admitted Condition: Good Prescriptions Prescriptions: No Action diazepam 2 mg tablet 2 mg PO TIDP PRN (Reason: anxiety) buspirone 5 mg Tablet 2.5 mg PO DAILY Rx Instructions: give in afternoon benztropine 1 mg tablet 1 mg PO BID Patient Comments: TAKE ONE TABLET BY MOUTH TWICE DAILY mirtazapine 7.5 mg tablet 7.5 mg PO HS Patient Comments: TAKE ONE TABLET BY MOUTH EVERY DAY AT BEDTIME levothyroxine 50 mcg tablet 50 mcg PO DAILY Patient Comments: TAKE ONE TABLET BY MOUTH EVERY DAY aspirin 81 mg Tablet,Delayed Release (Dr/Ec) 81 mg PO DAILY polyethylene glycol 3350 17 gram/dose Powder 17 g PO DAILY buspirone 5 mg tablet 5 mg PO DAILY Patient Comments: TAKE ONE TABLET BY MOUTH TWICE DAILY olanzapine 10 mg tablet 10 mg PO BID Qty: 60 1RF Referrals Follow up/Referrals: Skinny Centeno MD [Primary Care Provider, Medical] - See instructions Clinical Impressions Clinical Impression: Acute UTI, Constipation, Altered behavior Instructions Patient Instructions: DI for Altered Mental Status Print Language Print Language: British Discharge ED Provider: Teressa Burton General Adult HPI General Chief complaint: Altered Mental Status Stated complaint: AMS Time Seen by Provider: 03/26/25 16:30 History of Present Illness HPI narrative: Is a 69-year-old gentleman with a past medical history of progressive dementia, A-fib, known right inguinal hernia who presented to the emergency department with his . Per , patient has had very little bowel movements over the last 6 days. Patient has not had any vomiting diarrhea fevers or other infectious symptoms. Patient denies any chest pain or shortness of breath. states that his psychiatric medications have recently been changed. He was changed from a higher dose of olanzapine to a lower dose of olanzapine and Zoloft was added. states that the Zoloft has helped significantly with his anxiety. She does state that the patient has had an increased temper and feels that she is no longer able to take care of him at home. States that they previously looked for placement in the past but he did not have Medicaid at that point. She states that they now have Medicaid. states that they are trying to get his right inguinal hernia repaired as well but he is needing cardiology clearance from [facility]. Patient has not had any recent falls. Related Data Home Medications ?Medication ?Instructions ?Recorded ?Confirmed benztropine 1 mg tablet 1 mg PO BID mood 05/15/23 02/03/25 mirtazapine 7.5 mg tablet 7.5 mg PO HS Mood 05/15/23 02/03/25 aspirin 81 mg tablet,delayed 81 mg PO DAILY 07/09/23 02/03/25 release buspirone 5 mg tablet 5 mg PO DAILY 07/09/23 02/03/25 levothyroxine 50 mcg tablet 50 mcg PO DAILY 07/09/23 02/03/25 polyethylene glycol 3350 17 17 g PO DAILY 07/09/23 02/03/25 gram/dose oral powder diazepam 2 mg tablet 2 mg PO TIDP PRN anxiety 07/17/23 02/03/25 buspirone 5 mg tablet 2.5 mg PO DAILY 07/18/23 02/03/25 Previous Rx's ?Medication ?Instructions ?Recorded olanzapine 10 mg tablet 10 mg PO BID #60 tabs 07/15/23 Allergies Allergy/AdvReac Type Severity Reaction Status Date / Time erythromycin base Allergy Unknown Unknown Verified 02/03/25 11:10 allergy reaction [facility] Disclaimer: The information contained in this section may have been updated after the patient was seen, as this information can be updated by other users. Medical History Constipation Dementia Depression Anxiety History of cardioversion Afib Fronto-temporal dementia Cholelithiasis Hypertension Coronary artery disease Pancreatitis Hypothyroidism CKD (chronic kidney disease), stage II Atrial fibrillation with RVR Surgical History History of cholecystectomy History of ERCP Hx of appendectomy Hx of CABG History of coronary artery bypass graft x 1 Family History Other Hypertension No significant family history Parkinson disease Stroke Social History Smoking Status: Unknown if ever smoked alcohol intake: never substance use type: marijuana (in the past; none in the past 4 years) current occupational status: retired Travel in the last 8 weeks?: None household members: spouse housing: house number of children: 0 caffeine: No Have you lived/traveled outside US in past 30 days?: No Contact w/someone who lives/traveled outside US past 30 days?: No Exposure to someone with infectious disease in past 14 days?: No Do you have a fever (greater than 100.4 F or 38 C)?: No Have you tested positive for COVID-19?: No Exposed to someone with COVID-19 in past 14 days?: No Do you have a sore throat?: No Do you have a cough?: No Do you have any weakness?: No Do you have any diarrhea?: No Are you experiencing any unusual bleeding?: No Do you have any muscle aches/pain?: No Do you have any abdominal pain?: No Are you experiencing loss of taste or smell?: No Other Medical History Have you received the Flu Vaccine for this season: No Have you received the Pneumonia Vaccine: No ROS Obtained: Yes All systems reviewed & no additional complaints except as documented and Yes Systems reviewed as appropriate & no additional complaints except as documented Physical Exam General General appearance: alert and in no apparent distress Head Head exam: atraumatic, normocephalic and normal inspection Eye Eye exam: Present normal appearance, PERRL and EOMI; Absent scleral icterus ENT ENT exam: Present normal exam and normal external ear exam Neck Neck exam: Present normal inspection and full ROM Chest Chest inspection: Present normal inspection and symmetric chest wall rise Respiratory Respiratory exam: Present normal lung sounds bilaterally; Absent respiratory distress or wheezes Cardiovascular Cardiovascular exam: Present regular rate, normal rhythm and normal heart sounds Abdominal Exam Abdominal exam: Present soft and distention; Absent tenderness, guarding or rebound Extremities Exam Extremities exam: Present normal inspection and full ROM Back Exam Back exam: Present normal inspection and full ROM Neurological Exam Neurological exam: Present alert and oriented X3 Psychiatric Psychiatric exam: Present normal affect and normal mood Skin Skin exam: Present warm and dry Medical Decision Making Medical Records Medical records reviewed: Yes I reviewed the patient's medical records. Screening: Per USPSTF and CDC recommendations, given the prevalence of disease in our region, it is our hospital?s policy to screen for HIV and viral Hepatitis for all patients aged 18 and over and those with ongoing risk factors. Papito Inquiry Pt receiving controlled substance: No Vital Signs: 03/26/25 16:39 03/26/25 16:39 03/26/25 18:00 Temperature 98.5 F Temperature Source Oral Pulse Rate 79 70 Pulse Rate [Radial] 87 Respiratory Rate 16 Blood Pressure 138/71 149/83 H Blood Pressure [Right Arm] 138/71 Blood Pressure Mean [Right Arm] 93 Blood Pressure Source [Right Arm] Automatic Cuff Blood Pressure Position [Right Arm] Supine 02 Sat by Pulse Oximetry 100 99 100 Oxygen Delivery Method Room Air Room Air Lab Data Lab results reviewed: Yes I reviewed the patient's lab results. Lab Results 03/26/25 16:35: WBC 7.8, RBC 4.10 L, Hgb 12.6 L, Hct 38.5 L, MCV 93.9, MCH 30.7, MCHC 32.7, RDW 15.0, Plt Count 126 L, MPV 11.9 H, Neut % (Auto) 56.1, Lymph % (Auto) 36.0, Pendleton % (Auto) 5.7, Eos % (Auto) 1.7, Baso % (Auto) 0.4, Neut # (Auto) 4.4, Lymph # (Auto) 2.8, Pendleton # (Auto) 0.4, Eos # (Auto) 0.1, Baso # (Auto) 0.0, Sodium 139, Potassium 4.5, Chloride 106, Carbon Dioxide 25, Anion Gap 12.5, BUN 10, Creatinine 1.10, Estimated Creat Clear 70, Estimated GFR 67, Est GFR ( Amer) 81, Glucose 95, Lactate 2.0, Calcium 9.1, Phosphorus 3.2, Magnesium 2.0, Total Bilirubin 0.5, AST 26, ALT 15, Alkaline Phosphatase 52, Total Protein 7.5, Albumin 4.2, Globulin 3.3 H, Albumin/Globulin Ratio 1.3, Lipase 84 03/26/25 17:03: Urine Color Yellow, Urine Appearance Clear, Urine pH 6.0, Ur Specific Aurora 1.010, Urine Protein Negative, Urine Glucose (UA) Negative, Urine Ketones Negative, Urine Blood Negative, Urine Nitrate Positive A, Urine Bilirubin Negative, Urine Urobilinogen 0.2, Ur Leukocyte Esterase Negative, Urine RBC Occasional, Urine WBC Occasional, Ur Squamous Epith Cells None, Urine Bacteria Trace 03/26/25 16:35 03/26/25 16:35 Orders (Tests/Meds): ED MEDICATIONS Generic Name Dose Route Start Last Admin Trade Name Freq PRN Reason Stop Dose Admin Ceftriaxone Sodium 2 gm/ 100 mls @ 200 mls/hr 03/26/25 18:00 03/26/25 18:22 Sodium Chloride IV 04/05/25 17:59 200 mls/hr Q24H MEREDITH Administration Sodium Chloride 10 ml 03/26/25 18:15 03/26/25 18:17 Sodium Chloride 0.9% 10ml Syr (Rad Only) IV 04/25/25 18:14 10 ml NEEDED PRN Administration Maintain IV Site Discontinued Medications Generic Name Dose Route Start Last Admin Trade Name Homero PRN Reason Stop Dose Admin Iopamidol 75 ml 03/26/25 18:15 03/26/25 18:17 Iopamidol-370 (76%);100ml Bottle IV 03/26/25 18:16 75 ml ONCE ONE Administration Olanzapine 5 mg 03/26/25 17:09 03/26/25 17:17 Olanzapine 5 Mg Odt Tablet SL 03/26/25 17:10 5 mg ONCE ONE Administration ORDERS Category Date Time Status CT abdomen pelvis w con Stat Cat Scan 03/26/25 16:[address] head/brain wo con Stat Cat Scan 03/26/25 17:07 Completed CXR --portable [XR chest portable] Stat Exams 03/26/25 16:23 Completed CBC w/Auto Diff [Complete Blood Count Auto Diff] Stat Lab 03/26/25 16:35 Completed CMP [Comprehensive Metabolic Panel] Stat Lab 03/26/25 16:35 Completed HIV Combo Stat Lab 03/26/25 16:42 Ordered Hepatitis C Ab Qual. W/ RFX Stat Lab 03/26/25 16:42 Ordered Lactic Acid Stat Lab 03/26/25 16:35 Completed Lipase Stat Lab 03/26/25 16:35 Completed MAG [Magnesium] Stat Lab 03/26/25 16:35 Completed Phosphorous Stat Lab 03/26/25 16:35 Completed UA [Urinalysis and Microscopic] Stat Lab 03/26/25 17:03 Completed Urine Culture Stat Micro 03/26/25 17:03 Received Medical Decision Narrative: Patient is a 69-year-old gentleman with a past medical history of progressive dementia who presented to the emergency department with concern for decreased bowel movements as well as a change in behavior. On arrival, patient was hemodynamically stable with unremarkable vital signs. Differential includes but not limited to: Intracranial pathology, electrolyte abnormalities, urinary tract infection, progression of dementia, medication side effect, bowel obstruction, constipation, amongst others. Patient's labs were reviewed patient's labs were reviewed and interpreted by myself: CBC showed no leukocytosis, hemoglobin was stable. CMP was unremarkable. Lipase was normal. UA was consistent with urinary tract infection. Had trace bacteria nitrite positive occasional white blood cells. CT scan of the head as well as the abdomen were obtained. CT head showed no acute intracranial pathology. CT abdomen showed no acute pathology. EKG was reviewed and interpreted by myself and showed A-fib but no other acute pathology. Patient was given a dose of Rocephin here in the emergency department. After extensive discussion with the , she states that she is having significant difficulties taking care of the patient at home. He states that the patient is very temperamental and she is concerned about her ability to take care of him at home. They previously were seeking placement however at that time he did not have Medicaid. They currently now have Medicaid and has POA. After discussion with the hospitalist, patient was admitted for UTI, constipation as well as likely placement. Critical Care Critical Care Time Critical Care Time: No
[2025-03-26 16:39] VITALS: BP 138/71; PULSE 79; PULSE 87; RESP 16; TEMP 36.9; O2SAT 100; O2SAT 99; BMI 22.9
[2025-03-26 16:43] LABS: Hematocrit 38.5 % (42.0-52.0); Hemoglobin 12.6 g/dL (14.1-18.0); Immature Granulocytes % 0.1 %; Mean Corpuscular HGB Conc 32.7 g/dL (31.8-35.4); Mean Corpuscular Hemoglobin 30.7 pg (27.0-31.2); Mean Corpuscular Volume 93.9 fl (80-94); Nucleated Red Blood Cells % 0 %; Platelet Count 126 K/mm3 (142-424); Red Blood Count 4.10 M/mm3 (4.60-6.20); Red Cell Distribution Width-SD 51.5 fL; White Blood Count 7.8 K/mm3 (4.8-10.8)
[2025-03-26 16:47] LABS: Albumin Level 4.2 g/dl (3.5-5.0); Chloride 106 mmol/L (98-107); Potassium 4.5 mmoL/L (3.5-5.1); Sodium 139 mmol/L (136-145)
[2025-03-26 16:50] LABS: Alanine Aminotransferase 15 U/L (12-78); Albumin/Globulin Ratio 1.3 (1.1-1.8); Alkaline Phosphatase 52 U/L (38-126); Anion Gap 12.5 mEq/L (5-15); Aspartate Amino Transferase 26 U/L (17-59); Bilirubin,Total 0.5 mg/dl (0.2-1.3); Blood Urea Nitrogen 10 mg/dl (9-20); Calcium 9.1 mg/dl (8.4-10.2); Carbon Dioxide 25 mmol/L (22.0-30.0); Creatinine Clearance Estimated 70 mL/min (50-200); Creatinine,Serum 1.10 mg/dl (0.66-1.25); Estimated Glomerular Filt Rate 67 ml/min (>60); GFR (African American) 81 ML/MIN (>60); Globulin 3.3 g/dL (1.3-3.2); Glucose 95 mg/dl (74-100); Phosphorous 3.2 mg/dl (2.5-4.5); Total Protein,Serum 7.5 g/dl (6.3-8.2)
[2025-03-26 16:51] LABS: Magnesium 2.0 mg/dl (1.6-2.3)
[2025-03-26 17:07] LABS: Microscopic, Urine URINE MICROSCOPIC (MICROSCOPIC)
--- NOTE | 2025-03-26 17:07 | CT_ITS ---
PROCEDURE INFORMATION: Exam: CT Head Without Contrast Exam date and time: 03/26/2025 6:06 PM Age: 69 years old Clinical indication: Altered mental status/memory loss; Additional info: AMS TECHNIQUE: Imaging protocol: Computed tomography of the head without contrast. Radiation optimization: All CT scans at this facility use at least one of these dose optimization techniques: automated exposure control; mA and/or kV adjustment per patient size (includes targeted exams where dose is matched to clinical indication); or iterative reconstruction. COMPARISON: CT HEAD/BRAIN WO CON 07/15/2023 8:25 PM FINDINGS: Limitations: Mild motion artifact. Brain: Mild-moderate brain volume loss. Mild white matter changes typical of hypertension or chronic small vessel ischemia. Cerebral ventricles: No ventriculomegaly. Paranasal sinuses: Right maxillary sinus mucosal thickening Mastoid air cells: Visualized mastoid air cells are well aerated. Bones: Unremarkable. No acute fracture. Soft tissues: Unremarkable. IMPRESSION: No acute findings.
[2025-03-26 17:11] LABS: Bilirubin,Urine Negative (Negative); Color,Urine YELLOW (Yellow); Glucose,Urine (UA) Negative (Negative); Ketones,Urine Negative (Negative); Leukocyte Esterase,Urine Negative (Negative); PH,Urine 6.0 (5.0-8.5); Protein,Urine Negative (Negative); Specific Gravity, Urine 1.010 (1.005-1.030); Urobilinogen,Urine 0.2 EU/dl (0.2)
[2025-03-26] MEDS: OLANZapine 5 MG ODT TABLET SL (17:17)
[2025-03-26 17:33] LABS: Lipase 84 U/L (23-300)
[2025-03-26 17:41] LABS: Bacteria,Urine Trace /lpf; RBC,Urine Occasional #/hpf (0-3); WBC,Urine Occasional #/hpf (0-3)
--- NOTE | 2025-03-26 17:43 | ECG_ITS ---
APPROVED REPORT Exam: Resting ECG HR:64 bpm ECG Measurements Heart Rate 64 AXES MN 184 P -80 QRSd 150 QRS 115 QT 388 T -10 QTc 397 Conclusion Irregular rhythm at 64 bpm with PVCs Electronically signed by : Teressa Burton, 03/28/2025 00:02:42
[2025-03-26 18:00] VITALS: BP 149/83; PULSE 70; O2SAT 100
[2025-03-26] MEDS: IOPAMIDOL-370 (76%);100ML BOTTLE 75 ML IV (18:17)
[2025-03-26] MEDS: SODIUM CHLORIDE 0.9% 10ML SYR (RAD ONLY) 10 ML IV (18:17)
--- NOTE | 2025-03-26 20:16 | PC.NURSE ---
report called to [facility]
[2025-03-26 20:23] VITALS: BP 149/78; PULSE 74; RESP 18; TEMP 37.1; O2SAT 98
[2025-03-26 20:32] VITALS: BP 133/83; PULSE 92; RESP 22; TEMP 36.8; O2SAT 99
[2025-03-26 20:35] VITALS: BMI 23.8
[2025-03-26 22:00] VITALS: RESP 22; O2SAT 99
--- NOTE | 2025-03-26 22:03 | P.HP_ITS ---
<Statement entered by Rhett Pabon MD - 03/27/25 10:53> Rounded on patient after nurse practitioner. Personally examined and interviewed patient. Agree with exam findings and care plan as documented. Treating for UTI. Appears physically mobile and independent. Will have behavioral health and case management evaluate patient in the morning for dispo recommendations/plan. Therapy to evaluate History of Present Illness *Admission Date: 03/26/25 *Reason for visit:: Increased confusion, irritability *History of present illness: 69-year-old male patient with extensive psychiatric history has also been diagnosed with neurodegenerative dementia. brings him to the ER with reports of increased confusion and irritability as well as some verbal aggression. Review of his records does show that he has had some episodes of physical aggression in the past as well. His last admission they attempted placement and were unsuccessful. It sounds like insurance as well as lack of legal power of seater assembler was an obstacle. would like to explore placement options this admission. Patient currently denies pain or shortness of breath. Denies nausea vomiting or diarrhea. He does suffer from constipation and initially reported it had been a week since his last bowel movement but now she says 2 to 3 days. He takes MiraLAX daily as needed. Patient is asking for something for anxiety. States his anxiety has been very bad lately. reports the olanzapine dose was recently decreased. Although I am unclear on the timeline he at 1 time was on 10 mg twice daily and it has been decreased to 2.5 mg in the morning and 5 mg at bedtime. This most recent change was made yesterday. They have also increased his Zoloft for his anxiety. is also concerned about the inguinal hernia. She states he has seen Dr. Shay who recommended cardiac clearance before intervention. She reports they have been to cardiology and had echocardiogram but any surgery has not been scheduled yet. CT abdomen pelvis does show a right sided inguinal hernia containing nonstrangulated small bowel. Patient has no abdominal pain. [facility] Disclaimer: The information contained in this section may have been updated after the patient was seen, as this information can be updated by other users. Medical History Constipation Dementia Depression Anxiety History of cardioversion Afib Fronto-temporal dementia Cholelithiasis Hypertension Coronary artery disease Pancreatitis Hypothyroidism CKD (chronic kidney disease), stage II Atrial fibrillation with RVR Surgical History History of cholecystectomy History of ERCP Hx of appendectomy Hx of CABG History of coronary artery bypass graft x 1 Family History Other Hypertension No significant family history Parkinson disease Stroke Social History Smoking Status: Never smoker alcohol intake: never substance use type: marijuana (in the past; none in the past 4 years) current occupational status: retired Travel in the last 8 weeks?: None household members: spouse housing: house number of children: 0 caffeine: No Have you lived/traveled outside [place] in past 30 days?: No Contact w/someone who lives/traveled outside US past 30 days?: No Exposure to someone with infectious disease in past 14 days?: No Do you have a fever (greater than 100.4 F or 38 C)?: No Have you tested positive for COVID-19?: No Exposed to someone with COVID-19 in past 14 days?: No Do you have a sore throat?: No Do you have a cough?: No Do you have any weakness?: No Do you have any diarrhea?: No Are you experiencing any unusual bleeding?: No Do you have any muscle aches/pain?: No Do you have any abdominal pain?: No Are you experiencing loss of taste or smell?: No Other Medical History Have you received the Flu Vaccine for this season: No Have you received the Pneumonia Vaccine: No Review of Systems Constitutional Constitutional: Denies body ache(s), Denies chills, Denies fever(s) and Reports frequent falls Eyes Eyes: Reports system reviewed and no additional complaints, except as documented ENT Ears, Nose, Mouth, and Throat: Reports system reviewed and no additional complaints, except as documented *Cardiovascular Cardiovascular: Denies chest pain, Denies dyspnea and Denies edema *Respiratory Respiratory: Denies cough and Denies dyspnea *Gastrointestinal Gastrointestinal: Denies abdominal pain, Reports constipation, Denies diarrhea, Denies nausea and Denies vomiting *Genitourinary Genitourinary: Denies difficulty urinating, Denies dysuria and Denies testicular pain *Musculoskeletal Musculoskeletal: Reports system reviewed and no additional complaints, except as documented *Neurologic Neurologic: Denies abnormal speech, Reports behavioral changes, Denies confusion and Reports frequent falls Psychiatric Psychiatric: Reports anxiety, Reports behavioral changes, Denies confusion and Reports panic attacks Meds Home Medications and Allergies Home Medications ?Medication ?Instructions ?Recorded ?Confirmed ?Type benztropine 1 mg tablet 1 mg PO BID mood 05/15/23 History mirtazapine 7.5 mg tablet 7.5 mg PO HS Mood 05/15/23 1 05/26/24 History aspirin 81 mg tablet,delayed 81 mg PO DAILY 07/09/23 1 05/26/24 History release polyethylene glycol 3350 17 17 g PO DAILY 07/09/23 History gram/dose oral powder olanzapine 10 mg tablet 10 mg PO BID #60 tabs 03/26/25 Rx levothyroxine 50 mcg tablet 50 mcg PO DAILY 03/26/25 1 05/26/24 History sertraline 25 mg tablet 12.5 mg PO BID 03/26/2503/11 History New Prescriptions to Start Prescriptions: Allergies Allergy/AdvReac Type Severity Reaction Status Date / Time erythromycin base Allergy Unknown Unknown Verified 02/03/25 11:10 allergy reaction Exam Data for Last 24 hours Vital signs and Labs for Last 24 Hours: Temp Pulse Resp BP Pulse Ox O2 Del Method 98.3 F 92 H 22 133/83 99 Room Air 03/26/25 20:32 03/26/25 20:32 03/26/25 20:32 03/26/25 20:32 03/26/25 20:32 03/26/25 20:32 Laboratory Results - last 24 hr 03/26/25 16:35: WBC 7.8, RBC 4.10 L, Hgb 12.6 L, Hct 38.5 L, MCV 93.9, MCH 30.7, MCHC 32.7, RDW 15.0, Plt Count 126 L, MPV 11.9 H, Neut % (Auto) 56.1, Lymph % (Auto) 36.0, [place] % (Auto) 5.7, Eos % (Auto) 1.7, Baso % (Auto) 0.4, Neut # (Auto) 4.4, Lymph # (Auto) 2.8, [place] # (Auto) 0.4, Eos # (Auto) 0.1, Baso # (Auto) 0.0, Sodium 139, Potassium 4.5, Chloride 106, Carbon Dioxide 25, Anion Gap 12.5, BUN 10, Creatinine 1.10, Estimated Creat Clear 70, Estimated GFR 67, Est GFR ( Amer) 81, Glucose 95, Lactate 2.0, Calcium 9.1, Phosphorus 3.2, Magnesium 2.0, Total Bilirubin 0.5, AST 26, ALT 15, Alkaline Phosphatase 52, Total Protein 7.5, Albumin 4.2, Globulin 3.3 H, Albumin/Globulin Ratio 1.3, Li pasdonavon 84 03/26/25 17:03: Urine Color Yellow, Urine Appearance Clear, Urine pH 6.0, Ur Specific [place] 1.010, Urine Protein Negative, Urine Glucose (UA) Negative, Urine Ketones Negative, Urine Blood Negative, Urine Nitrate Positive A, Urine Bilirubin Negative, Urine Urobilinogen 0.2, Ur Leukocyte Esterase Negative, Urine RBC Occasional, Urine WBC Occasional, Ur Squamous Epith Cells None, Urine Bacteria Trace I & O for Last 24 hours: Intake & Output 03/23/25 03/24/25 03/25/25 03/26/25 23:59 23:59 23:59 23:59 Intake Total 100 / 100 Balance 100 / 100 Weight 80.059 kg Constitutional Constitutional: mild distress, thin and cooperative (Patient is cooperative but appears to be very tense/on edge, asking for something for anxiety) *Routine HEENT Exam Head: Present normocephalic and atraumatic Eye: Present EOMI and PERRL ENT: Present mucous membranes moist *Routine Neck Exam Neck: Present supple *Routine Respiratory Exam Respiratory: Present CTA bilaterally *Routine Cardiovascular Exam Cardiovascular: Present RRR, Normal S1 and Normal S2 *Routine Abdominal Exam Abdominal: Present soft and normoactive bowel sounds; Absent tenderness, distended or guarding *Routine Rectal Exam Rectal:: deferred *Routine Genitalia Exam Genitalia:: deferred *Routine Extremities Exam Extremities: Present pulses intact; Absent edema *Routine Skin Exam Skin: Present dry and warm *Routine Neurological Exam Neurological: Present alert, oriented X3 and moving all extremities (Strength equal bilaterally) Routine Psychiatric Exam Psychiatric: Present cooperative and anxious Comments: Patient is cooperative at this time. His affect is flat however he does seem to be anxious and on edge. Assessment and Plan *Assessment and plan (1) Neurodegenerative dementia: Status: Acute Category: Medical Code(s): F03.90 - Unspecified dementia, unspecified severity, without behavioral disturbance, psychotic disturbance, mood disturbance, and anxiety (2) Anxiety and depression: Status: Chronic Category: Medical Code(s): F41.9 - Anxiety disorder, unspecified; F32.A - Depression, unspecified (3) Altered behavior: Status: Acute Category: Medical Code(s): R46.89 - Other symptoms and signs involving appearance and behavior (4) Constipation: Status: Acute Qualifiers: Constipation type: unspecified constipation type Qualified Code(s): K59.00 - Constipation, unspecified Category: Medical Code(s): K59.00 - Constipation, unspecified (5) Acute UTI: Status: Acute Category: Medical Code(s): N39.0 - Urinary tract infection, site not specified (6) Right inguinal hernia: Status: Acute Category: Medical Code(s): K40.90 - Unilateral inguinal hernia, without obstruction or gangrene, not specified as recurrent Plan Patient is brought to the ER by his with reports of altered behavior she describes as confusion and irritability. She states he is just not himself. In the past he has had some physical aggression however today I believe it was only verbal. He has a complicated history with psychiatric illness and medication as well as neurodegenerative dementia. He was found to have an abnormal urinalysis and was treated with Rocephin in the ER for possible UTI. Other imaging and diagnostics was unremarkable. Head CT was normal. After discussion with the ER physician I have agreed to accept this patient and admission. Will continue Rocephin for his UTI and I am concerned about his and his 's safety at home. I feel she cannot adequately take care of him and placement will be needed. Neurodegenerative dementia/anxiety and depression and altered behavior?patient has had some change in behavior according to the . Recently his olanzapine has been decreased and Zoloft increased. Most recent decrease was done yesterday. Patient is complaining of anxiety and is asking repeatedly for something for his anxiety. In review of his records it appears the only thing that has worked for him in the past for acute anxiety was Valium. So we will give him a small dose of oral Valium before bedtime to help him rest and to help with anxiety. He will be on one-to-one observation due to his behaviors and he is a fall risk. [facility] Management has been consulted for discharge planning. UTI?findings on UA are minimal. Urine culture is pending. We will go ahead and treat with Rocephin. UTI could cause a change in his behaviors. Constipation? reports concerns of constipation. Abdomen is soft patient is nontender and he denies complaints. Initially she said it had been a week since his last bowel movement and then said it was maybe only a couple days. We will continue MiraLAX that he uses at home. First dose will be in the morning. Right inguinal hernia? also reports concerns of this hernia however patient denies any pain or discomfort. Office note from Dr. Shay states risk assessment should be done prior to considering surgery. states that he has been to cardiology and had an echocardiogram but has heard nothing further. She seems to think that this was an urgent matter however surgery note says may ultimately consider open right inguinal hernia. Currently does not seem to be an acute problem.
[2025-03-27] VITALS: BP 124/68; PULSE 70; RESP 16; TEMP 36.9; O2SAT 100
[2025-03-27 00:17] LABS: Hepatitis C Ab Qual. W/ RFX NEGATIVE (Negative)
[2025-03-27] MEDS: diazePAM 10MG/2ML SYRINGE 2 MG IV (00:47)
[2025-03-27 04:00] VITALS: BP 121/72; PULSE 61; RESP 16; TEMP 36.8; O2SAT 100; BMI 23.8
[2025-03-27 06:02] LABS: Hematocrit 36.9 % (42.0-52.0); Hemoglobin 12.5 g/dL (14.1-18.0); Immature Granulocytes % 0.3 %; Mean Corpuscular HGB Conc 33.9 g/dL (31.8-35.4); Mean Corpuscular Hemoglobin 31.1 pg (27.0-31.2); Mean Corpuscular Volume 91.8 fl (80-94); Nucleated Red Blood Cells % 0 %; Platelet Count 138 K/mm3 (142-424); Red Blood Count 4.02 M/mm3 (4.60-6.20); Red Cell Distribution Width-SD 48.7 fL; White Blood Count 7.9 K/mm3 (4.8-10.8)
--- NOTE | 2025-03-27 06:19 | PC.NURSE ---
Pt. was admitted overnight from the ED for UTI, dementia. Per pt's , Pt. has been more confused and has been aggressive behaviors. feels she is unable to care for him at home. Pt. also has very high Anxiety levels. Per Pt's , Pt's PMD has been changing around his psyc. meds tyring to find a balance to control the anxiety. Pt's also states Pt. has constipation and has not had a BM in 3 days or so. Pt. Also under water assistant an inguinal hernia. Pt. is alert and orientated to name, BD, place, Able to answer most questions. Pt. constantly asking for Anxiety medication, Valium . Pt. had 2 doses Valium PO and IV . Valium showed minimal effect. Pt. has not slept. Pt's was at the bedside overnight. Sana GONZALEZ made the pt. a 1:1 but with the at the bedside RN taking care of patient sat in doorway and still able to take care of my other patients. When patients left SRNA took over the 1:1 observation. Pt. gets up to the BR with assist x 1 to void in the bathroom. Pt's would like the patient placed in a halfway. Call light in reach, Bed in low and locked position. Bed alarm is on.
[2025-03-27 06:23] LABS: Alanine Aminotransferase 11 U/L (12-78); Albumin Level 3.7 g/dl (3.5-5.0); Albumin/Globulin Ratio 1.4 (1.1-1.8); Alkaline Phosphatase 70 U/L (38-126); Anion Gap 8.7 mEq/L (5-15); Aspartate Amino Transferase 22 U/L (17-59); Bilirubin,Total 0.7 mg/dl (0.2-1.3); Blood Urea Nitrogen 9 mg/dl (9-20); Calcium 8.9 mg/dl (8.4-10.2); Carbon Dioxide 21 mmol/L (22.0-30.0); Chloride 111 mmol/L (98-107); Creatinine Clearance Estimated 73 mL/min (50-200); Creatinine,Serum 1.10 mg/dl (0.66-1.25); Estimated Glomerular Filt Rate 67 ml/min (>60); GFR (African American) 81 ML/MIN (>60); Globulin 2.7 g/dL (1.3-3.2); Glucose 92 mg/dl (74-100); Potassium 3.7 mmoL/L (3.5-5.1); Sodium 137 mmol/L (136-145); Total Protein,Serum 6.4 g/dl (6.3-8.2)
--- NOTE | 2025-03-27 07:50 | P.PN_ITS ---
Subjective *Date: 03/27/25 *Time: 09:31 Interval history: Patient states he did not sleep at all last night. He states he is here for anxiety. He ate some breakfast. He denies any pain, shortness of breath, or nausea. He is wondering where his is. He has spoken with her on the phone and she told him that she was getting cleaned up and resting. Nursing states he slept maybe 15 minutes last night. Nurse sat outside the room throughout the night. Urine cultures are pending. Labs including CBC and CMP are satisfactory this a.m. Exam Data for Last 24 hours Vital signs and Labs for Last 24 Hours: Temp Pulse Resp BP Pulse Ox O2 Del Method 98.2 F 61 16 121/72 100 Room Air 03/27/25 04:00 03/27/25 04:00 03/27/25 04:00 03/27/25 04:00 03/27/25 04:00 03/27/25 06:54 Laboratory Results - last 24 hr 03/26/25 16:35: WBC 7.8, RBC 4.10 L, Hgb 12.6 L, Hct 38.5 L, MCV 93.9, MCH 30.7, MCHC 32.7, RDW 15.0, Plt Count 126 L, MPV 11.9 H, Neut % (Auto) 56.1, Lymph % (Auto) 36.0, [place] % (Auto) 5.7, Eos % (Auto) 1.7, Baso % (Auto) 0.4, Neut # (Auto) 4.4, Lymph # (Auto) 2.8, [place] # (Auto) 0.4, Eos # (Auto) 0.1, Baso # (Auto) 0.0, Sodium 139, Potassium 4.5, Chloride 106, Carbon Dioxide 25, Anion Gap 12.5, BUN 10, Creatinine 1.10, Estimated Creat Clear 70, Estimated GFR 67, Est GFR ( Amer) 81, Glucose 95, Lactate 2.0, Calcium 9.1, Phosphorus 3.2, Magnesium 2.0, Total Bilirubin 0.5, AST 26, ALT 15, Alkaline Phosphatase 52, Total Protein 7.5, Albumin 4.2, Globulin 3.3 H, Albumin/Globulin Ratio 1.3, Lipase 84, HCV Ab FARHEEN w/Rflx PCR Qn Negative, HIV Ag/Ab Combo Qual Negative 11/16/25 17:03: Urine Color Yellow, Urine Appearance Clear, Urine pH 6.0, Ur Specific [place] 1.010, Urine Protein Negative, Urine Glucose (UA) Negative, Urine Ketones Negative, Urine Blood Negative, Urine Nitrate Positive A, Urine Bilirubin Negative, Urine Urobilinogen 0.2, Ur Leukocyte Esterase Negative, Urine RBC Occasional, Urine WBC Occasional, Ur Squamous Epith Cells None, Urine Bacteria Trace 03/27/25 05:22: WBC 7.9, RBC 4.02 L, Hgb 12.5 L, Hct 36.9 L, MCV 91.8, MCH 31.1, MCHC 33.9, RDW 14.4, Plt Count 138 L, MPV 12.4 H, Neut % (Auto) 57.1, Lymph % (Auto) 35.0, [place] % (Auto) 5.6, Eos % (Auto) 1.4, Baso % (Auto) 0.6, Neut # (Auto) 4.5, Lymph # (Auto) 2.8, [place] # (Auto) 0.4, Eos # (Auto) 0.1, Baso # (Auto) 0.1, Sodium 137, Potassium 3.7, Chloride 111 H, Carbon Dioxide 21 L, Anion Gap 8.7, BUN 9, Creatinine 1.10, Estimated Creat Clear 73, Estimated GFR 67, Est GFR ( Amer) 81, Glucose 92, Calcium 8.9, Total Bilirubin 0.7, AST 22, ALT 11 L D, Alkaline Phosphatase 70, Total Protein 6.4, Albumin 3.7 D, Globulin 2.7, Albumin/Globulin Ratio 1.4 I & O for Last 24 hours: Intake & Output 03/24/25 03/25/25 03/26/25 03/27/25 11:59 11:59 11:59 11:59 Intake Total 220 / 220 Output Total 0 / 0 Balance 220 / 220 Weight 176 lb 7.998 oz Constitutional Constitutional: no acute distress Comments: Sitting up in the bed and is wide-awake. *Routine Respiratory Exam Respiratory: Present CTA bilaterally (Anteriorly and posteriorly) *Routine Cardiovascular Exam Cardiovascular: Present RRR *Routine Abdominal Exam Abdominal: Present soft and normoactive bowel sounds; Absent tenderness or distended *Routine Extremities Exam Extremities: Absent edema or calf tenderness *Routine Neurological Exam Neurological: Present alert and oriented X3 Routine Psychiatric Exam Psychiatric: Present cooperative, depressed and anxious; Absent agitated Assessment and Plan *Assessment and plan (1) Neurodegenerative dementia: Status: Acute Category: Medical Code(s): F03.90 - Unspecified dementia, unspecified severity, without behavioral disturbance, psychotic disturbance, mood disturbance, and anxiety (2) Anxiety and depression: Status: Chronic Category: Medical Code(s): F41.9 - Anxiety disorder, unspecified; F32.A - Depression, unspecified (3) Altered behavior: Status: Acute Category: Medical Code(s): R46.89 - Other symptoms and signs involving appearance and behavior (4) Constipation: Status: Acute Qualifiers: Constipation type: unspecified constipation type Qualified Code(s): K59.00 - Constipation, unspecified Category: Medical Code(s): K59.00 - Constipation, unspecified (5) Acute UTI: Status: Acute Category: Medical Code(s): N39.0 - Urinary tract infection, site not specified (6) Right inguinal hernia: Status: Acute Category: Medical Code(s): K40.90 - Unilateral inguinal hernia, without obstruction or gangrene, not specified as recurrent Plan Behavior health and care management have been consulted.
[2025-03-27 08:00] VITALS: BP 118/65; PULSE 64; RESP 17; TEMP 37; O2SAT 99
--- NOTE | 2025-03-27 08:08 | HMH.PHAINT1 ---
Pharmacy Intervention Comments: MEDICATION RECONCILIATION COMPLETED ON PATIENT USING EXTERNAL FILL HISTORY FROM PHARMACY. -KARINA MYLES, CECILIAD
[2025-03-27] MEDS: SERTRALINE 50MG TABLET 12.5 MG PO (08:29)
[2025-03-27] MEDS: DOCUSATE SODIUM 100 MG CAPSULE PO (08:29)
[2025-03-27] MEDS: POLYETHYLENE GLYCOL 3350 17 GM PACKET PO (08:29)
[2025-03-27] MEDS: OLANZapine 5 MG ODT TABLET 2.5 MG SL (08:30)
--- NOTE | 2025-03-27 08:52 | HMH.PTEV ---
Physical Therapy Evaluation Rehab PT IP Evaluation Start: 03/26/25 20:02 Freq: ONCE Status: Active Protocol: Document 03/27/25 08:21 LEXIE (Rec: 03/27/25 08:52 LEXIE [id number]) Subjective/History History History Per H&P: 69-year-old male patient with extensive psychiatric history has also been diagnosed with neurodegenerative dementia. brings him to the ER with reports of increased confusion and irritability as well as some verbal aggression. Review of his records does show that he has had some episodes of physical aggression in the past as well. His last admission they attempted placement and were unsuccessful. It sounds like insurance as well as lack of legal power of insurance defense attorney was an obstacle. would like to explore placement options this admission. Patient currently denies pain or shortness of breath. Denies nausea vomiting or diarrhea. He does suffer from constipation and initially reported it had been a week since his last bowel movement but now she says 2 to 3 days. He takes MiraLAX daily as needed. Patient is asking for something for anxiety. States his anxiety has been very bad lately. reports the olanzapine dose was recently decreased. Although I am unclear on the timeline he at 1 time was on 10 mg twice daily and it has been decreased to 2.5 mg in the morning and 5 mg at bedtime. This most recent change was made yesterday. They have also increased his Zoloft for his anxiety. is also concerned about the inguinal hernia. She states he has seen Dr. Shay who recommended cardiac clearance before intervention. She reports they have been to cardiology and had echocardiogram but any surgery has not been scheduled yet. CT abdomen pelvis does show a right sided inguinal hernia containing nonstrangulated small bowel. Patient has no abdominal pain. Subjective Subjective Pt reports he lives with his in a 2-story home with 2 LISSET. Pt reports he avoids stair steps and stays on the first floor. Pt reports he is normally IND with mobility but occasionally needs his 's assistance for walking and stair negotiation. Pt does not use an AD. Pt reports he still drives. Pt denies any falls in the past 60 days. [facility] How much help from another person do you currently need... Turning from your None back to your side while in a flat bed without using bedrails? Moving from lying on None back to sitting on the side of a flat bed without using bedrails? Moving to and from a None bed to a chair ( including a wheelchair)? Standing up from a None chair using your arms? (e.g., wheelchair, bedside chair) Walking in hospital None room? Climbing 3-5 steps A little with a railing? Mobility Score 23 Mobility Level [facility] Mobility 7 Walk 25 feet or more Mobility Calculator Rehab PT IP Eval Objective Appearance Patient Behavior Appropriate,Cooperative Difficulty following none instructions Speech Pattern Clear Ambulation Patient Able to Yes Ambulate Ambulation Observation IP General Gait No Deviations/Normal Pattern Observation Ambulation Distance 30 (feet) Ambulation Assistive None Device Ambulation Ability Supervision/Stand by Balance Ability to Arise Able, uses arms to help Sitting Balance Steady, safe Standing Balance Narrow stance w/o support Dynamic Sitting Good Balance Ability Dynamic Standing Good Balance Ability Transfers Bed Transfer Ability Independent Sit to Stand Bed Independent Transfer Ability Rehab PT IP prob,goals,plan Problems Date of Evaluation: 03/27/25 Rehab Potential Rehab Potential Innapropriate for Skilled Therapy Discharge Plan PT Discharge Plan Pt ambulated ~30' with SBA and no AD. Pt demo'd good functional balance during evaluation and was able to picker floor object from standing position without LOB or assistance. Pt presents at his baseline with mobility and is not appropriate for skilled PT at this time. Eval Complexity Eval Charge Codes 64947 - Moderate Complexity PHYSICIAN CERTIFICATION: I certify the specified therapy services for Willy Maguire are required, authorized, and reviewed every 30 days.
--- NOTE | 2025-03-27 08:54 | HMH.PHAAMS2 ---
- Antimicrobial Stewardship Review culture & sensitivity review Stewardship interventions: culture & sensitivity review Comments: ROCEPHIN EMPERIC THERAPY FOR COMPLICATED UTI, URINE CX PENDING BUT URINALYSIS POSITIVE FOR NITRATES.
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
[2025-03-27 10:21] LABS: Thyroid Stimulating Hormone 3.30 uIU/mL (0.465-4.68)
[2025-03-27 10:40] LABS: Vitamin B12 242 pg/mL (239-931)
[2025-03-27] MEDS: SERTRALINE 50MG TABLET 37.5 MG PO (10:47)
--- NOTE | 2025-03-27 10:51 | EXP.EVENT.NO ---
Patient seen by primary care provider this morning. Care to be transitioned to Dr. Vazquez/Dr. Patterson for further management. Case management and behavioral health assisting with management. Hospital medicine signing off at this time
--- NOTE | 2025-03-27 11:41 | SW/DCPLANNER ---
Addendum entered by Noy Teague 03/27/25 14:11: Patient's stated she did not feel that patient needed home health services at this time. Addendum entered by Noy Teague 03/27/25 14:07: Patient will discharge home today. I will call and update patient's . CM will set up home health services. Original Note: I spoke w/ patient this AM regarding plans at time of discharge. PT evaluated patient and recommended returning home. Patient is wanting to return home today. I did call and speak w/ patient's and she is agreeable for patient to return home. is agreeable to home health services if needed at time of discharge (no agency preference). I will call and update Dr Vazquez. did not mention placement for patient at this time.
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
--- NOTE | 2025-03-28 10:16 | SW/DCPLANNER ---
Spoke with patient's on the phone. Patient's stated that he is doing well and catching up on his sleep from being in the hospital. Patient's stated that he is aware of his upcoming appointment. Patient's stated that she was able to flower picker his new medicine from clinic pharmacy. Patient's stated that she has no concerns or questions at this time. Laurel Alegria
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
== END 2025-03-27 16:20 | disposition home or self-care (01) ==
LOC: ER 19:53 → 2ND 19:53
PROVIDERS: Nurse Practitioner Acute Care; Admitting Provider Internal Medicine Adolescent Medicine; Emergency Provider Student in an Organized Health Care Education/Training Program; PCP Family Medicine; Visit Provider Family Medicine
DX: F32.A Depression, unspecified (principal); F03.90 Unspecified dementia, unspecified severity, without behavioral disturbance, psychotic disturbance, mood disturbance, and anxiety; F41.9 Anxiety disorder, unspecified; K59.00 Constipation, unspecified; N39.0 Urinary tract infection, site not specified; K40.90 Unilateral inguinal hernia, without obstruction or gangrene, not specified as recurrent; I48.91 Unspecified atrial fibrillation; I25.10 Atherosclerotic heart disease of native coronary artery without angina pectoris; E03.9 Hypothyroidism, unspecified; Z90.49 Acquired absence of other specified parts of digestive tract; Z95.1 Presence of aortocoronary bypass graft; Z88.1 Allergy status to other antibiotic agents; Z79.899 Other long term (current) drug therapy; Z79.82 Long term (current) use of aspirin; Z79.890 Hormone replacement therapy; I49.3 Ventricular premature depolarization
CPT/HCPCS: 36415; 70450; 71045; 74177; 80053; 81001; 82607; 83605; 83690; 83735; 84100; 84443; 85025; 86803; 87086; 87389; 93005; 97162; 97166; 99285; G0378; J0696; J3360; Q9967

== ENCOUNTER 2025-05-02 12:09 | Outpatient (CLI) | payer MEDICARE, SELFPAY ==
--- OUTSIDE RECORDS SUMMARY | 2023-12-31 09:30 | XMS_ITS ---
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 Name Role Phone Herson Centeno Primary Care Provider Results Component Value Reference Range Notes H-CBC Reviewed date:07/27/2024 02:58:24 PM Interpretation: Performing Lab: Notes/Report: H-Lipid Panel Reviewed date:07/27/2024 11:32:06 AM Interpretation:see duplicate order Performing Lab: Notes/Report: see duplicate order H-CMP Reviewed date:07/27/2024 11:31:46 AM Interpretation:see duplicate order Performing Lab: Notes/Report: see duplicate order REASON FOR VISIT Needs lab order prior to appt Medications Medication SIG (Take, Route, Frequency, Duration) Notes Start Date End Date Status busPIRone HCl 5 MG 1 tablet Orally Twic e a day Active Benztropine Mesylate 1 MG 1 tablet Orall y Two times a day Active Ciprofloxacin HCl 500 MG 1 tablet Orally every 12 hrs 08/27/2023 Active Synthroid 50 MCG 1 tab(s) orally once a day Active Lipitor 80 MG 1 tab(s) orally once a day Not-Taking hydrOXYzine HCl 25 MG 1 tab(s) orally As needed; Duration: 30 day(s) Active MiraLax - DIRECTED ORALLY ONCE A DAY Active ZyPREXA 10 MG 1 tab(s) orally once a day Active Mirtazapine 7.5 MG 1 tab(s) orally once a day (at bedtime) Active Aspirin 81 MG 1 tab(s) orally once a day Active diazePAM 2 MG 1 tablet as needed Orally Once a day Active Lexapro 5 MG 1/2 tab orally once a day Not-Taking Encounters Encounter Location Date Provider Diagnosis [facility] [address] [facility] [address] [place] [phone] 12/31/2023 Herson Centeno Dyslipidemia E78.5 ; Essential (primary) hypertension I10 and Neutropenia, unspecified D70.9 Assessments Encounter Date Diagnosis (ICD Code) Assessment Notes Treatment Notes Treatment Clinical Notes Section Notes 12/31/2023 Dyslipidemia (ICD-10 - E78.5) 12/31/2023 Essential (primary) hypertension (ICD-10 - I10) 12/31/2023 Neutropenia, unspecified (ICD-10 - D70.9) Plan Of Treatment No Information Progress Notes * CHUCKY GODINEZDOB: 7 (69 yo M)Acc No.[id number]:12/31/2023 Patient: Andrea JESSICACHUCKY Lucy Provider: Herson Centeno M.D. :1955 A ge:68 Y S ex:Male Date:12/31/2023 Address:[address] [place] [address] [place], [id number] Subjective: * Chief Complaints: * 1 . Needs lab order prior to appt. * Medical History: * Medications: T aking diazePAM 2 MG Tablet 1 tablet as needed Orally Once a day , Taking Aspirin 81 MG Tablet Delayed Release 1 tab(s) orally once a day , Taking MiraLax - POWDER FOR RECONSTITUTION DIRECTED ORALLY ONCE A DAY , Taking ZyPREXA 10 MG Tablet 1 tab(s) orally once a day , Taking Mirtazapine 7.5 MG Tablet 1 tab(s) orally once a day (at bedtime) , Taking hydrOXYzine HCl 25 MG Tablet 1 tab(s) orally As needed , Taking busPIRone HCl 5 MG Tablet 1 tablet Orally Twice a day , Taking Benztropine Mesylate 1 MG Tablet 1 tablet Orally Two times a day , Taking Ciprofloxacin HCl 500 MG Tablet 1 tablet Orally every 12 hrs , Taking Synthroid 50 MCG Tablet 1 tab(s) orally once a day , Not-Taking Lipitor 80 MG Tablet 1 tab(s) orally once a day , Not-Taking Lexapro 5 MG Tablet 1/2 tab orally once a day , Medication List reviewed and reconciled with the patient Objective: * Vitals: Assessment: * Assessment: 1. D yslipidemia - E78.5 2 . E ssential (primary) hypertension - I10 ? 3 . N eutropenia, unspecified - D70.9 Plan: * Treatment: ?LAB: H-CMP (Collection Date & Time - 07/27/2024)?see duplicate order* see duplicate order 2.?Neutropenia, unspecified?LAB: H-CBC (Collection Date & Time - 07/27/2024)* see duplicate order * Images: Billing Information: * Visit Code: * Procedure Codes: * Electronic signature of Herson Centeno MD on 05/02/2025 at 12:15 PM EST Sign off status: Pending * Provider: Herson Centeno M.D. Date: 0 12/31/2023 Generated for Apolinar gonzalez/Lela/Xochitlitting on: 1 07/03/2024 12:15 PM EST
--- OUTSIDE RECORDS SUMMARY | 2024-01-26 06:45 | XMS_ITS ---
Author Organization [facility] Address [address] [facility] [address] [place] [phone] Care Team Providers Care Hot Blaster Name Role Phone Herson Centeno Primary Care Provider REASON FOR VISIT heart rate low Encounters Encounter Location Date Provider Diagnosis [facility] [address] [facility] [address] [facility] [address] [place] [phone] 01/26/2024 Herson Centeno Plan Of Treatment No Information Progress Notes * CHUCKY GODINEZDOB: (69 yo M)Acc No.[id number]:01/26/2024 Progress Notes Patient: Andrea LOPEZ CHUCKY Ayala Provider: Herson Centeno M.D. :1955 A ge:68 Y S ex:Male Date:01/26/2024 Address:[address], [id number] Subjective: * Chief Complaints: * 1 . Heart rate low. * Medical History: Objective: * Vitals: Assessment: Plan: * Treatment: * Images: Billing Information: * Visit Code: * Procedure Codes: * Electronic signature of Herson Centeno MD on 05/02/2025 at 12:15 PM EST Sign off status: Pending * Provider: Herson Centeno M.D. Date: 0 01/26/2024 Generated for Printi ng/Faxing/eTransmitting on: 1 07/03/2024 12:15 PM EST
--- OUTSIDE RECORDS SUMMARY | 2024-03-10 09:30 | XMS_ITS ---
Author Organization [facility] Address [address] [facility] [address] [facility] [address] [place] [phone] Care Team Providers Care Timekeeper Supervisor Name Role Phone Herson Centeno Primary Care Provider [phone] REASON FOR VISIT flu shot Immunizations Vaccine Route Administration Date Status Comme nts Fluzone High Dose (65yr and older) IM Intramuscular 03/10/2024 Administered Encounters Encounter Location Date Provider Diagnosis [place] [address] [facility] [address] [facility] [address] [place] [phone] 03/10/2024 Herson Centeno Encounter for immunization Z23 Assessments Encounter Date Diagnosis (ICD Code) Assessment Notes Treatment Notes Treatment Clinical Notes Section Notes 03/10/2024 Encounter for immunization (ICD-10 - Z23) Plan Of Treatment No Information Progress Notes * CHUCKY GODINEZDOB: (69 yo M)Acc No.[id number]:03/10/2024 Patient: CHUCKY OLIVAS Provider: Herson Centeno M.D. :1955 A ge:68 Y S ex:Male Date:03/10/2024 Address:[address], [id number] Subjective: * Chief Complaints: * 1 . Flu shot. * Medical History: Objective: * Vitals: Assessment: * Assessment: 1. E ncounter for immunization - Z23 (Primary) Plan: * Treatment: * Immunizations: Fluzone High Dose (65yr and older) : 0.5 mL (Route: Intramuscular) given by JULIO Reis on Right Deltoid (Encounter for immunization) * Images: Billing Information: * Visit Code: * Procedure Codes: * Electronic signature of Herson Centeno MD on 05/02/2025 at 12:13 PM EST Sign off status: Pending * Provider: Herson Centeno M.D. Date: 1 Generated for Apolinar gonzalez/Lela/Xochitlitting on: 07/03/2024 12:13 PM EST
--- OUTSIDE RECORDS SUMMARY | 2024-07-28 09:15 | XMS_ITS ---
Author Organization [facility] Address [address] [place] [phone] Care Team Providers Care Lunchroom Supervisor Name Role Phone Herson Centeno Primary Care Provider Allergies Allergen (clinical drug ingredient) Drug/Non Drug Allergy documented on EMR Reaction Allergy Type Onset Date Status MYCINS (uncoded) Unknown Allergy Act ginny olanzapine OLANZapine agranulocytosis Drug Allergy Active quetiapine SEROquel nightmares Drug Allergy Activ e sertraline Zoloft ringing in ears Drug Allergy Active citalopram Citalopram blurred vision Drug Allergy Active REASON FOR VISIT checkup with Annual Wellness Visit Medications Medication SIG (Take, Route, Frequency, Duration) Notes Start Date End Date Status ZyPREXA 10 MG 1 tab(s) orally Two times a day Active MiraLax - DIRECTED ORALLY O NCE A DAY Active Synthroid 50 MCG 1 tab(s) orally once a day Active Benztropine Mesylate 1 MG 1 tablet Orall y Two times a day Active Mirtazapine 7.5 MG 1 tab(s) orally once a day (at bedtime) Active Aspirin 81 MG 1 tab(s) orally once a day Active Problems Problem Type SNOMED Code ICD Code Onset Dates Problem Status W/U Status Risk Notes Problem Coronary arteriosclerosis (28220080) ASCVD (arteriosclerotic cardiovascular disease) (I25.10) Active confirmed Problem Dementia (05784037) Dementia (F03.90) Active co nfirmed Vital Signs Weight 169.6 lbs 07/28/2024 Blood pressure systolic 110 mm Hg 07/29/19 25 Blood pressure diastolic 70 mm Hg 025 Heart Rate 67 /min 07/28/2024 Height 72 in 07/28/2024 BMI 23 kg/m2 07/28/2024 Encounters Encounter Location Date Provider Diagnosis [facility] [address] [facility] [address] [place] [phone] 07/28/2024 Herson Centeno Adult general medica l examination Z00.00 ; Acquired hypothyroidism E03.9 ; ASCVD (arteriosclerotic cardiovascular disease) I25.10 ; Anxiety disorder F41.9 ; Dementia F03.90 ; Hx of arteriosclerotic cardiovascular disease Z86.79 ; Depression F32.9 and BMI 23.0-23.9, adult Z68.23 Assessments Encounter Date Diagnosis (ICD Code) Assessment Notes Treatment Notes Treatment Clinical Notes Section Notes 07/28/2024 Adult general medical examination (ICD-10 - Z00.00) Patient instructed to return to office Annually for Annual Wellness Visits to include annual screenings of Pain assessment, Functional Ability assessment, Cognitive Ability assessment, Fall Risk assessment, Depression screening and Bladder control screening. 07/28/2024 Acquired hypothyroidism (ICD-10 - E03.9) 07/28/2024 ASCVD (arteriosclerotic cardiovascular disease) (ICD-10 - I25.10) 07/28/2024 Anxiety disorder (ICD-10 - F41.9) 07/28/2024 Dementia (ICD-10 - F03.90) 07/28/2024 Hx of arteriosclerotic cardiovascular disease (ICD-10 - Z86.79) 07/28/2024 Depression (ICD-10 - F32.9) 07/28/2024 BMI 23.0-23.9, adult (ICD-10 - Z68.23) Plan Of Treatment Medication Medication Name Sig Start Date Stop Date Notes Synthroid 50 MCG 1 tab(s) orally once a day Treatment Notes Assessment Notes Adult general medical examination Patien t instructed to return to office Annually for Annual Wellness Visits to include annual screenings of Pain assessment, Functional Ability assessment, Cognitive Ability assessment, Fall Risk assessment, Depression screening and Bladder control screening. Next Appt Details Follow Up: 6 Months, Reason: Progress Notes * CHUCKY GODINEZ JDOB: [birth year] (69 yo M)Acc No.[id number]:07/28/2024 Annual Wellness Visit Patient: CHUCKY OLIVAS Provider: Herson Centeno M.D. :1955 A ge:68 Y S ex:Male Date:07/28/2024 Address:[address] [place] [address] [id number] Subjective: * Chief Complaints: * 1 . checkup with Annual Wellness Visit. * HPI: H PI: Patient is here today for a scheduled check up and a Medicare Annual Wellness Visit. See lab results drawn at [facility] 07/27/2024. He is accompanied by his . He has had recent blood work for review.. N eurology: notes that his dementia continues to slowly progress. She manages all of his medication. His appetite has improved and he has gained some weight since his last visit. P sychology: He continues to follow with his psych nurse practitioner with some changes in medication. He apparently was on Zoloft and this was discontinued and he is now on BuSpar. He continues on Remeron and Zyprexa. He has developed some tardive dyskinesia from his benztropine but insurance will not cover Austedo or Ingrezza. * ROS: O PTHALMOLOGY: Negative for d enies issues with vision. * Medical History: A nxiety, Depression, ASCVD, DJD of LS spine, HLP, Hypothyroidism, Atrial fibrillation - onset 03/2019 - S/P Cardioversion, Cholelithiasis, Neurodegenerative dementia, Tardive dyskinesia. * Surgical History: C ABG 1997, appendectomy , electrical cardioversion for AF - Dr. Arroyo 04/2019, ERCP/ [facility] 2019, Lap Kaylie/ [facility]/ Dr. Sue 08/17/2019. * Hospitalization/Major Diagno stic Procedure: [facility] ER-anxiety 2008, [facility]-Afib 03/29/19, [facility] - acute cholecystitis/ ascending cholangitis/sepsis/ encephalopathy 08/2019, [facility] 08/2019, -[facility]/ Neurodegenerative dementia, Major depression, [facility] 06/2022. * Family History: F ather: , Parkinsons disease. M other: alive, HBP, depression, stroke. 2 sister(s) - healthy. . GF and uncle with depression. * Social History: C URRENT TOBACCO USE S moking Status: Patient does NOT smoke. C affeine: no. Exercise: no. Home smoke detector use: yes. Marital Status: . 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 Past smoking status: no. Recreational drug use: yes, marijuana, still using. Alcohol: no. * Medications: T aking Aspirin 81 MG Tablet Delayed Release 1 tab(s) orally once a day , Taking MiraLax - POWDER FOR RECONSTITUTION DIRECTED ORALLY ONCE A DAY , Taking ZyPREXA 10 MG Tablet 1 tab(s) orally Two times a day , Taking Mirtazapine 7.5 MG Tablet 1 tab(s) orally once a day (at bedtime) , Taking Benztropine Mesylate 1 MG Tablet 1 tablet Orally Two times a day , Taking Synthroid 50 MCG Tablet 1 tab(s) orally once a day , Medication List reviewed and reconciled with the patient * Allergies: M YCINS, Citalopram: blurred vision - Side Effects, Zoloft: ringing in ears - Side Effects, SEROquel: nightmares - Side Effects, OLANZapine: agranulocytosis - Side Effects. Objective: * Vitals: W t: 169.6, Temp: 98.6, BP: 110/70, HR: 67, Nurse: tasneem, Ht: 72, BMI:23. * Physical Examination: G ENERAL: Pain Assessment: P ain level: 0, on a scale of 0 to 10 (10 being extreme pain). F unctional Status Assessment: P atient response to how often physical health interferes with daiy activities: Occasionally Requries help with ADLs-including meal preparation, grocery shopping, housework, laundry, taking medications, or handling finances. Cognitive Status: progressive dementia Ambulation Status: Fully ambulatory. F all Risk Assessment: I ndependant in ambulation, adequate lighting in home. Patient has NOT fallen or had trouble walking within the past 12 months. D epression Screening: Describes emotional health as: depressed. B ladder Control Screening: D enies problems. Assessment: * Assessment: 1. A dult general medical examination - Z00.00 (Primary) 2 . A cquired hypothyroidism - E03.9 3 . A SCVD (arteriosclerotic cardiovascular disease) - I25.10? 4. A nxiety disorder - F41.9 5 . D ementia - F03.90 & #160; 6 . H x of arteriosclerotic cardiovascular disease - Z86.79 7 . D epression - F32.9 8 . B MT 23.0-23.9, adult - Z68.23 Plan: * Treatment: 2. A cquired hypothyroidism Refill Synthroid Tablet, 50 MCG, 1 tab(s), orally, once a day, 90, Refills 3. * Procedure Codes: G 0438 ANNUAL WELLNES VST; PERSNL PPS INIT, G2 Complex e/m visit add on, G0444 ANNUAL DEPRESSION SCREENING 15 MIN, 1090F PRES/ABSN URINE INCON ASSESS, 3288F FALL RISK ASSESSMENT DOCD, 1170F FXNL STATUS ASSESSED, 1126F AMNT PAIN NOTED NONE PRSNT, 1159F MED LIST DOCD IN RCRD, 1003F LEVEL OF ACTIVITY ASSESS, 1036F TOBACCO NON- USER, 3074F SYST BP LT 130 MM HG, 3078F DIAST BP < 80 MM HG * Preventive Medicine: Counseling: E motional health: D iscussed ways to improve socialization. B ladder control: D iscussed ways to control/manage leakage of urine. E xercise: A dvised to start, increase or maintain level of exercise/physical activity. I njury prevention: D iscussed fall prevention. Discussed need for cane/walker. Potential trip hazards discussed. Immunizations: P neumococcal r ecommended. I nfluenza r ecommended seasonally. Screening / Special Tests: C olonoscopy w shelly reports C-scope within past 5 years in [place]. * Follow Up: 6 Months * Images: Billing Information: * Visit Code: 80773 Office Visit, Est Pt., Level 3. Modifiers: 25 * Procedure Codes: G0438 ANNUAL WELLNES VST; PERSNL PPS INIT. G2 Complex e/m visit add on. G044 ANNUAL DEPRESSION SCREENING 15 MIN. 1090F PRES/ABSN URINE INCON ASSESS. 3288F FALL RISK ASSESSMENT DOCD. 1170F FXNL STATUS ASSESSED. 1126F AMNT PAIN NOTED NONE PRSNT. 1159F MED LIST DOCD IN RCRD. 1003F LEVEL OF ACTIVITY ASSESS. 1036F TOBACCO NON-USER. 3074F SYST BP LT 130 MM HG. 3078F DIAST BP < 80 MM HG. * Electronic signature of Herson Centeno MD on 05/02/2025 at 12:14 PM EST Sign off status: Pending * Provider: Herson Centeno M.D. Date: 0 07/28/2024 Generated for Jabieri carlos/Lela/Xochitlitting on: 1 07/03/2024 12:14 PM EST History and Physical Notes * HPI (History of Present Illness) Category Sub-Category Detail Notes Category Not es Neurology notes that his dementia continues to slowly progress. She manages all of his medication. His appetite has improved and he has gained some weight since his last visit. Psychology He continues to follow with his psych nurse practitioner with some changes in medication. He apparently was on Zoloft and this was discontinued and he is now on BuSpar. He continues on Remeron and Zyprexa. He has developed some tardive dyskinesia from his benztropine but insurance will not cover Austedo or Ingrezza. HPI Patient is here today for a scheduled check up and a Medicare Annual Wellness Visit. See lab results drawn at [facility] 07/27/2024. He is accompanied by his . He has had recent blood work for review. Physical Examination Category Sub-Category Detail Notes Section Note s GENERAL Pain Assessment: Pain level: 0, on a scale of 0 to 10 (10 being extreme pain) Functional Status Assessment: Patient response to how often physical health interferes with daiy activities: Occasionally Requries help with ADLs-including meal preparation, grocery shopping, housework, laundry, taking medications, or handling finances. Cognitive Status: progressive dementia Ambulation Status: Fully ambulatory Fall Risk Assessment: Independant in amb ulation, adequate lighting in home. Patient has NOT fallen or had trouble walking within the past 12 months Depression Screening: Describes [facility] as: depressed Bladder Control Screening: Denies proble ms
--- OUTSIDE RECORDS SUMMARY | 2025-01-26 09:15 | XMS_ITS ---
[facility] Organization [facility] Address [address] [place] [id number] Care Team Providers Care Land Conservation Specialist Name Role Phone Herson Centeno Primary Care Provider Allergies Allergen (clinical drug ingredient) Drug/Non Drug Allergy documented on EMR Reaction Allergy Type Onset Date Status MYCINS (uncoded) Unknown Allergy Act ginny olanzapine OLANZapine agranulocytosis Drug Allergy Active quetiapine SEROquel nightmares Drug Allergy Activ e sertraline Zoloft ringing in ears Drug Allergy Active citalopram Citalopram blurred vision Drug Allergy Active Results Component Value Reference Range Notes EKG Reviewed date:01/31/2025 08:35:59 AM Interpretation:NSR, first degree AVB; RBBB Performing Lab: Notes/Report: NSR, first degree AVB; RBBB Reason For Referral Reason inguinal hernia Diagnosis 1 Inguinal hernia of r ight side without obstruction or gangrene (K40.90) [facility]erring Provider First Name Herson Oh Referring Provider Last Name Jacobo Referring Provider Speciality Family Pra ctice Referred Provider KELLY BOX Referred Provider Specialty General Surg edmundo General Notes Astrid Norman 2024 11:56:31 AM > 02/02/2025 at 09:15am; patients informed Referral Priority Routine REASON FOR VISIT swelling in groin Medications Medication SIG (Take, Route, Frequency, Duration) Notes Start Date End Date Status Synthroid 50 MCG 1 tab(s) orally once a day Active ZyPREXA 10 MG 1 tab(s) orally Two times a day Active MiraLax - DIRECTED ORALLY O NCE A DAY Active Benztropine Mesylate 1 MG 1 tablet Orall y Two times a day Active Mirtazapine 7.5 MG 1 tab(s) orally once a day (at bedtime) Active Aspirin 81 MG 1 tab(s) orally once a day Active Problems Problem Type SNOMED Code ICD Code Onset Dates Problem Status W/U Status Risk Notes Problem Atrial fibrillation (45103051) A-fib (I48.91) Active confirmed Vital Signs Weight 165.6 lbs 01/26/2025 Blood pressure systolic 112 mm Hg 01/27/20 25 Blood pressure diastolic 72 mm Hg 025 Heart Rate 89 /min 01/26/2025 Height 72 in 01/26/2025 BMI 22.46 kg/m2 01/26/2025 Encounters Encounter Location Date Provider Diagnosis [place] [address] [facility] [address] [place] [id number] 01/26/2025 Herson Centeno A-fib I48.91 ; Inguinal hernia of right side without obstruction or gangrene K40.90 and BMI 22.0-22.9, adult Z68.22 Assessments Encounter Date Diagnosis (ICD Code) Assessment Notes Treatment Notes Treatment Clinical Notes Section Notes 01/26/2025 A-fib (ICD-10 - I48.91) 01/26/2025 Inguinal hernia of right side without obstruction or gangrene (ICD-10 - K40.90) 01/26/2025 BMI 22.0-22.9, adult (ICD-10 - Z68.22) Plan Of Treatment Referrals Referral Date Details 01/27/2025 01/27/2025, inguinal hernia, KELLY BANKSNANNETTE Next Appt Details Follow Up: via phone to repo rt test results, Reason: Progress Notes * CHUCKY GODINEZDOB: 7 (69 yo M)Acc No.[id number]:01/26/2025 Progress Notes Patient: CHUCKY OLIVAS Lucy Provider: Herson Centeno M.D. :1955 A ge:69 Y S ex:Male Date:01/26/2025 Address:[address] [place] [address] [id number] Subjective: * Chief Complaints: * 1 . Swelling in groin. * HPI: M haley Reproductive: Jaziel comes in with his with concern about swelling in his groin which he states has been present for 2 to 3 weeks but his feels it has been there longer. He states the area has enlarged over time. He denies pain or difficulty with urination. No change in his bowel habits other than having some chronic constipation. C ardiology: His is also noticed some irregular recordings of his heart rate when checking his blood pressure at home. He has a history of intermittent A-fib. He is otherwise asymptomatic. * Medical History: A nxiety, Depression, ASCVD, DJD of LS spine, HLP, Hypothyroidism, Atrial fibrillation - onset 03/2019 - S/P Cardioversion, Cholelithiasis, Neurodegenerative dementia, Tardive dyskinesia. * Surgical History: C ABG 1997, appendectomy , electrical cardioversion for AF - Dr. Arroyo 04/2019, ERCP/ [facility] 2019, Lap Kaylie/ [facility]/ Dr. Sue 08/17/2019. * Hospitalization/Major Diagno stic Procedure: [facility] ER-anxiety 2008, [facility]-Afib 03/29/19, [facility] - acute cholecystitis/ ascending cholangitis/sepsis/ encephalopathy 08/2019, [facility]-rehab 08/2019, -[facility]/ Neurodegenerative dementia, Major depression, Y[facility] 06/2022. * Family History: F ather: , Parkinsons disease. M other: alive, HBP, depression, stroke. 2 sister(s) - healthy. . GF and uncle with depression. * Social History: C URRENT TOBACCO USE S moking Status: Patient does NOT smoke. C affeine: no. Exercise: no. Home smoke detector use: yes. Marital Status: . 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 Past smoking status: no. Recreational drug use: [...] Side Effects. Objective: * Vitals: W t: 165.6, Temp: 98.2, BP: 112/72, HR: 89, Nurse: SF, Ht: 72, BMI:22.46. * Examination: C ardiology: General Appearance: p leasant, NAD. H eart sounds: R ate is irregular with either A-fib or multiple PVCs.. M urmur, click , gallop: n one. L ungs: c lear, no rales or wheezes. E xtremities: n o leg edema. G enitourinary - Male: I n the right groin, there is a rather large inguinal hernia that is palpable. It is nontender but not easily reducible. Assessment: * Assessment: 1. I nguinal hernia of right side without obstruction or gangrene - K40.90 (Primary) 2 . A -fib - I48.91 3 . B RI 22.0-22.9, adult - Z68.22 ? Plan: * Treatment: 2. A -fib I maging: EKG (Performed Date - 01/26/2025) N SR, first degree AVB; RBBB * Procedure Codes: G 2211 Complex e/m visit add on, 1036F TOBACCO NON-USER, G8420 BMI<30 AND >=22 CALC & DOCU, G8783 BP SCR PRFRM RCMDD DEFIND SCR INTVL, 3074F SYST BP LT 130 MM HG, 3078F DIAST BP < 80 MM HG, G2100 Pt 66+ frailty and med dem * Follow Up: v ia phone to report test results * Images: Billing Information: * Visit Code: 42050 Office Visit, Est Pt., Level 4. * Procedure Codes: G2211 Complex e/m visit add on. 1036F TOBACCO NON-USER. G8420 BMI<30 AND >=22 CALC & DOCU. G8783 BP SCR PRFRM RCMDD DEFIND SCR INTVL. 3074F SYST BP LT 130 MM HG. 3078F DIAST BP < 80 MM HG. G2100 Pt 66+ frailty and med dem. * Electronic signature of Herson Centeno MD on 05/02/2025 at 12:13 PM EST Sign off status: Pending * Provider: Herson Centeno M.D. Date: 0 01/26/2025 Generated for Apolinar gonzalez/Lela/Ignaciosmitting on: 1 07/03/2024 12:13 PM EST History and Physical Notes * Examination Category Sub-Category Detail Notes Category Not es Cardiology Lungs: clear, no rales or wheezes Heart sounds: Rate is irregular wi th either A-fib or multiple PVCs. Extremities: no leg edema Murmur, click , gallop: none General Appearance: pleasant, NAD Genitourinary - Male In the right groin, there is a rather large inguinal hernia that is palpable. It is nontender but not easily reducible. Consultation Request Notes Referral Date Referring Provider Referred Provider Not es 01/27/2025 Herson Centeno CHARLES inguina l hernia
--- OUTSIDE RECORDS SUMMARY | 2025-02-02 08:30 | XMS_ITS ---
Author Organization [facility] Address [address] [facility] [address] [place] [id number] Care Team Providers Care Physician Specialist Name Role Phone Herson Centeno Primary Care Provider [phone] Allergies Allergen (clinical drug ingredient) Drug/Non Drug Allergy documented on EMR Reaction Allergy Type Onset Date Status MYCINS (uncoded) Unknown Allergy Act ginny olanzapine OLANZapine agranulocytosis Drug Allergy Active quetiapine SEROquel nightmares Drug Allergy Activ e sertraline Zoloft ringing in ears Drug Allergy Active citalopram Citalopram blurred vision Drug Allergy Active REASON FOR VISIT 6 months, Needs labs with PSA, colon cancer screening, Prevnar, & flu vaccines Encounters Encounter Location Date Provider Diagnosis [place] [address] [facility] [address] [place] [phone] 02/02/2025 Herson Centeno Plan Of Treatment No Information Progress Notes * CHUCKY GODINEZDOB: (69 yo M)Acc No.[id number]:02/02/2025 Progress Notes Patient: CHUCKY OLIVAS Provider: Herson Centeno M.D. :1955 A ge:69 Y S ex:Male Date:02/02/2025 Address:[address] [id number] Subjective: * Chief Complaints: * 1 . 6 months. 2. Needs labs with PSA, colon cancer screening, Prevnar, & flu vaccines. * HPI: C ardiology: 69 year old male presents with c/o Dyslipidemia P t is here today for a 6 month check up on Dyslipidemia. Pt sts he is doing well and has no new concerns or complaints at this time. * ROS: D ERMATOLOGY: Negative for r binh, hives. G ASTROENTEROLOGY: Negative for n ausea, vomiting, abdominal pain. ? U ROLOGY: Negative for d ifficulty urinating, voiding dysfunction, frequent urination. * Medical History: A nxiety, Depression, ASCVD, DJD of LS spine, HLP, Hypothyroidism, Atrial fibrillation - onset 03/2019 - S/P Cardioversion, Cholelithiasis, Neurodegenerative dementia, Tardive dyskinesia. * Surgical History: C ABG 1997, appendectomy , electrical cardioversion for AF - Dr. Arroyo 04/2019, ERCP/ [facility] 2019, Lap Kaylie/ [facility]/ Dr. Sue 08/17/2019. * Hospitalization/Major Diagno stic Procedure: H ER-anxiety 2008, [facility]-Afib 03/29/19, [facility] - acute cholecystitis/ ascending cholangitis/sepsis/ encephalopathy 08/2019, [facility]-rehab 08/2019, -[facility]/ Neurodegenerative dementia, Major depression, YEN 06/2022. * Family History: F ather: , Parkinsons disease. M other: alive, HBP, depression, stroke. 2 sister(s) - healthy. . GF and uncle with depression. * Social History: C URRENT TOBACCO USE S moking Status: Patient does NOT smoke. C affeine: no. Exercise: no. Home smoke detector use: yes. Marital Status: . 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 Past smoking status: no. Recreational drug use: yes, marijuana, still using. Alcohol: no. * Allergies: M YCINS, Citalopram: blurred vision - Side Effects, Zoloft: ringing in ears - Side Effects, SEROquel: nightmares - Side Effects, OLANZapine: agranulocytosis - Side Effects. Objective: * Vitals: Assessment: Plan: * Treatment: * Images: Billing Information: * Visit Code: * Procedure Codes: * Electronic signature of Herson Centeno MD on 05/02/2025 at 12:14 PM EST Sign off status: Pending * Provider: Herson Centeno M.D. Date: 0 02/02/2025 Generated for Apolinar gonzalez/Lela/Kylee on: 1 07/03/2024 12:14 PM EST History and Physical Notes * HPI (History of Present Illness) Category Sub-Category Detail Notes Category Not es Cardiology Dyslipidemia Pt is here today for a 6 month check up on Dyslipidemia. Pt sts he is doing well and has no new concerns or complaints at this time
--- OUTSIDE RECORDS SUMMARY | 2025-03-14 12:30 | XMS_ITS | Encounter Summary ---
Author Organization [facility] Address [address] [place] [address] Care Team Providers Care Tunneller Name Role Phone Skinny Centeno MD Primary Care Provider Reason for Referral * Diagnostic Imaging (Routine) - Closed Specialty Diagnoses / Procedures Referred By Viki martin Referred To Contact Diagnoses Atrial fibrillation, unspecified type Coronary artery disease involving barrow coronary artery of barrow heart without angina pectoris Typical atrial flutter Essential hypertension Pre-operative cardiovascular examination Procedures Adult Transthoracic Echo Complete W/ Cont if Necessary Per Protocol Kyra Ghosh APRN [address] [place] [address] Phone: tel: fax: [facility] [address] [phone] Phone: tel: fax: Referral ID Status Reason Start Date Expiration Date Visits Re quested Visits Authorized [id number] Closed 03/14/2025 06/13/2026 1 1 Reason for Visit * Reason Comments Atrial Fibrillation Pt is here for cardi ac clearancePt has a history of A-Fib from 2020 Pt denies palpitations, shortness of breath or chest pain * Consultation (Urgent) - Pending Review Specialty Diagnoses / Procedures Referred By Viki martin Referred To Contact Cardiology Diagnoses Encounter for pre-operative cardiovascular clearance CARDIAC CLEARANCE FOR HERNIA SURGERY Michele Shay MD [address] [facility] [address] [place] [address] Phone: tel: fax: [facility] [address] [place], [place] [address] Phone: tel: fax: Referral ID Status Reason Start Date Expiration Date V isits Requested Visits Authorized [id number] Pending Review 02/06/2025 05/08/2026 1 1 Encounter Details Date Type Department Care Team (Latest Contact Info) Description 03/14/2025 12:30 PM EST Office Visit [facility] [address] [place], [place] [phone] Kyra Ghosh APRN [address] [place] [address] Atrial fibrillation, unspecified type (Primary Dx); Coronary artery disease involving barrow coronary artery of barrow heart without angina pectoris; Typical atrial flutter; Essential hypertension; Pre-operative cardiovascular examination; Frontotemporal dementia Social History Tobacco Use Types Packs/Day Years Used Date Smoking Tobacco: Never Smokeless Tobacco: Never Tobacco Cessation:Counseling Given: No Alcohol Use Standard Drinks/Week Comments No 0 (1 standard drink = 0.6 oz pur e alcohol) AUDIT-C Answer Date Recorded Q1: How often do you have a drink containing alcohol? Never 03/14/2025 Q2: How many drinks containi ng alcohol do you have on a typical day when you are drinking? Patient does not drink Q3: How often do you have si x or more drinks on one occasion? Never 03/14/2025 Abuse Screen Answer Date Recorded Unsafe at [...] on file documented as of this encounter Last Filed Vital Signs Vital Sign Reading Time Taken Comments Blood Pressure 98/68 03/14/2025 12:27 PM EST Pulse 70 03/14/2025 12:27 PM EST Temperature - - Respiratory Rate - - Oxygen Saturation 98% 03/14/2025 12:27 PM EST Inhaled Oxygen Concentration - - Weight 77.8 kg (171 lb 8 oz) 03/14/2025 12:27 PM EST Height 182.9 cm (6' 0.01 ) 03/14/2025 12:[address] Body Mass Index 23.25 03/14/2025 12:27 PM EST documented in this encounter Functional Status * AUDIT-C Score Answer Date of Assessment Author 0 03/14/2025 12:30 PM EST Ragini Toledo MA * Alcohol Use Question Answer Date of Assessment Author Q1: How often do you have a drink containing alcohol? Never 03/14/2025 12:30 PM Danielle Irizarry M A Q2: How many drinks containing alcohol do you have on a typical day when you are drinking? Patient does not drink 03/14/2025 12:30 PM Danielle Irizarry MA Q3: How often do you have six or more drinks on one occasion? Never 03/14/2025 12:30 PM Danielle Irizarry M A documented as of this encounter Progress Notes * Kyra Ghosh, CARLOS - 03/14/2025 12:30 PM ESTAssociated Order(s): ECG 12 Lead Pre-Procedure Diagnose(s): Atrial fibrillation, unspecified type; Coronary artery disease involvingnative coronary artery of barrow heart without angina pectoris; Typical atrial flutter; Essential hypertension; Pre-operative cardiovascular examination Post-Procedure Diagnose(s): Atrial fibrillation, unspecified type; Coronary artery disease involving barrow coronary artery of barrow heart without angina pectoris; Typical atrial flutter; Essential hypertension; Pre-operative cardiovascular examination Images from the original note were not included. Date: 03/14/2025 Name: Willy Maguire : 1955 PCP: Skinny Centeno MD REF: Michele Shay MD Sleep and/or Cardiology Consulting Provider Note ..Atrial Fibrillation (Pt is here for cardiac clearance/Pt has a history of A- Fib from 2020 /Pt denies palpitations, shortness of breath or chest pain ) History of Present Illness 69-year-old male presents for cardiac clearance for hernia surgery. He is accompanied by his which is the historian as he has Frontotemporal dementia that is managed by Neurology.. Diagnosed with significant right-sided hernia, sudden onset, possibly linked to constipation from medication. Walks inclines without dyspnea or chest pain. No edema or dyspnea. Heart rate consistently in the 60s, dizziness on rapid standing due to medication. History of Afib since 2020, no beta blockers due to intrinsic bradycardia and hypotension. Continues with hypotension, self-regulating heart rate. EKG in 01/2025 showed no Afib per . Anxiety-induced dementia, increased anxiety without significant heart rate change. Per Dr. Arroyo 2020 note: 1. Coronary disease status post remote single-vessel CABG 2. Atrial fibrillation, no recurrence. Now off Xarelto given low chads vas score of 1. 3. Hypotension, least partially contributing to his symptoms of malaise fatigue 4. Dyslipidemia last LDL of 104, not on statin. Previous intolerance was of statin with myalgias and fatigue. Recommendations: 1. Discontinue diltiazem given his hypotension and symptoms. 2. Discussed with and patient that they do need institution of a statin. Would not do so at this time if it is general complaints of myalgias fatigue at this time. 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 Revisit annually apparent symptom change -it is unclear if chronic afib but rate controlled today -Asymptomatic -Will update echo and speak to Dr. Ling about Almaz/holter then call -Anxiety is managed by [facility] - PAST SURGICAL HISTORY: Bypass surgery: MM/YYYY Cardioversion: MM/YYYY SOCIAL HISTORY Walks regularly, including up a 200-foot inclined driveway. Cardiology and Sleep Related History: Patient and consent to PAPITO 03/14/25 Medications Discontinued During This Encounter Medication Reason hydrOXYzine (ATARAX) 50 MG tablet *Therapy completed Austedo 9 MG tablet *Therapy completed Allergies Allergen Reactions Erythromycin Itching Gabapentin Other (See Comments) Shuts brain down Lurasidone Other (See Comments) Parkinsonism like reactions Quetiapine Unknown (See Comments) Shuts brain down Sertraline Unknown (See Comments) Current Outpatient Medications: aspirin 81 MG EC tablet, Take 81 mg by mouth Daily., Disp: , Rfl: docusate sodium 100 MG capsule, Take 100 mg by mouth 2 (Two) Times a Day. (Patient taking differently: Take 100 mg by mouth Daily.), Disp: , Rfl: levothyroxine (SYNTHROID, LEVOTHROID) 50 MCG tablet, Take 50 mcg by mouth Daily., Disp: , Rfl: mirtazapine (REMERON MARINO-TAB) 15 MG disintegrating tablet, Place 1 tablet on the tongue Every Night. (Patient taking differently: Place 45 mg on the tongue Every Night.), Disp: , Rfl: OLANZapine (zyPREXA) 10 MG tablet, Take 10 mg by mouth 2 (two) times a day., Disp: , Rfl: sertraline (ZOLOFT) 20 MG/ML concentrated solution, Take 12.5 mg by mouth Daily., Disp: , Rfl: Past Medical History: Diagnosis Date Arthritis Atrial fibrillation Hypertension Hypothyroidism Spinal stenosis Patient Active Problem List Diagnosis Atrial fibrillation Coronary artery disease involving barrow coronary artery of barrow heart without angina pectoris Typical atrial flutter Essential hypertension Hypothyroidism (acquired) Acute cholangitis with sepsis Pancreatitis Elevated liver enzymes Ascending cholangitis Sepsis Anemia of chronic disease B12 deficiency YEN (generalized anxiety disorder) History of depression Lumbar facet arthropathy Frontotemporal dementia Family History Problem Relation Name Age of Onset Stroke Mother Parkinsonism Father family history includes Parkinsonism in his father; Stroke in his mother. Social History Socioeconomic History Marital status: Tobacco Use Smoking status: Never Smokeless tobacco: Never Vaping Use Vaping status: Never Used Substance and Sexual Activity Alcohol use: No Drug use: Never Sexual activity: Defer Vital Signs: BP 98/68 (BP Location: Right arm, Patient Position: Sitting, Cuff Size: Adult) Pulse 70 Ht 182.9 cm (72.01 ) Wt 77.8 kg (171 lb 8 oz) SpO2 98% BMI 23.25 kg/m?? Estimated body mass index is 23.25 kg/m?? as calculated from the following: Height as of this encounter: 182.9 cm (72.01 ). Weight as of this encounter: 77.8 kg (171 lb 8 oz). Physical Exam Vitals reviewed. Constitutional: Appearance: Normal appearance. He is well-developed. HENT: Head: Normocephalic and atraumatic. Eyes: General: No scleral icterus. Pupils: Pupils are equal, round, and reactive to light. Cardiovascular: Rate and Rhythm: Bradycardia present. Rhythm irregular. Heart sounds: Normal heart sounds. No murmur heard. Pulmonary: Breath sounds: Normal breath sounds. No wheezing or rhonchi. Musculoskeletal: Right lower leg: No edema. Left lower leg: No edema. Skin: General: Skin is warm and dry. Capillary Refill: Capillary refill takes less than 2 seconds. Coloration: Skin is not cyanotic. Nails: There is no clubbing. Neurological: Mental Status: He is alert. He is disoriented. Motor: No weakness. Gait: Gait normal. Comments: Oriented to person and able to tell me about pain/no pain/ and that he is able to take daily walks, etc. Psychiatric: Behavior: Behavior is cooperative. Physical Exam Heart: Irregular rhythm, heart rate 58 bpm, no murmurs or abnormal sounds. Lungs: Clear bilaterally, no wheezes, rales, or rhonchi. Results EKG: Controlled AFib, heart rate 58. Reviewed 08/05/23 Neurology Note ECG 12 Lead Date/Time: 03/14/2025 1:42 PM Performed by: Kyra Ghosh APRN Authorized by: Kyra Ghosh APRN Comparison: compared with previous ECG from 11/30/2019 Similar to previous ECG Rhythm: atrial fibrillation Rate: bradycardic BPM: 58 Conduction: right bundle branch block ST Segments: ST segments normal T Waves: T waves normal QRS axis: normal Other: no other findings Clinical impression: abnormal EKG Assessment and Plan Diagnoses and all orders for this visit: 1. Atrial fibrillation, unspecified type (Primary) - Adult Transthoracic Echo Complete W/ Cont if Necessary Per Protocol; Future - ECG 12 Lead 2. Coronary artery disease involving barrow coronary artery of barrow heart without angina pectoris - Adult Transthoracic Echo Complete W/ Cont if Necessary Per Protocol; Future - ECG 12 Lead 3. Typical atrial flutter - Adult Transthoracic Echo Complete W/ Cont if Necessary Per Protocol; Future - ECG 12 Lead 4. Essential hypertension - Adult Transthoracic Echo Complete W/ Cont if Necessary Per Protocol; Future - ECG 12 Lead 5. Pre-operative cardiovascular examination - Adult Transthoracic Echo Complete W/ Cont if Necessary Per Protocol; Future - ECG 12 Lead 6. Frontotemporal dementia Assessment & Plan - EKG Well-controlled AFib, heart rate 58. - Baseline low blood pressure and bradycardia since at least 2020. - Schedule echocardiogram for cardiac function. - Coordinate updated Holter monitor/ Almaz stress test if required by Dr. Ling Recommendations: ER if symptoms increase and Report if any new/changing symptoms immediately Follow Up Return for After testing for CC. Patient or patient route service representative verbalized consent for the use of Ambient Listening during the visit with Kyra Ghosh APRN for chart documentation. 03/14/2025 13:42 EST Kyra Ghosh APRN 03/14/2025 Please note that this explicitly excludes time spent on other separate billable services such as performing procedures or test interpretation, when applicable. This note was created using dictation software which occasionally transcribes nonsensical phrases. Please contact the provider if any clarification is needed. documented in this encounter Plan of Treatment Not on file documented as of this encounter Procedures Procedure Name Priority Date/Time Associated Diagnosis Comments ECG 12-LEAD Routine 03/14/2025 1:42 PM EST Atrial fibrillation, unspecified type Coronary artery disease involving barrow coronary artery of barrow heart without angina pectoris Typical atrial flutter Essential hypertension Pre-operative cardiovascular examination documented in this encounter Results * ECHO COMPLETE W/ DOPPLER AND COLOR FLOW (03/24/2025 3:16 PM EST) EF(MOD-bp) 61.4 % LVIDd 4.9 cm LVIDs 3.7 cm IVSd 0.99 cm LVPWd 1.02 cm FS 24.6 % IVS/LVPW 0.97 cm ESV(cubed) 49.4 ml LV Sys Vol (BSA corrected) 37.1 cm2 EDV(cubed) 115.5 ml LV Dolan Vol (BSA corrected) 77.8 cm2 LV mass(C)d 175.5 grams LVOT area 4.5 cm2 LVOT diam 2.40 cm EDV(MOD-sp2) 159.0 ml EDV(MOD-sp4) 155.0 ml ESV(MOD-sp2) 49.1 ml ESV(MOD-sp4) 73.9 ml SV(MOD-sp2) 109.9 ml SV(MOD-sp4) 81.1 ml SVi(MOD-SP2) 55.1 ml/m2 SVi(MOD-SP4) 40.7 ml/m2 SVi (LVOT) 50.4 ml/m2 EF(MOD-sp2) 69.1 % EF(MOD-sp4) 52.3 % MV E max ted 50.1 cm/sec MV A max ted 83.9 cm/sec MV dec time 0.25 sec MV E/A 0.60 IVRT 132.0 ms LA ESV Index (BP) 35.4 ml/m2 Med Peak E' Ted 6.0 cm/sec Lat Peak E' Ted 9.2 cm/sec TR max ted 277.0 cm/sec Avg E/e' ratio 6.59 SV(LVOT) 100.4 ml RVIDd 2.8 cm RV Base 3.6 cm RV Mid 3.2 cm RV Length 7.2 cm TAPSE (>1.6) 2.01 cm RV S' 13.0 cm/sec LA dimension (2D) 3.6 cm LV V1 max 112.0 cm/sec LV V1 max PG 5.0 mmHg LV V1 mean PG 2.00 mmHg LV V1 VTI 22.2 cm Ao pk ted 122.0 cm/sec Ao max PG 6.0 mmHg Ao mean PG 3.0 mmHg Ao V2 VTI 24.2 cm KLEVER(I,D) 4.2 cm2 Dimensionless Index 0.92 (DI) MV max PG 3.4 mmHg MV mean PG 1.00 mmHg MV V2 VTI 24.4 cm MV P1/2t 72.9 msec MVA(P1/2t) 3.0 cm2 MVA(VTI) 4.1 cm2 MV dec slope 202.5 cm/sec2 TR max PG 30.7 mmHg PA V2 max 89.7 cm/sec Ao root diam 3.2 cm Sinus 3.3 cm RVSP(TR) 34 mmHg RAP systole 3 mmHg Ascending aorta 3.4 cm Anatomical Region Laterality Modality Ultrasound Narrative 03/24/2025 6:50 PM EST Left ventricular systolic function is normal. Calculated left ventricular EF = 61.4% Left ventricular ejection fraction appears to be 61 - 65%. Left ventricular diastolic function is consistent with (grade I) impaired relaxation. Mild to moderate mitral valve regurgitation is present. Estimated right ventricular systolic pressure from tricuspid regurgitation is normal (<35 mmHg). Left Ventricle Left ventricular systolic function is normal. Calculated left ventricular EF = 61.4% Left ventricular ejection fraction appears to be 61 - 65%. Normal left ventricular cavity size and wall thickness noted. All left ventricular wall segments contract normally. Left ventricular diastolic function is consistent with (grade I) impaired relaxation. Right Ventricle Normal right ventricular cavity size, wall thickness, systolic function and septal motion noted. Left Atrium Left atrial volume is mildly increased. Right Atrium Normal right atrial cavity size noted. Right atrial volume is 44 ml. Mitral Valve Mild mitral annular calcification is present. Mild to moderate mitral valve regurgitation is present. No significant mitral valve stenosis is present. Tricuspid Valve The tricuspid valve is structurally normal with no significant stenosis present. Mild tricuspid valve regurgitation is present. Estimated right ventricular systolic pressure from tricuspid regurgitation is normal (<35 mmHg). Aortic Valve No aortic valve regurgitation or stenosis is present. The aortic valve is abnormal in structure. The aortic valve exhibits sclerosis. The aortic valve appears trileaflet. Pulmonic Valve The pulmonic valve is structurally normal with no significant stenosis present. There is trace pulmonic valve regurgitation present. Pericardium The pericardium is normal. There is no evidence of pericardial effusion. . Greater Vessels No dilation of the aortic root is present. No dilation of the sinuses of Valsalva is present. No dilation of the proximal aorta is present. No dilation of the ascending aorta is present. The aortic arch not well visualized. The descending aorta not well visualized. The inferior vena cava is normally sized. Normal IVC inspiratory collapse of greater than 50% noted. The pulmonary artery not well visualized. Study Quality The study is technically difficult for diagnosis. The quality of the study is limited due to patient positioning with poor acoustic windows. Atrial fibrillation was the predominant rhythm observed during the procedure. Wall Scoring Score Index: 1.00 The left ventricular wall motion is normal. Kyra Ghosh APRN CV ECHO ORDERABLES Final Result * ECG 12-LEAD (03/14/2025 1:42 PM EST) Narrative ECG - 03/14/2025 1:42 PM EST Kyra Ghosh APRN 03/14/2025 1:45 PM ECG 12 Lead Date/Time: 03/14/2025 1:42 PM Performed by: Kyra Ghosh APRN Authorized by: Kyra Ghosh APRN Comparison: compared with previous ECG from 11/30/2019 Similar to previous ECG Rhythm: atrial fibrillation Rate: bradycardic BPM: 58 Conduction: right bundle branch block ST Segments: ST segments normal T Waves: T waves normal QRS axis: normal Other: no other findings Clinical impression: abnormal EKG Procedure Note Kyra Ghosh APRN - 03/14/2025 12:30 PM EST Images from the original note were not included. Date: 03/14/2025 Name: Willy Maguire : 1955 PCP: Skinny Centeno MD REF: Michele Shay MD Sleep and/or Cardiology Consulting Provider Note ..Atrial Fibrillation (Pt is here for cardiac clearance/Pt has a historyof A-Fib from 2020 /Pt denies palpitations, shortness of breath or chestpain ) History of Present Illness 69-year-old male presents for cardiac clearance for hernia surgery. He isaccompanied by his which is the historian as he has Frontotemporaldementia that is managed by Neurology.. Diagnosed with significant right-sided hernia, sudden onset, possiblylinked to constipation from medication. Walks inclines without dyspnea orchest pain. No edema or dyspnea. Heart rate consistently in the 60s,dizziness on rapid standing due to medication. History of Afib since 2020, no beta blockers due to intrinsic bradycardiaand hypotension. Continues with hypotension, self-regulating heart rate.EKG in 01/2025 showed no Afib per . Anxiety-induced dementia, increased anxiety without significant heart ratechange. Per Dr. Arroyo 2020 note: 1. Coronary disease status post remote single-vessel CABG 2. Atrial fibrillation, no recurrence. Now off Xarelto given low chadsvas score of 1. 3. Hypotension, least partially contributing to his symptoms of malaisefatigue 4. Dyslipidemia last LDL of 104, not on statin. Previous intolerance wasof statin with myalgias and fatigue. Recommendations: 1. Discontinue diltiazem given his hypotension and symptoms. 2. Discussed with and patient that they do need institution of astatin. Would not do so at this time if it is general complaints ofmyalgias fatigue at this time. Once these have been resolved, and is CNSmedicines have been sorted out, we will then perform a trial of Livalo, orperhaps nonstatin antilipidemic's 3. Revisit annually apparent symptom change -it is unclear if chronic afib but rate controlled today -Asymptomatic -Will update echo and speak to Dr. Ling about Almaz/holter then callwife -Anxiety is managed by [facility] - PAST SURGICAL HISTORY: Bypass surgery: MM/YYYY Cardioversion: MM/YYYY SOCIAL HISTORY Walks regularly, including up a 200-foot inclined driveway. Cardiology and Sleep Related History: Patient and consent to PAPITO 03/14/25 Medications Discontinued During This Encounter Medication Reason hydrOXYzine (ATARAX) 50 MG tablet *Therapy completed Austedo 9 MG tablet *Therapy completed Allergies Allergen Reactions Erythromycin Itching Gabapentin Other (See Comments) Shuts brain down Lurasidone Other (See Comments) Parkinsonism like reactions Quetiapine Unknown (See Comments) Shuts brain down Sertraline Unknown (See Comments) Current Outpatient Medications: aspirin 81 MG EC tablet, Take 81 mg by mouth Daily., Disp: , Rfl: docusate sodium 100 MG capsule, Take 100 mg by mouth 2 (Two) Times aDay. (Patient taking differently: Take 100 mg by mouth Daily.), Disp: ,Rfl: levothyroxine (SYNTHROID, LEVOTHROID) 50 MCG tablet, Take 50 mcg bymouth Daily., Disp: , Rfl: mirtazapine (REMERON MARINO-TAB) 15 MG disintegrating tablet, Place 1tablet on the tongue Every Night. (Patient taking differently: Place 45 mgon the tongue Every Night.), Disp: , Rfl: OLANZapine (zyPREXA) 10 MG tablet, Take 10 mg by mouth 2 (two) times aday., Disp: , Rfl: sertraline (ZOLOFT) 20 MG/ML concentrated solution, Take 12.5 mg bymouth Daily., Disp: , Rfl: Past Medical History: Diagnosis Date Arthritis Atrial fibrillation Hypertension Hypothyroidism Spinal stenosis Patient Active Problem List Diagnosis Atrial fibrillation Coronary artery disease involving barrow coronary artery of barrow heartwithout angina pectoris Typical atrial flutter Essential hypertension Hypothyroidism (acquired) Acute cholangitis with sepsis Pancreatitis Elevated liver enzymes Ascending cholangitis Sepsis Anemia of chronic disease B12 deficiency YEN (generalized anxiety disorder) History of depression Lumbar facet arthropathy Frontotemporal dementia Family History Problem Relation Name Age of Onset Stroke Mother Parkinsonism Father family history includes Parkinsonism in his father; Stroke in his mother. Social History Socioeconomic History Marital status: Tobacco Use Smoking status: Never Smokeless tobacco: Never Vaping Use Vaping status: Never Used Substance and Sexual Activity Alcohol use: No Drug use: Never Sexual activity: Defer Vital Signs: BP 98/68 (BP Location: Right arm, Patient Position: Sitting, Cuff Size:Adult) Pulse 70 Ht 182.9 cm (72.01 ) Wt 77.8 kg (171 lb 8 oz) SpO2 98% BMI 23.25 kg/m Estimated body mass index is 23.25 kg/m as calculated from thefollowing: Height as of this encounter: 182.9 cm (72.01 ). Weight as of this encounter: 77.8 kg (171 lb 8 oz). Physical Exam Vitals reviewed. Constitutional: Appearance: Normal appearance. He is well-developed. HENT: Head: Normocephalic and atraumatic. Eyes: General: No scleral icterus. Pupils: Pupils are equal, round, and reactive to light. Cardiovascular: Rate and Rhythm: Bradycardia present. Rhythm irregular. Heart sounds: Normal heart sounds. No murmur heard. Pulmonary: Breath sounds: Normal breath sounds. No wheezing or rhonchi. Musculoskeletal: Right lower leg: No edema. Left lower leg: No edema. Skin: General: Skin is warm and dry. Capillary Refill: Capillary refill takes less than 2 seconds. Coloration: Skin is not cyanotic. Nails: There is no clubbing. Neurological: Mental Status: He is alert. He is disoriented. Motor: No weakness. Gait: Gait normal. Comments: Oriented to person and able to tell me about pain/no pain/and that he is able to take daily walks, etc. Psychiatric: Behavior: Behavior is cooperative. Physical Exam Heart: Irregular rhythm, heart rate 58 bpm, no murmurs or abnormalsounds. Lungs: Clear bilaterally, no wheezes, rales, or rhonchi. Results EKG: Controlled AFib, heart rate 58. Reviewed 08/05/23 Neurology Note ECG 12 Lead Date/Time: 03/14/2025 1:42 PM Performed by: Kyra Ghosh APRN Authorized by: Kyra Ghosh APRN Comparison: compared withprevious ECG from 11/30/2019 Similar to previous ECG Rhythm: atrial fibrillation Rate: bradycardic BPM: 58 Conduction: right bundle branch block ST Segments: ST segments normal T Waves: T waves normal QRS axis: normal Other: no other findings Clinical impression: abnormal EKG Assessment and Plan Diagnoses and all orders for this visit: 1. Atrial fibrillation, unspecified type (Primary) - Adult Transthoracic Echo Complete W/ Cont if Necessary Per Protocol;Future - ECG 12 Lead 2. Coronary artery disease involving barrow coronary artery of nativeheart without angina pectoris - Adult Transthoracic Echo Complete W/ Cont if Necessary Per Protocol;Future - ECG 12 Lead 3. Typical atrial flutter - Adult Transthoracic Echo Complete W/ Cont if Necessary Per Protocol;Future - ECG 12 Lead 4. Essential hypertension - Adult Transthoracic Echo Complete W/ Cont if Necessary Per Protocol;Future - ECG 12 Lead 5. Pre-operative cardiovascular examination - Adult Transthoracic Echo Complete W/ Cont if Necessary Per Protocol;Future - ECG 12 Lead 6. Frontotemporal dementia Assessment & Plan - EKG Well-controlled AFib, heart rate 58. - Baseline low blood pressure and bradycardia since at least 2020. - Schedule echocardiogram for cardiac function. - Coordinate updated Holter monitor/ Almaz stress test if required by Recommendations: ER if symptoms increase and Report if any new/changingsymptoms immediately Follow Up Return for After testing for CC. Patient or patient route service representative verbalized consent for the use ofAmbient Listening during the visit with Kyra Ghosh APRN forchart documentation. 03/14/2025 13:42 EST Kyra Annette Ghosh APRN 03/14/2025 Please note that this explicitly excludes time spent on other separatebillable services such as performing procedures or test interpretation,when applicable. This note was created using dictation software whichoccasionally transcribes nonsensical phrases. Please contact the providerif any clarification is needed. Kyra Ghosh APRN ECG ORDERABLES Farhad bj Result - Final ECG documented in this encounter Visit Diagnoses Diagnosis Atrial fibrillation, unspecified type- Primary Coronary artery disease involving barrow coronary artery of barrow heart without angina pectoris Typical atrial flutter Essential hypertension Unspecified essential hypertension Pre-operative cardiovascular examination Frontotemporal dementia Atrial fibrillation, unspecified type Coronary artery disease involving barrow coronary artery of barrow heart without angina pectoris Typical atrial flutter Essential hypertension Unspecified essential hypertension Pre-operative cardiovascular examination documented in this encounter Care Teams Tunneller Relationship Specialty Start Date End Date Skinny Centeno MD [address] [facility] [address] [facility] [address] [place] [address] PCP - General Family Medicine 04/13/19 documented as of this encounter
--- OUTSIDE RECORDS SUMMARY | 2025-03-24 14:30 | XMS_ITS | Encounter Summary ---
Author Organization [facility] Address [address] [place] [address] Care Team Providers Care [employer] Operations Specialist Name Role Phone Skinny Centeno MD Primary Care Provider Reason for Visit * Diagnostic Imaging (Routine) - Closed Specialty Diagnoses / Procedures Referred By Contac t Referred To Contact Diagnoses Atrial fibrillation, unspecified type Coronary artery disease involving andreafski coronary artery of andreafski heart without angina pectoris Typical atrial flutter Essential hypertension Pre-operative cardiovascular examination Procedures Adult Transthoracic Echo Complete W/ Cont if Necessary Per Protocol Kyra Ghosh APRN [address] [place] [address] Phone: tel: fax: [facility] [address] [place] [address] Phone: tel: fax: Referral ID Status Reason Start Date Expiration Date Visits Re quested Visits Authorized [id number] Closed 03/14/2025 06/13/2026 1 1 Encounter Details Date Type Department Care Team (Latest Contact Info) Description 03/24/2025 2:30 PM EST Ancillary Procedure [facility] [address] [place] [address] [place] [id number] Atrial fibrillation, unspecified type; Coronary artery disease involving andreafski coronary artery of andreafski heart without angina pectoris; Typical atrial flutter; Essential hypertension; Pre-operative cardiovascular examination Social History Tobacco Use Types Packs/Day Years [...] Sign Reading Time Taken Comments Blood Pressure 105/75 03/24/2025 2:25 PM EST Pulse - - Temperature - - Respiratory Rate - - Oxygen Saturation - - Inhaled Oxygen Concentration - - Weight 77.6 kg (171 lb) 03/24/2025 2:25 PM EST Height 182.9 cm (6') 03/24/2025 2:25 PM EST Body Mass Index 23.19 03/24/2025 2:25 PM EST documented in this encounter Plan of Treatment Not on file documented as of this encounter Procedures Procedure Name Priority Date/Time Associated Diagnosis Comments ECHO COMPLETE W/ DOPPLER AND COLOR FLOW Routine 03/24/2025 3:16 PM EST Atrial fibrillation, unspecified type Coronary artery disease involving andreafski coronary artery of andreafski heart without angina pectoris Typical atrial flutter [...] Ghosh APRN CV ECHO ORDERABLES Final Result documented in this encounter Visit Diagnoses Diagnosis Atrial fibrillation, unspecified type Coronary artery disease involving andreafski coronary artery of andreafski heart without angina pectoris Typical atrial flutter Essential hypertension Unspecified essential hypertension Pre-operative cardiovascular examination documented in this encounter Care Teams [employer] Operations Specialist Relationship Specialty Start Date End Date Skinny Centeno MD [facility] [address] [place] [address] PCP - General Family Medicine 04/13/19 documented as of this encounter
--- OUTSIDE RECORDS SUMMARY | 2025-03-30 09:00 | XMS_ITS ---
Author Organization [facility] Address [address] [place] [phone] Care Team Providers Care Medical Record Librarians Teacher Name Role Phone Herson Centeno Primary Care Provider [phone] Allergies Allergen (clinical drug ingredient) Drug/Non Drug Allergy documented on EMR Reaction Allergy Type Onset Date Status MYCINS (uncoded) Unknown Allergy Act ginny olanzapine OLANZapine agranulocytosis Drug Allergy Active quetiapine SEROquel nightmares Drug Allergy Activ e sertraline Zoloft ringing in ears Drug Allergy Active citalopram Citalopram blurred vision Drug Allergy Active REASON FOR VISIT [facility] f/u Medications Medication SIG (Take, Route, Frequency, Duration) Notes Start Date End Date Status Mirtazapine 7.5 MG 1 tab(s) orally once a day (at bedtime) Active ZyPREXA 10 MG 1 tab(s) orally Two times a day Active Cefdinir 300 MG as directed Orally t wice a day Active Synthroid 50 MCG 1 tab(s) orally once a day Active Benztropine Mesylate 1 MG 1 tablet Orall y Two times a day Active MiraLax - DIRECTED ORALLY O NCE A DAY Active Aspirin 81 MG 1 tab(s) orally once a day Active Sertraline HCl 25 MG 1 tablet Orally Once a day Active Immunizations Vaccine Route Administration Date Status Comme nts Prevnar (PCV20) IM Intramuscular 03/30/2025 Administered Vital Signs Weight 171 lbs 03/30/2025 Blood pressure systolic 118 mm Hg 03/30/20 25 Blood pressure diastolic 70 mm Hg 025 Heart Rate 80 /min 03/30/2025 Height 72 in 03/30/2025 BMI 23.19 kg/m2 03/30/2025 Encounters Encounter Location Date Provider Diagnosis [facility] [address] [place] [phone] 03/30/2025 R Adriano Centeno A-fib I48.91 ; UTI (lower urinary tract infection) N39.0 ; Encounter for immunization Z23 and Inguinal hernia of right side without obstruction or gangrene K40.90 Assessments Encounter Date Diagnosis (ICD Code) Assessment Notes Treatment Notes Treatment Clinical Notes Section Notes 03/30/2025 A-fib (ICD-10 - I48.91) 03/30/2025 UTI (lower urinary tract infection) (ICD-10 - N39.0) After completing course of cefdinir, his will drop off a urine sample to the office for retesting. 03/30/2025 Encounter for immunization (ICD-10 - Z23) 03/30/2025 Inguinal hernia of right side without obstruction or gangrene (ICD-10 - K40.90) Follow-up with Dr. Shay for surgical intervention after cardiac clearance Plan Of Treatment Medication Medication Name Sig Start Date Stop Date Notes Cefdinir 300 MG as directed Orally twice a day Treatment Notes Assessment Notes UTI (lower urinary tract infection) Afte r completing course of cefdinir, his will drop off a urine sample to the office for retesting. Inguinal hernia of right tony e without obstruction or gangrene Follow-up with Dr. Shay for surgical intervention after cardiac clearance Next Appt Details Follow Up: Repeat UA 1 week, Reason: Progress Notes * CHUCKY GODINEZDOB: (69 yo M)Acc No.[id number]:03/30/2025 Progress Notes Patient: CHUCKY OLIVAS Lucy Provider: Herson Centeno M.D. :1955 A ge:69 Y S ex:Male Date:03/30/2025 Address:[address] [place] [address] [id number] Subjective: * Chief Complaints: * 1 . H f/u. * HPI: H PI: Jaziel comes in accompanied by his for follow-up on recent [facility] admission for increased anxiety, confusion, agitation, and verbal aggression with his . He was ultimately diagnosed with a UTI and discharged home on oral antibiotics. He seems to be better since going home. 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 * ROS: D ERMATOLOGY: no R binh. n o H eliseo. G ASTROENTEROLOGY: no N ausea. n o V omiting. n o D iarrhea.? U ROLOGY: no D ifficulty urinating. n o B lood in urine. * Medical History: A nxiety, Depression, ASCVD, DJD of LS spine, HLP, Hypothyroidism, Atrial fibrillation - onset 03/2019 - S/P Cardioversion, Cholelithiasis, Neurodegenerative dementia, Tardive dyskinesia. * Surgical History: C ABG 1997, appendectomy , electrical cardioversion for AF - Dr. Arroyo 04/2019, ERCP/ [facility] 2019, Lap Kaylie/ [facility]/ Dr. Sue 08/17/2019. * Hospitalization/Major Diagno stic Procedure: [facility] ER-anxiety 2008, [facility]-Afib 03/29/19, [facility] - acute cholecystitis/ ascending cholangitis/sepsis/ encephalopathy 08/2019, [facility]-rehab 08/2019, -[facility]/ Neurodegenerative dementia, Major depression, YEN 06/2022. * Family History: F ather: , Parkinsons disease. M other: alive, HBP, depression, stroke. 2 sister(s) - healthy. . GF and uncle with depression. * Social History: C URRENT TOBACCO USE S moking Status: Patient does NOT smoke. C affeine: no. Exercise: no. Home smoke detector use: yes. Marital Status: . 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 Past smoking status: no. Recreational drug use: yes, marijuana, still using. Alcohol: no. * Medications: T aking Sertraline HCl 25 MG Tablet 1 tablet Orally Once a day , Taking Cefdinir 300 MG Capsule as directed Orally twice a day , Taking Aspirin 81 MG [...] Side Effects. Objective: * Vitals: W t: 171, Temp: 98.7, BP: 118/70, HR: 80, Nurse: pe, Ht: 72, BMI:23.19. * Examination: G eneral Examination: General Appearance: A ffect is appropriate and calm today.? He answers questions appropriately. No agitation.. H eart: I rregularly irregular rhythm rhythm with controlled rate. L ungs: c lear to auscultation. Assessment: * Assessment: 1. A -fib - I48.91 (Primary) 2 . U TI (lower urinary tract infection) - N39.0 3 . E ncounter for immunization - Z23 4 . I nguinal hernia of right side without obstruction or gangrene - K40.90 Plan: * Treatment: 2. I nguinal hernia of right side without obstruction or gangrene Notes: Follow-up with Dr. Shay for surgical intervention after cardiac clearance * Immunizations: Prevnar (PCV20) : 0.5 mL (Route: Intramuscular) given by DOMI Sotelo , Cadastral Engineer on Right Deltoid (Encounter for immunization) * Procedure Codes: G 2211 Complex e/m visit add on * Follow Up: Herson colin UA 1 week * Images: Billing Information: * Visit Code: 20816 Office Visit, Est Pt., Level 3. * Procedure Codes: G2211 Complex e/m visit add on. * Electronic signature of Herson Centeno MD on 05/02/2025 at 12:13 PM EST Sign off status: Pending * Provider: Herson Centeno M.D. Date: 05/30/2024 Generated for Apolinar gonzalez/Lela/eTransmitting on: 1 07/03/2024 12:13 PM EST History and Physical Notes * Examination Category Sub-Category Detail Notes Category Not es General Examination Heart: Irregularly irregular rhythm rhythm with controlled rate Lungs: clear to auscultatio n General Appearance: Affect is appropriat e and calm today. He answers questions appropriately. No agitation.
--- OUTSIDE RECORDS SUMMARY | 2025-04-13 05:15 | XMS_ITS ---
[facility] Address [address] [place] [address] [place] [phone] Care Team Providers Care Political Analyst Name Role Phone Herson Centeno Primary Care Provider Results Component Value Reference Range Notes Urinalysis - Inhouse Reviewed date:04/13/2025 01:59:03 PM Interpretation: Performing Lab: Notes/Report: Color/Clarity yellow/clear Leuk neg Nitrite neg Urobili 3.2 Protein neg pH 6.0 Blood neg Sp. Gr. 1.010 Ketone neg Bili neg Gluc neg REASON FOR VISIT urine sample Encounters Encounter Location Date Provider Diagnosis [place] [address] [place] [address] [place] [phone] 04/13/2025 Herson Centeno UTI (lower urinary tract infection) N39.0 Assessments Encounter Date Diagnosis (ICD Code) Assessment Notes Treatment Notes Treatment Clinical Notes Section Notes 04/13/2025 UTI (lower urinary tract infection) (ICD-10 - N39.0) Plan Of Treatment No Information Progress Notes * CHUCKY GODINEZDOB: 7 (69 yo M)Acc No.[id number]:04/13/2025 Patient: CHUCKY OLIVAS Provider: Herson Centeno M.D. :1955 A ge:69 Y S ex:Male Date:04/13/2025 Address:[address] [id number] Subjective: * Chief Complaints: * 1 . Urine sample. * Medical History: Objective: * Vitals: Assessment: * Assessment: 1. U TI (lower urinary tract infection) - N39.0 (Primary) Plan: * Treatment: * Labs: * L ab: Urinalysis - Inhouse (Collection Date & Time - 04/13/2025) Value Reference Range C olor/Clarity yellow/clear * L euk neg * N itrite neg * U robili 3.2 * P rotein neg * p H 6.0 * B lood neg * S p. Gr. 1.010 * K etone neg * B sheryl neg * G jolly neg * Taylor Astorga 04/13/2025 11: 54:49 AM EST > Herson Centeno 04/13/2025 01:58:49 PM EST > See phone encounter * Procedure Codes: 8 1002 Urinalysis, no micro * Images: Billing Information: * Visit Code: * Procedure Codes: 76937 Urinalysis, no micro. * Electronic signature of Herson Centeno MD on 05/02/2025 at 12:13 PM EST Sign off status: Pending * Provider: Herson Centeno M.D. Date: 1 06/14/2024 Generated for Apolinar gonzalez/Lela/Kylee on: 07/03/2024 12:13 PM EST
--- OUTSIDE RECORDS SUMMARY | 2025-04-14 10:23 | XMS_ITS ---
[facility] [address] [facility] [address] [facility] [address] [place] [phone] Care Team Providers Care Parking Officer Name Role Phone Herson Centeno Primary Care Provider [phone] REASON FOR VISIT Requesting testing Encounters Encounter Location Date Provider Diagnosis [place] [address] [facility] [address] [facility] [address] [place] [phone] 04/14/2025 Herson Centeno Diarrhea R19.7 Assessments Encounter Date Diagnosis (ICD Code) Assessment Notes Treatment Notes Treatment Clinical Notes Section Notes 04/14/2025 Diarrhea (ICD-10 - R19.7) Plan Of Treatment Pending Test Test Name Order Date H-Diarrhea 6-11 Panel, Cdiff PCR 025 Progress Notes * CHUCKY GODINEZDOB: (69 yo M)Acc No.[id number]:04/14/2025 Patient: Andrea CHUCKY LOPEZ :1955 A ge:69 Y S ex:Male Address:[address] [place] [address] Subjective: * Chief Complaints: * R equesting testing * Medical History: * Surgical History: * Hospitalization/Major Diagno stic Procedure: * Medications: Objective: * Vitals: * Physical Examination: Assessment: * Assessment: 1. D iarrhea - R19.7 (Primary) Plan: * Treatment: * Procedure Codes: * true * Date: Generated for Printi ng/Faxing/eTransmitting on: 07/03/2024 12:13 PM EST
[2025-05-02 08:56] VITALS: BMI 23.0
--- OUTSIDE RECORDS SUMMARY | 2025-05-02 12:14 | XMS_ITS | Patient Health Record ---
Author Organization [facility] Address [address] [place] [id number] Care Team Providers Care Mailroom Supervisor Name Role Phone Herson Centeno Primary Care Provider [phone] Allergies Allergen (clinical drug ingredient) Drug/Non Drug [...] Lab: Notes/Report: NSR, first degree AVB; RBBB Urinalysis - Inhouse Reviewed date:04/13/2025 01:59:03 PM Interpretation: Performing Lab: Notes/Report: Color/Clarity yellow/clear Leuk neg Nitrite neg Urobili 3.2 Protein neg pH 6.0 Blood neg Sp. Gr. 1.010 Ketone neg Bili neg Gluc neg H-CBC Reviewed date:07/28/2024 03:03:36 PM Interpretation: Performing Lab: Notes/Report: WBC 6.1 4.8-10.8 K/mm3 RBC 4.44 4.60-6.20 M/mm3 HGB 13.9 14.1-18.0 g/dL HCT 41.7 42.0-52.0 % MCV 93.9 80-94 fl MCH 31.3 27.0-31.2 pg MCHC 33.3 31.8-35.4 g/dL RDW 14.3 11.5-17.5 % PLT 143 142-424 K/mm3 MPV 12.2 7.4-10.4 fl NE% 44.9 37.0-80.0 % LY% 46.6 10-50 % MO% 6.1 1.7-9.3 % EO% 1.5 0.1-12.0 % BA% 0.7 0.1-2.0 % NE# 2.7 1.8-7.8 K/mm3 LY# 2.8 0.7-4.5 K/mm3 MO# 0.4 0.1-1.0 K/mm3 EO# 0.1 0.0-0.4 K/mm3 BA# 0.0 0-0.2 K/mm3 H-Lipid Panel Reviewed date:07/28/2024 03:03:36 PM Interpretation:dldl 81 Performing Lab: Notes/Report: Patient Fasting? Y TRIG 91 30-150 mg/dl CHOL 159 140-200 mg/dl DLDL 81.34 100-129 mg/dL VLDL 18 0-40 mg/dL HDL 51 40-60 mg/dl CHLHDL 3.1 1-3.5 H-CMP Reviewed date:07/28/2024 03:03:36 PM Interpretation:cl 109 Performing Lab: Notes/Report: NA 140 136-145 mmol/L K 4.7 3.5-5.1 mmoL/L CL 109 98-107 mmol/L CO2 24 22.0-30.0 mmol/L GAP 11.7 5-15 mEq/L BUN 14 9-20 mg/dl CREATT 1.20 0.66-1.25 mg/dl GFRAA 73 >60 ML/MIN EGFR 60 >60 ml/min GLU 92 74-100 mg/dl CA 9.4 8.4-10.2 mg/dl BILIT 1.0 0.2-1.3 mg/dl AST 27 17-59 U/L ALT 25 12-78 U/L TP 7.0 6.3-8.2 g/dl ALB 4.5 3.5-5.0 g/dl GLOB 2.5 1.3-3.2 g/dL AGRATIO 1.8 1.1-1.8 ALP 68 38-126 U/L H-TSH Reviewed date:03/27/2025 05:17:13 PM Interpretation: Performing Lab: Notes/Report: TSH 3.30 0.465-4.68 uIU/mL H-VITAMIN B12 Reviewed date:03/27/2025 05:17:13 PM Interpretation: Performing Lab: Notes/Report: VITB12 242 239-931 pg/mL Reason For Referral Reason inguinal hernia Diagnosis 1 Inguinal hernia of r ight side without obstruction or gangrene (K40.90) Referral Organization [facility] Referring Provider First Name Herson Oh Referring Provider Last Name Jacobo Referring Provider Speciality Family [facility] Referred Provider KELLY SHAY Referred Provider Specialty General Surg edmundo General Notes Astrid Norman 2024 11:56:31 AM > 02/02/2025 at 09:15am; patients informed Referral Priority Routine Medications Medication SIG (Take, Route, Frequency, Duration) Notes Start Date End Date Status Mirtazapine 7.5 MG 1 tab(s) orally once a day (at bedtime) Active ZyPREXA 10 MG 1 tab(s) orally Two times a day Active MiraLax - DIRECTED ORALLY O NCE A DAY Active Cefdinir 300 MG as directed Orally t wice a day Active Synthroid 50 MCG 1 tab(s) orally once a day Active Benztropine Mesylate 1 MG 1 tablet Orall y Two times a day Active Aspirin 81 MG 1 tab(s) orally once a day Active Sertraline HCl 25 MG 1 tablet Orally Once a day Active Immunizations Vaccine Route Administration Date Status Comme nts xFlu shot-36 months and older IM Intramuscular 03/29/2005 Administered xFlu shot-36 months and older IM Intramuscular 03/13/2006 Administered xFlu shot-36 months and older IM Intramuscular 03/31/2007 Administered Tetanus Tdap-Adacel (over 7yrs) IM Intramuscular 10/26/2014 Administered Patient cut agrcia d on raccoon cage and has not had a recent Tetanus shot, requested one. Approved. Prevnar (PCV20) IM Intramuscular 03/30/2025 Administered PNEUMOVAX 23 VACCINE Unknown 03/31/2019 Administered Fluzone Quad-Medicare (6months&older) IM Intramuscular 02/25/2018 Administered Fluzone Quad (6months&older) IM Intramuscular 03/09/2015 Administered Fluzone Quad (6months&older) IM Intramuscular 03/06/2016 Administered Fluzone Quad (6months&older) IM Intramuscular 02/06/2017 Administered Fluzone Quad (6months&older) IM Intramuscular 02/24/2019 Administered Fluzone Quad (6months&older) IM Intramuscular 01/13/2020 Administered Fluzone Quad (6months&older) IM Intramuscular 03/06/2022 Administered Fluzone High Dose (65yr and older) IM Intramuscular 03/10/2024 Administered Flublok IM Intramuscular 03/09/2021 Administered COVID 19 Moderna Unknown 05/18/2020 Administered COVID 19 Moderna Unknown 06/18/2020 Administered COVID 19 Moderna Unknown 04/10/2021 Administered Problems Problem Type SNOMED Code ICD Code Onset Dates Problem Status W/U Status Risk Notes Problem Essential hypertension (08638066) Essential (primary) hypertension (I10) Active confirmed Problem Coronary arteriosclerosis (72609680) ASCVD (arteriosclerotic cardiovascular disease) (I25.10) Active confirmed Problem Atrial fibrillation (04536270) A-fib (I48.91) Active confirmed Problem Vitamin D deficiency (11592031) Vitamin D deficiency (E55.9) Active confirmed Problem Anxiety disorder (580592550) Anxiety disorder (F41.9) Active confirmed Problem Constipation (35314051) Constipation (K59.00) Active confirmed Problem Dementia (77213953) Dementia (F03.90) Active confirmed Problem Disorder of lumbar disc (315263535) Lumbar disc disease (M51.9) Active confirmed Problem Agitation (66802298) Agitation (R45.1) Active confirmed Problem Neutropenia (941194482) Neutropenia, unspecified (D70.9) Active confirmed Problem Hypomagnesemia (994613860) Hypomagnesemia (E83.42) Active confirmed Problem Anxiety disorder (649739094) Other specified anxiety disorders (F41.8) Active confirmed Problem Insomnia disorder related to another mental disorder (89611941) Insomnia due to other mental disorder (F51.05) Active confirmed Problem Urinary hesitancy (1300835) Urinary hesitancy (R39.11) Active confirmed --- Possible prostatitis Problem Acquired hypothyroidism (475312880) Acquired hypothyroidism (E03.9) Active confirmed Problem Depression (651384328) Depression (F32.9) Active confirmed Problem Arthropathy of lumbar facet joint (606030752) Lumbar facet arthropathy (M46.96) Active confirmed Problem History of circulatory system disease (297862926) Hx of arteriosclerotic cardiovascular disease (Z86.79) Active confirmed Problem Intermittent atrial fibrillation (891439378) Intermittent atrial fibrillation (I48.0) Active confirmed Problem Dyslipidemia (578029813) Dyslipidemia (E78.5) Active confirmed Problem Protein calorie malnutrition (862425077) Protein calorie malnutrition (E46) Active confirmed Problem Chronic kidney disease stage 2 (disorder) (986534399) CKD (chronic kidney disease) stage 2, GFR 60-89 ml/min (N18.2) Active confirmed Problem Tomography - chest abnormal (674994596) Abnormal CT scan, chest (R93.89) Active confirmed Problem 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 Problem Dementia (83466841) Dementia in other diseases classified elsewhere, unspecified severity, without behavioral disturbance, psychotic disturbance, mood disturbance, and anxiety (F02.80) Active confirmed Problem Frontotemporal dementia (144876054) Other frontotemporal neurocognitive disorder (G31.09) Active confirmed Vital Signs Heart Rate 80 /min 03/30/2025 Blood pressure diastolic 70 mm Hg 03/30/2025 Height 72 in 03/30/2025 Blood pressure systolic 118 mm Hg 03/30/2025 Weight 171 lbs 03/30/2025 BMI 23.19 kg/m2 03/30/2025 Encounters Encounter Location Date Provider Diagnosis [facility] [facility] [address] [place], [place] [id number] 07/28/2024 Herson Centeno Adult general medica l examination Z00.00 ; Acquired hypothyroidism E03.9 ; ASCVD (arteriosclerotic cardiovascular disease) I25.10 ; Anxiety disorder F41.9 ; Dementia F03.90 ; Hx of arteriosclerotic cardiovascular disease Z86.79 ; Depression F32.9 and BMI 23.0-23.9, adult Z68.23 [facility] [address] [facility] [address] [place] [id number] 01/26/2025 Herson Centeno A-fib I48.91 ; Ingui nal hernia of right side without obstruction or gangrene K40.90 and BMI 22.0-22.9, adult Z68.22 [facility] [address] [place], [place] [id number] 03/30/2025 R Adriano Jacobo A-fib I48.91 ; UTI ( lower urinary tract infection) N39.0 ; Encounter for immunization Z23 and Inguinal hernia of right side without obstruction or gangrene K40.90 [facility] [address] [place], [place] [id number] 04/13/2025 R Adriano Jacobo UTI (lower urinary t ract infection) N39.0 [facility] [address] [place], [place] [id number] 03/27/2025 R Adriano Jacobo [facility] [address] [place], [place] [id number] 01/31/2025 R Adriano Jacobo [facility] [address] [place], [place] [id number] 02/06/2025 R Adriano Jacobo [facility] [address] [place], [place] [id number] 04/13/2025 R Adriano Jacobo [facility] [address] [place], [place] [id number] 04/14/2025 R Adriano Jacobo Diarrhea R19.7 Assessments Encounter Date Diagnosis (ICD Code) Assessment Notes Treatment Notes Treatment Clinical Notes Section Notes 01/26/2025 A-fib (ICD-10 - I48.91) 01/26/2025 Inguinal hernia of right side without obstruction or gangrene (ICD-10 - K40.90) 03/30/2025 UTI (lower urinary tract infection) (ICD-10 - N39.0) After completing course of cefdinir, his will drop off a urine sample to the office for retesting. 03/30/2025 A-fib (ICD-10 - I48.91) 04/14/2025 Diarrhea (ICD-10 - R19.7) 04/13/2025 UTI (lower urinary tract infection) (ICD-10 - N39.0) 07/28/2024 Acquired hypothyroidism (ICD-10 - E03.9) 07/28/2024 Adult general medical examination (ICD-10 - Z00.00) Patient instructed to return to office Annually for Annual Wellness Visits to include annual screenings of Pain assessment, Functional Ability assessment, Cognitive Ability assessment, Fall Risk assessment, Depression screening and Bladder control screening. 07/28/2024 ASCVD (arteriosclerotic cardiovascular disease) (ICD-10 - I25.10) 03/30/2025 Encounter for immunization (ICD-10 - Z23) 01/26/2025 BMI 22.0-22.9, adult (ICD-10 - Z68.22) 07/28/2024 Anxiety disorder (ICD-10 - F41.9) 07/28/2024 Dementia (ICD-10 - F03.90) 03/30/2025 Inguinal hernia of right side without obstruction or gangrene (ICD-10 - K40.90) Follow-up with Dr. Shay for surgical intervention after cardiac clearance 07/28/2024 Hx of arteriosclerotic cardiovascular disease (ICD-10 - Z86.79) 07/28/2024 Depression (ICD-10 - F32.9) 07/28/2024 BMI 23.0-23.9, adult (ICD-10 - Z68.23) Plan Of Treatment Pending Test Test Name Order Date H-Diarrhea 6-11 Panel, Cdiff PCR 025 Insurance Providers Payer Name Payer Address Payer Phone Subscriber Number Group Number Insured Name Patient Relationship to Insured Coverage Start Date Coverage End Date MEDICARE PART B [address] [address] [place] [id number] [id number] CHUCKY GODINEZ Self - patient is the insured [employer] [address] [address] [place] [id number] Plan G CHUCKY GODINEZ Self - patient is the insured Medications Administered Medication Instructions Date of Administration Dosage Notes Dexamethasone 07/19/2009 1 mL Medical (General) History Medical History History ICD Code anxiety depression ASCVD DJD of LS spine HLP Hypothyroidism Atrial fibrillation - onset 03/2019 - S/ P Cardioversion Cholelithiasis Neurodegenerative dementia Tardive dyskinesia Surgical History Surgery Date(Month/Year) CABG 1997 appendectomy electrical cardioversion for AF - Dr. Tiffany boyle 04/2019 ERCP/ [facility] 2019 Lap Kaylie/ [facility]/ Dr. Sue 08/16 Hospitalization History Reason Date(Month/Year) -Good Brayan/ Neurodegenerative dementia, Major depression, YEN 06/2022 [facility]-rehab 08/2019 [facility] - acute kaylie cystitis/ ascending cholangitis/sepsis/ encephalopathy 08/2019 [facility]-Afib 03/29/19 [facility] ER-anxiety 2009
--- OUTSIDE RECORDS SUMMARY | 2025-05-02 12:14 | XMS_ITS | Encounter Summary ---
Author Organization [facility] Address [address] [place] [address] Care Team Providers Care Skydiving Instructor Name Role Phone Skinny Centeno MD Primary Care Provider Encounter Details Date Type Department Care Team (Late st Contact Info) Description 03/15/2025 Telephone [facility] [address] [place] [address] Kyra Ghosh APRN [address] [place] [address] Social History Tobacco Use Types Packs/Day Years [...] on file documented as of this encounter Miscellaneous Notes * Telephone Encounter - Jean Panda CMA - 03/16/2025 8:19 AM EST SPOKE WITH PATIENT'S . IS AGREEABLE TO PROCEED WITH ECHO. PATIENT'S TRANSFERRED TO MORTGAGE FIELD INSPECTOR TO SEE IF THERE WERE ANY OPENINGS FOR ECHO ON THURSDAY. PATIENT'S IS CONCERNED ABOUT IMPENDING WEATHER ON THURSDAY * Telephone Encounter - Kyra Ghosh APRN - 03/15/2025 5:48 PM EST Please call and let her know he does need the echo but doesn't have to get a stress test or holter for cardiac clearance - as he is a high risk surgical candidate with or without the stress testor holter. * Telephone Encounter - Kyra Ghosh APRN - 03/15/2025 5:46 PM EST ----- Message from Farhana Ling sent at 03/15/2025 4:56 PM EST ----- Regarding: RE: CC I do not think a Lexiscan would change our management. Same thing with Holter. My only concern is that this is an elective surgery. And it sounds like he has a lot of comorbidities. So I think he is a high risk patient intrinsically but I am not sure that there is much we can do to mitigate that risk. I assume they and the surgeon feel like the surgery is necessary. I would just make sure that the family understands his dementia and risk of aspiration and postop complications.. ----- Message ----- From: Kyra Ghosh APRN Sent: 03/14/2025 1:46 PM EST To: Farhana Ling MD Subject: CC Hello, Please review this note to let me know if you want a Almaz and/or holter, med changes, etc. Cardiac Clearance for right inguinal surgery. Thanks. documented in this encounter Plan of Treatment Not on file documented as of this encounter Visit Diagnoses Not on filedocumented in this encounter Care Teams Skydiving Instructor Relationship Specialty Start Date End Date Skinny Centeno MD [facility] [place] [facility] [address] [facility] [address] [place] [address] PCP - General Family Medicine 04/13/19 documented as of this encounter
--- OUTSIDE RECORDS SUMMARY | 2025-05-02 12:14 | XMS_ITS | Clinical Summary ---
Author Organization [facility] Address [address] [place] [address] Care Team Providers Care Senior Grants Officer Name Role Phone Adriano Centeno MD Primary Care Provider [phone] Allergies Active Allergy Reactions Criticality Noted Date [...] B12 deficiency 07/04/2022 History of depression 01/09/2022 Anemia of chronic disease 01/09/2022 Hypothyroidism (acquired) 08/15/2019 Essential hypertension 08/15/2019 Coronary artery disease invo lving hop[place] coronary artery of [place] heart without angina pectoris 05/17/2019 Overview (01/09/2022): - CABG x 1 1995 DELGADO to LAD Paroxysmal atrial fibrillation 04/19/2019 Degeneration, intervertebral disc, lumbar 2014 Lumbar facet arthropathy 10/26/2014 Resolved Problems Problem Noted Date Diagnosed Date Resolved Date Unintentional weight loss 01/09/2022 Acute encephalopathy 01/09/2022 023 Hypophosphataemia 01/09/2022 06/29/2022 Overview (02/10/2022): Regulatory Update February 2022 Hypokalemia 01/09/2022 06/29/2022 SAVANNA (acute kidney injury) 01/09/2022 Protein-calorie malnutrition, moderate 01/09/2022 06/29/2022 Acute cholangitis 08/15/2019 01/09/2022 Pancreatitis 08/15/2019 01/09/2022 Sepsis 08/15/2019 01/09/2022 Ascending cholangitis 08/15/20192021 Atrial flutter 05/17/2019 07/04/2022 Overview (01/10/2022): - Diagnosis 03/2019 with RVR b. CHADSVASC- 1 -> off AC s/t to low score c. Started on Xarelto and Diltiazem d. 03/29/2019 [facility] ECHO: EF of 55%, mild MR. e. 04/28 cardioversion, successful f. 08/28 recurrent A. fib with RVR in the setting of sepsis/cholangitis - follows with Dr. Yoan Arroyo, Cardiology at [facility] Altered mental status 2022 Immunizations Immunization [...] drink first t luna in the morning (EYE-TYPE CUTTER) to steady your nerves or to get [...] Health Maintenance Due Date Last Done Comments [facility]-Medicare Annual Wellness (AWV) 1955 [facility]-Infant/Child/Adol SDOH Screenings 1955 [facility]- SDOH Screenings 1974 [facility]-Adult SDOH Screenings 1974 [facility]-DTaP,Tdap,and Td Vaccines (1 - Tdap) 08/17/1975 CT Colonography 2001 Colonoscopy 2001 FIT-DNA 2001 FIT 2001 FOBT 2001 Sigmoidoscopy 2001 [facility]-Colorectal Cancer Screening 2001 [facility]-RSV Vaccine: 60+ Years or (1 - Risk 50-74 years 1-dose series) 2006 [facility]-Zoster Vaccines (1 of 2) 2006 [facility]-Pneumococcal Vaccine: 50+ Years (2 of 2 - PCV) 03/31/2020 03/31/2019 [facility]-Depression Screening 08/21/2023 08/20/2022 [facility]-PCYNE-88 Vaccine (4 - 2024- season) 2025 04/10/2021, 06/18/2020, 05/18/2020 [facility]-Influenza Vaccine (#1) 01/09/202503/13, 03/09/2021, 01/13/2020, Additional history exists [facility]-Hepatitis C Screening Completed 01/09/2022 HPV Vaccines (No Doses Required) Completed [facility]-HIB Vaccines Aged Out No longer e [...] Antibody Negative Negative 01/09/2022 9:33 PM EDT [facility] Blood Venous blood specimen / Unknown Venipuncture / Unknown 01/09/2022 5:47 PM EDT 01/09/2022 5:52 PM EDT [facility] BLOOD ORDERABLES Final Resul t [facility] [address] [place] [phone] from Last 3 Months or Most Recently [...] PM 01/09/2022 8:31 PM Spoke with wif donavon and confirmed Full Code Status Question Answer Comments Patient has decision-making capacity? No Healthcare Surrogate: Spouse Name of Healthcare Surrogate: Yamini Maguire Care Teams Senior Grants Officer Relationship Specialty Start Date End Date Adriano Centeno MD [facility] [address] PCP - General 09/21/20
--- OUTSIDE RECORDS SUMMARY | 2025-05-02 12:14 | XMS_ITS | Encounter Summary ---
Author Organization [facility] Address [address] [place] [address] Care Team Providers Care Powder Loader Name Role Phone Adriano Centeno MD Primary Care Provider [phone] Reason for Visit * Reason Comments Med Refill Encounter Details Date Type Department Care Team (Late st Contact Info) Description 04/04/2024 Refill Mini [facility] [address] [place] [id number] Skinny Narvaez MD [address] [facility] [address] [place] [address] Frontotemporal dementia (CMS/HCC) Social History [...] drink first t luna in the morning (EYE-ACUPRESSURIST) to steady your nerves or to get [...] documented as of this encounter Care Teams Powder Loader Relationship Specialty Start Date End Date Adriano Centeno MD [facility] [address] PCP - General 09/21/20 documented as of this encounter
--- OUTSIDE RECORDS SUMMARY | 2025-05-02 12:14 | XMS_ITS | Clinical Summary ---
Author Organization [facility] Address [address] [place] [address] Care Team Providers Care Product Scientist Name Role Phone Skinny Centeno MD Primary Care Provider Allergies Active Allergy Reactions Criticality Noted Date Comments Erythromycin Itching 08/17/2019 Gabapentin Other (See Comments) Low 01/10/2022 Shuts brain down Lurasidone Other (See Comments) Low 01/10/2022 Parkinsonism like reactions Quetiapine Unknown (See Comments) Low 10/26/2014 Shuts brain down Sertraline Unknown (See Comments) Low 10/26/2014 Medications levothyroxine (SYNTHROID, LEVOTHROID) 50 MCG tablet Take 50 mcg by mouth Daily. Active mirtazapine (REMERON MARINO-TAB) [address] 1 tablet on the tongue Every Night. 08/24/19 Active Additional Information Patient taking differently: 45 mgTranslingual Nightly, Reported on 03/14/2025 docusate sodium 100 MG capsule Take 100 mg by mouth 2 (Two) Times a Day. 08/24/19 Active Additional Information Patient taking differently:100 mg OralDaily, Reported on 03/14/2025 OLANZapine (zyPREXA) 10 MG tablet Take 10 mg by mouth 2 (two) times a day. 02/07/20 Active aspirin 81 MG EC tablet Take 81 mg by mouth Daily. Active sertraline (ZOLOFT) 20 MG/ML concentrated solution Take 12.5 mg by mouth Daily. Active Active Problems Problem Noted Date Diagnosed Date Frontotemporal dementia 03/14/2025 B12 deficiency 07/04/2022 YEN (generalized anxiety disorder) 07/04/2022 Anemia of chronic disease 01/09/2022 History of depression 01/09/2022 Essential hypertension 08/15/2019 Hypothyroidism (acquired) 08/15/2019 Acute cholangitis with sepsis 08/15/2019 Pancreatitis 08/15/2019 Elevated liver enzymes 08/15/2019 Ascending cholangitis 08/15/2019 Sepsis 08/15/2019 Coronary artery disease invo lving belkofski coronary artery of belkofski heart without angina pectoris 05/17/2019 Typical atrial flutter 05/17/2019 Atrial fibrillation 04/19/2019 Lumbar facet arthropathy 10/26/2014 Encounters Date Type Department Care Team Description 03/31/2025 Telephone [facility] CARDIOLOGY [address] [place] [address] Kyra Ghosh APRN EXT MED REC NOTIF 03/29/2025 [facility] [place] [address] Kyra Ghosh APRN [employer]UMN BROOKE SCHNEIDER, APRN RESULTS/ CLEARANCE 03/29/2025 Telephone [facility] CARDIOLOGY [address] [place] [address] Kyra Ghosh APRN 03/24/2025 2:30 PM EST Ancillary Procedure [facility] CARDIOLOGY [address] [place] [id number] Atrial fibrillation, unspecified type; Coronary artery disease involving belkofski coronary artery of belkofski heart without angina pectoris; Typical atrial flutter; Essential hypertension; Pre-operative cardiovascular examination 03/24/2025 Travel 03/20/2025 [facility] CARDIOLOGY [address] [place] [address] Kyra Ghosh APRN Schneider, Autumn Brooke, APRN- UNABLE TO WT 03/15/2025 Telephone [facility] CARDIOLOGY [address] [place] [address] Kyra Ghosh APRN 03/14/2025 12:30 PM EST Office Visit [facility] CARDIOLOGY [address] [place] [address] Kyra Ghosh APRN Atrial fibrillation, unspecified type (Primary Dx); Coronary artery disease involving belkofski coronary artery of belkofski heart without angina pectoris; Typical atrial flutter; Essential hypertension; Pre-operative cardiovascular examination; Frontotemporal dementia 03/14/2025 Travel from Last 3 Months Immunizations Immunization Administration Dates Next Due 31-influenza Vac Quardvalent Preservativ 01/13/2020,02/24/2019,02/25/2018,02/06 Fluad Quad 65+ 03/13/2023 Influenza Seasonal Injectable 03/09/2021 Pneumococcal Polysaccharide (PPSV23) 03/31/2019 Family History Medical History Relation Name [...] Pressure 105/75 03/24/2025 2:25 PM EST Pulse 70 03/14/2025 12:27 PM EST Temperature 36.9 C (98.5 F) 08/24/2019 7:05 AM EDT Respiratory Rate 18 08/24/2019 7:05 AM EDT Oxygen Saturation 98% 03/14/2025 12:27 PM EST Inhaled Oxygen Concentration - - Weight 77.6 kg (171 lb) 03/24/2025 2:25 PM EST Height 182.9 cm (6') 03/24/2025 2:25 PM EST Body Mass Index 23.19 03/24/2025 2:25 PM EST Plan of Treatment Health Maintenance Due Date Last Done Comments TDAP/TD VACCINES (1 - Tdap) 08/17/1975 COLOGUARD 2001 COLON CANCER SCREENING 5 YEA R SIGMOIDOSCOPY 2001 CT COLONOGRAPHY 2001 FECAL OCCULT BLOOD TEST 2001 FIT Testing (1 year) 2001 ZOSTER VACCINE (1 of 2) 2006 ANNUAL WELLNESS VISIT 04/13/2019 Pneumococcal Vaccine 50+ (2 of 2 - PCV) 03/31/2020 03/31/2019 COVID-19 Vaccine (3 - Modern a risk series) 05/08/2021 04/10/2021, 06/18/2020, 05/18/2020 INFLUENZA VACCINE 12/09/2024 03/13/2023, , 01/13/2020, Additional history exists COLONOSCOPY 04/01/2031 04/01/2021 COLORECTAL CANCER SCREENING 04/01/2031 HEPATITIS C SCREENING Completed 01/09/2022 Procedures Procedure Name Priority Date/Time Associated Diagnosis Comments ECHO COMPLETE W/ DOPPLER AND COLOR FLOW Routine 03/24/2025 3:16 PM EST Atrial fibrillation, unspecified type Coronary artery disease involving belkofski coronary artery of belkofski heart without angina pectoris Typical atrial flutter Essential hypertension Pre-operative cardiovascular examination ECG 12-LEAD Routine 03/14/2025 1:42 PM EST Atrial fibrillation, unspecified type Coronary artery disease involving belkofski coronary artery of belkofski heart without angina pectoris Typical atrial flutter Essential hypertension Pre-operative cardiovascular examination SCANNED - COLONOSCOPY 04/01/2021 from Last 3 Months or Most Recently Relevant to Health Maintenance Results * ECHO COMPLETE W/ DOPPLER AND [...] Diagnosis Atrial fibrillation Coronary artery disease involving belkofski coronary artery of belkofski heartwithout angina pectoris Typical atrial flutter Essential [...] 12 Lead 2. Coronary artery disease involving belkofski coronary artery of nativeheart without angina pectoris [...] After testing for CC. Patient or patient outbound call center representative verbalized consent for the use ofAmbient Listening during the visit with Kyra Ghosh APRN forchart documentation. 03/14/2025 13:42 EST Kyra Ghosh APRN 03/14/2025 Please note that this explicitly excludes time spent on other separatebillable services such as performing procedures or test interpretation,when applicable. This note was created using dictation software whichoccasionally transcribes nonsensical phrases. Please contact the providerif any clarification is needed. us Kyra Ghosh APRN ECG ORDERABLES Farhad bj Result - Final ECG * SCANNED - COLONOSCOPY (04/01/2021) Handy Ramirez MD CHART REVIEW T ABS Final Result from Last 3 Months or Most Recently Relevant to Health Maintenance Insurance MEDICARE A & B Member Subscriber Plan / Payer (Ef fective 2021-Present) Name:Willy Maguire Member ID:[id number] Relation to Subscriber:Self Name:Willy Maguire Subscriber ID:[id number] Payer ID:[id number] Group ID:Not on file Type:Not on file Address: [address] [place] [address] Advance Directives Documents on File Type Date Recorded Patient Hybrid Derivatives Trader Expl anation POWER OF DIRECTOR FRAUD - SCAN 03/24/2025 2:19 PM DIANA JOHNSON, 024 * CPR (Attempt to Resuscitate) (Latest Code Status on File) Date Activated Date Inactivated Comments 08/15/2019 8:44 PM 08/24/2019 1:46 PM Question Answer Comments Code Status (Patient has no pulse and is not breathing): CPR (Attempt to Resuscitate) Medical Interventions (Patie nt has pulse or is breathing): Full Level Of Support Discussed With: Patient Care Teams Product Scientist Relationship Specialty Start Date End Date Skinny Centeno MD [address] [place] [address] [facility] [address] [place] [address] PCP - General Family Medicine 04/13/19
--- OUTSIDE RECORDS SUMMARY | 2025-05-02 12:14 | XMS_ITS | Encounter Summary ---
Author Organization [facility] Address [address] [place] [address] Care Team Providers Care Shingle Weaver Name Role Phone Skinny Centeno MD Primary Care Provider Encounter Details Date Type Department Care Team (Latest Contact Info) Description 03/24/2025 Travel Social History Tobacco Use Types Packs/Day Years [...] on filedocumented in this encounter Care Teams Shingle Weaver Relationship Specialty Start Date End Date Skinny Centeno MD [address] [place] [facility] [address] [facility] [address] [place] [address] PCP - General Family Medicine 04/13/19 documented as of this encounter
--- OUTSIDE RECORDS SUMMARY | 2025-05-02 12:14 | XMS_ITS | Encounter Summary ---
Author Organization [facility] Address [address] [place] [address] Care Team Providers Care Research Soil Scientist Name Role Phone Skinny Centeno MD Primary Care Provider Reason for Visit * Reason Onset Date Comments Kyra Ghosh APRN- UNABLE TO WT 02/2025 Encounter Details Date Type Department Care Team (Late st Contact Info) Description 03/20/2025 Telephone [facility] CARDIOLOGY [address] [place] [address] Kyra Ghosh APRN [address] [place] [address] Kyra Ghosh APRN- UNABLE TO WT Social History Tobacco Use Types Packs/Day Years [...] encounter Miscellaneous Notes * Telephone Encounter - Taylor Martinez RegSched Rep - 03/20/2025 8:04 AM EST Hub staff attempted to follow warm transfer process and was unsuccessful Caller: CATIE GODINEZ NOT ON VER Relationship to patient: Emergency Contact Best call back number: [phone] OR [phone] Patient is needing: PT IS WANTED TO RESCHD THE ECHO TODAY DUE TO THE WEATHER- PLEASE ADVISE. CALLERKNEW DATE TIME AND WHAT THE APPT WAS FOR BUT NO ON VERB PLEASE DON'T RESCHD APPT UNTIL SPEAKING WITH CALLER, WILL TRY TO MAKE APPT TODAY IF THERE ARE NO APPTS FOR THURSDAY documented in this encounter Plan of Treatment Not on file documented as of this encounter Visit Diagnoses Not on filedocumented in this encounter Care Teams Research Soil Scientist Relationship Specialty Start Date End Date Skinny Centeno MD [address] [place] [address] [place] [address] [place] [address] PCP - General Family Medicine 04/13/19 documented as of this encounter
--- OUTSIDE RECORDS SUMMARY | 2025-05-02 12:15 | XMS_ITS | Encounter Summary ---
Author Organization [facility] Address [address] [place] [address] Care Team Providers Care Trademark Attorney Name Role Phone Skinny Centeno MD Primary Care Provider Encounter Details Date Type Department Care Team (Latest Contact Info) Description 03/14/2025 Travel Social History Tobacco Use Types Packs/Day [...] on filedocumented in this encounter Care Teams Trademark Attorney Relationship Specialty Start Date End Date Skinny Centeno MD [address] [place] [facility] [address] [facility] [address] [place] [address] PCP - General Family Medicine 04/13/19 documented as of this encounter
--- OUTSIDE RECORDS SUMMARY | 2025-05-02 12:15 | XMS_ITS | Encounter Summary ---
Author Organization [facility] Address [address] [place] [address] Care Team Providers Care Underwriting Analyst Name Role Phone Skinny Centeno MD Primary Care Provider Encounter Details Date Type Department Care Team (Late st Contact Info) Description 03/29/2025 Telephone [facility] CARDIOLOGY [address] [place] [address] Kyra Ghosh APRN [address] [place] [address] Social History Tobacco Use Types [...] encounter Miscellaneous Notes * Telephone Encounter - Sana Hurd MA - 04/03/2025 11:12 AM EST Catie, on verbal, notified and verbalized understanding. * Telephone Encounter - Sana Hurd MA - 03/31/2025 10:35 AM EST Catie, on verbal, called back. She would like to know what puts him at such high risk. * Telephone Encounter - Sana Hurd MA - 03/31/2025 10:17 AM EST Letter faxed to Dr. Shay. * Telephone Encounter - Sana Hurd MA - 03/31/2025 10:12 AM EST Left message for pt to call back. * Telephone Encounter - Farhana Ling MD - 03/30/2025 4:36 PM EST I would mention in the letter to that the patient is a high risk, from an overall morbidity and mortality standpoint but that there is little that can be done preoperatively to mitigate that risk. In terms of the risk and benefit of surgery and anesthesia itself we will leave that to the providers of care. Also that I recommend this be done in a center with interventional cardiology capabilities. [facility] would satisfy that. I would also say the same thing above to his . Sending letter to Dr. Shay from [facility], please call . Thanks. * Telephone Encounter - Gardenia Staley RN - 03/30/2025 10:11 AM EST Called pt's to discuss Echo findings. Pt's verbalizes understanding. She has questions regarding cardiac clearance. . REQUEST FOR CARDIAC CLEARANCE Caller name: Willy Godinez; pt has frontal lobe dementia and answers all questions. Surgeon's name: Dr.Charles Shay Type of planned surgery: Rt inguinal herniorrhaphy @ [facility] Date of planned surgery: to be determined. Type of anesthesia: general Have you been experiencing chest pain or shortness of breath? denies Is your doctor requesting for you to stop any of your medications prior to your surgery? unknown Where should we fax the clearance to? [phone] Any new symptoms since last OV? UTI and admitted to [facility] last Thursday;discharged Thursday Any worsening of edema or worsening palpitations? denies Any major medical issues since last OV , ER VISITS, we need to know? UTI as above Is the patient on Eliquis, xarelto, pradaxa, Coumadin/Warfarin? denies Is the patient on aspirin? Aspirin 81mg daily Is the patient on brilinta (ticagrelor), plavix (clopidogrel), prasugrel (effient)? denies Is the patient on medications like mounjaro or ozempic? denies Last EKG? 03/14/25 Last stress test? To be determined Last echo? 03/24/25 Last heart cath or CCTA? N/a Last OV? 03/14/25; no follow up scheduled. Do you have a history of RASHI? denies If RASHI, are you following your treatment plan, wearing CPAP/BIPAP? Please advise patient that a provider must review the above information and their chart to determine if procedure is safe. If this is an urgent procedure please notify providers jason and document. * Telephone Encounter - Kalee Carrera RegSched Rep - 03/30/2025 8:41 AM EST . Caller: CATIE GODINEZ Relationship: Emergency Contact Best call back number:[phone] OR [phone] What is the best time to reach you: ANYTIME Who are you requesting to speak with (clinical staff, provider, specific staff member): CLINICAL Do you know the name of the person who called: [place] What was the call regarding: PT IS RETURNING CALL ABOUT RESULTS. PLEASE ADVISE PT * Telephone Encounter - Farhana Ling MD - 03/29/2025 4:29 PM EST Nothing serious. Ejection fraction is normal, this measures heart squeeze. His valve is mildly leaky. Something to watch but nothing that needs correction right now. He has some age-related changes of his heart. But all in all very good for his age. * Telephone Encounter - Jean Panda CMA - 03/29/2025 1:09 PM EST PATIENT AND PATIENT'S REQUESTING ECHO RESULTS. PLEASE ADVISE * Telephone Encounter - Lexy Troy RegSched Rep - 03/29/2025 12:15 PM EST PT'S LEFT A REQUESTING A CALL BACK REGARDING ECHO TEST RESULTS, THE RESULTS HAVE NOT BEEN GIVEN TO THE PT. THERE IS NO BH VERBAL ON FILE, BUT PT IS AT HOME FOR CALL BACK. THANK YOU. documented in this encounter Plan of Treatment Not on file documented as of this encounter Visit Diagnoses Not on filedocumented in this encounter Care Teams Underwriting Analyst Relationship Specialty Start Date End Date Skinny Centeno MD [address] [place] [facility] [address] [place] [address] [place] [address] PCP - General Family Medicine 04/13/19 documented as of this encounter
--- OUTSIDE RECORDS SUMMARY | 2025-05-02 12:15 | XMS_ITS | Encounter Summary ---
Author Organization [facility] Address [address] [place] [address] Care Team Providers Care Flat Clothier Name Role Phone Skinny Centeno MD Primary Care Provider Reason for Visit * Reason Onset Date Comments EXT MED REC NOTIF 03/31/2025 Encounter Details Date Type Department Care Team (Late st Contact Info) Description 03/31/2025 Telephone [facility] CARDIOLOGY [address] [place] [address] Kyra Ghosh APRN [address] [place], [place] [id number] EXT MED REC NOTIF Social History Tobacco Use Types Packs/Day Years [...] encounter Miscellaneous Notes * Telephone Encounter - Heladio Nix - 03/31/2025 11:33 AM EST Images from the original note were not included. The [facility] received a fax that requires your attention. The document has been indexed to the patient???s chart for your review. Reason for sending: EXTERNAL MEDICAL RECORD NOTIFICATION Documents Description: CARDIAC CLEARANCE MEANT FOR DR. KELLY BOX RECEIVED IN [employer]BASE. FAX NUMBER [phone] LANDS BACK INTO [employer] [facility], PLEASE FAX DIRECTLY TO DR. KELLY BOX'S OFFICE Name of Sender: OFFICE documented in this encounter Plan of Treatment Not on file documented as of this encounter Visit Diagnoses Not on filedocumented in this encounter Care Teams Flat Clothier Relationship Specialty Start Date End Date Skinny Centeno MD [address] [place] [address] [place] [address] [place] [address] PCP - General Family Medicine 04/13/19 documented as of this encounter
--- OUTSIDE RECORDS SUMMARY | 2025-05-02 12:15 | XMS_ITS | Encounter Summary ---
Author Organization [facility] Address [address] [place] [address] Care Team Providers Care Personal Care Service Provider Name Role Phone Skinny Centeno MD Primary Care Provider Reason for Visit * Reason Onset Date Comments KAYLYN GHOSH APRN RESULTS/ CLEARANCE 03/29/2025 Encounter Details Date Type Department Care Team (Late st Contact Info) Description 03/29/2025 Telephone [facility] CARDIOLOGY [address] [place] [address] Kaylyn Ghosh APRN [address] [place] [address] KAYLYN GHOSH APRN RESULTS/ CLEARANCE Social History Tobacco Use Types Packs/Day Years [...] Encounter - Jean Panda CMA - 03/29/2025 3:29 PM EST DUPLICATE MESSAGE * Telephone Encounter - Tomeka Brody RegSched Rep - 03/29/2025 3:22 PM EST Caller: HERBERTCATIE Relationship: Emergency Contact Best call back number: [phone] Caller requesting test results: CATIE GODINEZ What test was performed: ECHO When was the test performed: 03.24.25 Where was the test performed: IN OFFICE Additional notes: PATIENT , CATIE GODINEZ IS CHECKING ON STATUS OF GETTING ECHO RESULTS WELL CARDIAC CLEARANCE FOR PATIENT. PATIENT HAS APPOINTMENT WITH DR. CENTENO TOMORROW AND WOULD LIKE TO HAVE RESULT TO SHARED WITH HIM OR HAVE THE FAXED OVER TO DR. CENTENO PHONE [phone] documented in this encounter Plan of Treatment Not on file documented as of this encounter Visit Diagnoses Not on filedocumented in this encounter Care Teams Personal Care Service Provider Relationship Specialty Start Date End Date Skinny Centeno MD [address] [place] [facility] [address] [place] [address] PCP - General Family Medicine 04/13/19 documented as of this encounter
[2025-05-02 13:24] LABS: Hematocrit 40.0 % (42.0-52.0); Hemoglobin 13.0 g/dL (14.1-18.0); Immature Granulocytes % 0.3 %; Mean Corpuscular HGB Conc 32.5 g/dL (31.8-35.4); Mean Corpuscular Hemoglobin 30.7 pg (27.0-31.2); Mean Corpuscular Volume 94.6 fl (80-94); Nucleated Red Blood Cells % 0 %; Platelet Count 152 K/mm3 (142-424); Red Blood Count 4.23 M/mm3 (4.60-6.20); Red Cell Distribution Width-SD 51.8 fL; White Blood Count 6.5 K/mm3 (4.8-10.8)
[2025-05-02 13:36] LABS: Chloride 108 mmol/L (98-107); Potassium 4.1 mmoL/L (3.5-5.1); Sodium 141 mmol/L (136-145)
[2025-05-02 13:39] LABS: Anion Gap 13.1 mEq/L (5-15); Blood Urea Nitrogen 15 mg/dl (9-20); Calcium 9.6 mg/dl (8.4-10.2); Carbon Dioxide 24 mmol/L (22.0-30.0); Creatinine Clearance Estimated 55 mL/min (50-200); Creatinine,Serum 1.40 mg/dl (0.66-1.25); Estimated Glomerular Filt Rate 50 ml/min (>60); GFR (African American) 61 ML/MIN (>60); Glucose 107 mg/dl (74-100)
[2025-05-02 13:48] LABS: Microscopic, Urine URINE MICROSCOPIC (MICROSCOPIC)
[2025-05-02 13:52] LABS: Bilirubin,Urine Negative (Negative); Color,Urine YELLOW (Yellow); Glucose,Urine (UA) Negative (Negative); Ketones,Urine Negative (Negative); Leukocyte Esterase,Urine Negative (Negative); PH,Urine 6.0 (5.0-8.5); Protein,Urine TRACE (Negative); Specific Gravity, Urine 1.015 (1.005-1.030); Urobilinogen,Urine 0.2 EU/dl (0.2)
[2025-05-02 14:14] LABS: Bacteria,Urine Trace /lpf
== END 2025-05-02 23:59 | disposition home or self-care (01) ==
LOC: PREOP 12:11
PROVIDERS: PCP Family Medicine; Visit Provider Surgery
DX: Z01.818 Encounter for other preprocedural examination (principal)
CPT/HCPCS: 80048; 81001; 85025